=== PATIENT | male | born 1955 | race Caucasian/White ===

== ENCOUNTER → 2022-09-11 | Outpatient (CLI) | payer BC, SELFPAY ==
[2022-09-11 08:42] LABS: Bacteria 0 SEEN /hpf (None Seen); Mucous, Urine 0 SEEN /hpf (<or=2+); Red Blood Cells-Urine 0 SEEN /hpf (0-5); Squamous Epithelial Cells - UA 0 SEEN /hpf (0-5); White Blood Cells 0 SEEN /hpf (0-5)
[2022-09-11 10:08] LABS: Absolute Lymphocyte Count 1.91 X10^3/uL (0.83-4.51); Absolute Neutrophil Count 3.2 X10^3/uL (2.0-7.7); Basophil# 0.03 X10^3/uL; Basophil% 0.5 % (0-1); Eosinophil# 0.18 X10^3/uL; Eosinophils% 3.1 % (0-5); Hematocrit 50.1 % (40-54); Hemoglobin 16.5 g/dL (13.0-16.5); Lymphocyte # 1.91 X10^3/ul (0.83-4.51); Lymphocyte % 33.1 % (19-41); Mean Corp Hgb Conc 32.9 g/dL (32-36); Mean Platelet Vol. 10.5 fl (6.2-12.0); Monocyte# 0.38 X10^3/uL; Monocyte% 6.6 % (0-10); NRBC Flagged by Analyzer 0 % (0-5); Neutrophil # 3.24 X10^3/uL (2.7-7.7); Neutrophil % 56.2 % (47-70); Platelet Count 257 K/mm3 (150-450); RBC Distribution Width CV 11.9 % (11.6-14.6); RBC Distribution Width SD 41.2 fl (35.1-43.9); Red Blood Count 5.33 M/mm3 (4.6-6.2); White Blood Count 5.8 K/mm3 (4.4-11.0)
[2022-09-11 10:10] LABS: Color, Urine Yellow (Yellow); Glucose, Dipstick 1000 mg/dl (Normal); Ketone-Dipstick Negative (Negative); Leukocyte Esterase-Dipstick Negative /ul (Negative); Nitrite-Dipstick Negative (Negative); Occult Blood-Urine Negative /ul (Negative); Protein-Dipstick Negative (Negative); Urine Bilirubin Dipstick Negative (Negative); Urine Clarity Clear (Clear); Urine Urobilinogen Normal (Normal)
[2022-09-11 10:46] LABS: AST(SGOT) 15 U/L (15-37); Alanine Aminotransfer ALT/SGPT 21 U/L (16-61); Albumin, Serum 3.6 g/dL (3.2-5.0); Alkaline Phosphatase 124 U/L (45-117); Anion Gap 6 (5-15); BUN 11 mg/dL (7-18); BUN/Creat Ratio 10.8 RATIO (10-20); Calcium,Total 9.2 mg/dL (8.5-10.1); Chloride 102 mmol/L (98-107); Cholesterol 192 mg/dL (200); Creatinine, Serum 1.02 mg/dL (0.70-1.30); EST Glomerular Filtration Rate 77 mL/min (>60); Est Glom Filt Rate - Afr Amer 93 mL/min (>60); Globulin 3.7 g/dL (2.2-4.2); Glucose 531 mg/dL (74-106); High Density Lipoprotein 41 mg/dL; Magnesium 2.2 mg/dL (1.6-2.6); Potassium 4.4 mmol/L (3.5-5.1); Protein, Total 7.3 g/dL (6.4-8.2); Sodium Level 135 mmol/L (136-145); Thyroid Stim Hormone (TSH) 0.96 uIU/mL (0.358-3.74); Triglycerides 138 mg/dL; Very Low Density Lipoprotein 28 mg/dL (5-40)
[2022-09-11 12:37] LABS: Hemoglobin A1c 11.3 % (3.8-5.6)
== END | disposition home or self-care (01) ==
LOC: MFPLAB 08:39
PROVIDERS: PCP Family Medicine; Referring Provider Family Medicine; Visit Provider Family Medicine
DX: R03.0 Elevated blood-pressure reading, without diagnosis of hypertension (principal); K21.9 Gastro-esophageal reflux disease without esophagitis
CPT/HCPCS: 36415; 80053; 80061; 81001; 83036; 83735; 84443; 85025

== ENCOUNTER → 2022-09-23 | Outpatient (CLI) | payer BC, SELFPAY | END | disposition home or self-care (01) | PROVIDERS: PCP Family Medicine; Referring Provider Family Medicine; Visit Provider Family Medicine | DX: E11.9 Type 2 diabetes mellitus without complications (principal) | CPT/HCPCS: 36415 ==

== ENCOUNTER → 2022-12-16 | Outpatient (CLI) | payer BC, SELFPAY ==
[2022-12-16 09:47] LABS: Absolute Lymphocyte Count 2.09 X10^3/uL (0.83-4.51); Absolute Neutrophil Count 3.5 X10^3/uL (2.0-7.7); Basophil# 0.02 X10^3/uL; Basophil% 0.3 % (0-1); Eosinophil# 0.17 X10^3/uL; Eosinophils% 2.7 % (0-5); Hematocrit 48.2 % (40-54); Hemoglobin 16.2 g/dL (13.0-16.5); Lymphocyte # 2.09 X10^3/ul (0.83-4.51); Lymphocyte % 33.1 % (19-41); Mean Corp Hgb Conc 33.6 g/dL (32-36); Mean Corpuscular Volume 92.3 fL (80-94); Mean Platelet Vol. 9.8 fl (6.2-12.0); Monocyte# 0.55 X10^3/uL; Monocyte% 8.7 % (0-10); NRBC Flagged by Analyzer 0 % (0-5); Neutrophil # 3.46 X10^3/uL (2.7-7.7); Neutrophil % 54.9 % (47-70); Platelet Count 284 K/mm3 (150-450); RBC Distribution Width CV 12.4 % (11.6-14.6); RBC Distribution Width SD 42.3 fl (35.1-43.9); Red Blood Count 5.22 M/mm3 (4.6-6.2); White Blood Count 6.3 K/mm3 (4.4-11.0)
[2022-12-16 10:22] LABS: Microalbumin,Random Urine 18.5 mg/L (NO RANGE EST.); Microalbumin:Creatinine Ratio 10.2 mg/g CRE (<30 mg/g CRE)
[2022-12-16 10:29] LABS: ALB/GLOB Ratio 1.1 RATIO (0.9-2.4); AST(SGOT) 21 U/L (15-37); Alanine Aminotransfer ALT/SGPT 31 U/L (16-61); Albumin, Serum 3.7 g/dL (3.2-5.0); Alkaline Phosphatase 84 U/L (45-117); Anion Gap 7 (5-15); BUN 11 mg/dL (7-18); BUN/Creat Ratio 12.2 RATIO (10-20); Chloride 106 mmol/L (98-107); Cholesterol 104 mg/dL (200); EST Glomerular Filtration Rate 89 mL/min (>60); Est Glom Filt Rate - Afr Amer 107 mL/min (>60); Globulin 3.5 g/dL (2.2-4.2); Glucose 186 mg/dL (74-106); High Density Lipoprotein 47 mg/dL; PSA,Total - Annual Screen 5.48 ng/mL (0.00-4.00); Potassium 3.9 mmol/L (3.5-5.1); Protein, Total 7.2 g/dL (6.4-8.2); Sodium Level 141 mmol/L (136-145); Triglycerides 84 mg/dL; Very Low Density Lipoprotein 17 mg/dL (5-40)
== END | disposition home or self-care (01) ==
LOC: MFPLAB 09:07
PROVIDERS: PCP Family Medicine; Referring Provider Family Medicine; Visit Provider Family Medicine
DX: E11.9 Type 2 diabetes mellitus without complications (principal); Z12.5 Encounter for screening for malignant neoplasm of prostate
CPT/HCPCS: 36415; 80053; 80061; 82043; 82570; 83036; 84153; 85025; G0103

== ENCOUNTER → 2023-03-17 | Outpatient (CLI) | payer BC, SELFPAY ==
[2023-03-17 10:14] LABS: Absolute Lymphocyte Count 1.82 X10^3/uL (0.83-4.51); Absolute Neutrophil Count 3.3 X10^3/uL (2.0-7.7); Basophil# 0.03 X10^3/uL; Basophil% 0.5 % (0-1); Eosinophils% 3.4 % (0-5); Hematocrit 47.6 % (40-54); Lymphocyte # 1.82 X10^3/ul (0.83-4.51); Lymphocyte % 30.6 % (19-41); Mean Corp Hgb Conc 33.6 g/dL (32-36); Mean Corpuscular Hgb 30.9 pg (27.0-32.0); Mean Corpuscular Volume 92.1 fL (80-94); Mean Platelet Vol. 10.2 fl (6.2-12.0); Monocyte# 0.54 X10^3/uL; Monocyte% 9.1 % (0-10); NRBC Flagged by Analyzer 0 % (0-5); Neutrophil # 3.34 X10^3/uL (2.7-7.7); Neutrophil % 56.1 % (47-70); Platelet Count 280 K/mm3 (150-450); RBC Distribution Width CV 12.3 % (11.6-14.6); Red Blood Count 5.17 M/mm3 (4.6-6.2)
[2023-03-17 10:55] LABS: AST(SGOT) 21 U/L (15-37); Alanine Aminotransfer ALT/SGPT 34 U/L (16-61); Albumin, Serum 3.6 g/dL (3.2-5.0); Alkaline Phosphatase 79 U/L (45-117); Anion Gap 7 (5-15); BUN 14 mg/dL (7-18); BUN/Creat Ratio 15.3 RATIO (10-20); Chloride 107 mmol/L (98-107); Cholesterol 89 mg/dL (200); Creatinine, Serum 0.91 mg/dL (0.70-1.30); EST Glomerular Filtration Rate 87 mL/min (>60); Est Glom Filt Rate - Afr Amer 106 mL/min (>60); Globulin 3.7 g/dL (2.2-4.2); Glucose 164 mg/dL (74-106); High Density Lipoprotein 45 mg/dL; Protein, Total 7.3 g/dL (6.4-8.2); Sodium Level 141 mmol/L (136-145); Triglycerides 36 mg/dL; Very Low Density Lipoprotein 7 mg/dL (5-40)
[2023-03-17 11:02] LABS: Microalbumin,Random Urine 23.6 mg/L (NO RANGE EST.); Microalbumin:Creatinine Ratio 10.5 mg/g CRE (<30 mg/g CRE)
[2023-03-17 21:10] LABS: Hemoglobin A1c 6.7 % (3.8-5.6)
== END | disposition home or self-care (01) ==
LOC: MFPLAB 08:34
PROVIDERS: PCP Family Medicine; Visit Provider Family Medicine
DX: E11.9 Type 2 diabetes mellitus without complications (principal)
CPT/HCPCS: 36415; 80053; 80061; 82043; 82570; 83036; 85025

== ENCOUNTER → 2023-04-03 | Outpatient (CLI) | payer BC, SELFPAY ==
[2023-04-03 11:36] LABS: Anion Gap 7 (5-15); BUN 10 mg/dL (7-18); BUN/Creat Ratio 11.5 RATIO (10-20); Calcium,Total 9.5 mg/dL (8.5-10.1); Chloride 107 mmol/L (98-107); Creatinine, Serum 0.87 mg/dL (0.70-1.30); EST Glomerular Filtration Rate 92 mL/min (>60); Est Glom Filt Rate - Afr Amer 111 mL/min (>60); Glucose 116 mg/dL (74-106); Sodium Level 139 mmol/L (136-145)
== END | disposition home or self-care (01) ==
LOC: MFPLAB 09:00
PROVIDERS: PCP Family Medicine; Visit Provider Family Medicine
DX: E11.59 Type 2 diabetes mellitus with other circulatory complications (principal)
CPT/HCPCS: 36415; 80048

== ENCOUNTER → 2023-06-11 | Outpatient (CLI) | payer BC, SELFPAY ==
[2023-06-11 10:44] LABS: Absolute Lymphocyte Count 2.26 X10^3/uL (0.83-4.51); Absolute Neutrophil Count 3.9 X10^3/uL (2.0-7.7); Basophil# 0.02 X10^3/uL; Basophil% 0.3 % (0-1); Eosinophil# 0.14 X10^3/uL; Eosinophils% 2.1 % (0-5); Hematocrit 49.9 % (40-54); Hemoglobin 16.6 g/dL (13.0-16.5); Lymphocyte # 2.26 X10^3/ul (0.83-4.51); Lymphocyte % 33.1 % (19-41); Mean Corp Hgb Conc 33.3 g/dL (32-36); Mean Corpuscular Volume 93.1 fL (80-94); Mean Platelet Vol. 10.3 fl (6.2-12.0); Monocyte# 0.51 X10^3/uL; Monocyte% 7.5 % (0-10); NRBC Flagged by Analyzer 0 % (0-5); Neutrophil # 3.87 X10^3/uL (2.7-7.7); Neutrophil % 56.7 % (47-70); Platelet Count 280 K/mm3 (150-450); RBC Distribution Width CV 12.1 % (11.6-14.6); RBC Distribution Width SD 41.4 fl (35.1-43.9); Red Blood Count 5.36 M/mm3 (4.6-6.2); White Blood Count 6.8 K/mm3 (4.4-11.0)
[2023-06-11 11:07] LABS: Hemoglobin A1c 6.6 % (3.8-5.6)
[2023-06-11 11:16] LABS: ALB/GLOB Ratio 1.1 RATIO (0.9-2.4); AST(SGOT) 14 U/L (15-37); Alanine Aminotransfer ALT/SGPT 31 U/L (16-61); Albumin, Serum 3.8 g/dL (3.2-5.0); Alkaline Phosphatase 82 U/L (45-117); Anion Gap 5 (5-15); BUN 11 mg/dL (7-18); BUN/Creat Ratio 12.4 RATIO (10-20); Calcium,Total 9.5 mg/dL (8.5-10.1); Chloride 107 mmol/L (98-107); Cholesterol 106 mg/dL (200); Creatinine, Serum 0.89 mg/dL (0.70-1.30); EST Glomerular Filtration Rate 90 mL/min (>60); Est Glom Filt Rate - Afr Amer 109 mL/min (>60); Globulin 3.4 g/dL (2.2-4.2); Glucose 136 mg/dL (74-106); High Density Lipoprotein 43 mg/dL; Potassium 3.8 mmol/L (3.5-5.1); Protein, Total 7.2 g/dL (6.4-8.2); Sodium Level 141 mmol/L (136-145); Triglycerides 69 mg/dL; Very Low Density Lipoprotein 14 mg/dL (5-40)
[2023-06-12 12:09] LABS: PSA, Free 1.45 ng/mL; PSA, Free % 29.6 % (.)
== END | disposition home or self-care (01) ==
LOC: MFPLAB 08:12
PROVIDERS: PCP Family Medicine; Visit Provider Family Medicine
DX: E11.69 Type 2 diabetes mellitus with other specified complication (principal); R97.20 Elevated prostate specific antigen [PSA]
CPT/HCPCS: 36415; 80053; 80061; 83036; 84153; 84154; 85025

== ENCOUNTER → 2023-10-27 | Outpatient (CLI) | payer BC, SELFPAY ==
[2023-10-27 10:21] LABS: Absolute Lymphocyte Count 2.24 X10^3/uL (0.83-4.51); Absolute Neutrophil Count 4.1 X10^3/uL (2.0-7.7); Basophil# 0.03 X10^3/uL; Basophil% 0.4 % (0-1); Eosinophil# 0.16 X10^3/uL; Eosinophils% 2.2 % (0-5); Hematocrit 51.8 % (40-54); Hemoglobin 16.7 g/dL (13.0-16.5); Lymphocyte # 2.24 X10^3/ul (0.83-4.51); Lymphocyte % 31.3 % (19-41); Mean Corp Hgb Conc 32.2 g/dL (32-36); Mean Corpuscular Hgb 30.8 pg (27.0-32.0); Mean Corpuscular Volume 95.4 fL (80-94); Mean Platelet Vol. 10.5 fl (6.2-12.0); Monocyte# 0.63 X10^3/uL; Monocyte% 8.8 % (0-10); NRBC Flagged by Analyzer 0 % (0-5); Neutrophil # 4.06 X10^3/uL (2.7-7.7); Neutrophil % 56.7 % (47-70); Platelet Count 261 K/mm3 (150-450); RBC Distribution Width CV 12.5 % (11.6-14.6); RBC Distribution Width SD 43.3 fl (35.1-43.9); Red Blood Count 5.43 M/mm3 (4.6-6.2); White Blood Count 7.2 K/mm3 (4.4-11.0)
[2023-10-27 11:09] LABS: AST(SGOT) 16 U/L (15-37); Alanine Aminotransfer ALT/SGPT 29 U/L (16-61); Albumin, Serum 3.6 g/dL (3.2-5.0); Alkaline Phosphatase 93 U/L (45-117); Anion Gap 4 (5-15); BUN 14 mg/dL (7-18); BUN/Creat Ratio 14.8 RATIO (10-20); Calcium,Total 9.5 mg/dL (8.5-10.1); Chloride 109 mmol/L (98-107); Cholesterol 100 mg/dL (200); Creatinine, Serum 0.94 mg/dL (0.70-1.30); EST Glomerular Filtration Rate 84 mL/min (>60); Est Glom Filt Rate - Afr Amer 101 mL/min (>60); Globulin 3.5 g/dL (2.2-4.2); Glucose 213 mg/dL (74-106); High Density Lipoprotein 41 mg/dL; Potassium 4.1 mmol/L (3.5-5.1); Protein, Total 7.1 g/dL (6.4-8.2); Sodium Level 140 mmol/L (136-145); Triglycerides 72 mg/dL; Very Low Density Lipoprotein 14 mg/dL (5-40)
[2023-10-27 11:56] LABS: Hemoglobin A1c 6.6 % (3.8-5.6)
== END | disposition home or self-care (01) ==
LOC: MFPLAB 08:35
PROVIDERS: PCP Family Medicine; Visit Provider Family Medicine
DX: E11.69 Type 2 diabetes mellitus with other specified complication (principal)
CPT/HCPCS: 36415; 80053; 80061; 83036; 85025

== ENCOUNTER → 2023-11-27 | Outpatient (CLI) | payer BC, SELFPAY ==
--- OUTSIDE RECORDS SUMMARY | 2023-11-27 09:12 | XMS RPT_ITS | CCD ---
Author Name Unknown Address [address] [place] [address] Organization [facility] Care Team Providers Care Alarm Signaler Name Role Phone Unavailable Primary Care Provider Unavailabl e Allergies Allergy Classification Reported Allergen(s) Allergy Type Date of Onset Reaction(s) Facility (4 sources) Penicillins Propensity to adverse reactions [facility] Work Phone: (4 sources) Sulfonamides (Antibiotic) Propensity to adverse reactions [facility] Work Phone: Medications Completed/Discontinued Medications Medication Drug Class(es) Dates Sig (Normalized) Sig (Original) lansoprazole 30 mg delayed release oral capsule (4 sources) Proton Pump Inhibitor Start: 04-08-2010 lansoprazole(PREVA IQRA 30 MG CAP) Indications: Esophageal reflux Take one(1) tablet daily. 30 11 04/08/2010 Active Problems Problem Classification Problem Date Documented Date Episodic/Chronic Esophageal disorders (4 sources) Gastroesophageal reflux disease; Translations: [Gastro-esophageal reflux 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: 10-09-2006 10-09-2006 Chronic Substance-related disorders (4 sources) Tobacco user; Translations: [Nicotine dependence, unspecified, uncomplicated] Onset: 10-09-2006 10-09-2006 Chronic Encounters Encounter Date Encounter Type Care Provider Facility Start: 10-06-2023 ambulatory Laura Castañeda PSS [facility] Procedures Date Procedure Procedure Detail Performing Clinician Start: 03-22-2005 Lipid 1996 panel - S césar or Plasma Laura Castañeda PSS Plan of Treatment Date Care Activity Detail Author Start: 08-01-2024 COLOGUARD (FIT-DNA) COLOGUARD (FIT-D NA) [facility] Start: 08-01-2024 COLORECTAL CANCER SCREENING COLORECTAL CANCER SCREENING [facility] Start: 08-01-2024 Screening for malign ant neoplasm of colon [facility] Start: 06-26-2023 Influenza vaccination [facility] Start: 10-26-2022 ADVANCE DIRECTIVE DISCUSSION ADVANCE DIRECTIVE DISCUSSION [facility] Start: 10-26-2022 DEPRESSION ASSESSMENT DEPRESSION ASS ESSMENT [facility] Start: 2013 RSV Vaccine (1 - 1-d ose 60+ series) RSV Vaccine (1 - 1-dose 60+ series) [facility] Start: 03-22-2010 Lipid panel Lipid Screening [facility] Start: 03-22-2010 LIPID SCREEN LIPID SCREEN [facility] Start: 08-04-2005 DIABETES SCREEN DIABETES SCREEN [facility] Start: 08-04-2005 Diabetes Screening Diabetes Screenin g [facility] Start: 2003 SHINGRIX VACCINE (1 of 2) SHINGRIX V ACCINE (1 of 2) [facility] Start: [address] [facility] Start: [address] COLONOGRAPHY [facility] Start: 1998 FECAL OCCULT BLOOD FECAL OCCULT BLOO D [facility] Start: 1998 Screening for malign ant neoplasm of colon [facility] Start: 1998 SIGMOIDOSCOPY SIGMOIDOSCOPY [facility] Start: 01-20-[address] [facility] Start: 1971 HEPATITIS C SCREENING HEPATITIS C [facility] Start: 1971 Hepatitis C screening Hepatitis C [facility] Start: 1959 Pneumococcal Vaccine : 65+ (1 - PCV) Pneumococcal Vaccine: 65+ (1 - PCV) [facility] Start: 1959 PNEUMOCOCCAL: 65+ (1 - PCV) PNEUMOCOCCAL: 65+ (1 - PCV) [facility] Start: 1953 COVID-19 VACCINE (#1) COVID-19 VACCI NE (#1) [facility] Start: 1953 ABDOMINAL AORTIC ANE URYSM SCREENING ABDOMINAL AORTIC ANEURYSM SCREENING [facility] Start: 1953 Abdominal aortic ane urysm screening Abdominal Aortic Aneurysm Screening [facility] Social History Date Type Detail Facility Start: 04-15-[facility] Work Phone: History of tobacco use Cigarette Smoker [facility] Work Phone: Start: 04-15-2008 End: 10-02-2020 Cigarettes smoked current (pack per day) - Reported 0.5 [facility] Start: 06-10-2022 Alcohol intake Current drinke r of alcohol (finding) [facility] Start: 04-15-2008 Tobacco Comment 5 cgts/day [facility] Start: 04-15-2008 Alcohol Comment rarely [facility] Start: 1955 Sex Assigned At Not on file [facility] Start: 10-02-2020 End: 06-10-[address] [facility] National Score (1-10 0), lower number is lower risk Not on file [facility] Clinical Notes 01-13-2023 to 10-07-2023 Laura Castañeda PSS - 10/06/2023 12:37 PM Laura Dunn PSS - 06/30/2023 10:07 AM Kaylynn Grijalva MA - 05/13/2023 8:37 AM Lida Bowling MA - 03/05/2023 11:28 AM EDT Note Date & Type Note Facility 10-07-2023 Note HNO ID: [id number] Author: Nia Bonilla Service: ? Author Type: ? Type: Progress Notes Filed: 10/07/2023 10:57 AM Note Text: POPULATION HEALTH NAVIGATION OUTREACH Action/FYI Letter received and sent to be mailed Nia Bonilla October 07, 2023 10:55 AM [facility] 10-06-2023 Note HNO ID: [id number] Author: Laura Castañeda PSS Service: ? Author Type: ? Type: Progress Notes Filed: 10/06/2023 1:25 PM Note Text: POPULATION HEALTH NAVIGATION OUTREACH Action/FYI Need to verify PCP or est care Phone number listed is out of service; sending letter. Patient Identified by Name and : NO Outreach Outcome/Action Unable to reach patient: Phone number not valid / voicemail full Letter mailed Did you use a PCP flex slot to schedule this appointment? N/A Reason for Outreach Care Gap or Scheduling/Wellness visits Payer: No coverage found. Care Gap Reviewed:: Annual Wellness visit Flu Vaccine Reminder: Reminder note to check Health Maintenance for items below Health Maintenance items due: Abdominal Aortic Aneurysm Screening Never done Covid-19 Vaccine(1) Never done Pneumococcal Vaccine: 65+(1 - PCV) Never done Hepatitis C Screening Never done DTaP,Tdap,Td Vaccine(1 - Tdap) Never done Shingrix Vaccine(1 of 2) Never done Diabetes Screening due on 08/04/2005 Lipid Screening due on 03/22/2010 RSV Vaccine(1 - 1-dose 60+ series) Never done Advance Directive Discussion Never done Depression Assessment Never done Influenza Vaccine(1) Never done Navigation Signature: Laura Castañeda, NIKKI October 06, 2023 12:37 PM [facility] 10-06-2023 Note Patient Outreach (ROXANNA TNAV) LEEANNE ANTONIO ([id number]) 1955 Date Time Provider Department 10/06/23 LAURA CASTAÑEDA NETNAV During your visit today, we recorded the following information about you: Laura Castañeda, [facility] 10/06/2023 1:25 PM Signed POPULATION HEALTH NAVIGATION OUTREACH Action/FYI Need to verify PCP or est care Phone number listed is out of service; sending letter. Patient Identified by Name and : NO Outreach Outcome/Action Unable to reach patient: Phone number not valid / voicemail full Letter mailed Did you use a PCP flex slot to schedule this appointment? N/A Reason for Outreach Care Gap or Scheduling/Wellness visits Payer: No coverage found. Care Gap Reviewed:: Annual Wellness visit Flu Vaccine Reminder: Reminder note to check Health Maintenance for items below Health Maintenance items due: Abdominal Aortic Aneurysm Screening Never done Covid-19 Vaccine(1) Never done Pneumococcal Vaccine: 65+(1 - PCV) Never done Hepatitis C Screening Never done DTaP,Tdap,Td Vaccine(1 - Tdap) Never done Shingrix Vaccine(1 of 2) Never done Diabetes Screening due on 08/04/2005 Lipid Screening due on 03/22/2010 RSV Vaccine(1 - 1-dose 60+ series) Never done Advance Directive Discussion Never done Depression Assessment Never done Influenza Vaccine(1) Never done Navigation Signature: NIKKI Sanchez October 06, 2023 12:37 PM Nia Bonilla 10/07/2023 10:57 AM Signed POPULATION HEALTH NAVIGATION OUTREACH Action/FYI Letter received and sent to be mailed Nia Bonilla October 07, 2023 10:55 AM Allergies As of Date: 10/06/2023 Noted Allergy Reaction PENICILLINS 09/08/2006 SULFA (SULFONAMIDE ANTIBIOTICS) 09/08/2006 Date Reviewed: 09/22/2015 Reviewed by: Tiana Cabrera Lpn Fully Assessed Reason for Visit: Population Health Navigation Outreach [3910] Cmt: Duncan care gaps Prescriptions as of 10/07/2023 - lansoprazole(PREVACID 30 MG CAP) Take one(1) tablet daily. Problem List As Of Date 10/06/2023 Noted Resolved ESOPHAGEAL REFLUX [K21.9] 10/09/2006 TOBACCO USE DISORDER [F17.200] 10/09/2006 Letter Text Encounter Status:Closed by LAURA CASTAÑEDA on 10/06/23 [facility] 10-06-2023 History of Present illness Narrative POPULATION HEALTH NAVIGATION OUTREACH Action/FYI Need to verify PCP or est care Phone number listed is out of service; sending letter. Patient Identified by Name and : NO Outreach Outcome/Action Unable to reach patient: Phone number not valid / voicemail full Letter mailed Did you use a PCP flex slot to schedule this appointment? N/A Reason for Outreach Care Gap or Scheduling/Wellness visits Payer: No coverage found. Care Gap Reviewed:: Annual Wellness visit Flu Vaccine Reminder: Reminder note to check Health Maintenance for items below Health Maintenance items due: Abdominal Aortic Aneurysm Screening Never done Covid-19 Vaccine(1) Never done Pneumococcal Vaccine: 65+(1 - PCV) Never done Hepatitis C Screening Never done DTaP,Tdap,Td Vaccine(1 - Tdap) Never done Shingrix Vaccine(1 of 2) Never done Diabetes Screening due on 08/04/2005 Lipid Screening due on 03/22/2010 RSV Vaccine(1 - 1-dose 60+ series) Never done Advance Directive Discussion Never done Depression Assessment Never done Influenza Vaccine(1) Never done Navigation Signature: NIKKI Sanchez October 06, 2023 12:37 PM documented in this encounter [facility] 06-30-2023 Note Patient Outreach (ROXANNA TNDESI) PACOLEEANNE ([id number]) 1955 M Date Time Provider Department 06/30/23 LAURA CASTAÑEDA During your visit today, we recorded the following information about you: Laura Castañeda PSS 06/30/2023 1:57 PM Signed POPULATION HEALTH NAVIGATION OUTREACH Action/FYI Need to verify PCP or establish care Phone number listed is no longer in service, no mychart. Sending letter. Patient Identified by Name and : NO Outreach Outcome/Action Unable to reach patient: Phone number not valid / voicemail full Letter mailed Did you use a PCP flex slot to schedule this appointment? N/A Reason for Outreach Care Gap or Scheduling/Wellness visits Payer: No coverage found. Care Gap Reviewed:: Annual Wellness visit Reminder: Reminder note to check Health Maintenance for items below Health Maintenance items due: ABDOMINAL AORTIC ANEURYSM SCREENING Never done COVID-19 VACCINE(1) Never done PNEUMOCOCCAL: 65+(1 - PCV) Never done HEPATITIS C SCREENING Never done DTAP,TDAP,TD(1 - Tdap) Never done SHINGRIX VACCINE(1 of 2) Never done DIABETES SCREEN due on 08/04/2005 LIPID SCREEN due on 03/22/2010 ADVANCE DIRECTIVE DISCUSSION Never done DEPRESSION ASSESSMENT Never done INFLUENZA(1) due on 06/26/2023 Navigation Signature: NIKKI Sanchez June 30, 2023 10:07 AM Allergies As of Date: 06/30/2023 Noted Allergy Reaction PENICILLINS 09/08/2006 SULFA (SULFONAMIDE ANTIBIOTICS) 09/08/2006 Date Reviewed: 09/22/2015 Reviewed by: Rick Mathematics Technician, Tiana E - Fully Assessed Reason for Visit: Population Health Navigation Outreach [3910] Cmt: Jen care gaps Prescriptions as of 06/30/2023 - lansoprazole(PREVACID 30 MG CAP) Take one(1) tablet daily. Problem List As Of Date 06/30/2023 Noted Resolved ESOPHAGEAL REFLUX [K21.9] 10/09/2006 TOBACCO USE DISORDER [F17.200] 10/09/2006 Letter Text Encounter Status:Closed by LAURA CASTAÑEDA on 06/30/23 [facility] 06-30-2023 Note HNO ID: [id number] Author: Laura Castañeda PSS Service: ? Author Type: ? Type: Progress Notes Filed: 06/30/2023 1:57 PM Note Text: POPULATION HEALTH NAVIGATION OUTREACH Action/FYI Need to verify PCP or establish care Phone number listed is no longer in service, no mychart. Sending letter. Patient Identified by Name and : NO Outreach Outcome/Action Unable to reach patient: Phone number not valid / voicemail full Letter mailed Did you use a PCP flex slot to schedule this appointment? N/A Reason for Outreach Care Gap or Scheduling/Wellness visits Payer: No coverage found. Care Gap Reviewed:: Annual Wellness visit Reminder: Reminder note to check Health Maintenance for items below Health Maintenance items due: ABDOMINAL AORTIC ANEURYSM SCREENING Never done COVID-19 VACCINE(1) Never done PNEUMOCOCCAL: 65+(1 - PCV) Never done HEPATITIS C SCREENING Never done DTAP,TDAP,TD(1 - Tdap) Never done SHINGRIX VACCINE(1 of 2) Never done DIABETES SCREEN due on 08/04/2005 LIPID SCREEN due on 03/22/2010 ADVANCE DIRECTIVE DISCUSSION Never done DEPRESSION ASSESSMENT Never done INFLUENZA(1) due on 06/26/2023 Navigation Signature: NIKKI Sanchez June 30, 2023 10:07 AM [facility] 06-30-2023 History of Present illness Narrative POPULATION HEALTH NAVIGATION OUTREACH Action/FYI Need to verify PCP or establish care Phone number listed is no longer in service, no mychart. Sending letter. Patient Identified by Name and : NO Outreach Outcome/Action Unable to reach patient: Phone number not valid / voicemail full Letter mailed Did you use a PCP flex slot to schedule this appointment? N/A Reason for Outreach Care Gap or Scheduling/Wellness visits Payer: No coverage found. Care Gap Reviewed:: Annual Wellness visit Reminder: Reminder note to check Health Maintenance for items below Health Maintenance items due: ABDOMINAL AORTIC ANEURYSM SCREENING Never done COVID-19 VACCINE(1) Never done PNEUMOCOCCAL: 65+(1 - PCV) Never done HEPATITIS C SCREENING Never done DTAP,TDAP,TD(1 - Tdap) Never done SHINGRIX VACCINE(1 of 2) Never done DIABETES SCREEN due on 08/04/2005 LIPID SCREEN due on 03/22/2010 ADVANCE DIRECTIVE DISCUSSION Never done DEPRESSION ASSESSMENT Never done INFLUENZA(1) due on 06/26/2023 Navigation Signature: NIKKI Sanchez June 30, 2023 10:07 AM documented in this encounter [facility] 05-13-2023 Note Patient Outreach (NE TNAV) LEEANNE ANTONIO ([id number]) 1955 M Date Time Provider Department 05/13/23 KAYLYNN OSUNA During your visit today, we recorded the following information about you: Kaylynn Osuna MA 05/13/2023 11:17 AM Signed POPULATION HEALTH NAVIGATION OUTREACH Action/ Patient's phone is disconnected, no mychart, sent letter Patient needs: verify PCP Patient Identified by Name and : NO Outreach Outcome/Action Unable to reach patient: Phone number not valid / voicemail full Letter mailed Did you use a PCP flex slot to schedule this appointment? N/A Reason for Outreach Care Gap or Scheduling/Wellness visits Payer: No coverage found. Care Gap Reviewed:: Annual Wellness visit Reminder: Reminder note to check Health Maintenance for items below Health Maintenance items due: ABDOMINAL AORTIC ANEURYSM SCREENING Never done COVID-19 VACCINE(1) Never done PNEUMOCOCCAL: 65+(1 - PCV) Never done HEPATITIS C SCREENING Never done DTAP,TDAP,TD(1 - Tdap) Never done SHINGRIX VACCINE(1 of 2) Never done DIABETES SCREEN due on 08/04/2005 LIPID SCREEN due on 03/22/2010 ADVANCE DIRECTIVE DISCUSSION Never done DEPRESSION ASSESSMENT Never done Navigation Signature: Kaylynn Osuna Population Health Navigator May 13, 2023 8:37 AM Allergies As of Date: 05/13/2023 Noted Allergy Reaction PENICILLINS 09/08/2006 SULFA (SULFONAMIDE ANTIBIOTICS) 09/08/2006 Date Reviewed: 09/22/2015 Reviewed by: Tiana Cabrera Lpn Fully Assessed Reason for Visit: Population Health Navigation Outreach [3910] Cmt: Duncan Care Gaps Prescriptions as of 05/13/2023 - lansoprazole(PREVACID 30 MG CAP) Take one(1) tablet daily. Problem List As Of Date 05/13/2023 Noted Resolved ESOPHAGEAL REFLUX [K21.9] 10/09/2006 TOBACCO USE DISORDER [F17.200] 10/09/2006 Letter Text Encounter Status:Closed by KAYLYNN OSUNA on 05/13/23 [facility] 05-13-2023 Note HNO ID: [id number] Author: Kaylynn Osuna MA Service: ? Author Type: Aircraft Log Clerk Type: Progress Notes Filed: 05/13/2023 11:17 AM Note Text: POPULATION HEALTH NAVIGATION OUTREACH Action/FYI Patient's phone is disconnected, no mychart, sent letter Patient needs: verify PCP Patient Identified by Name and : NO Outreach Outcome/Action Unable to reach patient: Phone number not valid / voicemail full Letter mailed Did you use a PCP flex slot to schedule this appointment? N/A Reason for Outreach Care Gap or Scheduling/Wellness visits Payer: No coverage found. Care Gap Reviewed:: Annual Wellness visit Reminder: Reminder note to check Health Maintenance for items below Health Maintenance items due: ABDOMINAL AORTIC ANEURYSM SCREENING Never done COVID-19 VACCINE(1) Never done PNEUMOCOCCAL: 65+(1 - PCV) Never done HEPATITIS C SCREENING Never done DTAP,TDAP,TD(1 - Tdap) Never done SHINGRIX VACCINE(1 of 2) Never done DIABETES SCREEN due on 08/04/2005 LIPID SCREEN due on 03/22/2010 ADVANCE DIRECTIVE DISCUSSION Never done DEPRESSION ASSESSMENT Never done Navigation Signature: Kaylynn Osuna Population Health Navigator May 13, 2023 8:37 AM [facility] 05-13-2023 History of Present illness Narrative POPULATION HEALTH NAVIGATION OUTREACH Action/FYI Patient's phone is disconnected, no mychart, sent letter Patient needs: verify PCP Patient Identified by Name and : NO Outreach Outcome/Action Unable to reach patient: Phone number not valid / voicemail full Letter mailed Did you use a PCP flex slot to schedule this appointment? N/A Reason for Outreach Care Gap or Scheduling/Wellness visits Payer: No coverage found. Care Gap Reviewed:: Annual Wellness visit Reminder: Reminder note to check Health Maintenance for items below Health Maintenance items due: ABDOMINAL AORTIC ANEURYSM SCREENING Never done COVID-19 VACCINE(1) Never done PNEUMOCOCCAL: 65+(1 - PCV) Never done HEPATITIS C SCREENING Never done DTAP,TDAP,TD(1 - Tdap) Never done SHINGRIX VACCINE(1 of 2) Never done DIABETES SCREEN due on 08/04/2005 LIPID SCREEN due on 03/22/2010 ADVANCE DIRECTIVE DISCUSSION Never done DEPRESSION ASSESSMENT Never done Navigation Signature: Kaylynn Osuna Population Health Navigator May 13, 2023 8:37 AM documented in this encounter [facility] 03-05-2023 Note Patient Outreach (ROXANNA TNAV) LEEANNE ANTONIO ([id number]) 1955 M Date Time Provider Department 03/05/23 DAVID BOWLING During your visit today, we recorded the following information about you: David Bowling MA 03/05/2023 2:16 PM Signed POPULATION HEALTH NAVIGATION OUTREACH Action/FYI Due for: PCP verify Left VM; no MyChart Patient Identified by Name and : NO Outreach Outcome/Action Unable to reach patient: Left message Did you use a PCP flex slot to schedule this appointment? N/A Reason for Outreach Care Gap or Scheduling/Wellness visits Payer: No coverage found. Care Gap Reviewed:: Annual Wellness visit Reminder: Reminder note to check Health Maintenance for items below Health Maintenance items due: ABDOMINAL AORTIC ANEURYSM SCREENING Never done COVID-19 VACCINE(1) Never done PNEUMOCOCCAL: 65+(1 - PCV) Never done HEPATITIS C SCREENING Never done DTAP,TDAP,TD(1 - Tdap) Never done SHINGRIX VACCINE(1 of 2) Never done DIABETES SCREEN due on 08/04/2005 LIPID SCREEN due on 03/22/2010 ADVANCE DIRECTIVE DISCUSSION Never done DEPRESSION ASSESSMENT Never done Navigation Signature: David Bowling MA March 05, 2023 11:28 AM Allergies As of Date: 03/05/2023 Noted Allergy Reaction PENICILLINS 09/08/2006 SULFA (SULFONAMIDE ANTIBIOTICS) 09/08/2006 Date Reviewed: 09/22/2015 Reviewed by: Tiana Cabrera Lpn - Fully Assessed Reason for Visit: Population Health Navigation Outreach [3910] Cmt: Care Gaps Prescriptions as of 03/05/2023 - lansoprazole(PREVACID 30 MG CAP) Take one(1) tablet daily. Problem List As Of Date 03/05/2023 Noted Resolved ESOPHAGEAL REFLUX [K21.9] 10/09/2006 TOBACCO USE DISORDER [F17.200] 10/09/2006 Encounter Status:Closed by DAVID BOWLING on 03/05/23 [facility] 03-05-2023 Note HNO ID: [id number] Author: David Bowling MA Service: ? Author Type: Aircraft Log Clerk Type: Progress Notes Filed: 03/05/2023 2:16 PM Note Text: POPULATION HEALTH NAVIGATION OUTREACH Action/FYI Due for: PCP verify Left VM; no MyChart Patient Identified by Name and : NO Outreach Outcome/Action Unable to reach patient: Left message Did you use a PCP flex slot to schedule this appointment? N/A Reason for Outreach Care Gap or Scheduling/Wellness visits Payer: No coverage found. Care Gap Reviewed:: Annual Wellness visit Reminder: Reminder note to check Health Maintenance for items below Health Maintenance items due: ABDOMINAL AORTIC ANEURYSM SCREENING Never done COVID-19 VACCINE(1) Never done PNEUMOCOCCAL: 65+(1 - PCV) Never done HEPATITIS C SCREENING Never done DTAP,TDAP,TD(1 - Tdap) Never done SHINGRIX VACCINE(1 of 2) Never done DIABETES SCREEN due on 08/04/2005 LIPID SCREEN due on 03/22/2010 ADVANCE DIRECTIVE DISCUSSION Never done DEPRESSION ASSESSMENT Never done Navigation Signature: David Bowling MA March 05, 2023 11:28 AM [facility] 03-05-2023 History of Present illness Narrative POPULATION HEALTH NAVIGATION OUTREACH Action/FYI Due for: PCP verify Left VM; no MyChart Patient Identified by Name and : NO Outreach Outcome/Action Unable to reach patient: Left message Did you use a PCP flex slot to schedule this appointment? N/A Reason for Outreach Care Gap or Scheduling/Wellness visits Payer: No coverage found. Care Gap Reviewed:: Annual Wellness visit Reminder: Reminder note to check Health Maintenance for items below Health Maintenance items due: ABDOMINAL AORTIC ANEURYSM SCREENING Never done COVID-19 VACCINE(1) Never done PNEUMOCOCCAL: 65+(1 - PCV) Never done HEPATITIS C SCREENING Never done DTAP,TDAP,TD(1 - Tdap) Never done SHINGRIX VACCINE(1 of 2) Never done DIABETES SCREEN due on 08/04/2005 LIPID SCREEN due on 03/22/2010 ADVANCE DIRECTIVE DISCUSSION Never done DEPRESSION ASSESSMENT Never done Navigation Signature: David Bowling MA March 05, 2023 11:28 AM documented in this encounter [facility] 01-13-2023 Note Patient Outreach (NE TNAV) LEEANNE ANTONIO ([id number]) 1955 M Date Time Provider Department 01/13/23 KAYLYNN OSUNA During your visit today, we recorded the following information about you: Kaylynn Osuna MA 01/13/2023 10:31 AM Addendum POPULATION HEALTH NAVIGATION OUTREACH Action/FYI The patient's phone number on file has been disconnected. He does not have mychart. Letter sent. Patient need to confirm a PCP and set up a follow up. Mailed letter 01/12/2023 MM Patient Identified by Name and : NO Outreach Outcome/Action Unable to reach patient: Phone number not valid / voicemail full Letter mailed Did you use a PCP flex slot to schedule this appointment? No Reason for Outreach Care Gap or Scheduling/Wellness visits Payer: No coverage found. Care Gap Reviewed:: Annual Wellness visit Reminder: Reminder note to check Health Maintenance for items below Health Maintenance items due: ABDOMINAL AORTIC ANEURYSM SCREENING Never done COVID-19 VACCINE(1) Never done PNEUMOCOCCAL: 65+(1 - PCV) Never done HEPATITIS C SCREENING Never done DTAP,TDAP,TD(1 - Tdap) Never done SHINGRIX VACCINE(1 of 2) Never done DIABETES SCREEN due on 08/04/2005 LIPID SCREEN due on 03/22/2010 INFLUENZA(1) Never done ADVANCE DIRECTIVE DISCUSSION Never done DEPRESSION ASSESSMENT Never done Navigation Signature: Kaylynn Osuna Population Health Navigator January 13, 2023 9:29 AM Allergies As of Date: 01/13/2023 Noted Allergy Reaction PENICILLINS 09/08/2006 SULFA (SULFONAMIDE ANTIBIOTICS) 09/08/2006 Date Reviewed: 09/22/2015 Reviewed by: Tiana Cabrera Lpn - Fully Assessed Reason for Visit: Population Health Navigation Outreach [3910] Cmt: Duncan Care Gaps Prescriptions as of 01/13/2023 - lansoprazole(PREVACID 30 MG CAP) Take one(1) tablet daily. Problem List As Of Date 01/13/2023 Noted Resolved ESOPHAGEAL REFLUX [K21.9] 10/09/2006 TOBACCO USE DISORDER [F17.200] 10/09/2006 Letter Text Encounter Status:Closed by KAYLYNN OSUNA on 01/13/23 [facility] 01-13-2023 Note HNO ID: [id number] Author: Kaylynn Osuna MA Service: ? Author Type: Aircraft Log Clerk Type: Progress Notes Filed: 01/13/2023 3:26 PM Note Text: POPULATION HEALTH NAVIGATION OUTREACH Action/FYI The patient's phone number on file has been disconnected. He does not have mychart. Letter sent. Patient need to confirm a PCP and set up a follow up. Mailed letter 01/12/2023 MM Patient Identified by Name and : NO Outreach Outcome/Action Unable to reach patient: Phone number not valid / voicemail full Letter mailed Did you use a PCP flex slot to schedule this appointment? No Reason for Outreach Care Gap or Scheduling/Wellness visits Payer: No coverage found. Care Gap Reviewed:: Annual Wellness visit Reminder: Reminder note to check Health Maintenance for items below Health Maintenance items due: ABDOMINAL AORTIC ANEURYSM SCREENING Never done COVID-19 VACCINE(1) Never done PNEUMOCOCCAL: 63+(1 - PCV) Never done HEPATITIS C SCREENING Never done DTAP,TDAP,TD(1 - Tdap) Never done SHINGRIX VACCINE(1 of 2) Never done DIABETES SCREEN due on 08/04/2005 LIPID SCREEN due on 03/22/2010 INFLUENZA(1) Never done ADVANCE DIRECTIVE DISCUSSION Never done DEPRESSION ASSESSMENT Never done Navigation Signature: Kaylynn Osuna Population Health Navigator January 13, 2023 9:29 AM [facility] Summary Purpose Family History No Family History Records Found Advance Directives No Advanced Directives Records Found Additional Source Comments Source Comments (unrecognize d section and content) In the event this informatio n is protected by the Federal Confidentiality of Alcohol and Drug Abuse Patient Records regulations: The Federal rules restrict any use of the information to criminally investigate or prosecute any alcohol or drug abuse patient.[facility] the event this information is protected by the Federal Confidentiality of Alcohol and Drug Abuse Patient Records regulations: The Federal rules restrict any use of the information to criminally investigate or prosecute any alcohol or drug abuse patient.[facility] the event this information is protected by the Federal Confidentiality of Alcohol and Drug Abuse Patient Records regulations: The Federal rules restrict any use of the information to criminally investigate or prosecute any alcohol or drug abuse patient.[facility] the event this information is protected by the Federal Confidentiality of Alcohol and Drug Abuse Patient Records regulations: The Federal rules restrict any use of the information to criminally investigate or prosecute any alcohol or drug abuse patient.[facility] Reason for Visit (unrecogniz ed section and content) Reason Onset Date Comments Population Health Navigation Outreach 05/13/2023 [place] Care Gaps Reason Onset Date Comments Population Health Navigation Outreach 06/30/2023 [place] care gaps Reason Onset Date Comments Population Health Navigation Outreach 10/06/2023 [place] care gaps (unrecognized sect ion and content) No Status Records Found INFORMATION SOURCE (unrecogn ized section and content) FOR RECORDS PERTAINING TO PATIENTS WHO ARE OR HAVE BEEN ENROLLED IN A CHEMICAL DEPENDENCY/SUBSTANCEABUSE PROGRAM, SOME INFORMATION MAY BE OMITTED. This clinical summary was aggregated from multiple sources. Caution should be exercised in using it in the provision of clinical care. This summary normalizes information from multiple sources, and as a consequence, information in this document may materially change the coding, format and clinical context of patient data. In addition, data may be omitted in some cases. CLINICAL DECISIONS SHOULD BE BASED ON THE PRIMARY CLINICAL RECORDS. [facility] provides no warranty or guarantee of the accuracy or completeness of information in this document.
[2023-11-28 08:13] LABS: PSA, Free % 30.8 % (.)
== END | disposition home or self-care (01) ==
LOC: MFPLAB 08:47
PROVIDERS: PCP Family Medicine; Visit Provider Family Medicine
DX: R97.20 Elevated prostate specific antigen [PSA] (principal)
CPT/HCPCS: 36415; 84153; 84154

== ENCOUNTER → 2024-09-20 | Outpatient (CLI) | payer BC, SELFPAY ==
[2024-09-20 09:00] LABS: Bacteria 0 SEEN /hpf (None Seen); Mucous, Urine 0 SEEN /hpf (<or=2+); Red Blood Cells-Urine 0 SEEN /hpf (0-5); Squamous Epithelial Cells - UA 0 SEEN /hpf (0-5)
[2024-09-20 09:50] LABS: Color, Urine Yellow (Yellow); Glucose, Dipstick 1000 mg/dl (Normal); Ketone-Dipstick Negative (Negative); Leukocyte Esterase-Dipstick Negative /ul (Negative); Nitrite-Dipstick Negative (Negative); Occult Blood-Urine 10 /ul (Negative); Protein-Dipstick Negative (Negative); Urine Bilirubin Dipstick Negative (Negative); Urine Clarity Clear (Clear); Urine Urobilinogen Normal (Normal)
[2024-09-20 09:57] LABS: White Blood Cells 0-5 SEEN /hpf (0-5)
[2024-09-20 10:07] LABS: Basophil# 0.02 X10^3/uL; Basophil% 0.4 % (0-1); Eosinophil# 0.11 X10^3/uL; Hematocrit 50.8 % (40-54); Hemoglobin 16.4 g/dL (13.0-16.5); Lymphocyte % 33.3 % (19-41); Mean Corp Hgb Conc 32.3 g/dL (32-36); Mean Corpuscular Hgb 30.6 pg (27.0-32.0); Mean Corpuscular Volume 94.8 fL (80-94); Mean Platelet Vol. 10.4 fl (6.2-12.0); Monocyte# 0.45 X10^3/uL; Monocyte% 8.3 % (0-10); NRBC Flagged by Analyzer 0 % (0-5); Neutrophil % 55.6 % (47-70); Platelet Count 283 K/mm3 (150-450); RBC Distribution Width CV 12.6 % (11.6-14.6); RBC Distribution Width SD 44.3 fl (35.1-43.9); Red Blood Count 5.36 M/mm3 (4.6-6.2); White Blood Count 5.4 K/mm3 (4.4-11.0)
[2024-09-20 10:12] LABS: Microalbumin,Random Urine < 5.0 mg/L (NO RANGE EST.)
[2024-09-20 10:28] LABS: Hemoglobin A1c 6.2 % (3.8-5.6)
[2024-09-20 10:30] LABS: ALB/GLOB Ratio 1.2 RATIO (0.9-2.4); AST(SGOT) 14 U/L (15-37); Alanine Aminotransfer ALT/SGPT 26 U/L (16-61); Albumin, Serum 3.8 g/dL (3.2-5.0); Alkaline Phosphatase 79 U/L (45-117); Anion Gap 4 (5-15); BUN 11 mg/dL (7-18); BUN/Creat Ratio 12.9 RATIO (10-20); Calcium,Total 9.4 mg/dL (8.5-10.1); Chloride 106 mmol/L (98-107); Cholesterol 101 mg/dL (200); Creatinine, Serum 0.86 mg/dL (0.70-1.30); EST Glomerular Filtration Rate 94 mL/min (>60); Est Glom Filt Rate - Afr Amer 113 mL/min (>60); Globulin 3.3 g/dL (2.2-4.2); Glucose 146 mg/dL (74-106); High Density Lipoprotein 48 mg/dL; Potassium 4.4 mmol/L (3.5-5.1); Protein, Total 7.1 g/dL (6.4-8.2); Sodium Level 139 mmol/L (136-145); Triglycerides 74 mg/dL; Very Low Density Lipoprotein 15 mg/dL (5-40)
[2024-09-21 12:09] LABS: PSA, Free 1.65 ng/mL; PSA, Free % 30.6 % (.)
== END | disposition home or self-care (01) ==
LOC: MFPLAB 08:31
PROVIDERS: PCP Family Medicine; Visit Provider Family Medicine
DX: E11.8 Type 2 diabetes mellitus with unspecified complications (principal); R97.20 Elevated prostate specific antigen [PSA]
CPT/HCPCS: 36415; 80053; 80061; 81001; 82043; 82570; 83036; 84153; 84154; 85025

== ENCOUNTER → 2025-01-19 | Outpatient (CLI) | payer BC, SELFPAY ==
[2025-01-19 12:38] LABS: Absolute Lymphocyte Count 1.97 X10^3/uL (0.83-4.51); Absolute Neutrophil Count 3.6 X10^3/uL (2.0-7.7); Basophil# 0.03 X10^3/uL; Basophil% 0.5 % (0-1); Eosinophil# 0.14 X10^3/uL; Eosinophils% 2.2 % (0-5); Hematocrit 49.4 % (40-54); Hemoglobin 16.7 g/dL (13.0-16.5); Lymphocyte # 1.97 X10^3/ul (0.83-4.51); Lymphocyte % 31.4 % (19-41); Mean Corp Hgb Conc 33.8 g/dL (32-36); Mean Corpuscular Hgb 31.4 pg (27.0-32.0); Mean Corpuscular Volume 92.9 fL (80-94); Monocyte# 0.47 X10^3/uL; Monocyte% 7.5 % (0-10); NRBC Flagged by Analyzer 0 % (0-5); Neutrophil # 3.64 X10^3/uL (2.7-7.7); Neutrophil % 58.1 % (47-70); Platelet Count 264 K/mm3 (150-450); RBC Distribution Width CV 13.6 % (11.6-14.6); Red Blood Count 5.32 M/mm3 (4.6-6.2); White Blood Count 6.3 K/mm3 (4.4-11.0)
[2025-01-19 13:37] LABS: Microalbumin,Random Urine < 12.0 mg/L (NO RANGE EST.); Microalbumin:Creatinine Ratio UNABLE TO CALCULATE mg/g CRE
[2025-01-19 19:04] LABS: Hemoglobin A1c 6.2 % (<=5.6)
[2025-01-19 19:17] LABS: Cholesterol 113 mg/dL (<=200); High Density Lipoprotein 49 mg/dL; Low Density Lipoprotein Calc. 53 mg/dL; Triglycerides 52 mg/dL; Very Low Density Lipoprotein 10 mg/dL (5-40); cholesterol:hdl ratio screen 2.29
[2025-01-19 20:59] LABS: ALB/GLOB Ratio 1.7 RATIO (0.9-2.4); AST(SGOT) 16 U/L (<=37); Alanine Aminotransfer ALT/SGPT 14 U/L (<=46); Albumin, Serum 4.4 g/dL (3.4-4.8); Alkaline Phosphatase 76 U/L (40-129); Anion Gap 12 (5-15); BUN 13 mg/dL (4-19); BUN/Creat Ratio 14.5 RATIO (10-20); Calcium,Total 9.9 mg/dL (7.6-11.0); Chloride 105 mmol/L (98-108); Creatinine, Serum 0.88 mg/dL (0.70-1.20); EST Glomerular Filtration Rate 91 (>60); Globulin 2.7 g/dL (2.2-4.2); Glucose 152 mg/dL (70-99); Potassium 4.7 mmol/L (3.3-5.1); Protein, Total 7.1 g/dL (5.9-8.4); Sodium Level 142 mmol/L (133-145); Total Bilirubin 0.92 mg/dL (0.00-1.30)
[2025-01-23 12:08] LABS: PSA, Free 1.57 ng/mL; PSA, Free % 30.9 % (.)
== END | disposition home or self-care (01) ==
LOC: MFPLAB 08:37
PROVIDERS: PCP Family Medicine; Referring Provider Family Medicine; Visit Provider Family Medicine
DX: E11.8 Type 2 diabetes mellitus with unspecified complications (principal); R97.20 Elevated prostate specific antigen [PSA]
CPT/HCPCS: 36415; 80053; 80061; 82043; 82570; 83036; 84153; 84154; 85025

== ENCOUNTER → 2025-05-16 | Outpatient (CLI) | payer BC, SELFPAY ==
[2025-05-16 08:51] LABS: Mucous, Urine 0 SEEN /hpf (<or=2+); Red Blood Cells-Urine 0 SEEN /hpf (0-5); Squamous Epithelial Cells - UA 0 SEEN /hpf (0-5)
[2025-05-16 10:08] LABS: Hematocrit 49.4 % (40-54); Hemoglobin 16.8 g/dL (13.0-16.5); Immature Granulocytes Count 0.020 X10^3/uL (0.0-0.0); Mean Corp Hgb Conc 34.0 g/dL (32-36); Mean Corpuscular Volume 92.5 fL (80-94); Mean Platelet Vol. 9.9 fl (6.2-12.0); NRBC Flagged by Analyzer 0 % (0-5); Platelet Count 271 K/mm3 (150-450); RBC Distribution Width CV 12.5 % (11.6-14.6); RBC Distribution Width SD 42.8 fl (35.1-43.9); Red Blood Count 5.34 M/mm3 (4.6-6.2); White Blood Count 5.6 K/mm3 (4.4-11.0)
[2025-05-16 10:37] LABS: Color, Urine Yellow (Yellow); Glucose, Dipstick 1000 mg/dl (Normal); Ketone-Dipstick Negative (Negative); Leukocyte Esterase-Dipstick Negative /ul (Negative); Nitrite-Dipstick Negative (Negative); Occult Blood-Urine 10 /ul (Negative); Protein-Dipstick 15 mg/dl (Negative); Specific Gravity, Urine 1.010 (1.002-1.030); Urine Bilirubin Dipstick Negative (Negative)
[2025-05-16 10:42] LABS: Creatinine, Urine (random) 64.30 mg/dL (39.00-259.00); Microalbumin,Random Urine < 12.0 mg/L (<20 mg/L)
[2025-05-16 10:49] LABS: AST(SGOT) 16 U/L (<=37); Alanine Aminotransfer ALT/SGPT 16 U/L (<=46); Albumin, Serum 4.2 g/dL (3.4-4.8); Alkaline Phosphatase 87 U/L (40-129); Anion Gap 11 (5-15); BUN 14 mg/dL (4-19); BUN/Creat Ratio 16.4 RATIO (10-20); Calcium,Total 9.6 mg/dL (7.6-11.0); Carbon Dioxide 24.1 mmol/L (21.0-32.0); Chloride 105 mmol/L (98-108); Cholesterol 112 mg/dL (<=200); Globulin 2.8 g/dL (2.2-4.2); Glucose 185 mg/dL (70-99); Low Density Lipoprotein Calc. 54 mg/dL; Potassium 4.1 mmol/L (3.3-5.1); Triglycerides 77 mg/dL; Very Low Density Lipoprotein 15 mg/dL (5-40); cholesterol:hdl ratio screen 2.62
[2025-05-17 14:09] LABS: PSA, Free 1.57 ng/mL; PSA, Free % 26.5 % (.); PSA, Total Ultrasensitive 5.920 ng/mL (0.000-4.000)
== END | disposition home or self-care (01) ==
LOC: MFPLAB 08:47
PROVIDERS: PCP Family Medicine; Referring Provider Family Medicine; Visit Provider Family Medicine
DX: E11.8 Type 2 diabetes mellitus with unspecified complications (principal); R97.20 Elevated prostate specific antigen [PSA]
CPT/HCPCS: 80053; 80061; 81001; 82043; 82570; 83036; 84153; 84154; 85025

== ENCOUNTER → 2025-06-02 | Outpatient (CLI) | payer BC, SELFPAY ==
--- OUTSIDE RECORDS SUMMARY | 2025-06-02 09:29 | XMS RPT_ITS | CCD ---
Author Organization [facility] CliniSyri Care Team Providers Care Transmitter Supervisor Name Role Phone Unavailable Primary Care Provider Unavailrony Funes MD, Dr. Alex Malik Primary Care Provider Shantel SIERRA, Dr. Alex Malik Attending Provider Shantel SIERRA, Dr. Alex Malik Referring Provider Shantel SIERRA, Dr. Alex Malik Primary Care Provider [phone] Shantel SIERRA, Dr. Alex Malik Attending Provider Shantel SIERRA, Dr. Alex Malik Referring Provider Alex Funes Primary Care Unavailable Alex Funes Attending Unavailable Alex Funes Primary Care Unavailable Alex Funes Attending Unavailable Alex Funes Referring Unavailable Alex Funes Attending Unavailable Alex Funes Referring Unavailable Alex Funes Primary Care Unavailable Allergies Allergy Classification Reported Allergen(s) Allergy Type Date of Onset Reaction(s) Facility (4 sources) Penicillins Propensity to adverse reactions 6 [facility] Work Phone: (4 sources) Sulfonamides (Antibiotic) Propensity to adverse reactions 6 [facility] Work Phone: Medications Completed/Discontinued Medications Medication Drug Class(es) Dates Sig (Normalized) Sig (Original) lansoprazole 30 mg delayed release oral capsule (4 sources) Proton Pump Inhibitor Start: 04-08-2010 lansoprazole(PREVA IQRA 30 MG CAP) Indications: Esophageal reflux Take one(1) tablet daily. 30 11 04/08/2010 Active Comment on above: Take one(1) tablet d aily. Problems Problem Classification Problem Date Documented Date Episodic/Chronic Diabetes mellitus with complications (1 source) Type 2 diabetes mellitus with unspecified complications; Translations: [Type 2 diabetes mellitus with unspecified complications] Onset: 05-22-2025 Chronic Esophageal disorders (4 sources) Gastroesophageal reflux disease; Translations: [Gastro-esophageal reflux 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: 10-09-2006 10-09-2006 Chronic Substance-related disorders (4 sources) Tobacco user; Translations: [Nicotine dependence, unspecified, uncomplicated] Onset: 10-09-2006 10-09-2006 Chronic Results Test Name Value Interpretation Reference Range Facility PSA Total+%Freeon 05-17-2025 PSA, FREE 1.57 ng/mL Normal N/A [facility] Comment on above: Order Comment: Order Date: 01/19/25 Order Info: [id number] - MIACRE Order Info: [id number] - MIALB Result Comment: Gloria RINCON methodology. Performed By: #### L 3110.0500, L502.0250, L500.4050, L100.0100, L501.9985, L500.4100 #### [facility] [address] [place], [address] PSA, FREE % 26.5 Normal . [facility] Comment on above: Order Comment: Order Date: 01/19/25 Order Info: [id number] - MIACRE Order Info: [id number] - MIALB Result Comment: The table below lists the probability of prostate cancer for men with non-suspicious ISHAN results and total PSA between 4 and 10 ng/mL, by patient age (Tati et al, ANETA 1998, 279:1542). % Free PSA 50-64 yr 65-75 yr 0.00-10.00% 56% 55% 10.01-15.00% 24% 35% 15.01-20.00% 17% 23% 20.01-25.00% 10% 20% >25.00% 5% 9% Please note: Tati et al did not make specific recommendations regarding the use of percent free PSA for any other population of men. Performed at: [address] [id number] [employer]: Cam Peralta PhD, Phone: [phone] Performed By: #### L 3110.0500, L502.0250, L500.4050, L100.0100, L501.9985, L500.4100 #### [facility] [address] [place], [place], [id number] PSA, TOTAL ULTR 5.920 ng/mL Abnormal 0.000-4.000 [facility] Comment on above: Order Comment: Order Date: 01/19/25 Order Info: [id number] - MIACRE Order Info: [id number] - MIALB Result Comment: Gloria malik ECLIA methodology. According to the [place] [employer], Serum PSA should decrease and remain at undetectable levels after radical prostatectomy. The AUA defines biochemical recurrence as an initial PSA value 0.200 ng/mL or greater followed by a subsequent confirmatory PSA value 0.200 ng/mL or greater. Values obtained with different assay methods or kits cannot be used interchangeably. Results cannot be interpreted as absolute evidence of the presence or absence of malignant disease. Performed By: #### L 3110.0500, L502.0250, L500.4050, L100.0100, L501.9985, L500.4100 #### [facility] [address] [place], [address] Absolute lymphocyte countOrd ered By: Alex Funes on 05-16-2025 Lymphocytes Auto (Unsp spec) [#/Vol] 1.58 10*3/uL 0.83-4.51 [facility] Absolute neutrophil countOrd ered By: Alex Funes on 05-16-2025 Neutrophils (Bld) [#/Vol] 3.4 10*3/uL 2.0-7.7 [facility] Anion gap in Serum or Plasma Ordered By: Alex Funes on 05-16-2025 Anion gap [Moles/Vol] 11 mmol/L 5-15 [facility] Automated lymphocyte count a s percentage of total leukocytesOrdered By: Alex Funes on 05-16-2025 Lymphocytes/100 WBC Auto (Unsp spec) 28.1 % 19-41 [facility] BUN/creatinine ratioOrdered By: Alex Funes on 05-16-2025 Urea nitrogen/Creatinine [Mass ratio] 16.4 mg/mg 10-20 [facility] Basophil percentageOrdered B y: Alex Limariah on 05-16-2025 Basophils/100 WBC (Bld) 0.2 % 0-1 [facility] Bilirubin Test strip Ql (U)O rdered By: Alex Limariah on 05-16-2025 Bilirubin Ql (U) Negative Negative [facility] Bilirubin, totalOrdered By: Alex Shantel on 05-16-2025 Bilirubin [Mass/Vol] 0.95 mg/dL 0.00-1.30 [facility] CBC W/Diff, Automatedon 04-26 Absolute Lymph 1.58 X10 3/uL Normal 0.83-4.51 [facility] Comment on above: Order Comment: Order Date: 01/19/25 Order Info: [id number] - MIACRE Order Info: [id number] - MIALB Performed By: #### L 3110.0500, L502.0250, L500.4050, L100.0100, L501.9985, L500.4100 #### [facility] [address] [place], [place], [id number] Absolute Neut 3.4 X10 3/uL Normal 2.0-7.7 [facility] Comment on above: Order Comment: Order Date: 01/19/25 Order Info: [id number] - MIACRE Order Info: [id number] - MIALB Performed By: #### L 3110.0500, L502.0250, L500.4050, L100.0100, L501.9985, L500.4100 #### [facility] [address] [place], [address] Basophils/100 WBC (Bld) 0.2 % Normal 0-1 [facility] Comment on above: Order Comment: Order Date: 01/19/25 Order Info: [id number] - MIACRE Order Info: [id number] - MIALB Performed By: #### L 3110.0500, L502.0250, L500.4050, L100.0100, L501.9985, L500.4100 #### [facility] [address] [place], [address] Eosinophils/100 WBC (Bld) 2.8 % Normal 0-5 [facility] Comment on above: Order Comment: Order Date: 01/19/25 Order Info: [id number] - MIACRE Order Info: [id number] - MIALB Performed By: #### L 3110.0500, L502.0250, L500.4050, L100.0100, L501.9985, L500.4100 #### [facility] [address] [place], [address] Erythrocyte distribution width (RBC) [Ratio] 12.5 % Normal 11.6-14.6 [facility] Comment on above: Order Comment: Order Date: 01/19/25 Order Info: [id number] - MIACRE Order Info: [id number] - MIALB Performed By: #### L 3110.0500, L502.0250, L500.4050, L100.0100, L501.9985, L500.4100 #### [facility] [address] [place], [address] Hematocrit (Bld) [Volume fraction] 49.4 % Normal 40-54 [facility] Comment on above: Order Comment: Order Date: 01/19/25 Order Info: [id number] - MIACRE Order Info: [id number] - MIALB Performed By: #### L 3110.0500, L502.0250, L500.4050, L100.0100, L501.9985, L500.4100 #### [facility] [address] [place], [address] (202) Hemoglobin (Bld) [Mass/Vol] 16.8 g/dL High 13.0-16.5 [facility] Comment on above: Order Comment: Order Date: 01/19/25 Order Info: [id number] - MIACRE Order Info: [id number] - MIALB Performed By: #### L 3110.0500, L502.0250, L500.4050, L100.0100, L501.9985, L500.4100 #### [facility] [address] [place], [address] IG% 0.400 Normal 0.0-0.9 [facility] Comment on above: Order Comment: Order Date: 01/19/25 Order Info: [id number] - MIACRE Order Info: [id number] - MIALB Result Comment: IG% - Immature Granulocytes (promyelocytes, myelocytes and metamyelocytes) > 1% indicates that a LEFT SHIFT is Present. Performed By: #### L 3110.0500, L502.0250, L500.4050, L100.0100, L501.9985, L500.4100 #### [facility] [address] [place], [address] Lymphocytes/100 WBC (Bld) 28.1 % Normal 19-41 [facility] Comment on above: Order Comment: Order Date: 01/19/25 Order Info: [id number] - MIACRE Order Info: [id number] - MIALB Performed By: #### L 3110.0500, L502.0250, L500.4050, L100.0100, L501.9985, L500.4100 #### [facility] [address] [place], [address] MCH (RBC) [Entitic mass] 31.5 pg Normal 27.0-32.0 [facility] Comment on above: Order Comment: Order Date: 01/19/25 Order Info: [id number] - MIACRE Order Info: [id number] - MIALB Performed By: #### L 3110.0500, L502.0250, L500.4050, L100.0100, L501.9985, L500.4100 #### [facility] [address] [place], [address] MCHC (RBC) [Mass/Vol] 34.0 g/dL Normal 32-36 [facility] Comment on above: Order Comment: Order Date: 01/19/25 Order Info: [id number] - MIACRE Order Info: [id number] - MIALB Performed By: #### L 3110.0500, L502.0250, L500.4050, L100.0100, L501.9985, L500.4100 #### [facility] [address] [place], [address] MCV (RBC) [Entitic vol] 92.5 fL Normal 80-94 [facility] Comment on above: Order Comment: Order Date: 01/19/25 Order Info: [id number] - MIACRE Order Info: [id number] - MIALB Performed By: #### L 3110.0500, L502.0250, L500.4050, L100.0100, L501.9985, L500.4100 #### [facility] [address] [place], [place], [phone] ([address] Monocytes/100 WBC (Bld) 8.9 % Normal 0-10 [facility] Comment on above: Order Comment: Order Date: 01/19/25 Order Info: [id number] - MIACRE Order Info: [id number] - MIALB Performed By: #### L 3110.0500, L502.0250, L500.4050, L100.0100, L501.9985, L500.4100 #### [facility] [address] [place], [address] Neutrophils/100 WBC (Bld) 59.6 % Normal 47-70 [facility] Comment on above: Order Comment: Order Date: 01/19/25 Order Info: [id number] - MIACRE Order Info: [id number] - MIALB Performed By: #### L 3110.0500, L502.0250, L500.4050, L100.0100, L501.9985, L500.4100 #### [facility] [address] [place], [address] Nucleated RBC (Bld) [#/Vol] 0 10*3/uL Normal 0-5 [facility] Comment on above: Order Comment: Order Date: 01/19/25 Order Info: [id number] - MIACRE Order Info: [id number] - MIALB Performed By: #### L 3110.0500, L502.0250, L500.4050, L100.0100, L501.9985, L500.4100 #### [facility] [address] [place], [address] Platelet mean volume (Bld) [Entitic vol] 9.9 fL Normal 6.2-12.0 [facility] Comment on above: Order Comment: Order Date: 01/19/25 Order Info: [id number]- - MIACRE Order Info: [id number] - MIALB Performed By: #### L 3110.0500, L502.0250, L500.4050, L100.0100, L501.9985, L500.4100 #### [facility] [address] [place], [address] Platelets (Bld) [#/Vol] 271 10*3/uL Normal 150-450 [facility] Comment on above: Order Comment: Order Date: 01/19/25 Order Info: [id number] - MIACRE Order Info: [id number] - MIALB Performed By: #### L 3110.0500, L502.0250, L500.4050, L100.0100, L501.9985, L500.4100 #### [facility] [address] [place], [address] RBC (Bld) [#/Vol] 5.34 10*6/uL Normal 4.6-6.2 [facility] Comment on above: Order Comment: Order Date: 01/19/25 Order Info: [id number] - MIACRE Order Info: [id number] - MIALB Performed By: #### L 3110.0500, L502.0250, L500.4050, L100.0100, L501.9985, L500.4100 #### [facility] [address] [place], [place], [phone] RDW SD 42.8 fl Normal 35.1-43.9 [facility] Comment on above: Order Comment: Order Date: 01/19/25 Order Info: [id number] - MIACRE Order Info: [id number] - MIALB Performed By: #### L 3110.0500, L502.0250, L500.4050, L100.0100, L501.9985, L500.4100 #### [facility] [address] [place], [place], [phone] WBC (Bld) [#/Vol] 5.6 10*3/uL Normal 4.4-11.0 [facility] Comment on above: Order Comment: Order Date: 01/19/25 Order Info: [id number] - MIACRE Order Info: [id number] - MIALB Performed By: #### L 3110.0500, L502.0250, L500.4050, L100.0100, L501.9985, L500.4100 #### [facility] [address] [place], [place], [phone] Calculated very low density lipoprotein (VLDL) cholesterol measurementOrdered By: Alex Funes on 05-16-2025 Calculated very low density lipoprotein (VLDL) cholesterol measurement 15 mg/dL 5-40 [facility] Carbon dioxide, total [Moles /volume] in Central venous bloodOrdered By: Alex Funes on 05-16-2025 CO2 [Moles/Vol] 24.1 mmol/L 21.0-32.0 [facility] Chloride assayOrdered By: Kate Funes on 05-16-2025 Chloride [Moles/Vol] 105 mmol/L 98-108 [facility] Comprehensive Metabolic Prof ilon 05-16-2025 Albumin [Mass/Vol] 4.2 g/dL Normal 3.4-4.8 [facility] Comment on above: Order Comment: Order Date: 01/19/25 Order Info: [id number] - MIACRE Order Info: [id number] - MIALB Performed By: #### L 3110.0500, L502.0250, L500.4050, L100.0100, L501.9985, L500.4100 #### [facility] [address] [place], [place], [phone] Albumin/Globulin [Mass ratio] 1.5 {ratio} Normal 0.9-2.4 [facility] Comment on above: Order Comment: Order Date: 01/19/25 Order Info: [id number] - MIACRE Order Info: [id number] - MIALB Performed By: #### L 3110.0500, L502.0250, L500.4050, L100.0100, L501.9985, L500.4100 #### [facility] [address] [place], [place], [phone] ALK PHOS 87 U/L Normal 40-129 [facility] Comment on above: Order Comment: Order Date: 01/19/25 Order Info: [id number] - MIACRE Order Info: [id number] - MIALB Performed By: #### L 3110.0500, L502.0250, L500.4050, L100.0100, L501.9985, L500.4100 #### [facility] [address] [place], [place], [id number] ALT [Catalytic activity/Vol] 16 U/L Normal <=46 [facility] Comment on above: Order Comment: Order Date: 01/19/25 Order Info: [id number] - MIACRE Order Info: [id number] - MIALB Performed By: #### L 3110.0500, L502.0250, L500.4050, L100.0100, L501.9985, L500.4100 #### [facility] [address] [place], [address] AST [Catalytic activity/Vol] 16 U/L Normal <=37 [facility] Comment on above: Order Comment: Order Date: 01/19/25 Order Info: [id number] - MIACRE Order Info: [id number] - MIALB Performed By: #### L 3110.0500, L502.0250, L500.4050, L100.0100, L501.9985, L500.4100 #### [facility] [address] [place], [address] Bilirubin [Mass/Vol] 0.95 mg/dL Normal 0.00-1.30 [facility] Comment on above: Order Comment: Order Date: 01/19/25 Order Info: [id number] - MIACRE Order Info: [id number] - MIALB Performed By: #### L 3110.0500, L502.0250, L500.4050, L100.0100, L501.9985, L500.4100 #### [facility] [address] [place], [address] BUN/CRE 16.4 RATIO Normal 10-20 [facility] Comment on above: Order Comment: Order Date: 01/19/25 Order Info: [id number] - MIACRE Order Info: [id number] - MIALB Performed By: #### L 3110.0500, L502.0250, L500.4050, L100.0100, L501.9985, L500.4100 #### [facility] [address] [place], [address] Calcium [Mass/Vol] 9.6 mg/dL Normal 7.6-11.0 [facility] Comment on above: Order Comment: Order Date: 01/19/25 Order Info: [id number] - MIACRE Order Info: [id number] - MIALB Performed By: #### L 3110.0500, L502.0250, L500.4050, L100.0100, L501.9985, L500.4100 #### [facility] [address] [place], [address] Chloride [Moles/Vol] 105 mmol/L Normal 98-108 [facility] Comment on above: Order Comment: Order Date: 01/19/25 Order Info: [id number] - MIACRE Order Info: [id number] - MIALB Performed By: #### L 3110.0500, L502.0250, L500.4050, L100.0100, L501.9985, L500.4100 #### [facility] [address] [place], [address] CO2 [Moles/Vol] 24.1 mmol/L Normal 21.0-32.0 [facility] Comment on above: Order Comment: Order Date: 01/19/25 Order Info: [id number] - MIACRE Order Info: [id number] - MIALB Performed By: #### L 3110.0500, L502.0250, L500.4050, L100.0100, L501.9985, L500.4100 #### [facility] [address] [place], [address] Creatinine [Mass/Vol] 0.85 mg/dL Normal 0.70-1.20 [facility] Comment on above: Order Comment: Order Date: 01/19/25 Order Info: [id number] - MIACRE Order Info: [id number] - MIALB Performed By: #### L 3110.0500, L502.0250, L500.4050, L100.0100, L501.9985, L500.4100 #### [facility] [address] [place], [address] GAP 11 Normal 5-15 [facility] Comment on above: Order Comment: Order Date: 01/19/25 Order Info: [id number] - MIACRE Order Info: [id number] - MIALB Performed By: #### L 3110.0500, L502.0250, L500.4050, L100.0100, L501.9985, L500.4100 #### [facility] [address] [place], [address] GFR/1.73 sq M.predicted among non-blacks MDRD (S/P/Bld) [Vol rate/Area] 92 mL/min/{1.73_m2} Normal >60 [facility] Comment on above: Order Comment: Order Date: 01/19/25 Order Info: [id number] - MIACRE Order Info: [id number] - MIALB Result Comment: mL/m in/1.73m2 CKD-EPI Creatinine Equation (2020) Performed By: #### L 3110.0500, L502.0250, L500.4050, L100.0100, L501.9985, L500.4100 #### [facility] [address] [place], [address] Globulin (S) [Mass/Vol] 2.8 g/dL Normal 2.2-4.2 [facility] Comment on above: Order Comment: Order Date: 01/19/25 Order Info: [id number] - MIACRE Order Info: [id number] - MIALB Performed By: #### L 3110.0500, L502.0250, L500.4050, L100.0100, L501.9985, L500.4100 #### [facility] [address] [place], [address] Glucose [Mass/Vol] 185 mg/dL High 70-99 [facility] Comment on above: Order Comment: Order Date: 01/19/25 Order Info: [id number] - MIACRE Order Info: [id number] - MIALB Performed By: #### L 3110.0500, L502.0250, L500.4050, L100.0100, L501.9985, L500.4100 #### [facility] [address] [place], [address] Potassium [Moles/Vol] 4.1 mmol/L Normal 3.3-5.1 [facility] Comment on above: Order Comment: Order Date: 01/19/25 Order Info: [id number] - MIACRE Order Info: [id number] - MIALB Performed By: #### L 3110.0500, L502.0250, L500.4050, L100.0100, L501.9985, L500.4100 #### [facility] [address] [place], [address] Sodium [Moles/Vol] 140 mmol/L Normal 133-145 [facility] Comment on above: Order Comment: Order Date: 01/19/25 Order Info: [id number] - MIACRE Order Info: [id number] - MIALB Performed By: #### L 3110.0500, L502.0250, L500.4050, L100.0100, L501.9985, L500.4100 #### [facility] [address] [place], [place], [address] T PROT 7.0 g/dL Normal 5.9-8.4 [facility] Comment on above: Order Comment: Order Date: 01/19/25 Order Info: [id number] - MIACRE Order Info: [id number] - MIALB Performed By: #### L 3110.0500, L502.0250, L500.4050, L100.0100, L501.9985, L500.4100 #### [facility] [address] [place], [address] Urea nitrogen [Mass/Vol] 14 mg/dL Normal 4-19 [facility] Comment on above: Order Comment: Order Date: 01/19/25 Order Info: [id number] - MIACRE Order Info: [id number] - MIALB Performed By: #### L 3110.0500, L502.0250, L500.4050, L100.0100, L501.9985, L500.4100 #### [facility] [address] [place], [place], [id number] Eosinophil percentageOrdered By: Alex Funes on 05-16-2025 Eosinophils/100 WBC (Bld) 2.8 % 0-5 [facility] Erythrocyte distribution wid th ratioOrdered By: Alex Funes on 05-16-2025 Erythrocyte distribution width (RBC) [Ratio] 12.5 % 11.6-14.6 [facility] Erythrocyte distribution wid th standard deviationOrdered By: Alex Funes on 05-16-2025 Erythrocyte distribution width (RBC) [Ratio] 42.8 fl 35.1-43.9 [facility] Glomerular filtration rate ( GFR) estimation/1.73 sq m using serum, plasma, or whole bOrdered By: Alex Funes on 05-16-2025 GFR/1.73 sq M.predicted among non-blacks MDRD (S/P/Bld) [Vol rate/Area] 92 mL/min/{1.73_m2} >60 [facility] Comment on above: mL/min/1.73m2 CKD-EP I Creatinine Equation (2020) Hematocrit Auto (Bld) [Volum e fraction]Ordered By: Alex Funes on 05-16-2025 Hematocrit (Bld) [Volume fraction] 49.4 % 40-54 [facility] Hemoglobin A1con 05-16-2025 HbA1c (Bld) [Mass fraction] 6.5 % High <=5.6 [facility] Comment on above: Order Comment: Order Date: 01/19/25 Order Info: [id number] - MIACRE Order Info: [id number] - MIALB Result Comment: Norm al < 5.7 % Prediabetic 5.7 - 6.4 % Diabetic >or= 6.5 % Please note range changes. Performed By: #### L 3110.0500, L502.0250, L500.4050, L100.0100, L501.9985, L500.4100 #### [facility] [address] [place], [address] Hemoglobin A1c percentageOrd ered By: Alex Funes on 05-16-2025 HbA1c (Bld) [Mass fraction] 6.5 % High <5.7 [facility] Comment on above: Normal < 5.7 % Predi abetic 5.7 - 6.4 % Diabetic >or= 6.5 % Please note range changes. Hemoglobin measurementOrdere d By: Alex Funes on 05-16-2025 Hemoglobin (Bld) [Mass/Vol] 16.8 g/dL High 13.0-16.5 [facility] Immature granulocytes/100 WB C Auto (Bld)Ordered By: Alex Funes on 05-16-2025 Immature granulocytes/100 WBC (Bld) 0.400 % 0.0-0.9 [facility] Comment on above: IG% - Immature Granu locytes (promyelocytes, myelocytes and metamyelocytes) > 1% indicates that a LEFT SHIFT is Present. Ketones Test strip Ql (U)Ord ered By: Alex Funes on 05-16-2025 Ketones Ql (U) Negative Negative [facility] LDL calc ser/plasOrdered By: Alex Funes on 05-16-2025 Cholesterol in LDL [Mass/Vol] 54 mg/dL [facility] Comment on above: Isyhacaony=307-272 m g/dL & Higher Stxw=901 mg/dL or greater Laboratory - Chemistry and C hemistry - challengeOrdered By: Alex Funes on 05-16-2025 AST [Catalytic activity/Vol] 16 U/L <38 [facility] Lipid Profileon 05-16-2025 CHOL:HDL 2.62 Normal [facility] Comment on above: Order Comment: Order Date: 01/19/25 Order Info: 0779-1 - MIACRE Order Info: [id number] - MIALB Performed By: #### L 3110.0500, L502.0250, L500.4050, L100.0100, L501.9985, L500.4100 #### [facility] [address] [place], [address] Cholesterol [Mass/Vol] 112 mg/dL Normal <=200 [facility] Comment on above: Order Comment: Order Date: 01/19/25 Order Info: [id number] - MIACRE Order Info: [id number] - MIALB Result Comment: Chol esterol level, Desirable <200 mg/dL Borderline high cholesterol 200-239 mg/dL High cholesterol >=240 mg/dL Recommendations of the NCEP Adult Treatment Panel for the following risk-cutoff thresholds for the [place] population. Performed By: #### L 3110.0500, L502.0250, L500.4050, L100.0100, L501.9985, L500.4100 #### [facility] [address] [place], [address] Cholesterol in HDL [Mass/Vol] 43 mg/dL Normal [facility] Comment on above: Order Comment: Order Date: 01/19/25 Order Info: [id number] - MIACRE Order Info: [id number] - MIALB Result Comment: Griselda onal Cholesterol Education Program (NCEP) guidelines: <40 mg/dL: Low HDL-cholesterol (major risk factor for CHD) >= 60 mg/dL: High HDL-cholesterol (negative risk factor for CHD) HDL-cholesterol is affected by a number of factors, e.g. smoking, exercise, hormones, sex and age. Performed By: #### L 3110.0500, L502.0250, L500.4050, L100.0100, L501.9985, L500.4100 #### [facility] [address] [place], [address] Cholesterol in LDL [Mass/Vol] 54 mg/dL Normal [facility] Comment on above: Order Comment: Order Date: 01/19/25 Order Info: [id number] - MIACRE Order Info: [id number] - MIALB Result Comment: Bord bagmgc=500-846 mg/dL Higher Btpe=445 mg/dL or greater Performed By: #### L 3110.0500, L502.0250, L500.4050, L100.0100, L501.9985, L500.4100 #### [facility] [address] [place], [address] Cholesterol in VLDL [Mass/Vol] 15 mg/dL Normal 5-40 [facility] Comment on above: Order Comment: Order Date: 01/19/25 Order Info: [id number] - MIACRE Order Info: [id number] - MIALB Performed By: #### L 3110.0500, L502.0250, L500.4050, L100.0100, L501.9985, L500.4100 #### [facility] [address] [place], [place], [address] Triglyceride [Mass/Vol] 77 mg/dL Normal [facility] Comment on above: Order Comment: Order Date: 01/19/25 Order Info: [id number] - MIACRE Order Info: [id number] - MIALB Result Comment: The drugs N-Acetylcysteine and Metamizole may falsely depress this assay. Normal range: <150 mg/dL Borderline High: 150-199 mg/dL High: 200-499 mg/dL Very High: >500 mg/dL Performed By: #### L 3110.0500, L502.0250, L500.4050, L100.0100, L501.9985, L500.4100 #### [facility] [address] [place], [address] MCV (mean corpuscular volume ) determinationOrdered By: Alex Funes on 05-16-2025 MCV (RBC) [Entitic vol] 92.5 fL 80-94 [facility] Mean corpuscular hemoglobin (MCH) determinationOrdered By: Alex Funes on 05-16-2025 MCH (RBC) [Entitic mass] 31.5 pg 27.0-32.0 [facility] Mean corpuscular hemoglobin concentration (MCHC) determinationOrdered By: Alex Funes on 05-16-2025 MCHC (RBC) [Mass/Vol] 34.0 g/dL 32-36 [facility] Mean platelet volume determi nationOrdered By: Alex Funes on 05-16-2025 Platelet mean volume (Bld) [Entitic vol] 9.9 fL 6.2-12.0 [facility] Microalb:Creat Ratio,Random URon 05-16-2025 Creatinine [Mass/Vol] 64.30 mg/dL Normal 39.00-259.00 [facility] Comment on above: Order Comment: Order Date: 01/19/25 Order Info: [id number] - MIACRE Order Info: [id number] - MIALB Performed By: #### L 3110.0500, L502.0250, L500.4050, L100.0100, L501.9985, L500.4100 #### [facility] [address] [place], [place], [address] MALB:CREAT UNABLE TO CALCULATE Normal <30 mg/g CRE [facility] Comment on above: Order Comment: Order Date: 01/19/25 Order Info: [id number] - MIACRE Order Info: [id number] - MIALB Performed By: #### L 3110.0500, L502.0250, L500.4050, L100.0100, L501.9985, L500.4100 #### [facility] [address] [place], [place], [id number] MICROALBUMIN,UR < 12.0 Normal <20 mg/L [facility] Comment on above: Order Comment: Order Date: 01/19/25 Order Info: [id number] - MIACRE Order Info: [id number] - MIALB Performed By: #### L 3110.0500, L502.0250, L500.4050, L100.0100, L501.9985, L500.4100 #### [facility] [address] [place], [place], [id number] Microalbumin/creat ratio urO rdered By: Alex Funes on 05-16-2025 Urine microalbumin/creatinine ratio measurement UNABLE TO CALCULATE mg/g CRE <30 [facility] Microscopic analysis of urin e for red blood cells (RBC)Ordered By: Alex Funes on 05-16-2025 Microscopic analysis of urine for red blood cells (RBC) 0 SEEN /hpf 0-5 [facility] Monocyte percentageOrdered B y: Alex Funes on 05-16-2025 Monocytes/100 WBC (Bld) 8.9 % 0-10 [facility] Mucus LM Ql (Urine sed)Order ed By: Alex Funes on 05-16-2025 Mucus Ql (Urine sed) 0 SEEN /hpf [facility] Neutrophil percentageOrdered By: Alex Funes on 05-16-2025 Neutrophils/100 WBC (Bld) 59.6 % 47-70 [facility] Nitrite Test strip Ql (U)Ord ered By: Alex Funes on 05-16-2025 Nitrite Ql (U) Negative Negative [facility] Nucleated red blood cell per centageOrdered By: Alex Funes on 05-16-2025 Nucleated RBC/100 WBC (Bld) [Ratio] 0 % 0-5 [facility] Platelet countOrdered By: Kate Funes on 05-16-2025 Platelets (Bld) [#/Vol] 271 10*3/uL 150-450 [facility] Potassium measurement (mass/ volume)Ordered By: Alex Funes on 05-16-2025 Potassium (Unsp spec) [Mass/Vol] 4.1 mmol/L 3.3-5.1 [facility] Protein Test strip Ql (U)Ord ered By: Alex Funes on 05-16-2025 Protein Ql (U) 15 mg/dl High Negative [facility] RBC Auto (Bld) [#/Vol]Ordere d By: Alex Funes on 05-16-2025 RBC (Bld) [#/Vol] 5.34 10*6/uL 4.6-6.2 [facility] Random urine creatinine vickey urement (mass/volume)Ordered By: Alex Funes on 05-16-2025 Creatinine Unsp time (U) [Mass/Vol] 64.30 mg/dL 39.00-259.00 [facility] Screening total cholesterol/ high density lipoprotein (HDL) cholesterol ratioOrdered By: Alex Funes on 05-16-2025 Cholesterol.total/Terri sterol in HDL [Mass ratio] 2.62 {ratio} [facility] Serum creatinine measurement (mass/volume)Ordered By: Alex Funes on 05-16-2025 Creatinine [Mass/Vol] 0.85 mg/dL 0.70-1.20 [facility] Serum globulin measurementOr dered By: Alex Funes on 05-16-2025 Globulin (S) [Mass/Vol] 2.8 g/dL 2.2-4.2 [facility] Serum glucose measurement (m ass/volume)Ordered By: Alex Funes on 05-16-2025 Glucose [Mass/Vol] 185 mg/dL High 70-99 [facility] Serum or plasma alanine blair otransferase (ALT) measurementOrdered By: Alex Funes on 05-16-2025 ALT [Catalytic activity/Vol] 16 U/L <47 [facility] Serum or plasma albumin vickey urement (mass/volume)Ordered By: Alex Funes on 05-16-2025 Albumin [Mass/Vol] 4.2 g/dL 3.4-4.8 [facility] Serum or plasma albumin/glob ulin mass ratioOrdered By: Alex Funes on 05-16-2025 Albumin/Globulin [Mass ratio] 1.5 {ratio} 0.9-2.4 [facility] Serum or plasma alkaline robina sphatase measurementOrdered By: Alex Funes on 05-16-2025 ALP [Catalytic activity/Vol] 87 U/L 40-129 [facility] Serum or plasma calcium vickey urement (mass/volume)Ordered By: Alex Funes on 05-16-2025 Calcium [Mass/Vol] 9.6 mg/dL 7.6-11.0 [facility] Serum or plasma cholesterol in HDL measurement (mass/volume)Ordered By: Alex Funes on 05-16-2025 Cholesterol in HDL [Mass/Vol] 43 mg/dL >40 [facility] Comment on above: National Cholesterol Education Program (NCEP) guidelines:<40 mg/dL: Low HDL-cholesterol (major risk factor for CHD)>= 60 mg/dL: High HDL-cholesterol (negative risk factor for CHD)HDL-cholesterol is affected by a number of factors, e.g. smoking, exercise, hormones, sex and age. Serum or plasma cholesterol measurement (mass/volume)Ordered By: Alex Funes on 05-16-2025 Cholesterol [Mass/Vol] 112 mg/dL <201 [facility] Comment on above: Cholesterol level, D esirable <200 mg/dLBorderline high cholesterol 200-239 mg/dLHigh cholesterol >=240 mg/dLRecommendations of the NCEP Adult Treatment Panel for the following risk-cutoff thresholds for the [place] population. Serum or plasma free prostat e specific antigen (PSA)/total PSA mass ratioOrdered By: Alex Funes on 05-16-2025 Free PSA/Total PSA [Mass fraction] 26.5 % . [facility] Comment on above: The table below list s the probability of prostate cancer formen with non-suspicious ISHAN results and total PSA between4 and 10 ng/mL, by patient age (Tati et al, ANETA 1998,279:1542). % Free PSA 50-64 yr 65-75 yr 0.00-10.00% 56% 55% 10.01-15.00% 24% 35% 15.01-20.00% 17% 23% 20.01-25.00% 10% 20% >25.00% 5% 9%Please note: Tati et al did not make specific recommendations regarding the use of percent free PSA for any other population of men.Performed at: [facility] [id number] Director: Cam Peralta PhD, Phone: [phone] Serum or plasma urea nitroge n measurement (mass/volume)Ordered By: lAex Funes on 05-16-2025 Urea nitrogen [Mass/Vol] 14 mg/dL 4-19 [facility] Sodium levelOrdered By: Alex Funes on 05-16-2025 Sodium [Moles/Vol] 140 mmol/L 133-145 [facility] Squamous epithelial cells de tection in urine sediment by light microscopyOrdered By: Alex Funes on 05-16-2025 Epithelial cells.squamous LM Ql (Urine sed) 0 SEEN /hpf 0-5 [facility] Total proteinOrdered By: Joshua Funes on 05-16-2025 Protein [Mass/Vol] 7.0 g/dL 5.9-8.4 [facility] Triglycerides measurementOrd ered By: Alex Funes on 05-16-2025 Triglyceride [Mass/Vol] 77 mg/dL <199 [facility] Comment on above: The drugs N-Acetylcy steine and Metamizole may falsely depress this assay. Normal range: <150 mg/dLBorderline High: 150-199 mg/dLHigh: 200-499 mg/dLVery High: >500 mg/dL Urinalysis, Completeon 05-16 BACTERIA 0 SEEN Normal None Seen [facility] Comment on above: Order Comment: Order Date: 01/19/25 Order Info: [id number] - MIACRE Order Info: [id number] - MIALB Performed By: #### L 3110.0500, L502.0250, L500.4050, L100.0100, L501.9985, L500.4100 #### [facility] [address] [place], [address] EPI,SQUAMOUS 0 SEEN Normal 0-5 [facility] Comment on above: Order Comment: Order Date: 01/19/25 Order Info: [id number]- - MIACRE Order Info: [id number] - MIALB Performed By: #### L 3110.0500, L502.0250, L500.4050, L100.0100, L501.9985, L500.4100 #### [facility] [address] [place], [place], [id number] Mucus Ql (Urine sed) 0 SEEN Normal [facility] Comment on above: Order Comment: Order Date: 01/19/25 Order Info: [id number] - MIACRE Order Info: [id number] - MIALB Performed By: #### L 3110.0500, L502.0250, L500.4050, L100.0100, L501.9985, L500.4100 #### [facility] [address] [place], [address] RBC 0 SEEN Normal 0-5 [facility] Comment on above: Order Comment: Order Date: 01/19/25 Order Info: [id number] - MIACRE Order Info: [id number] - MIALB Performed By: #### L 3110.0500, L502.0250, L500.4050, L100.0100, L501.9985, L500.4100 #### [facility] [address] [place], [address] WBC 0 SEEN Normal 0-5 [facility] Comment on above: Order Comment: Order Date: 01/19/25 Order Info: [id number] - MIACRE Order Info: [id number] - MIALB Performed By: #### L 3110.0500, L502.0250, L500.4050, L100.0100, L501.9985, L500.4100 #### [facility] [address] [place], [address] Urine albumin measurement wi detection limit of 20 mg/L or less (mass/volume)Ordered By: Alex Funes on 05-16-2025 Albumin DL <= 20 mg/L (U) [Mass/Vol] < 12.0 mg/L <20 mg/L [facility] Urine clarityOrdered By: Joshua Funes on 05-16-2025 Clarity (U) Clear Clear [facility] Urine color determinationOrd ered By: Alex Funes on 05-16-2025 Color (U) Yellow Yellow [facility] Urine glucose detectionOrder ed By: Alex Funes on 05-16-2025 Glucose Ql (U) 1000 mg/dl High Normal [facility] Urine leukocyte esterase det ection by dipstickOrdered By: Alex Funes on 05-16-2025 Leukocyte esterase Test strip Ql (U) Negative Negative [facility] Urine pHOrdered By: Alex agustin on 05-16-2025 pH (U) 6.0 [pH] 5.0 - 8.0 [facility] Urine sediment bacteria coun t by microscopy (number/high power field)Ordered By: Alex Funes on 05-16-2025 Bacteria LM.HPF (Urine sed) [#/Area] 0 /[HPF] None Seen [facility] Urine specific gravity measu rementOrdered By: Alex Funes on 05-16-2025 Specific gravity (U) [Rel density] 1.010 1.002-1.030 [facility] Urine urobilinogen measureme ntOrdered By: Alex Funes on 05-16-2025 Urobilinogen Ql (U) Normal mg/dl Normal [facility] White blood cell (WBC) count Ordered By: Alex Funes on 05-16-2025 WBC (Bld) [#/Vol] 5.6 10*3/uL 4.4-11.0 [facility] White blood cell countOrdere d By: Alex Funes on 05-16-2025 White blood cell count 0 SEEN /hpf 0-5 [facility] PSA Total+%Freeon 01-23-2025 PSA, FREE 1.57 ng/mL Normal N/A [facility] Comment on above: Order Comment: Order Date: 01/19/25 Order Info: [id number] - PSAT%F Result Comment: Gloria RINCON methodology. Performed By: #### L 3110.0500, L502.0250, L500.4050, L100.0100, L501.9985, L500.4100 #### [facility] [address] [place], [place], [address] PSA, FREE % 30.9 Normal . [facility] Comment on above: Order Comment: Order Date: 01/19/25 Order Info: [id number] - PSAT%F Result Comment: The table below lists the probability of prostate cancer for men with non-suspicious ISHAN results and total PSA between 4 and 10 ng/mL, by patient age (Tati et al, ANETA 1998, 279:1542). % Free PSA 50-64 yr 65-75 yr 0.00-10.00% 56% 55% 10.01-15.00% 24% 35% 15.01-20.00% 17% 23% 20.01-25.00% 10% 20% >25.00% 5% 9% Please note: Tati et al did not make specific recommendations regarding the use of percent free PSA for any other population of men. Performed at: [facility] [address], [place] [id number] [employer]: Cam Peralta PhD, Phone: [phone] Performed By: #### L 3110.0500, L502.0250, L500.4050, L100.0100, L501.9985, L500.4100 #### [facility] [address] [place], [place], [id number] PSA, TOTAL ULTR 5.080 ng/mL Abnormal 0.000-4.000 [facility] Comment on above: Order Comment: Order Date: 01/19/25 Order Info: [id number] - PSAT%F Result Comment: Gloria malik ECLIA methodology. According to the [place] [employer], Serum PSA should decrease and remain at undetectable levels after radical prostatectomy. The AUA defines biochemical recurrence as an initial PSA value 0.200 ng/mL or greater followed by a subsequent confirmatory PSA value 0.200 ng/mL or greater. Values obtained with different assay methods or kits cannot be used interchangeably. Results cannot be interpreted as absolute evidence of the presence or absence of malignant disease. Performed By: #### L 3110.0500, L502.0250, L500.4050, L100.0100, L501.9985, L500.4100 #### [facility] [address] [place], [address] Absolute neutrophil countOrd ered By: lAex Funes on 2025 Neutrophils (Bld) [#/Vol] 3.6 10*3/uL 2.0-7.7 [facility] Albumin DL <= 20 mg/L (U) [M ass/Vol]Ordered By: Alex Funes on 2025 Urine Random Microalbumin < 12.0 mg/L NO RANGE EST. [facility] Anion gap in Serum or Plasma Ordered By: Alex Funes on 2025 Anion gap [Moles/Vol] 12 mmol/L 5-15 [facility] BUN/creatinine ratioOrdered By: Alex Funes on 2025 Urea nitrogen/Creatinine [Mass ratio] 14.5 mg/mg 10-20 [facility] Basophil percentageOrdered B y: Alex Funes on 2025 Basophils/100 WBC (Bld) 0.5 % 0-1 [facility] Bilirubin, totalOrdered By: Alex Funes on 2025 Bilirubin [Mass/Vol] 0.92 mg/dL 0.00-1.30 [facility] CBC W/Diff, Automatedon 12-25 Absolute Lymph 1.97 X10 3/uL Normal 0.83-4.51 [facility] Comment on above: Order Comment: Order Date: 01/19/25 Order Info: [id number]- - CBCD Performed By: #### L 3110.0500, L502.0250, L500.4050, L100.0100, L501.9985, L500.4100 #### [facility] [address] [place], [address] Absolute Neut 3.6 X10 3/uL Normal 2.0-7.7 [facility] Comment on above: Order Comment: Order Date: 01/19/25 Order Info: [id number] - CBCD Performed By: #### L 3110.0500, L502.0250, L500.4050, L100.0100, L501.9985, L500.4100 #### [facility] [address] [place], [address] Basophils/100 WBC (Bld) 0.5 % Normal 0-1 [facility] Comment on above: Order Comment: Order Date: 01/19/25 Order Info: [id number]- - CBCD Performed By: #### L 3110.0500, L502.0250, L500.4050, L100.0100, L501.9985, L500.4100 #### [facility] [address] [place], [address] Eosinophils/100 WBC (Bld) 2.2 % Normal 0-5 [facility] Comment on above: Order Comment: Order Date: 01/19/25 Order Info: [id number]- - CBCD Performed By: #### L 3110.0500, L502.0250, L500.4050, L100.0100, L501.9985, L500.4100 #### [facility] [address] [place], [place], [id number] Erythrocyte distribution width (RBC) [Ratio] 13.6 % Normal 11.6-14.6 [facility] Comment on above: Order Comment: Order Date: 01/19/25 Order Info: [id number] - CBCD Performed By: #### L 3110.0500, L502.0250, L500.4050, L100.0100, L501.9985, L500.4100 #### [facility] [address] [place], [place], [id number] Hematocrit (Bld) [Volume fraction] 49.4 % Normal 40-54 [facility] Comment on above: Order Comment: Order Date: 01/19/25 Order Info: [id number] - CBCD Performed By: #### L 3110.0500, L502.0250, L500.4050, L100.0100, L501.9985, L500.4100 #### [facility] [address] [place], [place], [id number] Hemoglobin (Bld) [Mass/Vol] 16.7 g/dL High 13.0-16.5 [facility] Comment on above: Order Comment: Order Date: 01/19/25 Order Info: [id number] - CBCD Performed By: #### L 3110.0500, L502.0250, L500.4050, L100.0100, L501.9985, L500.4100 #### [facility] [address] [place] [place], [address] IG% 0.300 Normal 0.0-0.9 [facility] Comment on above: Order Comment: Order Date: 01/19/25 Order Info: [id number] - CBCD Result Comment: IG% - Immature Granulocytes (promyelocytes, myelocytes and metamyelocytes) > 1% indicates that a LEFT SHIFT is Present. Performed By: #### L 3110.0500, L502.0250, L500.4050, L100.0100, L501.9985, L500.4100 #### [facility] [address] [place], [address] Lymphocytes/100 WBC (Bld) 31.4 % Normal 19-41 [facility] Comment on above: Order Comment: Order Date: 01/19/25 Order Info: 018- - CBCD Performed By: #### L 3110.0500, L502.0250, L500.4050, L100.0100, L501.9985, L500.4100 #### [facility] [address] [place], [address] MCH (RBC) [Entitic mass] 31.4 pg Normal 27.0-32.0 [facility] Comment on above: Order Comment: Order Date: 01/19/25 Order Info: [id number] - CBCD Performed By: #### L 3110.0500, L502.0250, L500.4050, L100.0100, L501.9985, L500.4100 #### [facility] [address] [place], [address] MCHC (RBC) [Mass/Vol] 33.8 g/dL Normal 32-36 [facility] Comment on above: Order Comment: Order Date: 01/19/25 Order Info: [id number]- - CBCD Performed By: #### L 3110.0500, L502.0250, L500.4050, L100.0100, L501.9985, L500.4100 #### [facility] [address] [place], [address] MCV (RBC) [Entitic vol] 92.9 fL Normal 80-94 [facility] Comment on above: Order Comment: Order Date: 01/19/25 Order Info: [id number]- - CBCD Performed By: #### L 3110.0500, L502.0250, L500.4050, L100.0100, L501.9985, L500.4100 #### [facility] [address] [place], [address] Monocytes/100 WBC (Bld) 7.5 % Normal 0-10 [facility] Comment on above: Order Comment: Order Date: 01/19/25 Order Info: [id number] - CBCD Performed By: #### L 3110.0500, L502.0250, L500.4050, L100.0100, L501.9985, L500.4100 #### [facility] [address] [place], [address] Neutrophils/100 WBC (Bld) 58.1 % Normal 47-70 [facility] Comment on above: Order Comment: Order Date: 01/19/25 Order Info: [id number] - CBCD Performed By: #### L 3110.0500, L502.0250, L500.4050, L100.0100, L501.9985, L500.4100 #### [facility] [address] [place], [address] Nucleated RBC (Bld) [#/Vol] 0 10*3/uL Normal 0-5 [facility] Comment on above: Order Comment: Order Date: 01/19/25 Order Info: [id number] - CBCD Performed By: #### L 3110.0500, L502.0250, L500.4050, L100.0100, L501.9985, L500.4100 #### [facility] [address] [place], [address] Platelet mean volume (Bld) [Entitic vol] 10.0 fL Normal 6.2-12.0 [facility] Comment on above: Order Comment: Order Date: 01/19/25 Order Info: [id number] - CBCD Performed By: #### L 3110.0500, L502.0250, L500.4050, L100.0100, L501.9985, L500.4100 #### [facility] [address] [place], [address] Platelets (Bld) [#/Vol] 264 10*3/uL Normal 150-450 [facility] Comment on above: Order Comment: Order Date: 01/19/25 Order Info: [id number] - CBCD Performed By: #### L 3110.0500, L502.0250, L500.4050, L100.0100, L501.9985, L500.4100 #### [facility] [address] [place], [address] RBC (Bld) [#/Vol] 5.32 10*6/uL Normal 4.6-6.2 [facility] Comment on above: Order Comment: Order Date: 01/19/25 Order Info: [id number] - CBCD Performed By: #### L 3110.0500, L502.0250, L500.4050, L100.0100, L501.9985, L500.4100 #### [facility] [address] [place], [address] RDW SD 46.0 fl High 35.1-43.9 [facility] Comment on above: Order Comment: Order Date: 01/19/25 Order Info: [id number] - CBCD Performed By: #### L 3110.0500, L502.0250, L500.4050, L100.0100, L501.9985, L500.4100 #### [facility] [address] [place], [address] WBC (Bld) [#/Vol] 6.3 10*3/uL Normal 4.4-11.0 [facility] Comment on above: Order Comment: Order Date: 01/19/25 Order Info: [id number] - CBCD Performed By: #### L 3110.0500, L502.0250, L500.4050, L100.0100, L501.9985, L500.4100 #### [facility] [address] [place], [place], [id number] Calculated very low density lipoprotein (VLDL) cholesterol measurementOrdered By: Alex Funes on 2025 VLDL Cholesterol 10 mg/dL 5-40 [facility] Carbon dioxide, total [Moles /volume] in Central venous bloodOrdered By: Alex Funes on 2025 CO2 [Moles/Vol] 25.0 mmol/L 21.0-32.0 [facility] Chloride assayOrdered By: Kate Funes on 2025 Chloride [Moles/Vol] 105 mmol/L 98-108 [facility] Comprehensive Metabolic Prof ilon 2025 Albumin [Mass/Vol] 4.4 g/dL Normal 3.4-4.8 [facility] Comment on above: Order Comment: Order Date: 01/19/25 Order Info: [id number] - CMP Order Info: [id number] - LIPID Performed By: #### L 3110.0500, L502.0250, L500.4050, L100.0100, L501.9985, L500.4100 #### [facility] [address] [place], [address] Albumin/Globulin [Mass ratio] 1.7 {ratio} Normal 0.9-2.4 [facility] Comment on above: Order Comment: Order Date: 01/19/25 Order Info: [id number] - CMP Order Info: [id number] - LIPID Performed By: #### L 3110.0500, L502.0250, L500.4050, L100.0100, L501.9985, L500.4100 #### [facility] [address] [place], [address] ALK PHOS 76 U/L Normal 40-129 [facility] Comment on above: Order Comment: Order Date: 01/19/25 Order Info: [id number] - CMP Order Info: [id number] - LIPID Performed By: #### L 3110.0500, L502.0250, L500.4050, L100.0100, L501.9985, L500.4100 #### [facility] [address] [place], [address] ALT [Catalytic activity/Vol] 14 U/L Normal <=46 [facility] Comment on above: Order Comment: Order Date: 01/19/25 Order Info: [id number] - CMP Order Info: [id number] - LIPID Performed By: #### L 3110.0500, L502.0250, L500.4050, L100.0100, L501.9985, L500.4100 #### [facility] [address] [place], [place], [id number] AST [Catalytic activity/Vol] 16 U/L Normal <=37 [facility] Comment on above: Order Comment: Order Date: 01/19/25 Order Info: [id number] - CMP Order Info: [id number] - LIPID Performed By: #### L 3110.0500, L502.0250, L500.4050, L100.0100, L501.9985, L500.4100 #### [facility] [address] [place], [place], [id number] Bilirubin [Mass/Vol] 0.92 mg/dL Normal 0.00-1.30 [facility] Comment on above: Order Comment: Order Date: 01/19/25 Order Info: [id number] - CMP Order Info: [id number] - LIPID Performed By: #### L 3110.0500, L502.0250, L500.4050, L100.0100, L501.9985, L500.4100 #### [facility] [address] [place], [place], [id number] BUN/CRE 14.5 RATIO Normal 10-20 [facility] Comment on above: Order Comment: Order Date: 01/19/25 Order Info: [id number] - CMP Order Info: [id number] - LIPID Performed By: #### L 3110.0500, L502.0250, L500.4050, L100.0100, L501.9985, L500.4100 #### [facility] [address] [place], [address] Calcium [Mass/Vol] 9.9 mg/dL Normal 7.6-11.0 [facility] Comment on above: Order Comment: Order Date: 01/19/25 Order Info: [id number] - CMP Order Info: [id number] - LIPID Performed By: #### L 3110.0500, L502.0250, L500.4050, L100.0100, L501.9985, L500.4100 #### [facility] [address] [place], [address] Chloride [Moles/Vol] 105 mmol/L Normal 98-108 [facility] Comment on above: Order Comment: Order Date: 01/19/25 Order Info: [id number] - CMP Order Info: [id number] - LIPID Performed By: #### L 3110.0500, L502.0250, L500.4050, L100.0100, L501.9985, L500.4100 #### [facility] [address] [place], [address] CO2 [Moles/Vol] 25.0 mmol/L Normal 21.0-32.0 [facility] Comment on above: Order Comment: Order Date: 01/19/25 Order Info: [id number] - CMP Order Info: [id number] - LIPID Performed By: #### L 3110.0500, L502.0250, L500.4050, L100.0100, L501.9985, L500.4100 #### [facility] [address] [place], [address] Creatinine [Mass/Vol] 0.88 mg/dL Normal 0.70-1.20 [facility] Comment on above: Order Comment: Order Date: 01/19/25 Order Info: [id number] - CMP Order Info: [id number] - LIPID Performed By: #### L 3110.0500, L502.0250, L500.4050, L100.0100, L501.9985, L500.4100 #### [facility] [address] [place], [address] GAP 12 Normal 5-15 [facility] Comment on above: Order Comment: Order Date: 01/19/25 Order Info: [id number] - CMP Order Info: [id number] - LIPID Performed By: #### L 3110.0500, L502.0250, L500.4050, L100.0100, L501.9985, L500.4100 #### [facility] [address] [place], [address] GFR/1.73 sq M.predicted among non-blacks MDRD (S/P/Bld) [Vol rate/Area] 91 mL/min/{1.73_m2} Normal >60 [facility] Comment on above: Order Comment: Order Date: 01/19/25 Order Info: [id number] - CMP Order Info: [id number] - LIPID Result Comment: mL/m in/1.73m2 CKD-EPI Creatinine Equation (2020) Performed By: #### L 3110.0500, L502.0250, L500.4050, L100.0100, L501.9985, L500.4100 #### [facility] [address] [place], [address] Globulin (S) [Mass/Vol] 2.7 g/dL Normal 2.2-4.2 [facility] Comment on above: Order Comment: Order Date: 01/19/25 Order Info: [id number] - CMP Order Info: [id number] - LIPID Performed By: #### L 3110.0500, L502.0250, L500.4050, L100.0100, L501.9985, L500.4100 #### [facility] [address] [place], [address] Glucose [Mass/Vol] 152 mg/dL High 70-99 [facility] Comment on above: Order Comment: Order Date: 01/19/25 Order Info: [id number] - CMP Order Info: [id number] - LIPID Performed By: #### L 3110.0500, L502.0250, L500.4050, L100.0100, L501.9985, L500.4100 #### [facility] [address] [place], [address] Potassium [Moles/Vol] 4.7 mmol/L Normal 3.3-5.1 [facility] Comment on above: Order Comment: Order Date: 01/19/25 Order Info: [id number] - CMP Order Info: [id number] - LIPID Performed By: #### L 3110.0500, L502.0250, L500.4050, L100.0100, L501.9985, L500.4100 #### [facility] [address] [place], [address] Sodium [Moles/Vol] 142 mmol/L Normal 133-145 [facility] Comment on above: Order Comment: Order Date: 01/19/25 Order Info: [id number] - CMP Order Info: [id number] - LIPID Performed By: #### L 3110.0500, L502.0250, L500.4050, L100.0100, L501.9985, L500.4100 #### [facility] [address] [place], [address] T PROT 7.1 g/dL Normal 5.9-8.4 [facility] Comment on above: Order Comment: Order Date: 01/19/25 Order Info: [id number] - CMP Order Info: [id number] - LIPID Performed By: #### L 3110.0500, L502.0250, L500.4050, L100.0100, L501.9985, L500.4100 #### [facility] [address] [place], [address] Urea nitrogen [Mass/Vol] 13 mg/dL Normal 4-19 [facility] Comment on above: Order Comment: Order Date: 01/19/25 Order Info: [id number] - CMP Order Info: [id number] - LIPID Performed By: #### L 3110.0500, L502.0250, L500.4050, L100.0100, L501.9985, L500.4100 #### [facility] [address] [place], [address] Creatinine Unsp time (U) [Ma ss/Vol]Ordered By: [facility] Creatinine (U) [Mass/Vol] 76.70 mg/dL 39.00-259.00 [facility] Eosinophil percentageOrdered By: [facility] Eosinophils/100 WBC (Bld) 2.2 % 0-5 [facility] Erythrocyte distribution wid th (RBC) [Ratio]Ordered By: [facility] Erythrocyte distribution width (RBC) [Entitic vol] 46.0 fL High 35.1-43.9 [facility] Erythrocyte distribution wid th ratioOrdered By: [facility] Erythrocyte distribution width (RBC) [Ratio] 13.6 % 11.6-14.6 [facility] Free PSA/Total PSA [Mass fra ction]Ordered By: Alex Funes on 2025 % Free Prostate Specific Ag Calc 30.9 % . [facility] Comment on above: The table below list s the probability of prostate cancer formen with non-suspicious ISHAN results and total PSA between4 and 10 ng/mL, by patient age (Tati et al, ANETA 1998,279:1542). % Free PSA 50-64 yr 65-75 yr 0.00-10.00% 56% 55% 10.01-15.00% 24% 35% 15.01-20.00% 17% 23% 20.01-25.00% 10% 20% >25.00% 5% 9%Please note: Tati et al did not make specific recommendations regarding the use of percent free PSA for any other population of men.Performed at: - [facility] [id number] [place], [place] [id number] Director: Cam Peralta PhD, Phone: [phone] Free prostate specific antig en (PSA) measurementOrdered By: Alex Funes on 2025 Free Prostate Specific Antigen 1.57 ng/mL N/A [facility] Comment on above: Mee ECLIA methodol ogy. GFR/1.73 sq M.predicted jazmine g non-blacks MDRD (S/P/Bld) [Vol rate/Area]Ordered By: Alex Funes on 2025 Estimated GFR (MDRD) Non-Af Amer 91 >60 [facility] Comment on above: mL/min/1.73m2 CKD-EP I Creatinine Equation (2020) Hematocrit Auto (Bld) [Volum e fraction]Ordered By: Alex Funes on 2025 Hematocrit (Bld) [Volume fraction] 49.4 % 40-54 [facility] Hemoglobin A1con 2025 HbA1c (Bld) [Mass fraction] 6.2 % Normal <=5.6 [facility] Comment on above: Order Comment: Order Date: 01/19/25 Order Info: [id number] - A1C Performed By: #### L 3110.0500, L502.0250, L500.4050, L100.0100, L501.9985, L500.4100 #### [facility] [address] [place] [address]. [place], [address] Hemoglobin A1c percentageOrd ered By: Alex Funes on 2025 HbA1c (Bld) [Mass fraction] 6.2 % >5.7 [facility] Hemoglobin measurementOrdere d By: Alex Funes on 2025 Hemoglobin (Bld) [Mass/Vol] 16.7 g/dL High 13.0-16.5 [facility] Immature granulocytes/100 WB C Auto (Bld)Ordered By: Alex Funes on 2025 Immature granulocytes/100 WBC (Bld) 0.300 % 0.0-0.9 [facility] Comment on above: IG% - Immature Granu locytes (promyelocytes, myelocytes and metamyelocytes) > 1% indicates that a LEFT SHIFT is Present. LDL calc ser/plasOrdered By: Alex Funes on 2025 LDL Cholesterol, Calculated 53 mg/dL [facility] Comment on above: Oliowkzmkm=601-486 m g/dL & Higher Oxdf=768 mg/dL or greater Laboratory - Chemistry and C hemistry - challengeOrdered By: Alex Funes on 2025 AST [Catalytic activity/Vol] 16 U/L <38 [facility] Lipid Profileon 2025 CHOL:HDL 2.29 Normal [facility] Comment on above: Order Comment: Order Date: 01/19/25 Order Info: [id number] - CMP Order Info: [id number] - LIPID Performed By: #### L 3110.0500, L502.0250, L500.4050, L100.0100, L501.9985, L500.4100 #### [facility] [address] [place], [address] Cholesterol [Mass/Vol] 113 mg/dL Normal <=200 [facility] Comment on above: Order Comment: Order Date: 01/19/25 Order Info: [id number] - CMP Order Info: [id number] - LIPID Result Comment: Chol esterol level, Desirable <200 mg/dL Borderline high cholesterol 200-239 mg/dL High cholesterol >=240 mg/dL Recommendations of the NCEP Adult Treatment Panel for the following risk-cutoff thresholds for the [place] population. Performed By: #### L 3110.0500, L502.0250, L500.4050, L100.0100, L501.9985, L500.4100 #### [facility] [address] [place], [address] Cholesterol in HDL [Mass/Vol] 49 mg/dL Normal [facility] Comment on above: Order Comment: Order Date: 01/19/25 Order Info: [id number] - CMP Order Info: [id number] - LIPID Result Comment: Griselda onal Cholesterol Education Program (NCEP) guidelines: <40 mg/dL: Low HDL-cholesterol (major risk factor for CHD) >= 60 mg/dL: High HDL-cholesterol (negative risk factor for CHD) HDL-cholesterol is affected by a number of factors, e.g. smoking, exercise, hormones, sex and age. Performed By: #### L 3110.0500, L502.0250, L500.4050, L100.0100, L501.9985, L500.4100 #### [facility] [address] [place], [address] Cholesterol in LDL [Mass/Vol] 53 mg/dL Normal [facility] Comment on above: Order Comment: Order Date: 01/19/25 Order Info: [id number] - CMP Order Info: [id number] - LIPID Result Comment: Bord ewpcpb=612-767 mg/dL Higher Ptqx=211 mg/dL or greater Performed By: #### L 3110.0500, L502.0250, L500.4050, L100.0100, L501.9985, L500.4100 #### [facility] [address] [place], [address] Cholesterol in VLDL [Mass/Vol] 10 mg/dL Normal 5-40 [facility] Comment on above: Order Comment: Order Date: 01/19/25 Order Info: [id number] - CMP Order Info: [id number] - LIPID Performed By: #### L 3110.0500, L502.0250, L500.4050, L100.0100, L501.9985, L500.4100 #### [facility] [address] [place], [address] Triglyceride [Mass/Vol] 52 mg/dL Normal [facility] Comment on above: Order Comment: Order Date: 01/19/25 Order Info: [id number] - CMP Order Info: [id number] - LIPID Result Comment: The drugs N-Acetylcysteine and Metamizole may falsely depress this assay. Normal range: <150 mg/dL Borderline High: 150-199 mg/dL High: 200-499 mg/dL Very High: >500 mg/dL Performed By: #### L 3110.0500, L502.0250, L500.4050, L100.0100, L501.9985, L500.4100 #### [facility] [address] [place], [address] Lymphocytes Auto (Unsp spec) [#/Vol]Ordered By: Alex Funes on 2025 Lymphocytes (Bld) [#/Vol] 1.97 10*3/uL 0.83-4.51 [facility] Lymphocytes/100 WBC Auto (Un sp spec)Ordered By: Alex Funes on 2025 Lymphocytes/100 WBC (Bld) 31.4 % 19-41 [facility] MCV (mean corpuscular volume ) determinationOrdered By: Alex Funes on 2025 MCV (RBC) [Entitic vol] 92.9 fL 80-94 [facility] Mean corpuscular hemoglobin (MCH) determinationOrdered By: Alex Funes on 2025 MCH (RBC) [Entitic mass] 31.4 pg 27.0-32.0 [facility] Mean corpuscular hemoglobin concentration (MCHC) determinationOrdered By: Alex Funes on 2025 MCHC (RBC) [Mass/Vol] 33.8 g/dL 32-36 [facility] Mean platelet volume determi nationOrdered By: Alex Funes on 2025 Platelet mean volume (Bld) [Entitic vol] 10.0 fL 6.2-12.0 [facility] Microalb:Creat Ratio,Random URon 2025 Creatinine [Mass/Vol] 76.70 mg/dL Normal 39.00-259.00 [facility] Comment on above: Order Comment: Order Date: 01/19/25 Order Info: [id number] - MIACRE Order Info: [id number] - MIALB Performed By: #### L 3110.0500, L502.0250, L500.4050, L100.0100, L501.9985, L500.4100 #### [facility] [address] [place], [address] MALB:CREAT UNABLE TO CALCULATE Normal [facility] Comment on above: Order Comment: Order Date: 01/19/25 Order Info: [id number] - MIACRE Order Info: [id number] - MIALB Performed By: #### L 3110.0500, L502.0250, L500.4050, L100.0100, L501.9985, L500.4100 #### [facility] [address] [place], [address] MICROALBUMIN,UR < 12.0 Normal NO RANGE EST. [facility] Comment on above: Order Comment: Order Date: 01/19/25 Order Info: [id number] - MIACRE Order Info: [id number] - MIALB Performed By: #### L 3110.0500, L502.0250, L500.4050, L100.0100, L501.9985, L500.4100 #### [facility] [address] [place], [place], [id number] Microalbumin/creat ratio urO rdered By: Alex Funes on 2025 Urine Microalbumin/Creatinine Ratio UNABLE TO CALCULATE mg/g CRE [facility] Monocyte percentageOrdered B y: Alex Funes on 2025 Monocytes/100 WBC (Bld) 7.5 % 0-10 [facility] Neutrophil percentageOrdered By: Alex Funes on 2025 Neutrophils/100 WBC (Bld) 58.1 % 47-70 [facility] Nucleated red blood cell per centageOrdered By: Alex Funes on 2025 Nucleated RBC/100 WBC (Bld) [Ratio] 0 % 0-5 [facility] PSA, totalOrdered By: Alex garza on 2025 Prostate Specific Ag, Ultra-Sensitv 5.080 ng/mL High 0.000-4.000 [facility] Comment on above: Mee ECLIA methodol ogy.According to the [place] [employer], Serum PSAshould decrease and remain at undetectable levels afterradical prostatectomy. The AUA defines biochemicalrecurrence as an initial PSA value 0.200 ng/mL or greaterfollowed by a subsequent confirmatory PSA value 0.200 ng/mLor greater. Values obtained with different assay methods orkits cannot be used interchangeably. Results cannot beinterpreted as absolute evidence of the presence or absenceof malignant disease. Platelet countOrdered By: Kate Funes on 2025 Platelets (Bld) [#/Vol] 264 10*3/uL 150-450 [facility] Potassium (Unsp spec) [Mass/ Vol]Ordered By: Alex Funes on 2025 Potassium [Moles/Vol] 4.7 mmol/L 3.3-5.1 [facility] RBC Auto (Bld) [#/Vol]Ordere d By: Alex Funes on 2025 RBC (Bld) [#/Vol] 5.32 10*6/uL 4.6-6.2 [facility] Screening total cholesterol/ high density lipoprotein (HDL) cholesterol ratioOrdered By: Alex Funes on 2025 Cholesterol.total/Terri sterol in HDL [Mass ratio] 2.29 {ratio} [facility] Serum creatinine measurement (mass/volume)Ordered By: Alex Funes on 2025 Creatinine [Mass/Vol] 0.88 mg/dL 0.70-1.20 [facility] Serum globulin measurementOr dered By: Alex Funes on 2025 Globulin (S) [Mass/Vol] 2.7 g/dL 2.2-4.2 [facility] Serum glucose measurement (m ass/volume)Ordered By: Alex Funes on 2025 Glucose [Mass/Vol] 152 mg/dL High 70-99 [facility] Serum or plasma alanine blair otransferase (ALT) measurementOrdered By: Alex Funes on 2025 ALT [Catalytic activity/Vol] 14 U/L <47 [facility] Serum or plasma albumin vickey urement (mass/volume)Ordered By: Alex Funes on 2025 Albumin [Mass/Vol] 4.4 g/dL 3.4-4.8 [facility] Serum or plasma albumin/glob ulin mass ratioOrdered By: Alex Funes on 2025 Albumin/Globulin [Mass ratio] 1.7 {ratio} 0.9-2.4 [facility] Serum or plasma alkaline robina sphatase measurementOrdered By: Alex Funes on 2025 ALP [Catalytic activity/Vol] 76 U/L 40-129 [facility] Serum or plasma calcium vickey urement (mass/volume)Ordered By: Alex Funes on 2025 Calcium [Mass/Vol] 9.9 mg/dL 7.6-11.0 [facility] Serum or plasma cholesterol in HDL measurement (mass/volume)Ordered By: Alex Funes on 2025 Cholesterol in HDL [Mass/Vol] 49 mg/dL >40 [facility] Comment on above: National Cholesterol Education Program (NCEP) guidelines:<40 mg/dL: Low HDL-cholesterol (major risk factor for CHD)>= 60 mg/dL: High HDL-cholesterol (negative risk factor for CHD)HDL-cholesterol is affected by a number of factors, e.g. smoking, exercise, hormones, sex and age. Serum or plasma cholesterol measurement (mass/volume)Ordered By: Alex Funes on 2025 Cholesterol [Mass/Vol] 113 mg/dL <201 [facility] Comment on above: Cholesterol level, D esirable <200 mg/dLBorderline high cholesterol 200-239 mg/dLHigh cholesterol >=240 mg/dLRecommendations of the NCEP Adult Treatment Panel for the following risk-cutoff thresholds for the [place] population. Serum or plasma urea nitroge n measurement (mass/volume)Ordered By: Alex Funes on 2025 Urea nitrogen [Mass/Vol] 13 mg/dL 4-19 [facility] Sodium levelOrdered By: Alex Funes on 2025 Sodium [Moles/Vol] 142 mmol/L 133-145 [facility] Total proteinOrdered By: Joshua Funes on 2025 Protein [Mass/Vol] 7.1 g/dL 5.9-8.4 [facility] Triglycerides measurementOrd ered By: Alex Funes on 2025 Triglyceride [Mass/Vol] 52 mg/dL <199 [facility] Comment on above: The drugs N-Acetylcy steine and Metamizole may falsely depress this assay. Normal range: <150 mg/dLBorderline High: 150-199 mg/dLHigh: 200-499 mg/dLVery High: >500 mg/dL White blood cell (WBC) count Ordered By: Alex Funes on 2025 WBC (Bld) [#/Vol] 6.3 10*3/uL 4.4-11.0 [facility] PSA Total+%Freeon 09-21-2024 PSA, FREE 1.65 ng/mL Normal N/A [facility] Comment on above: Order Comment: Order Date: 01/19/25 Order Info: [id number] - MIACRE Order Info: [id number] - MIALB Result Comment: Gloria RINCON methodology. Performed By: #### L 3110.0500, L502.0250, L500.4050, L100.0100, L501.9985, L500.4100 #### [facility] [address] [place], [place], [id number] PSA, FREE % 30.6 Normal . [facility] Comment on above: Order Comment: Order Date: 01/19/25 Order Info: [id number] - MIACRE Order Info: [id number] - MIALB Result Comment: The table below lists the probability of prostate cancer for men with non-suspicious ISHAN results and total PSA between 4 and 10 ng/mL, by patient age (Tati et al, ANETA 1998, 279:1542). % Free PSA 50-64 yr 65-75 yr 0.00-10.00% 56% 55% 10.01-15.00% 24% 35% 15.01-20.00% 17% 23% 20.01-25.00% 10% 20% >25.00% 5% 9% Please note: Tati et al did not make specific recommendations regarding the use of percent free PSA for any other population of men. Performed at: [address] [id number] [employer]: Cam Peralta PhD, Phone: [phone] Performed By: #### L 3110.0500, L502.0250, L500.4050, L100.0100, L501.9985, L500.4100 #### [facility] [address] [place], [place], [phone] ([phone]) PSA, TOTAL ULTR 5.390 ng/mL Abnormal 0.000-4.000 [facility] Comment on above: Order Comment: Order Date: 01/19/25 Order Info: [id number] - MIACRE Order Info: [id number] - MIALB Result Comment: Gloria RINCON methodology. According to the [place] [employer], Serum PSA should decrease and remain at undetectable levels after radical prostatectomy. The AUA defines biochemical recurrence as an initial PSA value 0.200 ng/mL or greater followed by a subsequent confirmatory PSA value 0.200 ng/mL or greater. Values obtained with different assay methods or kits cannot be used interchangeably. Results cannot be interpreted as absolute evidence of the presence or absence of malignant disease. Performed By: #### L 3110.0500, L502.0250, L500.4050, L100.0100, L501.9985, L500.4100 #### [facility] [address] [place], [place], [phone] ([phone]) CBC W/Diff, Automatedon 08-27 Absolute Lymph 1.80 X10 3/uL Normal 0.83-4.51 [facility] Comment on above: Order Comment: Order Date: 03/18/24 Order Info: [id number] - CBCD Performed By: #### L 500.4050, L100.0100, L501.9985, L502.0250, L3110.0500, L500.4100 #### [facility] [address] [place], [place], [phone] (360) Absolute Neut 3.0 X10 3/uL Normal 2.0-7.7 [facility] Comment on above: Order Comment: Order Date: 03/18/24 Order Info: [id number] - CBCD Performed By: #### L 500.4050, L100.0100, L501.9985, L502.0250, L3110.0500, L500.4100 #### [facility] [address] [place], [address] Basophils/100 WBC (Bld) 0.4 % Normal 0-1 [facility] Comment on above: Order Comment: Order Date: 03/18/24 Order Info: [id number] - CBCD Performed By: #### L 500.4050, L100.0100, L501.9985, L502.0250, L3110.0500, L500.4100 #### [facility] [address] [place], [address] Eosinophils/100 WBC (Bld) 2.0 % Normal 0-5 [facility] Comment on above: Order Comment: Order Date: 03/18/24 Order Info: [id number] - CBCD Performed By: #### L 500.4050, L100.0100, L501.9985, L502.0250, L3110.0500, L500.4100 #### [facility] [address] [place], [address] Erythrocyte distribution width (RBC) [Ratio] 12.6 % Normal 11.6-14.6 [facility] Comment on above: Order Comment: Order Date: 03/18/24 Order Info: [id number] - CBCD Performed By: #### L 500.4050, L100.0100, L501.9985, L502.0250, L3110.0500, L500.4100 #### [facility] [address] [place], [address] Hematocrit (Bld) [Volume fraction] 50.8 % Normal 40-54 [facility] Comment on above: Order Comment: Order Date: 03/18/24 Order Info: [id number] - CBCD Performed By: #### L 500.4050, L100.0100, L501.9985, L502.0250, L3110.0500, L500.4100 #### [facility] [address] [place], [address] Hemoglobin (Bld) [Mass/Vol] 16.4 g/dL Normal 13.0-16.5 [facility] [facility] Comment on above: Order Comment: Order Date: 03/18/24 Order Info: 0184-1 - CBCD Performed By: #### L 500.4050, L100.0100, L501.9985, L502.0250, L3110.0500, L500.4100 #### [facility] [address] [place], [address] IG% 0.400 Normal 0.0-0.9 [facility] Comment on above: Order Comment: Order Date: 03/18/24 Order Info: [id number]- - CBCD Result Comment: IG% - Immature Granulocytes (promyelocytes, myelocytes and metamyelocytes) > 1% indicates that a LEFT SHIFT is Present. Performed By: #### L 500.4050, L100.0100, L501.9985, L502.0250, L3110.0500, L500.4100 #### [facility] [address] [place], [address] Lymphocytes/100 WBC (Bld) 33.3 % Normal 19-41 [facility] Comment on above: Order Comment: Order Date: 03/18/24 Order Info: [id number] - CBCD Performed By: #### L 500.4050, L100.0100, L501.9985, L502.0250, L3110.0500, L500.4100 #### [facility] [address] [place], [address] MCH (RBC) [Entitic mass] 30.6 pg Normal 27.0-32.0 [facility] Comment on above: Order Comment: Order Date: 03/18/24 Order Info: [id number] - CBCD Performed By: #### L 500.4050, L100.0100, L501.9985, L502.0250, L3110.0500, L500.4100 #### [facility] [address] [place], [address] MCHC (RBC) [Mass/Vol] 32.3 g/dL Normal 32-36 [facility] Comment on above: Order Comment: Order Date: 03/18/24 Order Info: 0184-1 - CBCD Performed By: #### L 500.4050, L100.0100, L501.9985, L502.0250, L3110.0500, L500.4100 #### [facility] [address] [place], [address] MCV (RBC) [Entitic vol] 94.8 fL High 80-94 [facility] Comment on above: Order Comment: Order Date: 03/18/24 Order Info: [id number] - CBCD Performed By: #### L 500.4050, L100.0100, L501.9985, L502.0250, L3110.0500, L500.4100 #### [facility] [address] [place], [address] Monocytes/100 WBC (Bld) 8.3 % Normal 0-10 [facility] Comment on above: Order Comment: Order Date: 03/18/24 Order Info: 0184-1 - CBCD Performed By: #### L 500.4050, L100.0100, L501.9985, L502.0250, L3110.0500, L500.4100 #### [facility] [address] [place], [address] Neutrophils/100 WBC (Bld) 55.6 % Normal 47-70 [facility] Comment on above: Order Comment: Order Date: 03/18/24 Order Info: [id number] - CBCD Performed By: #### L 500.4050, L100.0100, L501.9985, L502.0250, L3110.0500, L500.4100 #### [facility] [address] [place], [address] Nucleated RBC (Bld) [#/Vol] 0 10*3/uL Normal 0-5 [facility] Comment on above: Order Comment: Order Date: 03/18/24 Order Info: 0184-1 - CBCD Performed By: #### L 500.4050, L100.0100, L501.9985, L502.0250, L3110.0500, L500.4100 #### [facility] [address] [place], [address] Platelet mean volume (Bld) [Entitic vol] 10.4 fL Normal 6.2-12.0 [facility] Comment on above: Order Comment: Order Date: 03/18/24 Order Info: [id number]- - CBCD Performed By: #### L 500.4050, L100.0100, L501.9985, L502.0250, L3110.0500, L500.4100 #### [facility] [address] [place], [address] Platelets (Bld) [#/Vol] 283 10*3/uL Normal 150-450 [facility] Comment on above: Order Comment: Order Date: 03/18/24 Order Info: [id number] - CBCD Performed By: #### L 500.4050, L100.0100, L501.9985, L502.0250, L3110.0500, L500.4100 #### [facility] [address] [place], [address] RBC (Bld) [#/Vol] 5.36 10*6/uL Normal 4.6-6.2 [facility] Comment on above: Order Comment: Order Date: 03/18/24 Order Info: [id number] - CBCD Performed By: #### L 500.4050, L100.0100, L501.9985, L502.0250, L3110.0500, L500.4100 #### [facility] [address] [place], [address] RDW SD 44.3 fl High 35.1-43.9 [facility] Comment on above: Order Comment: Order Date: 03/18/24 Order Info: [id number] - CBCD Performed By: #### L 500.4050, L100.0100, L501.9985, L502.0250, L3110.0500, L500.4100 #### [facility] [address] [place], [address] WBC (Bld) [#/Vol] 5.4 10*3/uL Normal 4.4-11.0 [facility] Comment on above: Order Comment: Order Date: 03/18/24 Order Info: [id number] - CBCD Performed By: #### L 500.4050, L100.0100, L501.9985, L502.0250, L3110.0500, L500.4100 #### [facility] [address] [place], [address] Comprehensive Metabolic Prof [facility] 09-20-2024 Albumin [Mass/Vol] 3.8 g/dL Normal 3.2-5.0 [facility] Comment on above: Order Comment: Order Date: 01/19/25 Order Info: 0779-1 - MIACRE Order Info: [id number] - MIALB Performed By: #### L 3110.0500, L502.0250, L500.4050, L100.0100, L501.9985, L500.4100 #### [facility] [address] [place], [address] Albumin/Globulin [Mass ratio] 1.2 {ratio} Normal 0.9-2.4 [facility] Comment on above: Order Comment: Order Date: 01/19/25 Order Info: 0779-1 - MIACRE Order Info: [id number] - MIALB Performed By: #### L 3110.0500, L502.0250, L500.4050, L100.0100, L501.9985, L500.4100 #### [facility] [address] [place], [address] ALK P 79 U/L Normal 45-117 [facility] Comment on above: Order Comment: Order Date: 01/19/25 Order Info: [id number] - MIACRE Order Info: [id number] - MIALB Performed By: #### L 3110.0500, L502.0250, L500.4050, L100.0100, L501.9985, L500.4100 #### [facility] [address] [place], [address] ALT [Catalytic activity/Vol] 26 U/L Normal 16-61 [facility] Comment on above: Order Comment: Order Date: 01/19/25 Order Info: 0779-1 - MIACRE Order Info: [id number] - MIALB Performed By: #### L 3110.0500, L502.0250, L500.4050, L100.0100, L501.9985, L500.4100 #### [facility] [address] [place], [address] AST [Catalytic activity/Vol] 14 U/L Low 15-37 [facility] Comment on above: Order Comment: Order Date: 01/19/25 Order Info: [id number] - MIACRE Order Info: [id number] - MIALB Performed By: #### L 3110.0500, L502.0250, L500.4050, L100.0100, L501.9985, L500.4100 #### [facility] [address] [place], [address] Bilirubin [Mass/Vol] 1.00 mg/dL Normal 0.20-1.00 [facility] Comment on above: Order Comment: Order Date: 01/19/25 Order Info: [id number] - MIACRE Order Info: [id number] - MIALB Result Comment: For patients on eltrombopag therapy, use of Dimension Alexander TBIL is not recommended. Performed By: #### L 3110.0500, L502.0250, L500.4050, L100.0100, L501.9985, L500.4100 #### [facility] [address] [place], [address] BUN/CRE 12.9 RATIO Normal 10-20 [facility] Comment on above: Order Comment: Order Date: 01/19/25 Order Info: [id number] - MIACRE Order Info: [id number] - MIALB Performed By: #### L 3110.0500, L502.0250, L500.4050, L100.0100, L501.9985, L500.4100 #### [facility] [address] [place], [place], [id number] CA,Total 9.4 mg/dL Normal 8.5-10.1 [facility] Comment on above: Order Comment: Order Date: 01/19/25 Order Info: [id number] - MIACRE Order Info: [id number] - MIALB Performed By: #### L 3110.0500, L502.0250, L500.4050, L100.0100, L501.9985, L500.4100 #### [facility] [address] [place], [place], [phone] Chloride [Moles/Vol] 106 mmol/L Normal 98-107 [facility] Comment on above: Order Comment: Order Date: 01/19/25 Order Info: 0779-1 - MIACRE Order Info: [id number] - MIALB Performed By: #### L 3110.0500, L502.0250, L500.4050, L100.0100, L501.9985, L500.4100 #### [facility] [address] [place], [address] CO2 [Moles/Vol] 29.0 mmol/L Normal 21.0-32.0 [facility] Comment on above: Order Comment: Order Date: 01/19/25 Order Info: [id number] - MIACRE Order Info: [id number] - MIALB Performed By: #### L 3110.0500, L502.0250, L500.4050, L100.0100, L501.9985, L500.4100 #### [facility] [address] [place], [place], [id number] Creatinine [Mass/Vol] 0.86 mg/dL Normal 0.70-1.30 [facility] Comment on above: Order Comment: Order Date: 01/19/25 Order Info: [id number]- - MIACRE Order Info: [id number] - MIALB Result Comment: The validity of the calculated GFR GFRAA in patients over 70 years has not been determined. Clinical correlation is essential. Performed By: #### L 3110.0500, L502.0250, L500.4050, L100.0100, L501.9985, L500.4100 #### [facility] [address] [place], [place], [id number] EST GFR - AA 113 mL/min Normal >60 [facility] Comment on above: Order Comment: Order Date: 01/19/25 Order Info: 0779-1 - MIACRE Order Info: [id number] - MIALB Result Comment: Afri can [place] GFR Calc Performed By: #### L 3110.0500, L502.0250, L500.4050, L100.0100, L501.9985, L500.4100 #### [facility] [address] [place], [place], [id number] GAP 4 Low 5-15 [facility] Comment on above: Order Comment: Order Date: 01/19/25 Order Info: [id number] - MIACRE Order Info: [id number] - MIALB Performed By: #### L 3110.0500, L502.0250, L500.4050, L100.0100, L501.9985, L500.4100 #### [facility] [address] [place], [address] GFR/1.73 sq M.predicted among non-blacks MDRD (S/P/Bld) [Vol rate/Area] 94 mL/min/{1.73_m2} Normal >60 [facility] Comment on above: Order Comment: Order Date: 01/19/25 Order Info: [id number] - MIACRE Order Info: [id number] - MIALB Result Comment: Non- GFR Calc Performed By: #### L 3110.0500, L502.0250, L500.4050, L100.0100, L501.9985, L500.4100 #### [facility] [address] [place], [place], [phone] Globulin (S) [Mass/Vol] 3.3 g/dL Normal 2.2-4.2 [facility] Comment on above: Order Comment: Order Date: 01/19/25 Order Info: [id number] - MIACRE Order Info: [id number] - MIALB Performed By: #### L 3110.0500, L502.0250, L500.4050, L100.0100, L501.9985, L500.4100 #### [facility] [address] [place], [address] Glucose [Mass/Vol] 146 mg/dL High 74-106 [facility] Comment on above: Order Comment: Order Date: 01/19/25 Order Info: [id number] - MIACRE Order Info: [id number] - MIALB Result Comment: Fast ing Glucose result greater than or equal to 126 mg/dL suggests DIABETES MELLITUS per A.D.A. criteria. Performed By: #### L 3110.0500, L502.0250, L500.4050, L100.0100, L501.9985, L500.4100 #### [facility] [address] [place], [address] Potassium [Moles/Vol] 4.4 mmol/L Normal 3.5-5.1 [facility] Comment on above: Order Comment: Order Date: 01/19/25 Order Info: [id number] - MIACRE Order Info: [id number] - MIALB Performed By: #### L 3110.0500, L502.0250, L500.4050, L100.0100, L501.9985, L500.4100 #### [facility] [address] [place], [address] Sodium [Moles/Vol] 139 mmol/L Normal 136-145 [facility] Comment on above: Order Comment: Order Date: 01/19/25 Order Info: [id number] - MIACRE Order Info: [id number] - MIALB Performed By: #### L 3110.0500, L502.0250, L500.4050, L100.0100, L501.9985, L500.4100 #### [facility] [address] [place], [address] T PROT 7.1 g/dL Normal 6.4-8.2 [facility] Comment on above: Order Comment: Order Date: 01/19/25 Order Info: [id number] - MIACRE Order Info: [id number] - MIALB Performed By: #### L 3110.0500, L502.0250, L500.4050, L100.0100, L501.9985, L500.4100 #### [facility] [address] [place], [address] Urea nitrogen [Mass/Vol] 11 mg/dL Normal 7-18 [facility] Comment on above: Order Comment: Order Date: 01/19/25 Order Info: [id number] - MIACRE Order Info: [id number] - MIALB Performed By: #### L 3110.0500, L502.0250, L500.4050, L100.0100, L501.9985, L500.4100 #### [facility] [address] [place], [place], [id number] Hemoglobin A1con 09-20-2024 HbA1c (Bld) [Mass fraction] 6.2 % High 3.8-5.6 [facility] Comment on above: Order Comment: Order Date: 03/18/24 Order Info: [id number] - A1C Result Comment: Norm al < 5.7 % Prediabetic 5.7 - 6.4 % Diabetic >or= 6.5 % Please note range changes. Performed By: #### L 500.4050, L100.0100, L501.9985, L502.0250, L3110.0500, L500.4100 #### [facility] [address] [place], [place], [phone] Lipid Profileon 09-20-2024 Cholesterol [Mass/Vol] 101 mg/dL Normal 200 [facility] Comment on above: Order Comment: Order Date: 01/19/25 Order Info: 0779-1 - MIACRE Order Info: [id number] - MIALB Result Comment: <200 mg/dL Desirable 200-240 mg/dL Borderline >240 mg/dL High Risk Performed By: #### L 3110.0500, L502.0250, L500.4050, L100.0100, L501.9985, L500.4100 #### [facility] [address] [place], [place], [phone] Cholesterol in HDL [Mass/Vol] 48 mg/dL Normal [facility] Comment on above: Order Comment: Order Date: 01/19/25 Order Info: [id number] - MIACRE Order Info: [id number] - MIALB Result Comment: The drugs N-Acetylcysteine and Metamizole may falsely depress this assay. Reference Range HDL <40 mg/dL Low HDL Cholesterol HDL >or= 60 mg/dL High HDL Cholesterol Performed By: #### L 3110.0500, L502.0250, L500.4050, L100.0100, L501.9985, L500.4100 #### [facility] [address] [place], [address] Cholesterol in LDL [Mass/Vol] 38 mg/dL Normal 0-130 [facility] Comment on above: Order Comment: Order Date: 01/19/25 Order Info: [id number] - MIACRE Order Info: [id number] - MIALB Performed By: #### L 3110.0500, L502.0250, L500.4050, L100.0100, L501.9985, L500.4100 #### [facility] [address] [place], [address] Cholesterol in VLDL [Mass/Vol] 15 mg/dL Normal 5-40 [facility] Comment on above: Order Comment: Order Date: 01/19/25 Order Info: [id number] - MIACRE Order Info: [id number] - MIALB Performed By: #### L 3110.0500, L502.0250, L500.4050, L100.0100, L501.9985, L500.4100 #### [facility] [address] [place], [address] Triglyceride [Mass/Vol] 74 mg/dL Normal [facility] Comment on above: Order Comment: Order Date: 01/19/25 Order Info: [id number] - MIACRE Order Info: [id number] - MIALB Result Comment: The drugs N-Acetylcysteine and Metamizole may falsely depress this assay. Serum Triglycerides Reference Interval Normal <150 mg/dL Borderline high 150 - 199 mg/dL High 200 - 499 mg/dL Very High > or = 500 mg/dL Performed By: #### L 3110.0500, L502.0250, L500.4050, L100.0100, L501.9985, L500.4100 #### [facility] [address] [place], [address] Microalb:Creat Ratio,Random URon 09-20-2024 Creatinine [Mass/Vol] 72.00 mg/dL Normal NO RAN GE EST. [facility] Comment on above: Order Comment: Order Date: 03/18/24 Order Info: [id number] - MIACRE Performed By: #### L 500.4050, L100.0100, L501.9985, L502.0250, L3110.0500, L500.4100 #### [facility] [address] [place], [address] MALB:CRE TNP Normal <30 mg/g CRE [facility] Comment on above: Order Comment: Order Date: 03/18/24 Order Info: [id number] - MIACRE Performed By: #### L 500.4050, L100.0100, L501.9985, L502.0250, L3110.0500, L500.4100 #### [facility] [address] [place], [address] MICROALBUMIN,UR < 5.0 Normal NO RANGE EST. [facility] Comment on above: Order Comment: Order Date: 03/18/24 Order Info: [id number] - MIACRE Performed By: #### L 500.4050, L100.0100, L501.9985, L502.0250, L3110.0500, L500.4100 #### [facility] [address] [place], [address] Urinalysis, Completeon 09-20 WBC 0-5 SEEN Normal 0-5 [facility] Comment on above: Order Comment: CLEAN CATCH Performed By: #### L 400.0001 #### [facility] [address] [place], [address] BACTERIA 0 SEEN Normal None Seen [facility] Comment on above: Order Comment: CLEAN CATCH Performed By: #### L 400.0001 #### [facility] [address] [place], [address] EPI,SQUAMOUS 0 SEEN Normal 0-5 [facility] Comment on above: Order Comment: CLEAN CATCH Performed By: #### L 400.0001 #### [facility] [address] [place], [place], [id number] Mucus Ql (Urine sed) 0 SEEN Normal [facility] Comment on above: Order Comment: CLEAN CATCH Performed By: #### L 400.0001 #### [facility] [address] [place], [place], [id number] RBC 0 SEEN Normal 0-5 [facility] Comment on above: Order Comment: CLEAN CATCH Performed By: #### L 400.0001 #### [facility] [address] [place], [place], [id number] Absolute lymphocyte countOrd ered By: Alex Funes on 10-27-2023 Lymphocytes Auto (Unsp spec) [#/Vol] 2.24 10*3/uL 0.83-4.51 [facility] Basophil percentageOrdered B y: Alex Funes on 10-27-2023 Basophils/100 WBC (Bld) 0.4 % 0-1 [facility] Bilirubin [Mass/Vol] 0.80 mg/dL 0.20-1.00 [facility] Comment on above: For patients on eltr ombopag therapy, use of Dimension Alexander TBIL is not recommended. Chloride [Moles/Vol] 109 mmol/L 98-107 [facility] Cholesterol [Mass/Vol] 100 mg/dL <200 [facility] Comment on above: <200 mg/dL Desirable 200-240 mg/dL Borderline >240 mg/dL High Risk Eosinophils/100 WBC (Bld) 2.2 % 0-5 [facility] Glucose [Mass/Vol] 213 mg/dL 74-106 [facility] Comment on above: Glucose result great er than or equal to 200 mg/dLsuggests DIABETES MELLITUS per A.D.A. criteria. Neutrophils (Bld) [#/Vol] 4.1 10*3/uL 2.0-7.7 [facility] Neutrophils/100 WBC (Bld) 56.7 % 47-70 [facility] Potassium [Moles/Vol] 4.1 mmol/L 3.5-5.1 [facility] Comment on above: Slight Hemolysis, Re sult may be falsely increased. Protein [Mass/Vol] 7.1 g/dL 6.4-8.2 [facility] Sodium [Moles/Vol] 140 mmol/L 136-145 [facility] Triglyceride [Mass/Vol] 72 mg/dL <199 [facility] Comment on above: The drugs N-Acetylcy steine and Metamizole may falsely depress this assay.Serum Triglycerides Reference Interval Normal <150 mg/dL Borderline high 150 - 199 mg/dL High 200 - 499 mg/dL Very High > or = 500 mg/dL WBC (Bld) [#/Vol] 7.2 10*3/uL 4.4-11.0 [facility] Blood erythrocytes count (nu mber/volume)Ordered By: Alex Funes on 10-27-2023 RBC (Bld) [#/Vol] 5.43 10*6/uL 4.6-6.2 [facility] Blood hemoglobin measurement (mass/volume)Ordered By: Alex Funes on 10-27-2023 Hemoglobin (Bld) [Mass/Vol] 16.7 g/dL 13.0-16.5 [facility] Blood lymphocytes/100 leukoc ytesOrdered By: Alex Funes on 10-27-2023 Lymphocytes/100 WBC (Bld) 31.3 % 19-41 [facility] Blood monocytes/100 leukocyt esOrdered By: Alex Funes on 10-27-2023 Monocytes/100 WBC (Bld) 8.8 % 0-10 [facility] Blood platelet mean volumeOr dered By: Alex Funes on 10-27-2023 Platelet mean volume (Bld) [Entitic vol] 10.5 fL 6.2-12.0 [facility] Determination of erythrocyte mean corpuscular volume (MCV)Ordered By: Alex Funes on 10-27-2023 MCV (RBC) [Entitic vol] 95.4 fL 80-94 [facility] Hematocrit Auto (Bld) [Volum e fraction]Ordered By: Alex Funes on 10-27-2023 Hematocrit (Bld) [Volume fraction] 51.8 % 40-54 [facility] - Chemistry and C hemistry - challengeOrdered By: Alex Funes on 10-27-2023 ALP [Catalytic activity/Vol] 93 U/L 45-117 [facility] ALT [Catalytic activity/Vol] 29 U/L 16-61 [facility] CO2 [Moles/Vol] 27.0 mmol/L 21.0-32.0 [facility] Globulin (S) [Mass/Vol] 3.5 g/dL 2.2-4.2 [facility] Urea nitrogen/Creatinine [Mass ratio] 14.8 mg/mg 10-20 [facility] - Hematology and Cell countsOrdered By: Alex Funes on 10-27-2023 Erythrocyte distribution width (RBC) [Entitic vol] 43.3 fL 35.1-43.9 [facility] Erythrocyte distribution width (RBC) [Ratio] 12.5 % 11.6-14.6 [facility] Immature granulocytes/100 WBC (Bld) 0.600 % 0.0-0.9 [facility] Comment on above: IG% - Immature Granu locytes (promyelocytes, myelocytes and metamyelocytes) > 1% indicates that a LEFT SHIFT is Present. MCH (RBC) [Entitic mass] 30.8 pg 27.0-32.0 [facility] Nucleated RBC/100 WBC (Bld) [Ratio] 0 % 0-5 [facility] MCHC Auto (RBC) [Mass/Vol]Or dered By: Alex Funes on 10-27-2023 MCHC (RBC) [Mass/Vol] 32.2 g/dL 32-36 [facility] No Panel InformationOrdered By: Alex Funes on 10-27-2023 Estimated GFR (MDRD) Amer 101 mL/min >60 [facility] Comment on above: GFR Calc Estimated GFR (MDRD) Non-Af Amer 84 mL/min >60 [facility] Comment on above: Non- GFR Calc Platelets bldOrdered By: Joshua Funes on 10-27-2023 Platelets (Bld) [#/Vol] 261 10*3/uL 150-450 [facility] Serum or plasma albumin vickey urement (mass/volume)Ordered By: Alex Funes on 10-27-2023 Albumin [Mass/Vol] 3.6 g/dL 3.2-5.0 [facility] Serum or plasma albumin/glob ulin mass ratioOrdered By: Alex Funes on 10-27-2023 Albumin/Globulin [Mass ratio] 1.0 {ratio} 0.9-2.4 [facility] Serum or plasma calcium vickey urement (mass/volume)Ordered By: Alex Funes on 10-27-2023 Calcium [Mass/Vol] 9.5 mg/dL 8.5-10.1 [facility] Serum or plasma cholesterol in HDL measurement (mass/volume)Ordered By: Alex Funes on 10-27-2023 Cholesterol in HDL [Mass/Vol] 41 mg/dL >40 [facility] Comment on above: The drugs N-Acetylcy steine and Metamizole may falsely depress this assay. Reference Range HDL <40 mg/dL Low HDL Cholesterol HDL >or= 60 mg/dL High HDL Cholesterol Serum or plasma cholesterol in VLDL measurement (mass/volume)Ordered By: Alex Funes on 10-27-2023 Cholesterol in VLDL [Mass/Vol] 14 mg/dL 5-40 [facility] Serum or plasma creatinine m easurement (mass/volume)Ordered By: Alex Funes on 10-27-2023 Creatinine [Mass/Vol] 0.94 mg/dL 0.70-1.30 [facility] Comment on above: The validity of the calculated GFR & GFRAA in patients over 70 years has not been determined. Clinical correlation is essential. Serum or plasma low density lipoprotein (LDL) cholesterol measurement (mass/volume)Ordered By: Alex Funes on 10-27-2023 Cholesterol in LDL [Mass/Vol] 45 mg/dL 0-130 [facility] Serum or plasma urea nitroge n measurement (mass/volume)Ordered By: Alex Funes on 10-27-2023 Urea nitrogen [Mass/Vol] 14 mg/dL 7-18 [facility] Thin prep Papanicolaou smear with manual screeningOrdered By: Alex Funes on 10-27-2023 Thin prep Papanicolaou smear with manual screening 16 U/L 15-37 [facility] Comment on above: Slight Hemolysis, Re sult may be falsely increased. Thin prep Papanicolaou smear with manual screening 4 5-15 [facility] Whole blood hemoglobin A1c/t otal hemoglobin ratio (mass fraction)Ordered By: Alex Funes on 10-27-2023 HbA1c (Bld) [Mass fraction] 6.6 % 3.8-5.6 [facility] Comment on above: Normal < 5.7 % Predi abetic 5.7 - 6.4 % Diabetic >or= 6.5 % Please note range changes. Absolute lymphocyte countOrd ered By: Alex Funes on 06-11-2023 Lymphocytes Auto (Unsp spec) [#/Vol] 2.26 10*3/uL 0.83-4.51 [facility] Basophil percentageOrdered B y: Alex Funes on 06-11-2023 Basophils/100 WBC (Bld) 0.3 % 0-1 [facility] Bilirubin [Mass/Vol] 0.90 mg/dL 0.20-1.00 [facility] Comment on above: For patients on eltr ombopag therapy, use of Dimension Alexander TBIL is not recommended. Chloride [Moles/Vol] 107 mmol/L 98-107 [facility] Cholesterol [Mass/Vol] 106 mg/dL <200 [facility] Comment on above: <200 mg/dL Desirable 200-240 mg/dL Borderline >240 mg/dL High Risk Eosinophils/100 WBC (Bld) 2.1 % 0-5 [facility] Glucose [Mass/Vol] 136 mg/dL 74-106 [facility] Comment on above: Fasting Glucose resu lt greater than or equal to 126 mg/dL suggests DIABETES MELLITUS per A.D.A. criteria. Neutrophils (Bld) [#/Vol] 3.9 10*3/uL 2.0-7.7 [facility] Neutrophils/100 WBC (Bld) 56.7 % 47-70 [facility] Potassium [Moles/Vol] 3.8 mmol/L 3.5-5.1 [facility] Protein [Mass/Vol] 7.2 g/dL 6.4-8.2 [facility] Sodium [Moles/Vol] 141 mmol/L 136-145 [facility] Triglyceride [Mass/Vol] 69 mg/dL <199 [facility] Comment on above: The drugs N-Acetylcy steine and Metamizole may falsely depress this assay.Serum Triglycerides Reference Interval Normal <150 mg/dL Borderline high 150 - 199 mg/dL High 200 - 499 mg/dL Very High > or = 500 mg/dL WBC (Bld) [#/Vol] 6.8 10*3/uL 4.4-11.0 [facility] Blood erythrocytes count (nu mber/volume)Ordered By: Alex Funes on 06-11-2023 RBC (Bld) [#/Vol] 5.36 10*6/uL 4.6-6.2 [facility] Blood hemoglobin measurement (mass/volume)Ordered By: Alex Funes on 06-11-2023 Hemoglobin (Bld) [Mass/Vol] 16.6 g/dL 13.0-16.5 [facility] Blood lymphocytes/100 leukoc ytesOrdered By: Alex Funes on 06-11-2023 Lymphocytes/100 WBC (Bld) 33.1 % 19-41 [facility] Blood monocytes/100 leukocyt esOrdered By: Alex Funes on 06-11-2023 Monocytes/100 WBC (Bld) 7.5 % 0-10 [facility] Blood platelet mean volumeOr dered By: Alex Funes on 06-11-2023 Platelet mean volume (Bld) [Entitic vol] 10.3 fL 6.2-12.0 [facility] Determination of erythrocyte mean corpuscular volume (MCV)Ordered By: Alex Funes on 06-11-2023 MCV (RBC) [Entitic vol] 93.1 fL 80-94 [facility] Hematocrit Auto (Bld) [Volum e fraction]Ordered By: Alex Funes on 06-11-2023 Hematocrit (Bld) [Volume fraction] 49.9 % 40-54 [facility] Laboratory - Chemistry and C hemistry - challengeOrdered By: Alex Funes on 06-11-2023 ALP [Catalytic activity/Vol] 82 U/L 45-117 [facility] ALT [Catalytic activity/Vol] 31 U/L 16-61 [facility] CO2 [Moles/Vol] 29.0 mmol/L 21.0-32.0 [facility] Globulin (S) [Mass/Vol] 3.4 g/dL 2.2-4.2 [facility] Urea nitrogen/Creatinine [Mass ratio] 12.4 mg/mg 10-20 [facility] Laboratory - Hematology and Cell countsOrdered By: Alex Funes on 06-11-2023 Erythrocyte distribution width (RBC) [Entitic vol] 41.4 fL 35.1-43.9 [facility] Erythrocyte distribution width (RBC) [Ratio] 12.1 % 11.6-14.6 [facility] Immature granulocytes/100 WBC (Bld) 0.300 % 0.0-0.9 [facility] Comment on above: IG% - Immature Granu locytes (promyelocytes, myelocytes and metamyelocytes) > 1% indicates that a LEFT SHIFT is Present. MCH (RBC) [Entitic mass] 31.0 pg 27.0-32.0 [facility] Nucleated RBC/100 WBC (Bld) [Ratio] 0 % 0-5 [facility] MCHC Auto (RBC) [Mass/Vol]Or dered By: Alex Funes on 06-11-2023 MCHC (RBC) [Mass/Vol] 33.3 g/dL 32-36 [facility] No Panel InformationOrdered By: Alex Funes on 06-11-2023 Estimated GFR (MDRD) Amer 109 mL/min >60 [facility] Comment on above: GFR Calc Estimated GFR (MDRD) Non-Af Amer 90 mL/min >60 [facility] Comment on above: Non- GFR Calc Percent Free Prostate Specific Ag 1.45 ng/mL N/A [facility] Comment on above: Mee ECLIA methodol ogy. Prostate Specific Ag, Ultra-Sensitv 4.900 ng/mL 0.000-4.000 [facility] Comment on above: Mee ECLIA methodol ogy.According to the [place] [employer], Serum PSAshould decrease and remain at undetectable levels afterradical prostatectomy. The AUA defines biochemicalrecurrence as an initial PSA value 0.200 ng/mL or greaterfollowed by a subsequent confirmatory PSA value 0.200 ng/mLor greater. Values obtained with different assay methods orkits cannot be used interchangeably. Results cannot beinterpreted as absolute evidence of the presence or absenceof malignant disease. Platelets bldOrdered By: Joshua Funes on 06-11-2023 Platelets (Bld) [#/Vol] 280 10*3/uL 150-450 [facility] Serum or plasma albumin vickey urement (mass/volume)Ordered By: Alex Funes on 06-11-2023 Albumin [Mass/Vol] 3.8 g/dL 3.2-5.0 [facility] Serum or plasma albumin/glob ulin mass ratioOrdered By: Alex Funes on 06-11-2023 Albumin/Globulin [Mass ratio] 1.1 {ratio} 0.9-2.4 [facility] Serum or plasma calcium vickey urement (mass/volume)Ordered By: Alex Funes on 06-11-2023 Calcium [Mass/Vol] 9.5 mg/dL 8.5-10.1 [facility] Serum or plasma cholesterol in HDL measurement (mass/volume)Ordered By: Alex Funes on 06-11-2023 Cholesterol in HDL [Mass/Vol] 43 mg/dL >40 [facility] Comment on above: The drugs N-Acetylcy steine and Metamizole may falsely depress this assay. Reference Range HDL <40 mg/dL Low HDL Cholesterol HDL >or= 60 mg/dL High HDL Cholesterol Serum or plasma cholesterol in VLDL measurement (mass/volume)Ordered By: Alex Funes on 06-11-2023 Cholesterol in VLDL [Mass/Vol] 14 mg/dL 5-40 [facility] Serum or plasma creatinine m easurement (mass/volume)Ordered By: Alex Funes on 06-11-2023 Creatinine [Mass/Vol] 0.89 mg/dL 0.70-1.30 [facility] Comment on above: The validity of the calculated GFR & GFRAA in patients over 70 years has not been determined. Clinical correlation is essential. Serum or plasma free prostat e specific antigen/total prostate specific antigen ratioOrdered By: Alex Funes on 06-11-2023 Free PSA/Total PSA [Mass fraction] 29.6 % . [facility] Comment on above: The table below list s the probability of prostate cancer formen with non-suspicious ISHAN results and total PSA between4 and 10 ng/mL, by patient age (Tati et al, ANETA 1998,279:[id number]). % Free PSA 50-64 yr 65-75 yr 0.00-10.00% 56% 55% 10.01-15.00% 24% 35% 15.01-20.00% 17% 23% 20.01-25.00% 10% 20% >25.00% 5% 9%Please note: Tati et al did not make specific recommendations regarding the use of percent free PSA for any other population of men.Performed at: [facility] [id number] Director: Cma Peralta PhD, Phone: [phone] Serum or plasma low density lipoprotein (LDL) cholesterol measurement (mass/volume)Ordered By: Alex Funes on 06-11-2023 Cholesterol in LDL [Mass/Vol] 49 mg/dL 0-130 [facility] Serum or plasma urea nitroge n measurement (mass/volume)Ordered By: Alex Funes on 06-11-2023 Urea nitrogen [Mass/Vol] 11 mg/dL 7-18 [facility] Thin prep Papanicolaou smear with manual screeningOrdered By: Alex Funes on 06-11-2023 Thin prep Papanicolaou smear with manual screening 14 U/L 15-37 [facility] Thin prep Papanicolaou smear with manual screening 5 5-15 [facility] Whole blood hemoglobin A1c/t otal hemoglobin ratio (mass fraction)Ordered By: Alex Funes on 06-11-2023 HbA1c (Bld) [Mass fraction] 6.6 % 3.8-5.6 [facility] Comment on above: Normal < 5.7 % Predi abetic 5.7 - 6.4 % Diabetic >or= 6.5 % Please note range changes. Basophil percentageOrdered B y: Dr. Funes on 04-03-2023 Chloride [Moles/Vol] 107 mmol/L 98-107 [facility] Glucose [Mass/Vol] 116 mg/dL 74-106 [facility] Comment on above: Fasting Glucose resu lt from 100 to 125 mg/dL suggests IMPAIRED HOMEOSTASIS per A.D.A. criteria. Potassium [Moles/Vol] 4.0 mmol/L 3.5-5.1 [facility] Sodium [Moles/Vol] 139 mmol/L 136-145 [facility] Laboratory - Chemistry and C hemistry - challengeOrdered By: Dr. Funes on 04-03-2023 CO2 [Moles/Vol] 25.0 mmol/L 21.0-32.0 [facility] Urea nitrogen/Creatinine [Mass ratio] 11.5 mg/mg 10-20 [facility] No Panel InformationOrdered By: Dr. Funes on 04-03-2023 Estimated GFR (MDRD) Amer 111 mL/min >60 [facility] Comment on above: GFR Calc Estimated GFR (MDRD) Non-Af Amer 92 mL/min >60 [facility] Comment on above: Non- GFR Calc Serum or plasma calcium vickey urement (mass/volume)Ordered By: Dr. Funes on 04-03-2023 Calcium [Mass/Vol] 9.5 mg/dL 8.5-10.1 [facility] Serum or plasma creatinine m easurement (mass/volume)Ordered By: Dr. Funes on 04-03-2023 Creatinine [Mass/Vol] 0.87 mg/dL 0.70-1.30 [facility] Comment on above: The validity of the calculated GFR & GFRAA in patients over 70 years has not been determined. Clinical correlation is essential. Serum or plasma urea nitroge n measurement (mass/volume)Ordered By: Dr. Funes on 04-03-2023 Urea nitrogen [Mass/Vol] 10 mg/dL 7-18 [facility] Thin prep Papanicolaou smear with manual screeningOrdered By: Dr. Funes on 04-03-2023 Thin prep Papanicolaou smear with manual screening 7 5-15 [facility] Absolute lymphocyte countOrd ered By: Dr. Funes on 03-17-2023 Lymphocytes Auto (Unsp spec) [#/Vol] 1.82 10*3/uL 0.83-4.51 [facility] Basophil percentageOrdered B y: Dr. Funes on 03-17-2023 Basophils/100 WBC (Bld) 0.5 % 0-1 [facility] Bilirubin [Mass/Vol] 1.40 mg/dL 0.20-1.00 [facility] Comment on above: For patients on eltr ombopag therapy, use of Dimension Alexander TBIL is not recommended. Chloride [Moles/Vol] 107 mmol/L 98-107 [facility] Cholesterol [Mass/Vol] 89 mg/dL <200 [facility] Comment on above: <200 mg/dL Desirable 200-240 mg/dL Borderline >240 mg/dL High Risk Eosinophils/100 WBC (Bld) 3.4 % 0-5 [facility] Glucose [Mass/Vol] 164 mg/dL 74-106 [facility] Comment on above: Fasting Glucose resu lt greater than or equal to 126 mg/dL suggests DIABETES MELLITUS per A.D.A. criteria. Neutrophils (Bld) [#/Vol] 3.3 10*3/uL 2.0-7.7 [facility] Neutrophils/100 WBC (Bld) 56.1 % 47-70 [facility] Potassium [Moles/Vol] 4.0 mmol/L 3.5-5.1 [facility] Protein [Mass/Vol] 7.3 g/dL 6.4-8.2 [facility] Sodium [Moles/Vol] 141 mmol/L 136-145 [facility] Triglyceride [Mass/Vol] 36 mg/dL <199 [facility] Comment on above: The drugs N-Acetylcy steine and Metamizole may falsely depress this assay.Serum Triglycerides Reference Interval Normal <150 mg/dL Borderline high 150 - 199 mg/dL High 200 - 499 mg/dL Very High > or = 500 mg/dL WBC (Bld) [#/Vol] 6.0 10*3/uL 4.4-11.0 [facility] Blood erythrocytes count (nu mber/volume)Ordered By: Dr. Funes on 03-17-2023 RBC (Bld) [#/Vol] 5.17 10*6/uL 4.6-6.2 [facility] Blood hemoglobin measurement (mass/volume)Ordered By: Dr. Funes on 03-17-2023 Hemoglobin (Bld) [Mass/Vol] 16.0 g/dL 13.0-16.5 [facility] Blood lymphocytes/100 leukoc ytesOrdered By: Dr. Funes on 03-17-2023 Lymphocytes/100 WBC (Bld) 30.6 % 19-41 [facility] Blood monocytes/100 leukocyt esOrdered By: Dr. Funes on 03-17-2023 Monocytes/100 WBC (Bld) 9.1 % 0-10 [facility] Blood platelet mean volumeOr dered By: Dr. Funes on 03-17-2023 Platelet mean volume (Bld) [Entitic vol] 10.2 fL 6.2-12.0 [facility] Determination of erythrocyte mean corpuscular volume (MCV)Ordered By: Dr. Funes on 03-17-2023 MCV (RBC) [Entitic vol] 92.1 fL 80-94 [facility] Hematocrit Auto (Bld) [Volum e fraction]Ordered By: Dr. Funes on 03-17-2023 Hematocrit (Bld) [Volume fraction] 47.6 % 40-54 [facility] Laboratory - Chemistry and C hemistry - challengeOrdered By: Dr. Funes on 03-17-2023 ALP [Catalytic activity/Vol] 79 U/L 45-117 [facility] ALT [Catalytic activity/Vol] 34 U/L 16-61 [facility] CO2 [Moles/Vol] 27.0 mmol/L 21.0-32.0 [facility] Globulin (S) [Mass/Vol] 3.7 g/dL 2.2-4.2 [facility] Urea nitrogen/Creatinine [Mass ratio] 15.3 mg/mg 10-20 [facility] Laboratory - Hematology and Cell countsOrdered By: Dr. Funes on 03-17-2023 Erythrocyte distribution width (RBC) [Entitic vol] 42.0 fL 35.1-43.9 [facility] Erythrocyte distribution width (RBC) [Ratio] 12.3 % 11.6-14.6 [facility] Immature granulocytes/100 WBC (Bld) 0.300 % 0.0-0.9 [facility] Comment on above: IG% - Immature Granu locytes (promyelocytes, myelocytes and metamyelocytes) > 1% indicates that a LEFT SHIFT is Present. MCH (RBC) [Entitic mass] 30.9 pg 27.0-32.0 [facility] Nucleated RBC/100 WBC (Bld) [Ratio] 0 % 0-5 [facility] MCHC Auto (RBC) [Mass/Vol]Or dered By: Dr. Funes on 03-17-2023 MCHC (RBC) [Mass/Vol] 33.6 g/dL 32-36 [facility] No Panel InformationOrdered By: Dr. Funes on 03-17-2023 Estimated GFR (MDRD) Amer 106 mL/min >60 [facility] Comment on above: GFR Calc Estimated GFR (MDRD) Non-Af Amer 87 mL/min >60 [facility] Comment on above: Non- GFR Calc Urine Microalbumin/Creatinine Ratio 10.5 mg/g CRE <30 [facility] Platelets bldOrdered By: Dr. Funes on 03-17-2023 Platelets (Bld) [#/Vol] 280 10*3/uL 150-450 [facility] Serum or plasma albumin vickey urement (mass/volume)Ordered By: Dr. Funes on 03-17-2023 Albumin [Mass/Vol] 3.6 g/dL 3.2-5.0 [facility] Serum or plasma albumin/glob ulin mass ratioOrdered By: Dr. Funes on 03-17-2023 Albumin/Globulin [Mass ratio] 1.0 {ratio} 0.9-2.4 [facility] Serum or plasma calcium vickey urement (mass/volume)Ordered By: Dr. Funes on 03-17-2023 Calcium [Mass/Vol] 9.0 mg/dL 8.5-10.1 [facility] Serum or plasma cholesterol in HDL measurement (mass/volume)Ordered By: Dr. Funes on 03-17-2023 Cholesterol in HDL [Mass/Vol] 45 mg/dL >40 [facility] Comment on above: The drugs N-Acetylcy steine and Metamizole may falsely depress this assay. Reference Range HDL <40 mg/dL Low HDL Cholesterol HDL >or= 60 mg/dL High HDL Cholesterol Serum or plasma cholesterol in VLDL measurement (mass/volume)Ordered By: Dr. Funes on 03-17-2023 Cholesterol in VLDL [Mass/Vol] 7 mg/dL 5-40 [facility] Serum or plasma creatinine m easurement (mass/volume)Ordered By: Dr. Funes on 03-17-2023 Creatinine [Mass/Vol] 0.91 mg/dL 0.70-1.30 [facility] Comment on above: The validity of the calculated GFR & GFRAA in patients over 70 years has not been determined. Clinical correlation is essential. Serum or plasma low density lipoprotein (LDL) cholesterol measurement (mass/volume)Ordered By: Dr. Funes on 03-17-2023 Cholesterol in LDL [Mass/Vol] 37 mg/dL 0-130 [facility] Serum or plasma urea nitroge n measurement (mass/volume)Ordered By: Dr. Funes on 03-17-2023 Urea nitrogen [Mass/Vol] 14 mg/dL 7-18 [facility] Thin prep Papanicolaou smear with manual screeningOrdered By: Dr. Funes on 03-17-2023 Thin prep Papanicolaou smear with manual screening 21 U/L 15-37 [facility] Thin prep Papanicolaou smear with manual screening 7 5-15 [facility] Thin prep Papanicolaou smear with manual screening 23.6 mg/L NO RANGE EST. [facility] Urine creatinine measurement (mass/volume)Ordered By: Dr. Funes on 03-17-2023 Creatinine (U) [Mass/Vol] 225.00 mg/dL NO RANGE EST. [facility] Whole blood hemoglobin A1c/t otal hemoglobin ratio (mass fraction)Ordered By: Dr. Funes on 03-17-2023 HbA1c (Bld) [Mass fraction] 6.7 % 3.8-5.6 [facility] Comment on above: Normal < 5.7 % Predi abetic 5.7 - 6.4 % Diabetic >or= 6.5 % Please note range changes. Absolute lymphocyte countOrd ered By: Dr. Funes on 12-16-2022 Lymphocytes Auto (Unsp spec) [#/Vol] 2.09 10*3/uL 0.83-4.51 [facility] Basophil percentageOrdered B y: Dr. Funes on 12-16-2022 Basophils/100 WBC (Bld) 0.3 % 0-1 [facility] Bilirubin [Mass/Vol] 0.70 mg/dL 0.20-1.00 [facility] Comment on above: For patients on eltr ombopag therapy, use of Dimension Alexander TBIL is not recommended. Chloride [Moles/Vol] 106 mmol/L 98-107 [facility] Cholesterol [Mass/Vol] 104 mg/dL <200 [facility] Comment on above: <200 mg/dL Desirable 200-240 mg/dL Borderline >240 mg/dL High Risk Eosinophils/100 WBC (Bld) 2.7 % 0-5 [facility] Glucose [Mass/Vol] 186 mg/dL 74-106 [facility] Comment on above: Fasting Glucose resu lt greater than or equal to 126 mg/dL suggests DIABETES MELLITUS per A.D.A. criteria. Neutrophils (Bld) [#/Vol] 3.5 10*3/uL 2.0-7.7 [facility] Neutrophils/100 WBC (Bld) 54.9 % 47-70 [facility] Potassium [Moles/Vol] 3.9 mmol/L 3.5-5.1 [facility] Protein [Mass/Vol] 7.2 g/dL 6.4-8.2 [facility] Sodium [Moles/Vol] 141 mmol/L 136-145 [facility] Triglyceride [Mass/Vol] 84 mg/dL <199 [facility] Comment on above: The drugs N-Acetylcy steine and Metamizole may falsely depress this assay.Serum Triglycerides Reference Interval Normal <150 mg/dL Borderline high 150 - 199 mg/dL High 200 - 499 mg/dL Very High > or = 500 mg/dL WBC (Bld) [#/Vol] 6.3 10*3/uL 4.4-11.0 [facility] Blood erythrocytes count (nu mber/volume)Ordered By: Dr. Funes on 12-16-2022 RBC (Bld) [#/Vol] 5.22 10*6/uL 4.6-6.2 [facility] Blood hemoglobin measurement (mass/volume)Ordered By: Dr. Funes on 12-16-2022 Hemoglobin (Bld) [Mass/Vol] 16.2 g/dL 13.0-16.5 [facility] Blood lymphocytes/100 leukoc ytesOrdered By: Dr. Funes on 12-16-2022 Lymphocytes/100 WBC (Bld) 33.1 % 19-41 [facility] Blood monocytes/100 leukocyt esOrdered By: Dr. Funes on 12-16-2022 Monocytes/100 WBC (Bld) 8.7 % 0-10 [facility] Blood platelet mean volumeOr dered By: Dr. Funes on 12-16-2022 Platelet mean volume (Bld) [Entitic vol] 9.8 fL 6.2-12.0 [facility] Determination of erythrocyte mean corpuscular volume (MCV)Ordered By: Dr. Funes on 12-16-2022 MCV (RBC) [Entitic vol] 92.3 fL 80-94 [facility] Hematocrit Auto (Bld) [Volum e fraction]Ordered By: Dr. Funes on 12-16-2022 Hematocrit (Bld) [Volume fraction] 48.2 % 40-54 [facility] Laboratory - Chemistry and C hemistry - challengeOrdered By: Dr. Funes on 12-16-2022 ALP [Catalytic activity/Vol] 84 U/L 45-117 [facility] ALT [Catalytic activity/Vol] 31 U/L 16-61 [facility] CO2 [Moles/Vol] 28.0 mmol/L 21.0-32.0 [facility] Globulin (S) [Mass/Vol] 3.5 g/dL 2.2-4.2 [facility] Urea nitrogen/Creatinine [Mass ratio] 12.2 mg/mg 10-20 [facility] Laboratory - Hematology and Cell countsOrdered By: Dr. Funes on 12-16-2022 Erythrocyte distribution width (RBC) [Entitic vol] 42.3 fL 35.1-43.9 [facility] Erythrocyte distribution width (RBC) [Ratio] 12.4 % 11.6-14.6 [facility] Immature granulocytes/100 WBC (Bld) 0.300 % 0.0-0.9 [facility] Comment on above: IG% - Immature Granu locytes (promyelocytes, myelocytes and metamyelocytes) > 1% indicates that a LEFT SHIFT is Present. MCH (RBC) [Entitic mass] 31.0 pg 27.0-32.0 [facility] Nucleated RBC/100 WBC (Bld) [Ratio] 0 % 0-5 [facility] ([facility]BC) [Mass/Vol]Or dered By: Dr. Funes on 12-16-2022 MCHC (RBC) [Mass/Vol] 33.6 g/dL 32-36 [facility] No Panel InformationOrdered By: Dr. Funes on 12-16-2022 Estimated GFR (MDRD) Amer 107 mL/min >60 [facility] Comment on above: GFR Calc Estimated GFR (MDRD) Non-Af Amer 89 mL/min >60 [facility] Comment on above: Non- GFR Calc Prostate Specific Antigen Screen 5.48 ng/mL 0.00-4.00 [facility] Comment on above: This test was perfor med using the TPSA assay method for [employer] chemistry system. Values obtained with differentassay methods cannot be used interchangably.When changing PSA assays in the course of monitoring apatient, additional sequential testing should be carriedout to confirm baseline values. Urine Microalbumin/Creatinine Ratio 10.2 mg/g CRE <30 [facility] Platelets bldOrdered By: Dr. Funes on 12-16-2022 Platelets (Bld) [#/Vol] 284 10*3/uL 150-450 [facility] Serum or plasma albumin vickey urement (mass/volume)Ordered By: Dr. Funes on 12-16-2022 Albumin [Mass/Vol] 3.7 g/dL 3.2-5.0 [facility] Serum or plasma albumin/glob ulin mass ratioOrdered By: Dr. Funes on 12-16-2022 Albumin/Globulin [Mass ratio] 1.1 {ratio} 0.9-2.4 [facility] Serum or plasma calcium vickey urement (mass/volume)Ordered By: Dr. Funes on 12-16-2022 Calcium [Mass/Vol] 9.0 mg/dL 8.5-10.1 [facility] Serum or plasma cholesterol in HDL measurement (mass/volume)Ordered By: Dr. Funes on 12-16-2022 Cholesterol in HDL [Mass/Vol] 47 mg/dL >40 [facility] Comment on above: The drugs N-Acetylcy steine and Metamizole may falsely depress this assay. Reference Range HDL <40 mg/dL Low HDL Cholesterol HDL >or= 60 mg/dL High HDL Cholesterol Serum or plasma cholesterol in VLDL measurement (mass/volume)Ordered By: Dr. Funes on 12-16-2022 Cholesterol in VLDL [Mass/Vol] 17 mg/dL 5-40 [facility] Serum or plasma creatinine m easurement (mass/volume)Ordered By: Dr. Funes on 12-16-2022 Creatinine [Mass/Vol] 0.90 mg/dL 0.70-1.30 [facility] Comment on above: The validity of the calculated GFR & GFRAA in patients over 70 years has not been determined. Clinical correlation is essential. Serum or plasma low density lipoprotein (LDL) cholesterol measurement (mass/volume)Ordered By: Dr. Funes on 12-16-2022 Cholesterol in LDL [Mass/Vol] 40 mg/dL 0-130 [facility] Serum or plasma urea nitroge n measurement (mass/volume)Ordered By: Dr. Funes on 12-16-2022 Urea nitrogen [Mass/Vol] 11 mg/dL 7-18 [facility] Thin prep Papanicolaou smear with manual screeningOrdered By: Dr. Funes on 12-16-2022 Thin prep Papanicolaou smear with manual screening 21 U/L 15-37 [facility] Thin prep Papanicolaou smear with manual screening 7 5-15 [facility] Thin prep Papanicolaou smear with manual screening 18.5 mg/L NO RANGE EST. [facility] [facility] Urine creatinine measurement (mass/volume)Ordered By: Dr. Funes on 12-16-2022 Creatinine (U) [Mass/Vol] 181.00 mg/dL NO RANGE EST. [facility] Whole blood hemoglobin A1c/t otal hemoglobin ratio (mass fraction)Ordered By: Dr. Funes on 12-16-2022 HbA1c (Bld) [Mass fraction] 7.0 % 3.8-5.6 [facility] Comment on above: Normal < 5.7 % Predi abetic 5.7 - 6.4 % Diabetic >or= 6.5 % Please note range changes. No Panel InformationOrdered By: Dr. Funes on 09-23-2022 Miscellaneous Test See comment [facility] Comment on above: TEST RESULT LIMITSAn tipancreatic Islet Cells Negative Neg:<1:1 ___ TESTING PERFORMED AT [facility]. ORIGINAL REPORT ON FILE IN LAB CONTAINS ADDITIONAL TEST SITE INFORMATION. Absolute lymphocyte countOrd ered By: Dr. Funes on 09-11-2022 Lymphocytes Auto (Unsp spec) [#/Vol] 1.91 10*3/uL 0.83-4.51 [facility] Basophil percentageOrdered B y: Dr. Funes on 09-11-2022 Basophil percentage 0 SEEN /hpf 0-5 [facility] Basophils/100 WBC (Bld) 0.5 % 0-1 [facility] Bilirubin [Mass/Vol] 1.10 mg/dL 0.20-1.00 [facility] Comment on above: For patients on eltr ombopag therapy, use of Dimension Alexander TBIL is not recommended. Chloride [Moles/Vol] 102 mmol/L 98-107 [facility] Cholesterol [Mass/Vol] 192 mg/dL <200 [facility] Comment on above: <200 mg/dL Desirable 200-240 mg/dL Borderline >240 mg/dL High Risk Eosinophils/100 WBC (Bld) 3.1 % 0-5 [facility] Glucose [Mass/Vol] 531 mg/dL 74-106 [facility] Comment on above: Critical Result(s) C alled at: 10:44:36 09/11/2022 by: JANET Forbes. Results read back by same.Glucose result greater than or equal to 200 mg/dLsuggests DIABETES MELLITUS per A.D.A. criteria. Neutrophils (Bld) [#/Vol] 3.2 10*3/uL 2.0-7.7 [facility] Neutrophils/100 WBC (Bld) 56.2 % 47-70 [facility] Potassium [Moles/Vol] 4.4 mmol/L 3.5-5.1 [facility] Protein [Mass/Vol] 7.3 g/dL 6.4-8.2 [facility] Sodium [Moles/Vol] 135 mmol/L 136-145 [facility] Triglyceride [Mass/Vol] 138 mg/dL <199 [facility] Comment on above: The drugs N-Acetylcy steine and Metamizole may falsely depress this assay.Serum Triglycerides Reference Interval Normal <150 mg/dL Borderline high 150 - 199 mg/dL High 200 - 499 mg/dL Very High > or = 500 mg/dL WBC (Bld) [#/Vol] 5.8 10*3/uL 4.4-11.0 [facility] Bilirubin Test strip Ql (U)O rdered By: Dr. Funes on 09-11-2022 Bilirubin Ql (U) Negative Negative [facility] Blood erythrocytes count (nu mber/volume)Ordered By: Dr. Funes on 09-11-2022 RBC (Bld) [#/Vol] 5.33 10*6/uL 4.6-6.2 [facility] Blood hemoglobin measurement (mass/volume)Ordered By: Dr. Funes on 09-11-2022 Hemoglobin (Bld) [Mass/Vol] 16.5 g/dL 13.0-16.5 [facility] Blood lymphocytes/100 leukoc ytesOrdered By: Dr. Funes on 09-11-2022 Lymphocytes/100 WBC (Bld) 33.1 % 19-41 [facility] Blood monocytes/100 leukocyt esOrdered By: Dr. Funes on 09-11-2022 Monocytes/100 WBC (Bld) 6.6 % 0-10 [facility] Blood platelet mean volumeOr dered By: Dr. Funes on 09-11-2022 Platelet mean volume (Bld) [Entitic vol] 10.5 fL 6.2-12.0 [facility] Determination of erythrocyte mean corpuscular volume (MCV)Ordered By: Dr. Funes on 09-11-2022 MCV (RBC) [Entitic vol] 94.0 fL 80-94 [facility] Hematocrit Auto (Bld) [Volum e fraction]Ordered By: Dr. Funes on 09-11-2022 Hematocrit (Bld) [Volume fraction] 50.1 % 40-54 [facility] Ketones Test strip Ql (U)Ord ered By: Dr. Funes on 09-11-2022 Ketones Ql (U) Negative Negative [facility] Laboratory - Chemistry and C hemistry - challengeOrdered By: Dr. Funes on 09-11-2022 ALP [Catalytic activity/Vol] 124 U/L 45-117 [facility] ALT [Catalytic activity/Vol] 21 U/L 16-61 [facility] CO2 [Moles/Vol] 27.0 mmol/L 21.0-32.0 [facility] Globulin (S) [Mass/Vol] 3.7 g/dL 2.2-4.2 [facility] Magnesium [Mass/Vol] 2.2 mg/dL 1.6-2.6 [facility] Urea nitrogen/Creatinine [Mass ratio] 10.8 mg/mg 10-20 [facility] Laboratory - Hematology and Cell countsOrdered By: Dr. Funes on 09-11-2022 Erythrocyte distribution width (RBC) [Entitic vol] 41.2 fL 35.1-43.9 [facility] Erythrocyte distribution width (RBC) [Ratio] 11.9 % 11.6-14.6 [facility] Immature granulocytes/100 WBC (Bld) 0.500 % 0.0-0.9 [facility] Comment on above: IG% - Immature Granu locytes (promyelocytes, myelocytes and metamyelocytes) > 1% indicates that a LEFT SHIFT is Present. MCH (RBC) [Entitic mass] 31.0 pg 27.0-32.0 [facility] Nucleated RBC/100 WBC (Bld) [Ratio] 0 % 0-5 [facility] MCHC Auto (RBC) [Mass/Vol]Or dered By: Dr. Funes on 09-11-2022 MCHC (RBC) [Mass/Vol] 32.9 g/dL 32-36 [facility] Mucus LM Ql (Urine sed)Order ed By: Dr. Funes on 09-11-2022 Mucus Ql (Urine sed) 0 SEEN /hpf [facility] Nitrite Test strip Ql (U)Ord ered By: Dr. Funes on 09-11-2022 Nitrite Ql (U) Negative Negative [facility] No Panel InformationOrdered By: Dr. Funes on 09-11-2022 Estimated GFR (MDRD) Amer 93 mL/min >60 [facility] Comment on above: GFR Calc Estimated GFR (MDRD) Non-Af Amer 77 mL/min >60 [facility] Comment on above: Non- GFR Calc Thyroid Stimulating Hormone (TSH) 0.96 uIU/mL 0.358-3.74 [facility] Platelets bldOrdered By: Dr. Funes on 09-11-2022 Platelets (Bld) [#/Vol] 257 10*3/uL 150-450 [facility] Protein Test strip Ql (U)Ord ered By: Dr. Funes on 09-11-2022 Protein Ql (U) Negative Negative [facility] Serum or plasma albumin vickey urement (mass/volume)Ordered By: Dr. Funes on 09-11-2022 Albumin [Mass/Vol] 3.6 g/dL 3.2-5.0 [facility] Serum or plasma albumin/glob ulin mass ratioOrdered By: Dr. Funes on 09-11-2022 Albumin/Globulin [Mass ratio] 1.0 {ratio} 0.9-2.4 [facility] Serum or plasma calcium vickey urement (mass/volume)Ordered By: Dr. Funes on 09-11-2022 Calcium [Mass/Vol] 9.2 mg/dL 8.5-10.1 [facility] Serum or plasma cholesterol in HDL measurement (mass/volume)Ordered By: Dr. Funes on 09-11-2022 Cholesterol in HDL [Mass/Vol] 41 mg/dL >40 [facility] Comment on above: The drugs N-Acetylcy steine and Metamizole may falsely depress this assay. Reference Range HDL <40 mg/dL Low HDL Cholesterol HDL >or= 60 mg/dL High HDL Cholesterol Serum or plasma cholesterol in VLDL measurement (mass/volume)Ordered By: Dr. Funes on 09-11-2022 Cholesterol in VLDL [Mass/Vol] 28 mg/dL 5-40 [facility] Serum or plasma creatinine m easurement (mass/volume)Ordered By: Dr. Funes on 09-11-2022 Creatinine [Mass/Vol] 1.02 mg/dL 0.70-1.30 [facility] Comment on above: The validity of the calculated GFR & GFRAA in patients over 70 years has not been determined. Clinical correlation is essential. Serum or plasma low density lipoprotein (LDL) cholesterol measurement (mass/volume)Ordered By: Dr. Funes on 09-11-2022 Cholesterol in LDL [Mass/Vol] 123 mg/dL 0-130 [facility] Serum or plasma urea nitroge n measurement (mass/volume)Ordered By: Dr. Funes on 09-11-2022 Urea nitrogen [Mass/Vol] 11 mg/dL 7-18 [facility] Squamous epithelial cells de tection in urine sediment by light microscopyOrdered By: Dr. Funes on 09-11-2022 Epithelial cells.squamous LM Ql (Urine sed) 0 SEEN /hpf 0-5 [facility] Thin prep Papanicolaou smear with manual screeningOrdered By: Dr. Funes on 09-11-2022 Thin prep Papanicolaou smear with manual screening 15 U/L 15-37 [facility] Thin prep Papanicolaou smear with manual screening 6 5-15 [facility] Urine blood detectionOrdered By: Dr. Funes on 09-11-2022 RBC Ql (U) Negative Negative [facility] RBC Ql (U) 0 SEEN /hpf 0-5 [facility] Urine clarityOrdered By: Dr. Funes on 09-11-2022 Clarity (U) Clear Clear [facility] Urine color determinationOrd ered By: Dr. Funes on 09-11-2022 Color (U) Yellow Yellow [facility] Urine glucose detectionOrder ed By: Dr. Funes on 09-11-2022 Glucose Ql (U) 1000 mg/dl Normal [facility] Urine leukocyte esterase det ection by dipstickOrdered By: Dr. Funes on 09-11-2022 Leukocyte esterase Test strip Ql (U) Negative Negative [facility] Urine pHOrdered By: Dr. Abraham ash on 09-11-2022 pH (U) 6.0 [pH] 5.0 - 8.0 [facility] Urine sediment bacteria coun t by microscopy (number/high power field)Ordered By: Dr. Funes on 09-11-2022 Bacteria LM.HPF (Urine sed) [#/Area] 0 /[HPF] None Seen [facility] Urine specific gravity measu rementOrdered By: Dr. Funes on 09-11-2022 Specific gravity (U) [Rel density] 1.010 1.002-1.030 [facility] Urobilinogen Auto test strip Ql (U)Ordered By: Dr. Funes on 09-11-2022 Urobilinogen Ql (U) Normal mg/dl Normal [facility] Whole blood hemoglobin A1c/t otal hemoglobin ratio (mass fraction)Ordered By: Dr. Funes on 09-11-2022 HbA1c (Bld) [Mass fraction] 11.3 % 3.8-5.6 [facility] Comment on above: Normal < 5.7 % Predi abetic 5.7 - 6.4 % Diabetic >or= 6.5 % Please note range changes. Encounters Encounter Date Encounter Type Care Provider Facility Start: 05-16-2025 End: 05-16-[address] Alex Funes MD Work Phone: -[facility] Start: 05-16-2025 End: 05-16-[address] Alex Funes MD -[facility] Start: 05-16-2025 End: 05-16-2025 ambulatory Alex Funes Facility:[facility] Start: 2025 End: [address] Alex Funes MD Work Phone: [facility] Work Phone: Start: 2025 End: [address] Alex Funes MD -Laboratory, [facility] Start: 2025 End: 2025 ambulatory Alex Funes Facility:[facility] Start: 09-20-2024 End: 09-20-2024 ambulatory Alex Funes Facility:[facility] Start: 10-27-2023 End: 10-27-2023 ambulatory [facility] Work Phone: Start: 10-27-2023 End: 10-27-2023 Patient encounter procedure [facility] Start: 10-06-2023 ambulatory [facility] Comment on above: Population Health Na vigation Outreach ([place] care gaps ) Start: 06-30-2023 ambulatory Tito [facility] Comment on above: Population Health Na vigation Outreach ([place] care gaps ) Start: 06-11-2023 End: 06-11-2023 ambulatory [facility] Work Phone: Start: 06-11-2023 End: 06-11-2023 Patient encounter procedure [facility] Start: 05-13-2023 ambulatory Charu Osuna [facility] Comment on above: Population Health Na vigation Outreach ([place] Care Gaps ) Start: 04-03-2023 End: 04-03-2023 ambulatory [facility] Work Phone: Start: 04-03-2023 End: 04-03-2023 Patient encounter procedure [facility] Start: 03-17-2023 End: 03-17-2023 ambulatory [facility] Work Phone: Start: 03-17-2023 End: 03-17-2023 Patient encounter procedure [facility] Start: 03-05-2023 [facility]ulatory [facility] Comment on above: Population Health Na vigation Outreach (Care Gaps) Start: 12-16-2022 End: 12-16-2022 ambulatory [facility] Work Phone: Start: 12-16-2022 End: 12-16-2022 Patient encounter procedure [facility] Start: 09-23-2022 End: 09-23-2022 ambulatory [facility] Work Phone: Start: 09-23-2022 End: 09-23-2022 Patient encounter procedure [facility] Start: 09-11-2022 End: 09-11-2022 ambulatory [facility] Work Phone: Start: 09-11-2022 End: 09-11-2022 Patient encounter procedure [facility] Procedures Date Procedure Procedure Detail Performing Clinician Start: 05-16-2025 Urnls dip stick/tabl et reagent auto microscopy Dr. Alex Funes MD Work Phone: Start: 05-16-2025 Free prostate specif ic antigen level Dr. Alex Funes MD Work Phone: Comment on above: [employer] method[employer]. Start: 05-16-2025 Prostate specific an tigen measurement Dr. Alex Funes MD Work Phone: Comment on above: [employer] method[employer].According to the [place] [employer], Serum PSAshould decrease and remain at undetectable levels afterradical prostatectomy. The AUA defines biochemicalrecurrence as an initial PSA value 0.200 ng/mL or greaterfollowed by a subsequent confirmatory PSA value 0.200 ng/mLor greater. Values obtained with different assay methods orkits cannot be used interchangeably. Results cannot beinterpreted as absolute evidence of the presence or absenceof malignant disease. Start: 03-22-2005 Lipid 1996 panel - S césar or Plasma Tito Laura PSS Plan of Treatment Date Care Activity Detail Author Start: 08-01-2024 COLOGUARD (FIT-DNA) COLOGUARD (FIT-D NA) [facility] Start: 08-01-2024 COLORECTAL CANCER SCREENING COLORECTAL CANCER SCREENING [facility] Start: 08-01-2024 Screening for malign ant neoplasm of colon [facility] Start: 06-26-2023 Influenza vaccination C [facility] Start: 10-26-2022 ADVANCE DIRECTIVE DISCUSSION ADVANCE DIRECTIVE DISCUSSION [facility] Start: 10-26-2022 DEPRESSION ASSESSMENT DEPRESSION ASS ESSMENT [facility] Start: 2013 RSV Vaccine (1 - 1-d ose 60+ series) RSV Vaccine (1 - 1-dose 60+ series) [facility] Start: 03-22-2010 Lipid panel Lipid Screening [facility] Start: 03-22-2010 LIPID SCREEN LIPID SCREEN [facility] Start: 08-04-2005 DIABETES SCREEN DIABETES SCREEN [facility] Start: 08-04-2005 Diabetes Screening Diabetes Screenin g [facility] Start: 2003 SHINGRIX VACCINE (1 of 2) SHINGRIX V ACCINE (1 of 2) [facility] Start: [address] [facility] Start: [address] COLONOGRAPHY [facility] Start: 1998 FECAL OCCULT BLOOD FECAL OCCULT BLOO D [facility] Start: 1998 Screening for malign ant neoplasm of colon [facility] Start: 1998 SIGMOIDOSCOPY SIGMOIDOSCOPY [facility] Start: 01-20-[address] [facility] Start: 1971 HEPATITIS C SCREENING HEPATITIS C [facility] Start: 1971 Hepatitis C screening Hepatitis C [facility] Start: 1959 Pneumococcal Vaccine : 65+ (1 - PCV) Pneumococcal Vaccine: 65+ (1 - PCV) [facility] Start: 1959 PNEUMOCOCCAL: 65+ (1 - PCV) PNEUMOCOCCAL: 65+ (1 - PCV) [facility] Start: 1953 COVID-19 VACCINE (#1) COVID-19 VACCI NE (#1) [facility] Start: 1953 ABDOMINAL AORTIC ANE URYSM SCREENING ABDOMINAL AORTIC ANEURYSM SCREENING [facility] Start: 1953 Abdominal aortic ane urysm screening Abdominal Aortic Aneurysm Screening [facility] Payers Date Payer Category Payer Self-pay 2024 Unknown [id number] Private Health Insurance [id number] Unknown [id number] Unknown [id number] Unknown [id number] Social History Date Type Detail [facility] Work Phone: Start: 1955 Sex Assigned At Male [facility] Start: 04-15-2008 [facility] Work Phone: History of tobacco use Cigarette Smoker C [facility] Work Phone: Start: 04-15-2008 End: 10-02-2020 Cigarettes smoked current (pack per day) - Reported 0.5 [facility] Start: 06-10-2022 Alcohol intake Current drinke r of alcohol (finding) [facility] Start: 04-15-2008 Tobacco Comment 5 cgts/day [facility] Start: 04-15-2008 Alcohol Comment rarely [facility] Start: 1955 Sex Assigned At Not on file [facility] Start: 10-02-2020 End: 06-10-[address] [facility] National Score (1-10 0), lower number is lower risk Not on file [facility] Tobacco smoking stat [facility] Unknown if ever smoked [facility] Work Phone: Start: 01-26-2025 Sex Male (finding) [facility] Clinical Notes 01-13-2023 to 10-07-2023 Tito Laura [facility] - 10/06/2023 12:37 PM Tito Dunn PSS - 06/30/2023 10:07 AM Charu Grijalva MA - 05/13/2023 8:37 AM Lida Bowling MA - 03/05/2023 11:28 AM EDT Note Date & Type Note Facility 10-07-2023 Note HNO ID: [id number] Author: Nia Bonilla Service: ? Author Type: ? Type: Progress Notes Filed: 10/07/2023 10:57 AM Note Text: POPULATION HEALTH NAVIGATION OUTREACH Action/FYI Letter received and sent to be mailed Nia Bonilla October 07, 2023 10:55 AM [facility] 10-06-2023 Note HNO ID: [id number] Author: Tito Laura PSS Service: ? Author Type: ? Type: [...] NIKKI Sanchez October 06, 2023 12:37 PM [facility] 10-06-2023 Note Patient Outreach (NE TNAV) LEEANNE ANTONIO ([id number]) 1955 M Date Time Provider Department 10/06/23 TITO LAURA During your visit today, we recorded the following information about you: Tito Laura PSS 10/06/2023 1:25 PM Signed POPULATION HEALTH NAVIGATION [...] Cmt: Jen care gaps Prescriptions as of 10/07/2023 - lansoprazole(PREVACID 30 MG CAP) Take one(1) tablet daily. Problem List As Of Date 10/06/2023 Noted Resolved ESOPHAGEAL REFLUX [K21.9] 10/09/2006 TOBACCO USE DISORDER [F17.200] 10/09/2006 Letter Text Encounter Status:Closed by TITO LAURA on 10/06/23 [facility] 10-06-2023 History of Presen t illness Narrative POPULATION HEALTH NAVIGATION OUTREACH Action/FYI [...] 12:37 PM documented in this encounter [facility] 06-30-2023 Note Patient Outreach (NE TNAV) LEEANNE ANTONIO ([id number]) 1955 M Date Time Provider Department 06/30/23 TITO LAURA NETIMMANUELV During your visit today, we recorded the following information about you: Tito Laura PSS 06/30/2023 1:57 PM Signed POPULATION HEALTH [...] Visit: Population Health Navigation Outreach [3910] Cmt: [place] care gaps Prescriptions as of 06/30/2023 - lansoprazole(PREVACID 30 MG CAP) Take one(1) tablet daily. Problem List As Of Date 06/30/2023 Noted Resolved ESOPHAGEAL REFLUX [K21.9] 10/09/2006 TOBACCO USE DISORDER [F17.200] 10/09/2006 Letter Text Encounter Status:Closed by TITO LAURA on 06/30/23 [facility] 06-30-2023 Note HNO ID: [id number] Author: Tito Laura PSS Service: ? Author Type: ? Type: [...] NIKKI Sanchez June 30, 2023 10:07 AM [facility] 06-30-2023 History of Presen t illness Narrative POPULATION HEALTH NAVIGATION OUTREACH Action/FYI [...] 10:07 AM documented in this encounter [facility] 05-13-2023 Note Patient Outreach (ROXANNA TNAV) LEEANNE ANTONIO ([id number]) 1955 M Date Time Provider Department 05/13/23 CHARU OSUNA NETNAV During your visit today, we recorded the following information about you: Charu Osuna MA 05/13/2023 11:17 AM Signed POPULATION HEALTH NAVIGATION OUTREACH Action/FYI Patient's phone [...] done DEPRESSION ASSESSMENT Never done Navigation Signature: Charu Osuna Population Health Navigator May 13, 2023 8:37 AM Allergies As of Date: 05/13/2023 Noted Allergy Reaction PENICILLINS 09/08/2006 SULFA (SULFONAMIDE ANTIBIOTICS) 09/08/2006 Date Reviewed: 09/22/2015 Reviewed by: Tiana Cabrera Lpn Fully Assessed Reason for Visit: Population Health Navigation Outreach [3910] Cmt: Jen Care Gaps Prescriptions as of 05/13/2023 - lansoprazole(PREVACID 30 MG CAP) Take one(1) tablet daily. Problem List As Of Date 05/13/2023 Noted Resolved ESOPHAGEAL REFLUX [K21.9] 10/09/2006 TOBACCO USE DISORDER [F17.200] 10/09/2006 Letter Text Encounter Status:Closed by CHARU OSUNA on 05/13/23 [facility] 05-13-2023 Note HNO ID: [id number] Author: Charu Osuna MA Service: ? Author Type: Cleaning Machine Operator Type: Progress Notes Filed: 05/13/2023 11:17 AM [...] done DEPRESSION ASSESSMENT Never done Navigation Signature: Charu Osuna Population Health Navigator May 13, 2023 8:37 AM [facility] 05-13-2023 History of Presen t illness Narrative POPULATION HEALTH NAVIGATION OUTREACH Action/FYI [...] done DEPRESSION ASSESSMENT Never done Navigation Signature: Charu Osuna Population Health Navigator May 13, 2023 8:37 AM documented in this encounter [facility] 03-05-2023 Note Patient Outreach (NE TNAV) LEEANNE ANTONIO ([id number]) 1955 M Date Time Provider Department 03/05/23 MALIHA BOWLING During your visit today, we recorded the following information about you: Maliha Bowling MA 03/05/2023 2:16 PM Signed POPULATION [...] done DEPRESSION ASSESSMENT Never done Navigation Signature: Maliha Bowling MA March 05, 2023 11:28 AM Allergies As of Date: 03/05/2023 Noted Allergy Reaction PENICILLINS 09/08/2006 SULFA (SULFONAMIDE ANTIBIOTICS) 09/08/2006 Date Reviewed: 09/22/2015 Reviewed by: Tiana Cabrera Lpn - Fully Assessed Reason for Visit: Population Health Navigation Outreach [1320] Cmt: Care Gaps Prescriptions as of 03/05/2023 - lansoprazole(PREVACID 30 MG CAP) Take one(1) tablet daily. Problem List As Of Date 03/05/2023 Noted Resolved ESOPHAGEAL REFLUX [K21.9] 10/09/2006 TOBACCO USE DISORDER [F17.200] 10/09/2006 Encounter Status:Closed by MALIHA BOWLING on 03/05/23 [facility] 03-05-2023 Note HNO ID: [id number] Author: Maliha Bowling MA Service: ? Author Type: Cleaning Machine Operator Type: Progress Notes Filed: 03/05/2023 2:16 PM [...] done DEPRESSION ASSESSMENT Never done Navigation Signature: Maliha Bowling MA March 05, 2023 11:28 AM [facility] 03-05-2023 History of Presen t illness Narrative POPULATION HEALTH NAVIGATION OUTREACH Action/FYI [...] done DEPRESSION ASSESSMENT Never done Navigation Signature: Maliha Bowling MA March 05, 2023 11:28 AM documented in this encounter [facility] 01-13-2023 Note Patient Outreach (ROXANNA TNAV) PACOLEEANNE ([id number]) 1955 M Date Time Provider Department 01/13/23 CHARU OSUNA During your visit today, we recorded the following information about you: Charu Osuna MA 01/13/2023 10:31 AM Addendum POPULATION HEALTH NAVIGATION OUTREACH Action/FYI The patient's phone number on file has been disconnected. He does not have WhatsAppt. Letter sent. Patient need to confirm a [...] done DEPRESSION ASSESSMENT Never done Navigation Signature: Charu Osuna Population Health Navigator January 13, 2023 9:29 AM Allergies As of Date: 01/13/2023 Noted Allergy Reaction PENICILLINS 09/08/2006 SULFA (SULFONAMIDE ANTIBIOTICS) 09/08/2006 Date Reviewed: 09/22/2015 Reviewed by: Tiana E Rick Building Custodian - Fully Assessed Reason for Visit: Population Health Navigation Outreach [3910] Cmt: [place] Care Gaps Prescriptions as of 01/13/2023 - lansoprazole(PREVACID 30 MG CAP) Take one(1) tablet daily. Problem List As Of Date 01/13/2023 Noted Resolved ESOPHAGEAL REFLUX [K21.9] 10/09/2006 TOBACCO USE DISORDER [F17.200] 10/09/2006 Letter Text Encounter Status:Closed by CHARU OSUNA on 01/13/23 [facility] 01-13-2023 Note HNO ID: [id number] Author: Charu Osuna MA Service: ? Author Type: Cleaning Machine Operator Type: Progress Notes Filed: 01/13/2023 3:26 PM [...] done DEPRESSION ASSESSMENT Never done Navigation Signature: Charu Osuna Population Health Navigator January 13, 2023 9:29 AM [facility] Evaluation note No assessment inform ation available [facility] Work Phone: Reason for referral (narrative) No reason for referral information available [facility] Work Phone: Summary Purpose Family History No Family History Records FoundNo Family History Records Found Advance Directives No Advanced Directives Records FoundNo Advanced Directives Records Found Additional Source Comments Goals (unrecognized section and content) Goals may be documented in a n alternate sectionGoals may be documented in an alternate sectionGoals may be documented in an alternate sectionGoals may be documented in an alternate sectionGoals may be documented in an alternate sectionGoals may be documented in an alternate sectionGoals may be documented in an alternate sectionGoals may be documented in an alternate section Care Teams (unrecognized sec tion and content) Team Status: Active Member Role Status Dates Dr. Alex Funes MD Primary Care Provider Active Team Status: Inactive Member Role Status Dates Dr. Alex Funes MD Primary Care Pr ovider, Attending Provider, Referring Provider Active Team Status: Active Member Role Status Dates Dr. Alex Funes MD Primary Care Provider, Attend ing Provider Active Team Status: Inactive Member Role Status Dates Dr. Alex Funes MD Primary Care Provider, Attend ing Provider Active Team Status: Inactive Member Role Status Dates Dr. Alex Funes MD Primary Care Provider Active Start: 2025 End: 2025 Dr. Alex Funes MD Attending Provider Active Start: 2025 End: 2025 Dr. Alex Funes MD Referring Provider Active Start: 2025 End: 2025 Team Status: Active Member Role/Relationship Status Dates Dr. Alex Funes MD Primary Care Provider Active Team Status: Inactive Member Role/Relationship Status Dates Dr. Alex Funes MD Primary Care Provider Active Start: May 16, 2025 End: May 16, 2025 Dr. Alex Funes MD Attending Provider Active Start: May 16, 2025 End: May 16, 2025 Dr. Alex Funes MD Referring Provider Active Start: May 16, 2025 End: May 16, 2025 Source Comments (unrecognize d section and content) In the event this informatio n is protected by the Federal Confidentiality of Alcohol and Drug Abuse Patient Records regulations: The Federal rules restrict any use of the information to criminally investigate or prosecute any alcohol or drug abuse patient.[facility] the event this information is protected by the Federal Confidentiality of Alcohol and Drug Abuse Patient Records regulations: The Federal rules restrict any use of the information to criminally investigate or prosecute any alcohol or drug abuse patient.[facility] the event this information is protected by the Federal Confidentiality of Alcohol and Drug Abuse Patient Records regulations: The Federal rules restrict any use of the information to criminally investigate or prosecute any alcohol or drug abuse patient.[facility] the event this information is protected by the Federal Confidentiality of Alcohol and Drug Abuse Patient Records regulations: The Federal rules restrict any use of the information to criminally investigate or prosecute any alcohol or drug abuse patient.[facility] Reason for Visit (unrecogniz ed section and content) Reason Onset Date Comments Population Health Navigation Outreach 03/05/2023 Care Gaps Reason Onset Date Comments Population Health Navigation Outreach 05/13/2023 [place] Care Gaps Reason Onset Date Comments Population Health Navigation Outreach 06/30/2023 [place] care gaps Reason Onset Date Comments Population Health Navigation Outreach 10/06/2023 [place] care gaps (unrecognized sect ion and content) No Status Records FoundNo Status Records Found INFORMATION SOURCE (unrecogn ized section and content) DATE CREATED AUTHOR 10/08/2023 [facility] DATE CREATED AUTHOR AUTHOR'S CHHAYA VALLEJO 05/23/2025 [facility] FOR RECORDS PERTAINING TO PATIENTS WHO ARE [...] BE BASED ON THE PRIMARY CLINICAL RECORDS. [employer] [facility]. provides no warranty or guarantee of the accuracy or completeness of information in this document.
--- OUTSIDE RECORDS SUMMARY | 2025-06-02 09:29 | XMS RPT_ITS | CCD ---
Author Organization [facility] CliniSynh Care Team Providers Care Intelligence Operations Specialist Name Role Phone Unavailable Primary Care Provider Unavailrony Funes MD, Dr. Alex Malik Primary Care Provider Shantel SIERRA, Dr. Alex Malik Attending Provider [phone] Shantel SIERRA, Dr. Alex Malik Referring Provider [phone] Shantel SIERRA, Dr. Alex Malik Primary Care Provider [phone] Shantel SIERRA, Dr. Alex Malik Attending Provider Shantel SIERRA, Dr. Alex Malik Referring Provider [phone] Alex Funes Primary Care Unavailable Alex Funes Attending Unavailable Alex Funes Primary Care Unavailable Alex Funes Attending Unavailable Alex Funes Referring Unavailable Alex Funes Attending Unavailable Alex Funes Referring Unavailable Alex Funes Primary Care Unavailable Allergies Allergy Classification Reported Allergen(s) Allergy Type Date of Onset Reaction(s) Facility (4 sources) Penicillins Propensity to adverse reactions 6 [facility] Work Phone: (4 sources) Sulfonamides (Antibiotic) Propensity to adverse reactions 6 [facility] Work Phone: Medications Completed/Discontinued Medications [...] 05-17-2025 PSA, FREE 1.57 ng/mL Normal N/A [facility] Comment on above: Order Comment: Order Date: 01/19/25 Order Info: [id number] - MIACRE Order Info: [id number] - MIALB Result Comment: Gloria RINCON methodology. Performed By: #### L 3110.0500, L502.0250, L500.4050, L100.0100, L501.9985, L500.4100 #### [facility] [address] [place], [address] PSA, FREE % 26.5 Normal . [facility] Comment on above: Order Comment: Order Date: 01/19/25 Order Info: [id number] - MIACRE Order Info: [id number] - MIALB Result Comment: The table below [...] any other population of men. Performed at: [address] [id number] Title Inspector: Cam Peralta PhD, Phone: [phone] Performed By: #### L 3110.0500, L502.0250, L500.4050, L100.0100, L501.9985, L500.4100 #### [facility] [address] [place], [place], [id number] PSA, TOTAL ULTR 5.920 ng/mL Abnormal 0.000-4.000 [facility] Comment on above: Order Comment: Order Date: 01/19/25 Order Info: [id number] - MIACRE Order Info: [id number] - MIALB Result Comment: Gloria malik ECLIA methodology. According to the [place] [employer], Serum PSA should decrease and [...] 3110.0500, L502.0250, L500.4050, L100.0100, L501.9985, L500.4100 #### [facility] [address] [place], [address] Absolute lymphocyte countOrd ered By: Alex Funes on 05-16-2025 Lymphocytes Auto (Unsp spec) [#/Vol] 1.58 10*3/uL 0.83-4.51 [facility] Absolute neutrophil countOrd ered By: Alex Funes on 05-16-2025 Neutrophils (Bld) [#/Vol] 3.4 10*3/uL 2.0-7.7 [facility] Anion gap in Serum or Plasma Ordered By: Alex Funes on 05-16-2025 Anion gap [Moles/Vol] 11 mmol/L 5-15 [facility] Automated lymphocyte count a s percentage of total leukocytesOrdered By: Alex Funes on 05-16-2025 Lymphocytes/100 WBC Auto (Unsp spec) 28.1 % 19-41 [facility] BUN/creatinine ratioOrdered By: Alex Funes on 05-16-2025 Urea nitrogen/Creatinine [Mass ratio] 16.4 mg/mg 10-20 [facility] Basophil percentageOrdered B y: lAex Limariah on 05-16-2025 Basophils/100 WBC (Bld) 0.2 % 0-1 [facility] Bilirubin Test strip Ql (U)O rdered By: Alex Limariah on 05-16-2025 Bilirubin Ql (U) Negative Negative [facility] Bilirubin, totalOrdered By: Alex Shantel on 05-16-2025 Bilirubin [Mass/Vol] 0.95 mg/dL 0.00-1.30 [facility] CBC W/Diff, Automatedon 04-26 Absolute Lymph 1.58 X10 3/uL Normal 0.83-4.51 [facility] Comment on above: Order Comment: Order Date: 01/19/25 Order Info: [id number] - MIACRE Order Info: [id number] - MIALB Performed By: #### L 3110.0500, L502.0250, L500.4050, L100.0100, L501.9985, L500.4100 #### [facility] [address] [place], [place], [id number] Absolute Neut 3.4 X10 3/uL Normal 2.0-7.7 [facility] Comment on above: Order Comment: Order Date: 01/19/25 Order Info: [id number] - MIACRE Order Info: [id number] - MIALB Performed By: #### L 3110.0500, L502.0250, L500.4050, L100.0100, L501.9985, L500.4100 #### [facility] [address] [place], [address] Basophils/100 WBC (Bld) 0.2 % Normal 0-1 [facility] Comment on above: Order Comment: Order Date: 01/19/25 Order Info: [id number] - MIACRE Order Info: [id number] - MIALB Performed By: #### L 3110.0500, L502.0250, L500.4050, L100.0100, L501.9985, L500.4100 #### [facility] [address] [place], [address] Eosinophils/100 WBC (Bld) 2.8 % Normal 0-5 [facility] Comment on above: Order Comment: Order Date: 01/19/25 Order Info: [id number] - MIACRE Order Info: [id number] - MIALB Performed By: #### L 3110.0500, L502.0250, L500.4050, L100.0100, L501.9985, L500.4100 #### [facility] [address] [place], [address] Erythrocyte distribution width (RBC) [Ratio] 12.5 % Normal 11.6-14.6 [facility] Comment on above: Order Comment: Order Date: 01/19/25 Order Info: [id number] - MIACRE Order Info: [id number] - MIALB Performed By: #### L 3110.0500, L502.0250, L500.4050, L100.0100, L501.9985, L500.4100 #### [facility] [address] [place], [address] Hematocrit (Bld) [Volume fraction] 49.4 % Normal 40-54 [facility] Comment on above: Order Comment: Order Date: 01/19/25 Order Info: [id number] - MIACRE Order Info: [id number] - MIALB Performed By: #### L 3110.0500, L502.0250, L500.4050, L100.0100, L501.9985, L500.4100 #### [facility] [address] [place], [address] ([phone] Hemoglobin (Bld) [Mass/Vol] 16.8 g/dL High 13.0-16.5 [facility] Comment on above: Order Comment: Order Date: 01/19/25 Order Info: [id number] - MIACRE Order Info: [id number] - MIALB Performed By: #### L 3110.0500, L502.0250, L500.4050, L100.0100, L501.9985, L500.4100 #### [facility] [address] [place], [address] IG% 0.400 Normal 0.0-0.9 [facility] Comment on above: Order Comment: Order Date: 01/19/25 Order Info: [id number] - MIACRE Order Info: [id number] - MIALB Result Comment: IG% - Immature Granulocytes (promyelocytes, myelocytes and metamyelocytes) > 1% indicates that a LEFT SHIFT is Present. Performed By: #### L 3110.0500, L502.0250, L500.4050, L100.0100, L501.9985, L500.4100 #### [facility] [address] [place], [address] Lymphocytes/100 WBC (Bld) 28.1 % Normal 19-41 [facility] Comment on above: Order Comment: Order Date: 01/19/25 Order Info: [id number] - MIACRE Order Info: [id number] - MIALB Performed By: #### L 3110.0500, L502.0250, L500.4050, L100.0100, L501.9985, L500.4100 #### [facility] [address] [place], [address] MCH (RBC) [Entitic mass] 31.5 pg Normal 27.0-32.0 [facility] Comment on above: Order Comment: Order Date: 01/19/25 Order Info: [id number] - MIACRE Order Info: [id number] - MIALB Performed By: #### L 3110.0500, L502.0250, L500.4050, L100.0100, L501.9985, L500.4100 #### [facility] [address] [place], [address] MCHC (RBC) [Mass/Vol] 34.0 g/dL Normal 32-36 [facility] Comment on above: Order Comment: Order Date: 01/19/25 Order Info: [id number] - MIACRE Order Info: [id number] - MIALB Performed By: #### L 3110.0500, L502.0250, L500.4050, L100.0100, L501.9985, L500.4100 #### [facility] [address] [place], [address] MCV (RBC) [Entitic vol] 92.5 fL Normal 80-94 [facility] Comment on above: Order Comment: Order Date: 01/19/25 Order Info: [id number] - MIACRE Order Info: [id number] - MIALB Performed By: #### L 3110.0500, L502.0250, L500.4050, L100.0100, L501.9985, L500.4100 #### [facility] [address] [place], [place], [phone] ([address] Monocytes/100 WBC (Bld) 8.9 % Normal 0-10 [facility] Comment on above: Order Comment: Order Date: 01/19/25 Order Info: [id number] - MIACRE Order Info: [id number] - MIALB Performed By: #### L 3110.0500, L502.0250, L500.4050, L100.0100, L501.9985, L500.4100 #### [facility] [address] [place], [address] Neutrophils/100 WBC (Bld) 59.6 % Normal 47-70 [facility] Comment on above: Order Comment: Order Date: 01/19/25 Order Info: [id number] - MIACRE Order Info: [id number] - MIALB Performed By: #### L 3110.0500, L502.0250, L500.4050, L100.0100, L501.9985, L500.4100 #### [facility] [address] [place], [address] Nucleated RBC (Bld) [#/Vol] 0 10*3/uL Normal 0-5 [facility] Comment on above: Order Comment: Order Date: 01/19/25 Order Info: [id number] - MIACRE Order Info: [id number] - MIALB Performed By: #### L 3110.0500, L502.0250, L500.4050, L100.0100, L501.9985, L500.4100 #### [facility] [address] [place], [address] Platelet mean volume (Bld) [Entitic vol] 9.9 fL Normal 6.2-12.0 [facility] Comment on above: Order Comment: Order Date: 01/19/25 Order Info: [id number]- - MIACRE Order Info: [id number] - MIALB Performed By: #### L 3110.0500, L502.0250, L500.4050, L100.0100, L501.9985, L500.4100 #### [facility] [address] [place], [address] Platelets (Bld) [#/Vol] 271 10*3/uL Normal 150-450 [facility] Comment on above: Order Comment: Order Date: 01/19/25 Order Info: [id number] - MIACRE Order Info: [id number] - MIALB Performed By: #### L 3110.0500, L502.0250, L500.4050, L100.0100, L501.9985, L500.4100 #### [facility] [address] [place], [address] RBC (Bld) [#/Vol] 5.34 10*6/uL Normal 4.6-6.2 [facility] Comment on above: Order Comment: Order Date: 01/19/25 Order Info: [id number] - MIACRE Order Info: [id number] - MIALB Performed By: #### L 3110.0500, L502.0250, L500.4050, L100.0100, L501.9985, L500.4100 #### [facility] [address] [place], [place], [id number] RDW SD 42.8 fl Normal 35.1-43.9 [facility] Comment on above: Order Comment: Order Date: 01/19/25 Order Info: [id number] - MIACRE Order Info: [id number] - MIALB Performed By: #### L 3110.0500, L502.0250, L500.4050, L100.0100, L501.9985, L500.4100 #### [facility] [address] [place], [place], [address] WBC (Bld) [#/Vol] 5.6 10*3/uL Normal 4.4-11.0 [facility] Comment on above: Order Comment: Order Date: 01/19/25 Order Info: [id number] - MIACRE Order Info: [id number] - MIALB Performed By: #### L 3110.0500, L502.0250, L500.4050, L100.0100, L501.9985, L500.4100 #### [facility] [address] [place], [place], [id number] Calculated very low density lipoprotein (VLDL) cholesterol measurementOrdered By: Alex Funes on 05-16-2025 Calculated very low density lipoprotein (VLDL) cholesterol measurement 15 mg/dL 5-40 [facility] Carbon dioxide, total [Moles /volume] in Central venous bloodOrdered By: Alex Funes on 05-16-2025 CO2 [Moles/Vol] 24.1 mmol/L 21.0-32.0 [facility] Chloride assayOrdered By: Kate Funes on 05-16-2025 Chloride [Moles/Vol] 105 mmol/L 98-108 [facility] Comprehensive Metabolic Prof ilon 05-16-2025 Albumin [Mass/Vol] 4.2 g/dL Normal 3.4-4.8 [facility] Comment on above: Order Comment: Order Date: 01/19/25 Order Info: [id number] - MIACRE Order Info: [id number] - MIALB Performed By: #### L 3110.0500, L502.0250, L500.4050, L100.0100, L501.9985, L500.4100 #### [facility] [address] [place], [place], [phone] Albumin/Globulin [Mass ratio] 1.5 {ratio} Normal 0.9-2.4 [facility] Comment on above: Order Comment: Order Date: 01/19/25 Order Info: [id number] - MIACRE Order Info: [id number] - MIALB Performed By: #### L 3110.0500, L502.0250, L500.4050, L100.0100, L501.9985, L500.4100 #### [facility] [address] [place], [place], [id number] ALK PHOS 87 U/L Normal 40-129 [facility] Comment on above: Order Comment: Order Date: 01/19/25 Order Info: [id number] - MIACRE Order Info: [id number] - MIALB Performed By: #### L 3110.0500, L502.0250, L500.4050, L100.0100, L501.9985, L500.4100 #### [facility] [address] [place], [place], [id number] ALT [Catalytic activity/Vol] 16 U/L Normal <=46 [facility] Comment on above: Order Comment: Order Date: 01/19/25 Order Info: [id number] - MIACRE Order Info: [id number] - MIALB Performed By: #### L 3110.0500, L502.0250, L500.4050, L100.0100, L501.9985, L500.4100 #### [facility] [address] [place], [address] AST [Catalytic activity/Vol] 16 U/L Normal <=37 [facility] Comment on above: Order Comment: Order Date: 01/19/25 Order Info: [id number] - MIACRE Order Info: [id number] - MIALB Performed By: #### L 3110.0500, L502.0250, L500.4050, L100.0100, L501.9985, L500.4100 #### [facility] [address] [place], [address] Bilirubin [Mass/Vol] 0.95 mg/dL Normal 0.00-1.30 [facility] Comment on above: Order Comment: Order Date: 01/19/25 Order Info: [id number] - MIACRE Order Info: [id number] - MIALB Performed By: #### L 3110.0500, L502.0250, L500.4050, L100.0100, L501.9985, L500.4100 #### [facility] [address] [place], [address] BUN/CRE 16.4 RATIO Normal 10-20 [facility] Comment on above: Order Comment: Order Date: 01/19/25 Order Info: [id number] - MIACRE Order Info: [id number] - MIALB Performed By: #### L 3110.0500, L502.0250, L500.4050, L100.0100, L501.9985, L500.4100 #### [facility] [address] [place], [address] Calcium [Mass/Vol] 9.6 mg/dL Normal 7.6-11.0 [facility] Comment on above: Order Comment: Order Date: 01/19/25 Order Info: [id number] - MIACRE Order Info: [id number] - MIALB Performed By: #### L 3110.0500, L502.0250, L500.4050, L100.0100, L501.9985, L500.4100 #### [facility] [address] [place], [address] Chloride [Moles/Vol] 105 mmol/L Normal 98-108 [facility] Comment on above: Order Comment: Order Date: 01/19/25 Order Info: [id number] - MIACRE Order Info: [id number] - MIALB Performed By: #### L 3110.0500, L502.0250, L500.4050, L100.0100, L501.9985, L500.4100 #### [facility] [address] [place], [address] CO2 [Moles/Vol] 24.1 mmol/L Normal 21.0-32.0 [facility] Comment on above: Order Comment: Order Date: 01/19/25 Order Info: [id number] - MIACRE Order Info: [id number] - MIALB Performed By: #### L 3110.0500, L502.0250, L500.4050, L100.0100, L501.9985, L500.4100 #### [facility] [address] [place], [address] Creatinine [Mass/Vol] 0.85 mg/dL Normal 0.70-1.20 [facility] Comment on above: Order Comment: Order Date: 01/19/25 Order Info: [id number] - MIACRE Order Info: [id number] - MIALB Performed By: #### L 3110.0500, L502.0250, L500.4050, L100.0100, L501.9985, L500.4100 #### [facility] [address] [place], [address] GAP 11 Normal 5-15 [facility] Comment on above: Order Comment: Order Date: 01/19/25 Order Info: [id number] - MIACRE Order Info: [id number] - MIALB Performed By: #### L 3110.0500, L502.0250, L500.4050, L100.0100, L501.9985, L500.4100 #### [facility] [address] [place], [address] GFR/1.73 sq M.predicted among non-blacks MDRD (S/P/Bld) [Vol rate/Area] 92 mL/min/{1.73_m2} Normal >60 [facility] Comment on above: Order Comment: Order Date: 01/19/25 Order Info: [id number] - MIACRE Order Info: [id number] - MIALB Result Comment: mL/m in/1.73m2 CKD-EPI Creatinine Equation (2020) Performed By: #### L 3110.0500, L502.0250, L500.4050, L100.0100, L501.9985, L500.4100 #### [facility] [address] [place], [address] Globulin (S) [Mass/Vol] 2.8 g/dL Normal 2.2-4.2 [facility] Comment on above: Order Comment: Order Date: 01/19/25 Order Info: [id number] - MIACRE Order Info: [id number] - MIALB Performed By: #### L 3110.0500, L502.0250, L500.4050, L100.0100, L501.9985, L500.4100 #### [facility] [address] [place], [address] Glucose [Mass/Vol] 185 mg/dL High 70-99 [facility] Comment on above: Order Comment: Order Date: 01/19/25 Order Info: [id number] - MIACRE Order Info: [id number] - MIALB Performed By: #### L 3110.0500, L502.0250, L500.4050, L100.0100, L501.9985, L500.4100 #### [facility] [address] [place], [address] Potassium [Moles/Vol] 4.1 mmol/L Normal 3.3-5.1 [facility] Comment on above: Order Comment: Order Date: 01/19/25 Order Info: [id number] - MIACRE Order Info: [id number] - MIALB Performed By: #### L 3110.0500, L502.0250, L500.4050, L100.0100, L501.9985, L500.4100 #### [facility] [address] [place], [address] Sodium [Moles/Vol] 140 mmol/L Normal 133-145 [facility] Comment on above: Order Comment: Order Date: 01/19/25 Order Info: [id number] - MIACRE Order Info: [id number] - MIALB Performed By: #### L 3110.0500, L502.0250, L500.4050, L100.0100, L501.9985, L500.4100 #### [facility] [address] [place], [place], [address] T PROT 7.0 g/dL Normal 5.9-8.4 [facility] Comment on above: Order Comment: Order Date: 01/19/25 Order Info: [id number] - MIACRE Order Info: [id number] - MIALB Performed By: #### L 3110.0500, L502.0250, L500.4050, L100.0100, L501.9985, L500.4100 #### [facility] [address] [place], [address] Urea nitrogen [Mass/Vol] 14 mg/dL Normal 4-19 [facility] Comment on above: Order Comment: Order Date: 01/19/25 Order Info: [id number] - MIACRE Order Info: [id number] - MIALB Performed By: #### L 3110.0500, L502.0250, L500.4050, L100.0100, L501.9985, L500.4100 #### [facility] [address] [place], [place], [id number] Eosinophil percentageOrdered By: Alex Funes on 05-16-2025 Eosinophils/100 WBC (Bld) 2.8 % 0-5 [facility] Erythrocyte distribution wid th ratioOrdered By: Alex Funes on 05-16-2025 Erythrocyte distribution width (RBC) [Ratio] 12.5 % 11.6-14.6 [facility] Erythrocyte distribution wid th standard deviationOrdered By: Alex Funes on 05-16-2025 Erythrocyte distribution width (RBC) [Ratio] 42.8 fl 35.1-43.9 [facility] Glomerular filtration rate ( GFR) estimation/1.73 sq m using serum, plasma, or whole bOrdered By: Alex Funes on 05-16-2025 GFR/1.73 sq M.predicted among non-blacks MDRD (S/P/Bld) [Vol rate/Area] 92 mL/min/{1.73_m2} >60 [facility] Comment on above: mL/min/1.73m2 CKD-EP I Creatinine Equation (2020) Hematocrit Auto (Bld) [Volum e fraction]Ordered By: Alex Funes on 05-16-2025 Hematocrit (Bld) [Volume fraction] 49.4 % 40-54 [facility] Hemoglobin A1con 05-16-2025 HbA1c (Bld) [Mass fraction] 6.5 % High <=5.6 [facility] Comment on above: Order Comment: Order Date: 01/19/25 Order Info: 0779-1 - MIACRE Order Info: [id number] - MIALB Result Comment: Norm al < 5.7 % Prediabetic 5.7 - 6.4 % Diabetic >or= 6.5 % Please note range changes. Performed By: #### L 3110.0500, L502.0250, L500.4050, L100.0100, L501.9985, L500.4100 #### [facility] [address] [place], [address] Hemoglobin A1c percentageOrd ered By: Alex Funes on 05-16-2025 HbA1c (Bld) [Mass fraction] 6.5 % High <5.7 [facility] Comment on above: Normal < 5.7 % Predi abetic 5.7 - 6.4 % Diabetic >or= 6.5 % Please note range changes. Hemoglobin measurementOrdere d By: Alex Funes on 05-16-2025 Hemoglobin (Bld) [Mass/Vol] 16.8 g/dL High 13.0-16.5 [facility] Immature granulocytes/100 WB C Auto (Bld)Ordered By: Alex Funes on 05-16-2025 Immature granulocytes/100 WBC (Bld) 0.400 % 0.0-0.9 [facility] Comment on above: IG% - Immature Granu locytes (promyelocytes, myelocytes and metamyelocytes) > 1% indicates that a LEFT SHIFT is Present. Ketones Test strip Ql (U)Ord ered By: Alex Funes on 05-16-2025 Ketones Ql (U) Negative Negative [facility] LDL calc ser/plasOrdered By: Alex Funes on 05-16-2025 Cholesterol in LDL [Mass/Vol] 54 mg/dL [facility] Comment on above: Ejtrnkruxx=346-756 m g/dL & Higher Hmoa=732 mg/dL or greater Laboratory - Chemistry and C hemistry - challengeOrdered By: Alex Funes on 05-16-2025 AST [Catalytic activity/Vol] 16 U/L <38 [facility] Lipid Profileon 05-16-2025 CHOL:HDL 2.62 Normal [facility] Comment on above: Order Comment: Order Date: 01/19/25 Order Info: 0779-1 - MIACRE Order Info: [id number] - MIALB Performed By: #### L 3110.0500, L502.0250, L500.4050, L100.0100, L501.9985, L500.4100 #### [facility] [address] [place], [address] Cholesterol [Mass/Vol] 112 mg/dL Normal <=[address] [facility] Comment on above: Order Comment: Order Date: 01/19/25 Order Info: [id number] - MIACRE Order Info: [id number] - MIALB Result Comment: Chol esterol level, Desirable <200 mg/dL Borderline high cholesterol 200-239 mg/dL High cholesterol >=240 mg/dL Recommendations of the NCEP Adult Treatment Panel for the following risk-cutoff thresholds for the [place] population. Performed By: #### L 3110.0500, L502.0250, L500.4050, L100.0100, L501.9985, L500.4100 #### [facility] [address] [place], [address] Cholesterol in HDL [Mass/Vol] 43 mg/dL Normal [facility] Comment on above: Order Comment: Order Date: 01/19/25 Order Info: 0779-1 - MIACRE Order Info: [id number] - MIALB Result Comment: Griselda onal Cholesterol Education Program (NCEP) guidelines: <40 mg/dL: Low HDL-cholesterol (major risk factor for CHD) >= 60 mg/dL: High HDL-cholesterol (negative risk factor for CHD) HDL-cholesterol is affected by a number of factors, e.g. smoking, exercise, hormones, sex and age. Performed By: #### L 3110.0500, L502.0250, L500.4050, L100.0100, L501.9985, L500.4100 #### [facility] [address] [place], [address] Cholesterol in LDL [Mass/Vol] 54 mg/dL Normal [facility] Comment on above: Order Comment: Order Date: 01/19/25 Order Info: 0779-1 - MIACRE Order Info: [id number] - MIALB Result Comment: Bord apehey=799-544 mg/dL Higher Ugib=747 mg/dL or greater Performed By: #### L 3110.0500, L502.0250, L500.4050, L100.0100, L501.9985, L500.4100 #### [facility] [address] [place], [address] Cholesterol in VLDL [Mass/Vol] 15 mg/dL Normal 5-40 [facility] Comment on above: Order Comment: Order Date: 01/19/25 Order Info: 0779-1 - MIACRE Order Info: [id number] - MIALB Performed By: #### L 3110.0500, L502.0250, L500.4050, L100.0100, L501.9985, L500.4100 #### [facility] [address] [place], [place], [address] Triglyceride [Mass/Vol] 77 mg/dL Normal [facility] Comment on above: Order Comment: Order Date: 01/19/25 Order Info: 0779-1 - MIACRE Order Info: [id number] - MIALB Result Comment: The drugs N-Acetylcysteine and Metamizole may falsely depress this assay. Normal range: <150 mg/dL Borderline High: 150-199 mg/dL High: 200-499 mg/dL Very High: >500 mg/dL Performed By: #### L 3110.0500, L502.0250, L500.4050, L100.0100, L501.9985, L500.4100 #### [facility] [address] [place], [address] MCV (mean corpuscular volume ) determinationOrdered By: Alex Funes on 05-16-2025 MCV (RBC) [Entitic vol] 92.5 fL 80-94 [facility] Mean corpuscular hemoglobin (MCH) determinationOrdered By: Alex Funes on 05-16-2025 MCH (RBC) [Entitic mass] 31.5 pg 27.0-32.0 [facility] Mean corpuscular hemoglobin concentration (MCHC) determinationOrdered By: Alex Funes on 05-16-2025 MCHC (RBC) [Mass/Vol] 34.0 g/dL 32-36 [facility] Mean platelet volume determi nationOrdered By: Alex Funes on 05-16-2025 Platelet mean volume (Bld) [Entitic vol] 9.9 fL 6.2-12.0 [facility] Microalb:Creat Ratio,Random URon 05-16-2025 Creatinine [Mass/Vol] 64.30 mg/dL Normal 39.00-259.00 [facility] Comment on above: Order Comment: Order Date: 01/19/25 Order Info: [id number] - MIACRE Order Info: [id number] - MIALB Performed By: #### L 3110.0500, L502.0250, L500.4050, L100.0100, L501.9985, L500.4100 #### [facility] [address] [place], [place], [address] MALB:CREAT UNABLE TO CALCULATE Normal <30 mg/g CRE [facility] Comment on above: Order Comment: Order Date: 01/19/25 Order Info: [id number] - MIACRE Order Info: [id number] - MIALB Performed By: #### L 3110.0500, L502.0250, L500.4050, L100.0100, L501.9985, L500.4100 #### [facility] [address] [place], [place], [id number] MICROALBUMIN,UR < 12.0 Normal <20 mg/L [facility] Comment on above: Order Comment: Order Date: 01/19/25 Order Info: [id number] - MIACRE Order Info: [id number] - MIALB Performed By: #### L 3110.0500, L502.0250, L500.4050, L100.0100, L501.9985, L500.4100 #### [facility] [address] [place], [place], [id number] Microalbumin/creat ratio urO rdered By: Alex Funes on 05-16-2025 Urine microalbumin/creatinine ratio measurement UNABLE TO CALCULATE mg/g CRE <30 [facility] Microscopic analysis of urin e for red blood cells (RBC)Ordered By: Alex Funes on 05-16-2025 Microscopic analysis of urine for red blood cells (RBC) 0 SEEN /hpf 0-5 [facility] Monocyte percentageOrdered B y: Alex Funes on 05-16-2025 Monocytes/100 WBC (Bld) 8.9 % 0-10 [facility] Mucus LM Ql (Urine sed)Order ed By: Alex Funes on 05-16-2025 Mucus Ql (Urine sed) 0 SEEN /hpf [facility] Neutrophil percentageOrdered By: Alex Funes on 05-16-2025 Neutrophils/100 WBC (Bld) 59.6 % 47-70 [facility] Nitrite Test strip Ql (U)Ord ered By: Alex Funes on 05-16-2025 Nitrite Ql (U) Negative Negative [facility] Nucleated red blood cell per centageOrdered By: Alex Funes on 05-16-2025 Nucleated RBC/100 WBC (Bld) [Ratio] 0 % 0-5 [facility] Platelet countOrdered By: Kate Funes on 05-16-2025 Platelets (Bld) [#/Vol] 271 10*3/uL 150-450 [facility] Potassium measurement (mass/ volume)Ordered By: Alex Funes on 05-16-2025 Potassium (Unsp spec) [Mass/Vol] 4.1 mmol/L 3.3-5.1 [facility] Protein Test strip Ql (U)Ord ered By: Alex Funes on 05-16-2025 Protein Ql (U) 15 mg/dl High Negative [facility] RBC Auto (Bld) [#/Vol]Ordere d By: Alex Funes on 05-16-2025 RBC (Bld) [#/Vol] 5.34 10*6/uL 4.6-6.2 [facility] Random urine creatinine vickey urement (mass/volume)Ordered By: Alex Funes on 05-16-2025 Creatinine Unsp time (U) [Mass/Vol] 64.30 mg/dL 39.00-259.00 [facility] Screening total cholesterol/ high density lipoprotein (HDL) cholesterol ratioOrdered By: Alex Funes on 05-16-2025 Cholesterol.total/Terri sterol in HDL [Mass ratio] 2.62 {ratio} [facility] Serum creatinine measurement (mass/volume)Ordered By: Alex Funes on 05-16-2025 Creatinine [Mass/Vol] 0.85 mg/dL 0.70-1.20 [facility] Serum globulin measurementOr dered By: Alex Funes on 05-16-2025 Globulin (S) [Mass/Vol] 2.8 g/dL 2.2-4.2 [facility] Serum glucose measurement (m ass/volume)Ordered By: Alex Funes on 05-16-2025 Glucose [Mass/Vol] 185 mg/dL High 70-99 [facility] Serum or plasma alanine blair otransferase (ALT) measurementOrdered By: Alex Funes on 05-16-2025 ALT [Catalytic activity/Vol] 16 U/L <47 [facility] Serum or plasma albumin vickey urement (mass/volume)Ordered By: Alex Funes on 05-16-2025 Albumin [Mass/Vol] 4.2 g/dL 3.4-4.8 [facility] Serum or plasma albumin/glob ulin mass ratioOrdered By: Alex Funes on 05-16-2025 Albumin/Globulin [Mass ratio] 1.5 {ratio} 0.9-2.4 [facility] Serum or plasma alkaline robina sphatase measurementOrdered By: Alex Funes on 05-16-2025 ALP [Catalytic activity/Vol] 87 U/L 40-129 [facility] Serum or plasma calcium vickey urement (mass/volume)Ordered By: Alex Funes on 05-16-2025 Calcium [Mass/Vol] 9.6 mg/dL 7.6-11.0 [facility] Serum or plasma cholesterol in HDL measurement (mass/volume)Ordered By: Alex Funes on 05-16-2025 Cholesterol in HDL [Mass/Vol] 43 mg/dL >40 [facility] Comment on above: National Cholesterol Education Program (NCEP) guidelines:<40 mg/dL: Low HDL-cholesterol (major risk factor for CHD)>= 60 mg/dL: High HDL-cholesterol (negative risk factor for CHD)HDL-cholesterol is affected by a number of factors, e.g. smoking, exercise, hormones, sex and age. Serum or plasma cholesterol measurement (mass/volume)Ordered By: Alex Funes on 05-16-2025 Cholesterol [Mass/Vol] 112 mg/dL <[address] [facility] Comment on above: Cholesterol level, D esirable <200 mg/dLBorderline high cholesterol 200-239 mg/dLHigh cholesterol >=240 mg/dLRecommendations of the NCEP Adult Treatment Panel for the following risk-cutoff thresholds for the [place] population. Serum or plasma free prostat e specific antigen (PSA)/total PSA mass ratioOrdered By: Alex Funes on 05-16-2025 Free PSA/Total PSA [Mass fraction] 26.5 % . [facility] Comment on above: The table below [...] for any other population of men.Performed at: [employer] [id number] Director: Cam Peralta PhD, Phone: [phone] Serum or plasma urea nitroge n measurement (mass/volume)Ordered By: Alex Funes on 05-16-2025 Urea nitrogen [Mass/Vol] 14 mg/dL 4-19 [facility] Sodium levelOrdered By: Alex Funes on 05-16-2025 Sodium [Moles/Vol] 140 mmol/L 133-145 [facility] Squamous epithelial cells de tection in urine sediment by light microscopyOrdered By: Alex Funes on 05-16-2025 Epithelial cells.squamous LM Ql (Urine sed) 0 SEEN /hpf 0-5 [facility] Total proteinOrdered By: Joshua Funes on 05-16-2025 Protein [Mass/Vol] 7.0 g/dL 5.9-8.4 [facility] Triglycerides measurementOrd ered By: Alex Funes on 05-16-2025 Triglyceride [Mass/Vol] 77 mg/dL <199 [facility] Comment on above: The drugs N-Acetylcy steine and Metamizole may falsely depress this assay. Normal range: <150 mg/dLBorderline High: 150-199 mg/dLHigh: 200-499 mg/dLVery High: >500 mg/dL Urinalysis, Completeon 05-16 BACTERIA 0 SEEN Normal None Seen [facility] Comment on above: Order Comment: Order Date: 01/19/25 Order Info: [id number] - MIACRE Order Info: [id number] - MIALB Performed By: #### L 3110.0500, L502.0250, L500.4050, L100.0100, L501.9985, L500.4100 #### [facility] [address] [place], [address] EPI,SQUAMOUS 0 SEEN Normal 0-5 [facility] Comment on above: Order Comment: Order Date: 01/19/25 Order Info: [id number]- - MIACRE Order Info: [id number] - MIALB Performed By: #### L 3110.0500, L502.0250, L500.4050, L100.0100, L501.9985, L500.4100 #### [facility] [address] [place], [place], [id number] Mucus Ql (Urine sed) 0 SEEN Normal [facility] Comment on above: Order Comment: Order Date: 01/19/25 Order Info: [id number] - MIACRE Order Info: [id number] - MIALB Performed By: #### L 3110.0500, L502.0250, L500.4050, L100.0100, L501.9985, L500.4100 #### [facility] [address] [place], [address] RBC 0 SEEN Normal 0-5 [facility] Comment on above: Order Comment: Order Date: 01/19/25 Order Info: [id number] - MIACRE Order Info: [id number] - MIALB Performed By: #### L 3110.0500, L502.0250, L500.4050, L100.0100, L501.9985, L500.4100 #### [facility] [address] [place], [address] WBC 0 SEEN Normal 0-5 [facility] Comment on above: Order Comment: Order Date: 01/19/25 Order Info: [id number] - MIACRE Order Info: [id number] - MIALB Performed By: #### L 3110.0500, L502.0250, L500.4050, L100.0100, L501.9985, L500.4100 #### [facility] [address] [place], [address] Urine albumin measurement wi detection limit of 20 mg/L or less (mass/volume)Ordered By: Alex Funes on 05-16-2025 Albumin DL <= 20 mg/L (U) [Mass/Vol] < 12.0 mg/L <20 mg/L [facility] Urine clarityOrdered By: Joshua Funes on 05-16-2025 Clarity (U) Clear Clear [facility] Urine color determinationOrd ered By: Alex Funes on 05-16-2025 Color (U) Yellow Yellow [facility] Urine glucose detectionOrder ed By: Alex Funes on 05-16-2025 Glucose Ql (U) 1000 mg/dl High Normal [facility] Urine leukocyte esterase det ection by dipstickOrdered By: Alex Funes on 05-16-2025 Leukocyte esterase Test strip Ql (U) Negative Negative [facility] Urine pHOrdered By: Alex agustin on 05-16-2025 pH (U) 6.0 [pH] 5.0 - 8.0 [facility] Urine sediment bacteria coun t by microscopy (number/high power field)Ordered By: Alex Funes on 05-16-2025 Bacteria LM.HPF (Urine sed) [#/Area] 0 /[HPF] None Seen [facility] Urine specific gravity measu rementOrdered By: Alex Funes on 05-16-2025 Specific gravity (U) [Rel density] 1.010 1.002-1.030 [facility] Urine urobilinogen measureme ntOrdered By: Alex Funes on 05-16-2025 Urobilinogen Ql (U) Normal mg/dl Normal [facility] White blood cell (WBC) count Ordered By: Alex Funes on 05-16-2025 WBC (Bld) [#/Vol] 5.6 10*3/uL 4.4-11.0 [facility] White blood cell countOrdere d By: Alex Funes on 05-16-2025 White blood cell count 0 SEEN /hpf 0-5 [facility] PSA Total+%Freeon 01-23-2025 PSA, FREE 1.57 ng/mL Normal N/A [facility] Comment on above: Order Comment: Order Date: 01/19/25 Order Info: [id number] - PSAT%F Result Comment: Gloria RINCON methodology. Performed By: #### L 3110.0500, L502.0250, L500.4050, L100.0100, L501.9985, L500.4100 #### [facility] [address] [place], [place], [address] PSA, FREE % 30.9 Normal . [facility] Comment on above: Order Comment: Order [...] any other population of men. Performed at: [facility] [address] [place], [place] [id number] Title Inspector: Cam Peralta PhD, Phone: [phone] Performed By: #### L 3110.0500, L502.0250, L500.4050, L100.0100, L501.9985, L500.4100 #### [facility] [address] [place], [place], [id number] PSA, TOTAL ULTR 5.080 ng/mL Abnormal 0.000-4.000 [facility] Comment on above: Order Comment: Order Date: 01/19/25 Order Info: 0756-1 - PSAT%F Result Comment: Gloria malik ECLIA methodology. According to the [place] [employer], Serum PSA should decrease and [...] 3110.0500, L502.0250, L500.4050, L100.0100, L501.9985, L500.4100 #### [facility] [address] [place], [address] Absolute neutrophil countOrd ered By: Alex Funes on 2025 Neutrophils (Bld) [#/Vol] 3.6 10*3/uL 2.0-7.7 [facility] Albumin DL <= 20 mg/L (U) [M ass/Vol]Ordered By: Alex Funes on 2025 Urine Random Microalbumin < 12.0 mg/L NO RANGE EST. [facility] Anion gap in Serum or Plasma Ordered By: Alex Funes on 2025 Anion gap [Moles/Vol] 12 mmol/L 5-15 [facility] BUN/creatinine ratioOrdered By: Alex Funes on 2025 Urea nitrogen/Creatinine [Mass ratio] 14.5 mg/mg 10-20 [facility] Basophil percentageOrdered B y: Alex Funes on 2025 Basophils/100 WBC (Bld) 0.5 % 0-1 [facility] Bilirubin, totalOrdered By: Alex Funes on 2025 Bilirubin [Mass/Vol] 0.92 mg/dL 0.00-1.30 [facility] CBC W/Diff, Automatedon 12-25 Absolute Lymph 1.97 X10 3/uL Normal 0.83-4.51 [facility] Comment on above: Order Comment: Order Date: 01/19/25 Order Info: [id number]- - CBCD Performed By: #### L 3110.0500, L502.0250, L500.4050, L100.0100, L501.9985, L500.4100 #### [facility] [address] [place], [address] Absolute Neut 3.6 X10 3/uL Normal 2.0-7.7 [facility] Comment on above: Order Comment: Order Date: 01/19/25 Order Info: [id number] - CBCD Performed By: #### L 3110.0500, L502.0250, L500.4050, L100.0100, L501.9985, L500.4100 #### [facility] [address] [place], [address] Basophils/100 WBC (Bld) 0.5 % Normal 0-1 [facility] Comment on above: Order Comment: Order Date: 01/19/25 Order Info: [id number]- - CBCD Performed By: #### L 3110.0500, L502.0250, L500.4050, L100.0100, L501.9985, L500.4100 #### [facility] [address] [place], [address] Eosinophils/100 WBC (Bld) 2.2 % Normal 0-5 [facility] Comment on above: Order Comment: Order Date: 01/19/25 Order Info: [id number]- - CBCD Performed By: #### L 3110.0500, L502.0250, L500.4050, L100.0100, L501.9985, L500.4100 #### [facility] [address] [place], [place], [id number] Erythrocyte distribution width (RBC) [Ratio] 13.6 % Normal 11.6-14.6 [facility] Comment on above: Order Comment: Order Date: 01/19/25 Order Info: [id number] - CBCD Performed By: #### L 3110.0500, L502.0250, L500.4050, L100.0100, L501.9985, L500.4100 #### [facility] [address] [place], [place], [id number] Hematocrit (Bld) [Volume fraction] 49.4 % Normal 40-54 [facility] Comment on above: Order Comment: Order Date: 01/19/25 Order Info: [id number] - CBCD Performed By: #### L 3110.0500, L502.0250, L500.4050, L100.0100, L501.9985, L500.4100 #### [facility] [address] [place], [place], [phone] Hemoglobin (Bld) [Mass/Vol] 16.7 g/dL High 13.0-16.5 [facility] Comment on above: Order Comment: Order Date: 01/19/25 Order Info: [id number] - CBCD Performed By: #### L 3110.0500, L502.0250, L500.4050, L100.0100, L501.9985, L500.4100 #### [facility] [address] [place], [address] IG% 0.300 Normal 0.0-0.9 [facility] Comment on above: Order Comment: Order Date: 01/19/25 Order Info: [id number] - CBCD Result Comment: IG% - Immature Granulocytes (promyelocytes, myelocytes and metamyelocytes) > 1% indicates that a LEFT SHIFT is Present. Performed By: #### L 3110.0500, L502.0250, L500.4050, L100.0100, L501.9985, L500.4100 #### [facility] [address] [place], [address] Lymphocytes/100 WBC (Bld) 31.4 % Normal 19-41 [facility] Comment on above: Order Comment: Order Date: 01/19/25 Order Info: 018- - CBCD Performed By: #### L 3110.0500, L502.0250, L500.4050, L100.0100, L501.9985, L500.4100 #### [facility] [address] [place], [address] MCH (RBC) [Entitic mass] 31.4 pg Normal 27.0-32.0 [facility] Comment on above: Order Comment: Order Date: 01/19/25 Order Info: [id number] - CBCD Performed By: #### L 3110.0500, L502.0250, L500.4050, L100.0100, L501.9985, L500.4100 #### [facility] [address] [place], [address] MCHC (RBC) [Mass/Vol] 33.8 g/dL Normal 32-36 [facility] Comment on above: Order Comment: Order Date: 01/19/25 Order Info: [id number]- - CBCD Performed By: #### L 3110.0500, L502.0250, L500.4050, L100.0100, L501.9985, L500.4100 #### [facility] [address] [place], [address] MCV (RBC) [Entitic vol] 92.9 fL Normal 80-94 [facility] Comment on above: Order Comment: Order Date: 01/19/25 Order Info: [id number]- - CBCD Performed By: #### L 3110.0500, L502.0250, L500.4050, L100.0100, L501.9985, L500.4100 #### [facility] [address] [place], [address] Monocytes/100 WBC (Bld) 7.5 % Normal 0-10 [facility] Comment on above: Order Comment: Order Date: 01/19/25 Order Info: [id number] - CBCD Performed By: #### L 3110.0500, L502.0250, L500.4050, L100.0100, L501.9985, L500.4100 #### [facility] [address] [place], [address] Neutrophils/100 WBC (Bld) 58.1 % Normal 47-70 [facility] Comment on above: Order Comment: Order Date: 01/19/25 Order Info: [id number] - CBCD Performed By: #### L 3110.0500, L502.0250, L500.4050, L100.0100, L501.9985, L500.4100 #### [facility] [address] [place], [address] Nucleated RBC (Bld) [#/Vol] 0 10*3/uL Normal 0-5 [facility] Comment on above: Order Comment: Order Date: 01/19/25 Order Info: [id number] - CBCD Performed By: #### L 3110.0500, L502.0250, L500.4050, L100.0100, L501.9985, L500.4100 #### [facility] [address] [place], [address] Platelet mean volume (Bld) [Entitic vol] 10.0 fL Normal 6.2-12.0 [facility] Comment on above: Order Comment: Order Date: 01/19/25 Order Info: [id number] - CBCD Performed By: #### L 3110.0500, L502.0250, L500.4050, L100.0100, L501.9985, L500.4100 #### [facility] [address] [place], [address] Platelets (Bld) [#/Vol] 264 10*3/uL Normal 150-450 [facility] Comment on above: Order Comment: Order Date: 01/19/25 Order Info: [id number] - CBCD Performed By: #### L 3110.0500, L502.0250, L500.4050, L100.0100, L501.9985, L500.4100 #### [facility] [address] [place], [address] RBC (Bld) [#/Vol] 5.32 10*6/uL Normal 4.6-6.2 [facility] Comment on above: Order Comment: Order Date: 01/19/25 Order Info: [id number] - CBCD Performed By: #### L 3110.0500, L502.0250, L500.4050, L100.0100, L501.9985, L500.4100 #### [facility] [address] [place], [address] RDW SD 46.0 fl High 35.1-43.9 [facility] Comment on above: Order Comment: Order Date: 01/19/25 Order Info: [id number] - CBCD Performed By: #### L 3110.0500, L502.0250, L500.4050, L100.0100, L501.9985, L500.4100 #### [facility] [address] [place], [address] WBC (Bld) [#/Vol] 6.3 10*3/uL Normal 4.4-11.0 [facility] Comment on above: Order Comment: Order Date: 01/19/25 Order Info: [id number] - CBCD Performed By: #### L 3110.0500, L502.0250, L500.4050, L100.0100, L501.9985, L500.4100 #### [facility] [address] [place], [place], [phone] Calculated very low density lipoprotein (VLDL) cholesterol measurementOrdered By: Alex Funes on 2025 VLDL Cholesterol 10 mg/dL 5-40 [facility] Carbon dioxide, total [Moles /volume] in Central venous bloodOrdered By: Alex Funes on 2025 CO2 [Moles/Vol] 25.0 mmol/L 21.0-32.0 [facility] Chloride assayOrdered By: Kate Funes on 2025 Chloride [Moles/Vol] 105 mmol/L 98-108 [facility] Comprehensive Metabolic Prof ilon 2025 Albumin [Mass/Vol] 4.4 g/dL Normal 3.4-4.8 [facility] Comment on above: Order Comment: Order Date: 01/19/25 Order Info: [id number] - CMP Order Info: [id number] - LIPID Performed By: #### L 3110.0500, L502.0250, L500.4050, L100.0100, L501.9985, L500.4100 #### [facility] [address] [place], [address] Albumin/Globulin [Mass ratio] 1.7 {ratio} Normal 0.9-2.4 [facility] Comment on above: Order Comment: Order Date: 01/19/25 Order Info: [id number] - CMP Order Info: [id number] - LIPID Performed By: #### L 3110.0500, L502.0250, L500.4050, L100.0100, L501.9985, L500.4100 #### [facility] [address] [place], [address] ALK PHOS 76 U/L Normal 40-129 [facility] Comment on above: Order Comment: Order Date: 01/19/25 Order Info: [id number] - CMP Order Info: [id number] - LIPID Performed By: #### L 3110.0500, L502.0250, L500.4050, L100.0100, L501.9985, L500.4100 #### [facility] [address] [place], [address] ALT [Catalytic activity/Vol] 14 U/L Normal <=46 [facility] Comment on above: Order Comment: Order Date: 01/19/25 Order Info: [id number] - CMP Order Info: [id number] - LIPID Performed By: #### L 3110.0500, L502.0250, L500.4050, L100.0100, L501.9985, L500.4100 #### [facility] [address] [place], [place], [id number] AST [Catalytic activity/Vol] 16 U/L Normal <=37 [facility] Comment on above: Order Comment: Order Date: 01/19/25 Order Info: [id number] - CMP Order Info: [id number] - LIPID Performed By: #### L 3110.0500, L502.0250, L500.4050, L100.0100, L501.9985, L500.4100 #### [facility] [address] [place], [place], [id number] Bilirubin [Mass/Vol] 0.92 mg/dL Normal 0.00-1.30 [facility] Comment on above: Order Comment: Order Date: 01/19/25 Order Info: [id number] - CMP Order Info: [id number] - LIPID Performed By: #### L 3110.0500, L502.0250, L500.4050, L100.0100, L501.9985, L500.4100 #### [facility] [address] [place], [place], [address] BUN/CRE 14.5 RATIO Normal 10-20 [facility] Comment on above: Order Comment: Order Date: 01/19/25 Order Info: [id number] - CMP Order Info: [id number] - LIPID Performed By: #### L 3110.0500, L502.0250, L500.4050, L100.0100, L501.9985, L500.4100 #### [facility] [address] [place], [address] Calcium [Mass/Vol] 9.9 mg/dL Normal 7.6-11.0 [facility] Comment on above: Order Comment: Order Date: 01/19/25 Order Info: [id number] - CMP Order Info: [id number] - LIPID Performed By: #### L 3110.0500, L502.0250, L500.4050, L100.0100, L501.9985, L500.4100 #### [facility] [address] [place], [address] Chloride [Moles/Vol] 105 mmol/L Normal 98-108 [facility] Comment on above: Order Comment: Order Date: 01/19/25 Order Info: [id number] - CMP Order Info: [id number] - LIPID Performed By: #### L 3110.0500, L502.0250, L500.4050, L100.0100, L501.9985, L500.4100 #### [facility] [address] [place], [address] CO2 [Moles/Vol] 25.0 mmol/L Normal 21.0-32.0 [facility] Comment on above: Order Comment: Order Date: 01/19/25 Order Info: [id number] - CMP Order Info: [id number] - LIPID Performed By: #### L 3110.0500, L502.0250, L500.4050, L100.0100, L501.9985, L500.4100 #### [facility] [address] [place], [address] Creatinine [Mass/Vol] 0.88 mg/dL Normal 0.70-1.20 [facility] Comment on above: Order Comment: Order Date: 01/19/25 Order Info: [id number] - CMP Order Info: [id number] - LIPID Performed By: #### L 3110.0500, L502.0250, L500.4050, L100.0100, L501.9985, L500.4100 #### [facility] [address] [place], [address] GAP 12 Normal 5-15 [facility] Comment on above: Order Comment: Order Date: 01/19/25 Order Info: [id number] - CMP Order Info: [id number] - LIPID Performed By: #### L 3110.0500, L502.0250, L500.4050, L100.0100, L501.9985, L500.4100 #### [facility] [address] [place], [address] GFR/1.73 sq M.predicted among non-blacks MDRD (S/P/Bld) [Vol rate/Area] 91 mL/min/{1.73_m2} Normal >60 [facility] Comment on above: Order Comment: Order Date: 01/19/25 Order Info: [id number] - CMP Order Info: [id number] - LIPID Result Comment: mL/m in/1.73m2 CKD-EPI Creatinine Equation (2020) Performed By: #### L 3110.0500, L502.0250, L500.4050, L100.0100, L501.9985, L500.4100 #### [facility] [address] [place], [address] Globulin (S) [Mass/Vol] 2.7 g/dL Normal 2.2-4.2 [facility] Comment on above: Order Comment: Order Date: 01/19/25 Order Info: [id number] - CMP Order Info: [id number] - LIPID Performed By: #### L 3110.0500, L502.0250, L500.4050, L100.0100, L501.9985, L500.4100 #### [facility] [address] [place], [address] Glucose [Mass/Vol] 152 mg/dL High 70-99 [facility] Comment on above: Order Comment: Order Date: 01/19/25 Order Info: [id number] - CMP Order Info: [id number] - LIPID Performed By: #### L 3110.0500, L502.0250, L500.4050, L100.0100, L501.9985, L500.4100 #### [facility] [address] [place], [address] Potassium [Moles/Vol] 4.7 mmol/L Normal 3.3-5.1 [facility] Comment on above: Order Comment: Order Date: 01/19/25 Order Info: [id number] - CMP Order Info: [id number] - LIPID Performed By: #### L 3110.0500, L502.0250, L500.4050, L100.0100, L501.9985, L500.4100 #### [facility] [address] [place], [address] Sodium [Moles/Vol] 142 mmol/L Normal 133-145 [facility] Comment on above: Order Comment: Order Date: 01/19/25 Order Info: [id number] - CMP Order Info: [id number] - LIPID Performed By: #### L 3110.0500, L502.0250, L500.4050, L100.0100, L501.9985, L500.4100 #### [facility] [address] [place], [address] T PROT 7.1 g/dL Normal 5.9-8.4 [facility] Comment on above: Order Comment: Order Date: 01/19/25 Order Info: [id number] - CMP Order Info: [id number] - LIPID Performed By: #### L 3110.0500, L502.0250, L500.4050, L100.0100, L501.9985, L500.4100 #### [facility] [address] [place], [address] Urea nitrogen [Mass/Vol] 13 mg/dL Normal 4-19 [facility] Comment on above: Order Comment: Order Date: 01/19/25 Order Info: [id number] - CMP Order Info: [id number] - LIPID Performed By: #### L 3110.0500, L502.0250, L500.4050, L100.0100, L501.9985, L500.4100 #### [facility] [address] [place], [address] Creatinine Unsp time (U) [Ma ss/Vol]Or[facility]: [facility] Creatinine (U) [Mass/Vol] 76.70 mg/dL 39.00-259.00 [facility] Eosinophil percentageOrdered By: [facility] Eosinophils/100 WBC (Bld) 2.2 % 0-5 [facility] Erythrocyte distribution wid th (RBC) [Ratio]Or[facility] By: [facility] Erythrocyte distribution width (RBC) [Entitic vol] 46.0 fL High 35.1-43.9 [facility] Erythrocyte distribution wid th ratioOrdered By: [facility]25 Erythrocyte distribution width (RBC) [Ratio] 13.6 % 11.6-14.6 [facility] Free PSA/Total PSA [Mass fra ction]Ordered By: Alex Funes on 2025 % Free Prostate Specific Ag Calc 30.9 % . [facility] Comment on above: The table below [...] any other population of men.Performed at: - [facility] [id number] [place], [place] [id number] Director: Cam Peralta PhD, Phone: [phone] Free prostate specific antig en (PSA) measurementOrdered By: Alex Funes on 2025 Free Prostate Specific Antigen 1.57 ng/mL N/A [facility] Comment on above: Mee ECLIA methodol ogy. GFR/1.73 sq M.predicted jazmine g non-blacks MDRD (S/P/Bld) [Vol rate/Area]Ordered By: Alex Funes on 2025 Estimated GFR (MDRD) Non-Af Amer 91 >60 [facility] Comment on above: mL/min/1.73m2 CKD-EP I Creatinine Equation (2020) Hematocrit Auto (Bld) [Volum e fraction]Ordered By: Alex Funes on 2025 Hematocrit (Bld) [Volume fraction] 49.4 % 40-54 [facility] Hemoglobin A1con 2025 HbA1c (Bld) [Mass fraction] 6.2 % Normal <=5.6 [facility] Comment on above: Order Comment: Order Date: 01/19/25 Order Info: [id number] - A1C Performed By: #### L 3110.0500, L502.0250, L500.4050, L100.0100, L501.9985, L500.4100 #### [facility] [address] [place] [address]. [place], [address] Hemoglobin A1c percentageOrd ered By: Alex Funes on 2025 HbA1c (Bld) [Mass fraction] 6.2 % >5.7 [facility] Hemoglobin measurementOrdere d By: Alex Funes on 2025 Hemoglobin (Bld) [Mass/Vol] 16.7 g/dL High 13.0-16.5 [facility] Immature granulocytes/100 WB C Auto (Bld)Ordered By: Alex Funes on 2025 Immature granulocytes/100 WBC (Bld) 0.300 % 0.0-0.9 [facility] Comment on above: IG% - Immature Granu locytes (promyelocytes, myelocytes and metamyelocytes) > 1% indicates that a LEFT SHIFT is Present. LDL calc ser/plasOrdered By: Alex Funes on 2025 LDL Cholesterol, Calculated 53 mg/dL [facility] Comment on above: Rwbrjmamkb=444-730 m g/dL & Higher Cbjc=259 mg/dL or greater Laboratory - Chemistry and C hemistry - challengeOrdered By: Alex Funes on 2025 AST [Catalytic activity/Vol] 16 U/L <38 [facility] Lipid Profileon 2025 CHOL:HDL 2.29 Normal [facility] Comment on above: Order Comment: Order Date: 01/19/25 Order Info: [id number] - CMP Order Info: [id number] - LIPID Performed By: #### L 3110.0500, L502.0250, L500.4050, L100.0100, L501.9985, L500.4100 #### [facility] [address] [place], [address] Cholesterol [Mass/Vol] 113 mg/dL Normal <=[address] [facility] Comment on above: Order Comment: Order Date: 01/19/25 Order Info: [id number] - CMP Order Info: [id number] - LIPID Result Comment: Chol esterol level, Desirable <200 mg/dL Borderline high cholesterol 200-239 mg/dL High cholesterol >=240 mg/dL Recommendations of the NCEP Adult Treatment Panel for the following risk-cutoff thresholds for the [place] population. Performed By: #### L 3110.0500, L502.0250, L500.4050, L100.0100, L501.9985, L500.4100 #### [facility] [address] [place], [address] Cholesterol in HDL [Mass/Vol] 49 mg/dL Normal [facility] Comment on above: Order Comment: Order Date: 01/19/25 Order Info: [id number] - CMP Order Info: [id number] - LIPID Result Comment: Griselda onal Cholesterol Education Program (NCEP) guidelines: <40 mg/dL: Low HDL-cholesterol (major risk factor for CHD) >= 60 mg/dL: High HDL-cholesterol (negative risk factor for CHD) HDL-cholesterol is affected by a number of factors, e.g. smoking, exercise, hormones, sex and age. Performed By: #### L 3110.0500, L502.0250, L500.4050, L100.0100, L501.9985, L500.4100 #### [facility] [address] [place], [address] Cholesterol in LDL [Mass/Vol] 53 mg/dL Normal [facility] Comment on above: Order Comment: Order Date: 01/19/25 Order Info: [id number] - CMP Order Info: [id number] - LIPID Result Comment: Bord pbrobd=264-372 mg/dL Higher Apxe=478 mg/dL or greater Performed By: #### L 3110.0500, L502.0250, L500.4050, L100.0100, L501.9985, L500.4100 #### [facility] [address] [place], [address] Cholesterol in VLDL [Mass/Vol] 10 mg/dL Normal 5-40 [facility] Comment on above: Order Comment: Order Date: 01/19/25 Order Info: [id number] - CMP Order Info: [id number] - LIPID Performed By: #### L 3110.0500, L502.0250, L500.4050, L100.0100, L501.9985, L500.4100 #### [facility] [address] [place], [address] Triglyceride [Mass/Vol] 52 mg/dL Normal [facility] Comment on above: Order Comment: Order Date: 01/19/25 Order Info: [id number] - CMP Order Info: [id number] - LIPID Result Comment: The drugs N-Acetylcysteine and Metamizole may falsely depress this assay. Normal range: <150 mg/dL Borderline High: 150-199 mg/dL High: 200-499 mg/dL Very High: >500 mg/dL Performed By: #### L 3110.0500, L502.0250, L500.4050, L100.0100, L501.9985, L500.4100 #### [facility] [address] [place], [address] Lymphocytes Auto (Unsp spec) [#/Vol]Ordered By: Alex Funes on 2025 Lymphocytes (Bld) [#/Vol] 1.97 10*3/uL 0.83-4.51 [facility] Lymphocytes/100 WBC Auto (Un sp spec)Ordered By: Alex Funes on 2025 Lymphocytes/100 WBC (Bld) 31.4 % 19-41 [facility] MCV (mean corpuscular volume ) determinationOrdered By: Alex Funes on 2025 MCV (RBC) [Entitic vol] 92.9 fL 80-94 [facility] Mean corpuscular hemoglobin (MCH) determinationOrdered By: Alex Funes on 2025 MCH (RBC) [Entitic mass] 31.4 pg 27.0-32.0 [facility] Mean corpuscular hemoglobin concentration (MCHC) determinationOrdered By: Alex Funes on 2025 MCHC (RBC) [Mass/Vol] 33.8 g/dL 32-36 [facility] Mean platelet volume determi nationOrdered By: Alex Funes on 2025 Platelet mean volume (Bld) [Entitic vol] 10.0 fL 6.2-12.0 [facility] Microalb:Creat Ratio,Random URon 2025 Creatinine [Mass/Vol] 76.70 mg/dL Normal 39.00-259.00 [facility] Comment on above: Order Comment: Order Date: 01/19/25 Order Info: [id number] - MIACRE Order Info: [id number] - MIALB Performed By: #### L 3110.0500, L502.0250, L500.4050, L100.0100, L501.9985, L500.4100 #### [facility] [address] [place], [address] MALB:CREAT UNABLE TO CALCULATE Normal [facility] Comment on above: Order Comment: Order Date: 01/19/25 Order Info: [id number] - MIACRE Order Info: [id number] - MIALB Performed By: #### L 3110.0500, L502.0250, L500.4050, L100.0100, L501.9985, L500.4100 #### [facility] [address] [place], [address] MICROALBUMIN,UR < 12.0 Normal NO RANGE EST. [facility] Comment on above: Order Comment: Order Date: 01/19/25 Order Info: [id number] - MIACRE Order Info: [id number] - MIALB Performed By: #### L 3110.0500, L502.0250, L500.4050, L100.0100, L501.9985, L500.4100 #### [facility] [address] [place], [place], [id number] Microalbumin/creat ratio urO rdered By: Alex Funes on 2025 Urine Microalbumin/Creatinine Ratio UNABLE TO CALCULATE mg/g CRE [facility] Monocyte percentageOrdered B y: Alex Funes on 2025 Monocytes/100 WBC (Bld) 7.5 % 0-10 [facility] Neutrophil percentageOrdered By: Alex Funes on 2025 Neutrophils/100 WBC (Bld) 58.1 % 47-70 [facility] Nucleated red blood cell per centageOrdered By: Alex Funes on 2025 Nucleated RBC/100 WBC (Bld) [Ratio] 0 % 0-5 [facility] PSA, totalOrdered By: Alex garza on 2025 Prostate Specific Ag, Ultra-Sensitv 5.080 ng/mL High 0.000-4.000 [facility] Comment on above: Mee ECLIA methodol ogy.According to the [place] [employer], Serum PSAshould decrease and remain [...] 2025 Platelets (Bld) [#/Vol] 264 10*3/uL 150-450 [facility] Potassium (Unsp spec) [Mass/ Vol]Ordered By: Alex Funes on 2025 Potassium [Moles/Vol] 4.7 mmol/L 3.3-5.1 [facility] RBC Auto (Bld) [#/Vol]Ordere d By: Alex Funes on 2025 RBC (Bld) [#/Vol] 5.32 10*6/uL 4.6-6.2 [facility] Screening total cholesterol/ high density lipoprotein (HDL) cholesterol ratioOrdered By: Alex Funes on 2025 Cholesterol.total/Terri sterol in HDL [Mass ratio] 2.29 {ratio} [facility] Serum creatinine measurement (mass/volume)Ordered By: Alex Funes on 2025 Creatinine [Mass/Vol] 0.88 mg/dL 0.70-1.20 [facility] Serum globulin measurementOr dered By: Alex Funes on 2025 Globulin (S) [Mass/Vol] 2.7 g/dL 2.2-4.2 [facility] Serum glucose measurement (m ass/volume)Ordered By: Alex Funes on 2025 Glucose [Mass/Vol] 152 mg/dL High 70-99 [facility] Serum or plasma alanine blair otransferase (ALT) measurementOrdered By: Alex Funes on 2025 ALT [Catalytic activity/Vol] 14 U/L <47 [facility] Serum or plasma albumin vickey urement (mass/volume)Ordered By: Alex Funes on 2025 Albumin [Mass/Vol] 4.4 g/dL 3.4-4.8 [facility] Serum or plasma albumin/glob ulin mass ratioOrdered By: Alex Funes on 2025 Albumin/Globulin [Mass ratio] 1.7 {ratio} 0.9-2.4 [facility] Serum or plasma alkaline robina sphatase measurementOrdered By: Alex Funes on 2025 ALP [Catalytic activity/Vol] 76 U/L 40-129 [facility] Serum or plasma calcium vickey urement (mass/volume)Ordered By: Alex Funes on 2025 Calcium [Mass/Vol] 9.9 mg/dL 7.6-11.0 [facility] Serum or plasma cholesterol in HDL measurement (mass/volume)Ordered By: Alex Funes on 2025 Cholesterol in HDL [Mass/Vol] 49 mg/dL >40 [facility] Comment on above: National Cholesterol Education Program (NCEP) guidelines:<40 mg/dL: Low HDL-cholesterol (major risk factor for CHD)>= 60 mg/dL: High HDL-cholesterol (negative risk factor for CHD)HDL-cholesterol is affected by a number of factors, e.g. smoking, exercise, hormones, sex and age. Serum or plasma cholesterol measurement (mass/volume)Ordered By: Alex Funes on 2025 Cholesterol [Mass/Vol] 113 mg/dL <[address] [facility] Comment on above: Cholesterol level, D esirable <200 mg/dLBorderline high cholesterol 200-239 mg/dLHigh cholesterol >=240 mg/dLRecommendations of the NCEP Adult Treatment Panel for the following risk-cutoff thresholds for the [place] population. Serum or plasma urea nitroge n measurement (mass/volume)Ordered By: Alex Fuens on 2025 Urea nitrogen [Mass/Vol] 13 mg/dL 4-19 [facility] Sodium levelOrdered By: Alex Funes on 2025 Sodium [Moles/Vol] 142 mmol/L 133-145 [facility] Total proteinOrdered By: Joshua Funes on 2025 Protein [Mass/Vol] 7.1 g/dL 5.9-8.4 [facility] Triglycerides measurementOrd ered By: Alex Funes on 2025 Triglyceride [Mass/Vol] 52 mg/dL <199 [facility] Comment on above: The drugs N-Acetylcy steine and Metamizole may falsely depress this assay. Normal range: <150 mg/dLBorderline High: 150-199 mg/dLHigh: 200-499 mg/dLVery High: >500 mg/dL White blood cell (WBC) count Ordered By: Alex Funes on 2025 WBC (Bld) [#/Vol] 6.3 10*3/uL 4.4-11.0 [facility] PSA Total+%Freeon 09-21-2024 PSA, FREE 1.65 ng/mL Normal N/A [facility] Comment on above: Order Comment: Order Date: 01/19/25 Order Info: [id number] - MIACRE Order Info: [id number] - MIALB Result Comment: Gloria RINCON methodology. Performed By: #### L 3110.0500, L502.0250, L500.4050, L100.0100, L501.9985, L500.4100 #### [facility] [address] [place], [place], [id number] PSA, FREE % 30.6 Normal . [facility] Comment on above: Order Comment: Order Date: 01/19/25 Order Info: [id number] - MIACRE Order Info: [id number] - MIALB Result Comment: The table below [...] any other population of men. Performed at: [address] [id number] Title Inspector: Cam Peralta PhD, Phone: [phone] Performed By: #### L 3110.0500, L502.0250, L500.4050, L100.0100, L501.9985, L500.4100 #### [facility] [address] [place], [place], [phone] PSA, TOTAL ULTR 5.390 ng/mL Abnormal 0.000-4.000 [facility] Comment on above: Order Comment: Order Date: 01/19/25 Order Info: [id number] - MIACRE Order Info: [id number] - MIALB Result Comment: Gloria RINCON methodology. According to the [place] [employer], Serum PSA should decrease and [...] 3110.0500, L502.0250, L500.4050, L100.0100, L501.9985, L500.4100 #### [facility] [address] [place], [place], [phone] CBC W/Diff, Automatedon 08-27 Absolute Lymph 1.80 X10 3/uL Normal 0.83-4.51 [facility] Comment on above: Order Comment: Order Date: 03/18/24 Order Info: [id number] - CBCD Performed By: #### L 500.4050, L100.0100, L501.9985, L502.0250, L3110.0500, L500.4100 #### [facility] [address] [place], [place], [phone] ([phone] Absolute Neut 3.0 X10 3/uL Normal 2.0-7.7 [facility] Comment on above: Order Comment: Order Date: 03/18/24 Order Info: [id number] - CBCD Performed By: #### L 500.4050, L100.0100, L501.9985, L502.0250, L3110.0500, L500.4100 #### [facility] [address] [place], [address] Basophils/100 WBC (Bld) 0.4 % Normal 0-1 [facility] Comment on above: Order Comment: Order Date: 03/18/24 Order Info: [id number] - CBCD Performed By: #### L 500.4050, L100.0100, L501.9985, L502.0250, L3110.0500, L500.4100 #### [facility] [address] [place], [address] Eosinophils/100 WBC (Bld) 2.0 % Normal 0-5 [facility] Comment on above: Order Comment: Order Date: 03/18/24 Order Info: [id number] - CBCD Performed By: #### L 500.4050, L100.0100, L501.9985, L502.0250, L3110.0500, L500.4100 #### [facility] [address] [place], [address] Erythrocyte distribution width (RBC) [Ratio] 12.6 % Normal 11.6-14.6 [facility] Comment on above: Order Comment: Order Date: 03/18/24 Order Info: [id number] - CBCD Performed By: #### L 500.4050, L100.0100, L501.9985, L502.0250, L3110.0500, L500.4100 #### [facility] [address] [facility] [place], [address] Hematocrit (Bld) [Volume fraction] 50.8 % Normal 40-54 [facility] Comment on above: Order Comment: Order Date: 03/18/24 Order Info: [id number] - CBCD Performed By: #### L 500.4050, L100.0100, L501.9985, L502.0250, L3110.0500, L500.4100 #### [facility] [address] [place], [address] Hemoglobin (Bld) [Mass/Vol] 16.4 g/dL Normal 13.0-16.5 [facility] Comment on above: Order Comment: Order Date: 03/18/24 Order Info: [id number] - CBCD Performed By: #### L 500.4050, L100.0100, L501.9985, L502.0250, L3110.0500, L500.4100 #### [facility] [address] [place], [address] IG% 0.400 Normal 0.0-0.9 [facility] Comment on above: Order Comment: Order Date: 03/18/24 Order Info: [id number]- - CBCD Result Comment: IG% - Immature Granulocytes (promyelocytes, myelocytes and metamyelocytes) > 1% indicates that a LEFT SHIFT is Present. Performed By: #### L 500.4050, L100.0100, L501.9985, L502.0250, L3110.0500, L500.4100 #### [facility] [address] [place], [address] Lymphocytes/100 WBC (Bld) 33.3 % Normal 19-41 [facility] Comment on above: Order Comment: Order Date: 03/18/24 Order Info: [id number] - CBCD Performed By: #### L 500.4050, L100.0100, L501.9985, L502.0250, L3110.0500, L500.4100 #### [facility] [address] [place], [address] MCH (RBC) [Entitic mass] 30.6 pg Normal 27.0-32.0 [facility] Comment on above: Order Comment: Order Date: 03/18/24 Order Info: [id number] - CBCD Performed By: #### L 500.4050, L100.0100, L501.9985, L502.0250, L3110.0500, L500.4100 #### [facility] [address] [place], [address] MCHC (RBC) [Mass/Vol] 32.3 g/dL Normal 32-36 [facility] Comment on above: Order Comment: Order Date: 03/18/24 Order Info: [id number] - CBCD Performed By: #### L 500.4050, L100.0100, L501.9985, L502.0250, L3110.0500, L500.4100 #### [facility] [address] [place], [address] MCV (RBC) [Entitic vol] 94.8 fL High 80-94 [facility] Comment on above: Order Comment: Order Date: 03/18/24 Order Info: [id number] - CBCD Performed By: #### L 500.4050, L100.0100, L501.9985, L502.0250, L3110.0500, L500.4100 #### [facility] [address] [place], [address] Monocytes/100 WBC (Bld) 8.3 % Normal 0-10 [facility] Comment on above: Order Comment: Order Date: 03/18/24 Order Info: [id number] - CBCD Performed By: #### L 500.4050, L100.0100, L501.9985, L502.0250, L3110.0500, L500.4100 #### [facility] [address] [place], [address] Neutrophils/100 WBC (Bld) 55.6 % Normal 47-70 [facility] Comment on above: Order Comment: Order Date: 03/18/24 Order Info: [id number] - CBCD Performed By: #### L 500.4050, L100.0100, L501.9985, L502.0250, L3110.0500, L500.4100 #### [facility] [address] [place], [address] Nucleated RBC (Bld) [#/Vol] 0 10*3/uL Normal 0-5 [facility] Comment on above: Order Comment: Order Date: 03/18/24 Order Info: [id number] - CBCD Performed By: #### L 500.4050, L100.0100, L501.9985, L502.0250, L3110.0500, L500.4100 #### [facility] [address] [place], [address] Platelet mean volume (Bld) [Entitic vol] 10.4 fL Normal 6.2-12.0 [facility] Comment on above: Order Comment: Order Date: 03/18/24 Order Info: [id number]- - CBCD Performed By: #### L 500.4050, L100.0100, L501.9985, L502.0250, L3110.0500, L500.4100 #### [facility] [address] [place], [address] Platelets (Bld) [#/Vol] 283 10*3/uL Normal 150-450 [facility] Comment on above: Order Comment: Order Date: 03/18/24 Order Info: [id number] - CBCD Performed By: #### L 500.4050, L100.0100, L501.9985, L502.0250, L3110.0500, L500.4100 #### [facility] [address] [place], [address] RBC (Bld) [#/Vol] 5.36 10*6/uL Normal 4.6-6.2 [facility] Comment on above: Order Comment: Order Date: 03/18/24 Order Info: [id number] - CBCD Performed By: #### L 500.4050, L100.0100, L501.9985, L502.0250, L3110.0500, L500.4100 #### [facility] [address] [place], [address] RDW SD 44.3 fl High 35.1-43.9 [facility] Comment on above: Order Comment: Order Date: 03/18/24 Order Info: [id number] - CBCD Performed By: #### L 500.4050, L100.0100, L501.9985, L502.0250, L3110.0500, L500.4100 #### [facility] [address] [place], [address] WBC (Bld) [#/Vol] 5.4 10*3/uL Normal 4.4-11.0 [facility] Comment on above: Order Comment: Order Date: 03/18/24 Order Info: [id number] - CBCD Performed By: #### L 500.4050, L100.0100, L501.9985, L502.0250, L3110.0500, L500.4100 #### [facility] [address] [place], [address] Comprehensive Metabolic Prof [facility] 09-20-2024 Albumin [Mass/Vol] 3.8 g/dL Normal 3.2-5.0 [facility] Comment on above: Order Comment: Order Date: 01/19/25 Order Info: [id number] - MIACRE Order Info: [id number] - MIALB Performed By: #### L 3110.0500, L502.0250, L500.4050, L100.0100, L501.9985, L500.4100 #### [facility] [address] [place], [address] Albumin/Globulin [Mass ratio] 1.2 {ratio} Normal 0.9-2.4 [facility] Comment on above: Order Comment: Order Date: 01/19/25 Order Info: [id number] - MIACRE Order Info: [id number] - MIALB Performed By: #### L 3110.0500, L502.0250, L500.4050, L100.0100, L501.9985, L500.4100 #### [facility] [address] [place], [address] ALK P 79 U/L Normal 45-117 [facility] Comment on above: Order Comment: Order Date: 01/19/25 Order Info: [id number] - MIACRE Order Info: [id number] - MIALB Performed By: #### L 3110.0500, L502.0250, L500.4050, L100.0100, L501.9985, L500.4100 #### [facility] [address] [facility] [place], [address] ALT [Catalytic activity/Vol] 26 U/L Normal 16-61 [facility] Comment on above: Order Comment: Order Date: 01/19/25 Order Info: [id number] - MIACRE Order Info: [id number] - MIALB Performed By: #### L 3110.0500, L502.0250, L500.4050, L100.0100, L501.9985, L500.4100 #### [facility] [address] [place], [address] AST [Catalytic activity/Vol] 14 U/L Low 15-37 [facility] Comment on above: Order Comment: Order Date: 01/19/25 Order Info: [id number] - MIACRE Order Info: [id number] - MIALB Performed By: #### L 3110.0500, L502.0250, L500.4050, L100.0100, L501.9985, L500.4100 #### [facility] [address] [place], [address] Bilirubin [Mass/Vol] 1.00 mg/dL Normal 0.20-1.00 [facility] Comment on above: Order Comment: Order Date: 01/19/25 Order Info: [id number] - MIACRE Order Info: [id number] - MIALB Result Comment: For patients on eltrombopag therapy, use of Dimension [place] TBIL is not recommended. Performed By: #### L 3110.0500, L502.0250, L500.4050, L100.0100, L501.9985, L500.4100 #### [facility] [address] [place], [address] BUN/CRE 12.9 RATIO Normal 10-20 [facility] Comment on above: Order Comment: Order Date: 01/19/25 Order Info: [id number] - MIACRE Order Info: [id number] - MIALB Performed By: #### L 3110.0500, L502.0250, L500.4050, L100.0100, L501.9985, L500.4100 #### [facility] [address] [place], [place], [id number] CA,Total 9.4 mg/dL Normal 8.5-10.1 [facility] Comment on above: Order Comment: Order Date: 01/19/25 Order Info: [id number] - MIACRE Order Info: [id number] - MIALB Performed By: #### L 3110.0500, L502.0250, L500.4050, L100.0100, L501.9985, L500.4100 #### [facility] [address] [place], [place], [phone] Chloride [Moles/Vol] 106 mmol/L Normal 98-107 [facility] Comment on above: Order Comment: Order Date: 01/19/25 Order Info: [id number] - MIACRE Order Info: [id number] - MIALB Performed By: #### L 3110.0500, L502.0250, L500.4050, L100.0100, L501.9985, L500.4100 #### [facility] [address] [place], [address] CO2 [Moles/Vol] 29.0 mmol/L Normal 21.0-32.0 [facility] Comment on above: Order Comment: Order Date: 01/19/25 Order Info: [id number] - MIACRE Order Info: [id number] - MIALB Performed By: #### L 3110.0500, L502.0250, L500.4050, L100.0100, L501.9985, L500.4100 #### [facility] [address] [place], [place], [phone] Creatinine [Mass/Vol] 0.86 mg/dL Normal 0.70-1.30 [facility] Comment on above: Order Comment: Order Date: 01/19/25 Order Info: [id number]- - MIACRE Order Info: [id number] - MIALB Result Comment: The validity of the calculated GFR GFRAA in patients over 70 years has not been determined. Clinical correlation is essential. Performed By: #### L 3110.0500, L502.0250, L500.4050, L100.0100, L501.9985, L500.4100 #### [facility] [address] [place], [place], [id number] EST GFR - AA 113 mL/min Normal >60 [facility] Comment on above: Order Comment: Order Date: 01/19/25 Order Info: [id number] - MIACRE Order Info: [id number] - MIALB Result Comment: Afri can [place] GFR Calc Performed By: #### L 3110.0500, L502.0250, L500.4050, L100.0100, L501.9985, L500.4100 #### [facility] [address] [place], [place], [phone] GAP 4 Low 5-15 [facility] Comment on above: Order Comment: Order Date: 01/19/25 Order Info: [id number] - MIACRE Order Info: [id number] - MIALB Performed By: #### L 3110.0500, L502.0250, L500.4050, L100.0100, L501.9985, L500.4100 #### [facility] [address] [place], [address] GFR/1.73 sq M.predicted among non-blacks MDRD (S/P/Bld) [Vol rate/Area] 94 mL/min/{1.73_m2} Normal >60 [facility] Comment on above: Order Comment: Order Date: 01/19/25 Order Info: [id number] - MIACRE Order Info: [id number] - MIALB Result Comment: Non- GFR Calc Performed By: #### L 3110.0500, L502.0250, L500.4050, L100.0100, L501.9985, L500.4100 #### [facility] [address] [place], [place], [phone] Globulin (S) [Mass/Vol] 3.3 g/dL Normal 2.2-4.2 [facility] Comment on above: Order Comment: Order Date: 01/19/25 Order Info: [id number] - MIACRE Order Info: [id number] - MIALB Performed By: #### L 3110.0500, L502.0250, L500.4050, L100.0100, L501.9985, L500.4100 #### [facility] [address] [place], [address] Glucose [Mass/Vol] 146 mg/dL High 74-106 [facility] Comment on above: Order Comment: Order Date: 01/19/25 Order Info: 0779-1 - MIACRE Order Info: [id number] - MIALB Result Comment: Fast ing Glucose result greater than or equal to 126 mg/dL suggests DIABETES MELLITUS per A.D.A. criteria. Performed By: #### L 3110.0500, L502.0250, L500.4050, L100.0100, L501.9985, L500.4100 #### [facility] [address] [place], [address] Potassium [Moles/Vol] 4.4 mmol/L Normal 3.5-5.1 [facility] Comment on above: Order Comment: Order Date: 01/19/25 Order Info: [id number] - MIACRE Order Info: [id number] - MIALB Performed By: #### L 3110.0500, L502.0250, L500.4050, L100.0100, L501.9985, L500.4100 #### [facility] [address] [place], [address] Sodium [Moles/Vol] 139 mmol/L Normal 136-145 [facility] Comment on above: Order Comment: Order Date: 01/19/25 Order Info: [id number] - MIACRE Order Info: [id number] - MIALB Performed By: #### L 3110.0500, L502.0250, L500.4050, L100.0100, L501.9985, L500.4100 #### [facility] [address] [place], [address] T PROT 7.1 g/dL Normal 6.4-8.2 [facility] Comment on above: Order Comment: Order Date: 01/19/25 Order Info: [id number] - MIACRE Order Info: [id number] - MIALB Performed By: #### L 3110.0500, L502.0250, L500.4050, L100.0100, L501.9985, L500.4100 #### [facility] [address] [place], [address] Urea nitrogen [Mass/Vol] 11 mg/dL Normal 7-18 [facility] Comment on above: Order Comment: Order Date: 01/19/25 Order Info: [id number] - MIACRE Order Info: [id number] - MIALB Performed By: #### L 3110.0500, L502.0250, L500.4050, L100.0100, L501.9985, L500.4100 #### [facility] [address] [place], [place], [id number] Hemoglobin A1con 09-20-2024 HbA1c (Bld) [Mass fraction] 6.2 % High 3.8-5.6 [facility] Comment on above: Order Comment: Order Date: 03/18/24 Order Info: [id number] - A1C Result Comment: Norm al < 5.7 % Prediabetic 5.7 - 6.4 % Diabetic >or= 6.5 % Please note range changes. Performed By: #### L 500.4050, L100.0100, L501.9985, L502.0250, L3110.0500, L500.4100 #### [facility] [address] [place], [place], [id number] Lipid Profileon 09-20-2024 Cholesterol [Mass/Vol] 101 mg/dL Normal [address] [facility] Comment on above: Order Comment: Order Date: 01/19/25 Order Info: [id number] - MIACRE Order Info: [id number] - MIALB Result Comment: <200 mg/dL Desirable 200-240 mg/dL Borderline >240 mg/dL High Risk Performed By: #### L 3110.0500, L502.0250, L500.4050, L100.0100, L501.9985, L500.4100 #### [facility] [address] [place], [place], [id number] Cholesterol in HDL [Mass/Vol] 48 mg/dL Normal [facility] Comment on above: Order Comment: Order Date: 01/19/25 Order Info: [id number] - MIACRE Order Info: [id number] - MIALB Result Comment: The drugs N-Acetylcysteine and Metamizole may falsely depress this assay. Reference Range HDL <40 mg/dL Low HDL Cholesterol HDL >or= 60 mg/dL High HDL Cholesterol Performed By: #### L 3110.0500, L502.0250, L500.4050, L100.0100, L501.9985, L500.4100 #### [facility] [address] [place], [address] Cholesterol in LDL [Mass/Vol] 38 mg/dL Normal 0-130 [facility] Comment on above: Order Comment: Order Date: 01/19/25 Order Info: [id number] - MIACRE Order Info: [id number] - MIALB Performed By: #### L 3110.0500, L502.0250, L500.4050, L100.0100, L501.9985, L500.4100 #### [facility] [address] [place], [address] Cholesterol in VLDL [Mass/Vol] 15 mg/dL Normal 5-40 [facility] Comment on above: Order Comment: Order Date: 01/19/25 Order Info: [id number] - MIACRE Order Info: [id number] - MIALB Performed By: #### L 3110.0500, L502.0250, L500.4050, L100.0100, L501.9985, L500.4100 #### [facility] [address] [place], [address] Triglyceride [Mass/Vol] 74 mg/dL Normal [facility] Comment on above: Order Comment: Order Date: 01/19/25 Order Info: [id number] - MIACRE Order Info: [id number] - MIALB Result Comment: The drugs N-Acetylcysteine and Metamizole may falsely depress this assay. Serum Triglycerides Reference Interval Normal <150 mg/dL Borderline high 150 - 199 mg/dL High 200 - 499 mg/dL Very High > or = 500 mg/dL Performed By: #### L 3110.0500, L502.0250, L500.4050, L100.0100, L501.9985, L500.4100 #### [facility] [address] [place], [address] Microalb:Creat Ratio,Random URon 09-20-2024 Creatinine [Mass/Vol] 72.00 mg/dL Normal NO RAN GE EST. [facility] Comment on above: Order Comment: Order Date: 03/18/24 Order Info: [id number] - MIACRE Performed By: #### L 500.4050, L100.0100, L501.9985, L502.0250, L3110.0500, L500.4100 #### [facility] [address] [place], [address] MALB:CRE TNP Normal <30 mg/g CRE [facility] Comment on above: Order Comment: Order Date: 03/18/24 Order Info: [id number] - MIACRE Performed By: #### L 500.4050, L100.0100, L501.9985, L502.0250, L3110.0500, L500.4100 #### [facility] [address] [place], [address] MICROALBUMIN,UR < 5.0 Normal NO RANGE EST. [facility] Comment on above: Order Comment: Order Date: 03/18/24 Order Info: [id number] - MIACRE Performed By: #### L 500.4050, L100.0100, L501.9985, L502.0250, L3110.0500, L500.4100 #### [facility] [address] [place], [address] Urinalysis, Completeon 09-20 WBC 0-5 SEEN Normal 0-5 [facility] Comment on above: Order Comment: CLEAN CATCH Performed By: #### L 400.0001 #### [facility] [address] [place], [address] BACTERIA 0 SEEN Normal None Seen [facility] Comment on above: Order Comment: CLEAN CATCH Performed By: #### L 400.0001 #### [facility] [address] [place], [address] EPI,SQUAMOUS 0 SEEN Normal 0-5 [facility] Comment on above: Order Comment: CLEAN CATCH Performed By: #### L 400.0001 #### [facility] [address] [place], [place], [id number] Mucus Ql (Urine sed) 0 SEEN Normal [facility] Comment on above: Order Comment: CLEAN CATCH Performed By: #### L 400.0001 #### [facility] [address] [place], [place], [id number] RBC 0 SEEN Normal 0-5 [facility] Comment on above: Order Comment: CLEAN CATCH Performed By: #### L 400.0001 #### [facility] [address] [place], [place], [id number] Absolute lymphocyte countOrd ered By: Alex Funes on 10-27-2023 Lymphocytes Auto (Unsp spec) [#/Vol] 2.24 10*3/uL 0.83-4.51 [facility] Basophil percentageOrdered B y: Alex Funes on 10-27-2023 Basophils/100 WBC (Bld) 0.4 % 0-1 [facility] Bilirubin [Mass/Vol] 0.80 mg/dL 0.20-1.00 [facility] Comment on above: For patients on eltr ombopag therapy, use of Dimension [place] TBIL is not recommended. Chloride [Moles/Vol] 109 mmol/L 98-107 [facility] Cholesterol [Mass/Vol] 100 mg/dL <[address] [facility] Comment on above: <200 mg/dL Desirable 200-240 mg/dL Borderline >240 mg/dL High Risk Eosinophils/100 WBC (Bld) 2.2 % 0-5 [facility] Glucose [Mass/Vol] 213 mg/dL 74-106 [facility] Comment on above: Glucose result great er than or equal to 200 mg/dLsuggests DIABETES MELLITUS per A.D.A. criteria. Neutrophils (Bld) [#/Vol] 4.1 10*3/uL 2.0-7.7 [facility] Neutrophils/100 WBC (Bld) 56.7 % 47-70 [facility] Potassium [Moles/Vol] 4.1 mmol/L 3.5-5.1 [facility] Comment on above: Slight Hemolysis, Re sult may be falsely increased. Protein [Mass/Vol] 7.1 g/dL 6.4-8.2 [facility] Sodium [Moles/Vol] 140 mmol/L 136-145 [facility] Triglyceride [Mass/Vol] 72 mg/dL <199 [facility] Comment on above: The drugs N-Acetylcy steine and Metamizole may falsely depress this assay.Serum Triglycerides Reference Interval Normal <150 mg/dL Borderline high 150 - 199 mg/dL High 200 - 499 mg/dL Very High > or = 500 mg/dL WBC (Bld) [#/Vol] 7.2 10*3/uL 4.4-11.0 [facility] Blood erythrocytes count (nu mber/volume)Ordered By: Alex Funes on 10-27-2023 RBC (Bld) [#/Vol] 5.43 10*6/uL 4.6-6.2 [facility] Blood hemoglobin measurement (mass/volume)Ordered By: Alex Funes on 10-27-2023 Hemoglobin (Bld) [Mass/Vol] 16.7 g/dL 13.0-16.5 [facility] Blood lymphocytes/100 leukoc ytesOrdered By: Alex Funes on 10-27-2023 Lymphocytes/100 WBC (Bld) 31.3 % 19-41 [facility] Blood monocytes/100 leukocyt esOrdered By: Alex Funes on 10-27-2023 Monocytes/100 WBC (Bld) 8.8 % 0-10 [facility] Blood platelet mean volumeOr dered By: Alex Funes on 10-27-2023 Platelet mean volume (Bld) [Entitic vol] 10.5 fL 6.2-12.0 [facility] Determination of erythrocyte mean corpuscular volume (MCV)Ordered By: Alex Funes on 10-27-2023 MCV (RBC) [Entitic vol] 95.4 fL 80-94 [facility] Hematocrit Auto (Bld) [Volum e fraction]Ordered By: Alex Funes on 10-27-2023 Hematocrit (Bld) [Volume fraction] 51.8 % 40-54 [facility] - Chemistry and C hemistry - challengeOrdered By: Alex Funes on 10-27-2023 ALP [Catalytic activity/Vol] 93 U/L 45-117 [facility] ALT [Catalytic activity/Vol] 29 U/L 16-61 [facility] CO2 [Moles/Vol] 27.0 mmol/L 21.0-32.0 [facility] Globulin (S) [Mass/Vol] 3.5 g/dL 2.2-4.2 [facility] Urea nitrogen/Creatinine [Mass ratio] 14.8 mg/mg 10-20 [facility] - Hematology and Cell countsOrdered By: Alex Funes on 10-27-2023 Erythrocyte distribution width (RBC) [Entitic vol] 43.3 fL 35.1-43.9 [facility] Erythrocyte distribution width (RBC) [Ratio] 12.5 % 11.6-14.6 [facility] Immature granulocytes/100 WBC (Bld) 0.600 % 0.0-0.9 [facility] Comment on above: IG% - Immature Granu locytes (promyelocytes, myelocytes and metamyelocytes) > 1% indicates that a LEFT SHIFT is Present. MCH (RBC) [Entitic mass] 30.8 pg 27.0-32.0 [facility] Nucleated RBC/100 WBC (Bld) [Ratio] 0 % 0-5 [facility] MCHC Auto (RBC) [Mass/Vol]Or dered By: Alex Funes on 10-27-2023 MCHC (RBC) [Mass/Vol] 32.2 g/dL 32-36 [facility] No Panel InformationOrdered By: Alex Funes on 10-27-2023 Estimated GFR (MDRD) Amer 101 mL/min >60 [facility] Comment on above: GFR Calc Estimated GFR (MDRD) Non-Af Amer 84 mL/min >60 [facility] Comment on above: Non- GFR Calc Platelets bldOrdered By: Joshua Funes on 10-27-2023 Platelets (Bld) [#/Vol] 261 10*3/uL 150-450 [facility] Serum or plasma albumin vickey urement (mass/volume)Ordered By: Alex Funes on 10-27-2023 Albumin [Mass/Vol] 3.6 g/dL 3.2-5.0 [facility] Serum or plasma albumin/glob ulin mass ratioOrdered By: Alex Funes on 10-27-2023 Albumin/Globulin [Mass ratio] 1.0 {ratio} 0.9-2.4 [facility] Serum or plasma calcium vickey urement (mass/volume)Ordered By: Alex Funes on 10-27-2023 Calcium [Mass/Vol] 9.5 mg/dL 8.5-10.1 [facility] Serum or plasma cholesterol in HDL measurement (mass/volume)Ordered By: Alex Funes on 10-27-2023 Cholesterol in HDL [Mass/Vol] 41 mg/dL >40 [facility] Comment on above: The drugs N-Acetylcy steine and Metamizole may falsely depress this assay. Reference Range HDL <40 mg/dL Low HDL Cholesterol HDL >or= 60 mg/dL High HDL Cholesterol Serum or plasma cholesterol in VLDL measurement (mass/volume)Ordered By: Alex Funes on 10-27-2023 Cholesterol in VLDL [Mass/Vol] 14 mg/dL 5-40 [facility] Serum or plasma creatinine m easurement (mass/volume)Ordered By: Alex Funes on 10-27-2023 Creatinine [Mass/Vol] 0.94 mg/dL 0.70-1.30 [facility] Comment on above: The validity of the calculated GFR & GFRAA in patients over 70 years has not been determined. Clinical correlation is essential. Serum or plasma low density lipoprotein (LDL) cholesterol measurement (mass/volume)Ordered By: Alex Funes on 10-27-2023 Cholesterol in LDL [Mass/Vol] 45 mg/dL 0-130 [facility] Serum or plasma urea nitroge n measurement (mass/volume)Ordered By: Alex Funes on 10-27-2023 Urea nitrogen [Mass/Vol] 14 mg/dL 7-18 [facility] Thin prep Papanicolaou smear with manual screeningOrdered By: Alex Funes on 10-27-2023 Thin prep Papanicolaou smear with manual screening 16 U/L 15-37 [facility] Comment on above: Slight Hemolysis, Re sult may be falsely increased. Thin prep Papanicolaou smear with manual screening 4 5-15 [facility] Whole blood hemoglobin A1c/t otal hemoglobin ratio (mass fraction)Ordered By: Alex Funes on 10-27-2023 HbA1c (Bld) [Mass fraction] 6.6 % 3.8-5.6 [facility] Comment on above: Normal < 5.7 % Predi abetic 5.7 - 6.4 % Diabetic >or= 6.5 % Please note range changes. Absolute lymphocyte countOrd ered By: Alex Funes on 06-11-2023 Lymphocytes Auto (Unsp spec) [#/Vol] 2.26 10*3/uL 0.83-4.51 [facility] Basophil percentageOrdered B y: Alex Funes on 06-11-2023 Basophils/100 WBC (Bld) 0.3 % 0-1 [facility] Bilirubin [Mass/Vol] 0.90 mg/dL 0.20-1.00 [facility] Comment on above: For patients on eltr ombopag therapy, use of Dimension [place] TBIL is not recommended. Chloride [Moles/Vol] 107 mmol/L 98-107 [facility] Cholesterol [Mass/Vol] 106 mg/dL <[address] [facility] Comment on above: <200 mg/dL Desirable 200-240 mg/dL Borderline >240 mg/dL High Risk Eosinophils/100 WBC (Bld) 2.1 % 0-5 [facility] Glucose [Mass/Vol] 136 mg/dL 74-106 [facility] Comment on above: Fasting Glucose resu lt greater than or equal to 126 mg/dL suggests DIABETES MELLITUS per A.D.A. criteria. Neutrophils (Bld) [#/Vol] 3.9 10*3/uL 2.0-7.7 [facility] Neutrophils/100 WBC (Bld) 56.7 % 47-70 [facility] Potassium [Moles/Vol] 3.8 mmol/L 3.5-5.1 [facility] Protein [Mass/Vol] 7.2 g/dL 6.4-8.2 [facility] Sodium [Moles/Vol] 141 mmol/L 136-145 [facility] Triglyceride [Mass/Vol] 69 mg/dL <199 [facility] Comment on above: The drugs N-Acetylcy steine and Metamizole may falsely depress this assay.Serum Triglycerides Reference Interval Normal <150 mg/dL Borderline high 150 - 199 mg/dL High 200 - 499 mg/dL Very High > or = 500 mg/dL WBC (Bld) [#/Vol] 6.8 10*3/uL 4.4-11.0 [facility] Blood erythrocytes count (nu mber/volume)Ordered By: Alex Funes on 06-11-2023 RBC (Bld) [#/Vol] 5.36 10*6/uL 4.6-6.2 [facility] Blood hemoglobin measurement (mass/volume)Ordered By: Alex Funes on 06-11-2023 Hemoglobin (Bld) [Mass/Vol] 16.6 g/dL 13.0-16.5 [facility] Blood lymphocytes/100 leukoc ytesOrdered By: Alex Funes on 06-11-2023 Lymphocytes/100 WBC (Bld) 33.1 % 19-41 [facility] Blood monocytes/100 leukocyt esOrdered By: Alex Funes on 06-11-2023 Monocytes/100 WBC (Bld) 7.5 % 0-10 [facility] Blood platelet mean volumeOr dered By: Alex Funes on 06-11-2023 Platelet mean volume (Bld) [Entitic vol] 10.3 fL 6.2-12.0 [facility] Determination of erythrocyte mean corpuscular volume (MCV)Ordered By: Alex Funes on 06-11-2023 MCV (RBC) [Entitic vol] 93.1 fL 80-94 [facility] Hematocrit Auto (Bld) [Volum e fraction]Ordered By: Alex Funes on 06-11-2023 Hematocrit (Bld) [Volume fraction] 49.9 % 40-54 [facility] - Chemistry and C hemistry - challengeOrdered By: Alex Funes on 06-11-2023 ALP [Catalytic activity/Vol] 82 U/L 45-117 [facility] ALT [Catalytic activity/Vol] 31 U/L 16-61 [facility] CO2 [Moles/Vol] 29.0 mmol/L 21.0-32.0 [facility] Globulin (S) [Mass/Vol] 3.4 g/dL 2.2-4.2 [facility] Urea nitrogen/Creatinine [Mass ratio] 12.4 mg/mg 10-20 [facility] - Hematology and Cell countsOrdered By: Alex Funes on 06-11-2023 Erythrocyte distribution width (RBC) [Entitic vol] 41.4 fL 35.1-43.9 [facility] Erythrocyte distribution width (RBC) [Ratio] 12.1 % 11.6-14.6 [facility] Immature granulocytes/100 WBC (Bld) 0.300 % 0.0-0.9 [facility] Comment on above: IG% - Immature Granu locytes (promyelocytes, myelocytes and metamyelocytes) > 1% indicates that a LEFT SHIFT is Present. MCH (RBC) [Entitic mass] 31.0 pg 27.0-32.0 [facility] Nucleated RBC/100 WBC (Bld) [Ratio] 0 % 0-5 [facility] MCHC Auto (RBC) [Mass/Vol]Or dered By: Alex Funes on 06-11-2023 MCHC (RBC) [Mass/Vol] 33.3 g/dL 32-36 [facility] No Panel InformationOrdered By: Alex Funes on 06-11-2023 Estimated GFR (MDRD) Amer 109 mL/min >60 [facility] Comment on above: GFR Calc Estimated GFR (MDRD) Non-Af Amer 90 mL/min >60 [facility] Comment on above: Non- GFR Calc Percent Free Prostate Specific Ag 1.45 ng/mL N/A [facility] Comment on above: Mee ECLIA methodol ogy. Prostate Specific Ag, Ultra-Sensitv 4.900 ng/mL 0.000-4.000 [facility] Comment on above: Mee ECLIA methodol ogy.According to the [place] [employer], Serum PSAshould decrease and remain [...] 06-11-2023 Platelets (Bld) [#/Vol] 280 10*3/uL 150-450 [facility] Serum or plasma albumin vickey urement (mass/volume)Ordered By: Alex Funes on 06-11-2023 Albumin [Mass/Vol] 3.8 g/dL 3.2-5.0 [facility] Serum or plasma albumin/glob ulin mass ratioOrdered By: Alex Funes on 06-11-2023 Albumin/Globulin [Mass ratio] 1.1 {ratio} 0.9-2.4 [facility] Serum or plasma calcium vickey urement (mass/volume)Ordered By: Alex Funes on 06-11-2023 Calcium [Mass/Vol] 9.5 mg/dL 8.5-10.1 [facility] Serum or plasma cholesterol in HDL measurement (mass/volume)Ordered By: Alex Funes on 06-11-2023 Cholesterol in HDL [Mass/Vol] 43 mg/dL >40 [facility] Comment on above: The drugs N-Acetylcy steine and Metamizole may falsely depress this assay. Reference Range HDL <40 mg/dL Low HDL Cholesterol HDL >or= 60 mg/dL High HDL Cholesterol Serum or plasma cholesterol in VLDL measurement (mass/volume)Ordered By: Alex Funes on 06-11-2023 Cholesterol in VLDL [Mass/Vol] 14 mg/dL 5-40 [facility] Serum or plasma creatinine m easurement (mass/volume)Ordered By: Alex Funes on 06-11-2023 Creatinine [Mass/Vol] 0.89 mg/dL 0.70-1.30 [facility] Comment on above: The validity of the calculated GFR & GFRAA in patients over 70 years has not been determined. Clinical correlation is essential. Serum or plasma free prostat e specific antigen/total prostate specific antigen ratioOrdered By: Alex Funes on 06-11-2023 Free PSA/Total PSA [Mass fraction] 29.6 % . [facility] Comment on above: The table below [...] for any other population of men.Performed at: [facility] [id number] Director: Cam Peralta PhD, Phone: [phone] Serum or plasma low density lipoprotein (LDL) cholesterol measurement (mass/volume)Ordered By: Alex Funes on 06-11-2023 Cholesterol in LDL [Mass/Vol] 49 mg/dL 0-130 [facility] Serum or plasma urea nitroge n measurement (mass/volume)Ordered By: Alex Funes on 06-11-2023 Urea nitrogen [Mass/Vol] 11 mg/dL 7-18 [facility] Thin prep Papanicolaou smear with manual screeningOrdered By: Alex Funes on 06-11-2023 Thin prep Papanicolaou smear with manual screening 14 U/L 15-37 [facility] Thin prep Papanicolaou smear with manual screening 5 5-15 [facility] Whole blood hemoglobin A1c/t otal hemoglobin ratio (mass fraction)Ordered By: Alex Funes on 06-11-2023 HbA1c (Bld) [Mass fraction] 6.6 % 3.8-5.6 [facility] Comment on above: Normal < 5.7 % Predi abetic 5.7 - 6.4 % Diabetic >or= 6.5 % Please note range changes. Basophil percentageOrdered B y: Dr. Funes on 04-03-2023 Chloride [Moles/Vol] 107 mmol/L 98-107 [facility] Glucose [Mass/Vol] 116 mg/dL 74-106 [facility] Comment on above: Fasting Glucose resu lt from 100 to 125 mg/dL suggests IMPAIRED HOMEOSTASIS per A.D.A. criteria. Potassium [Moles/Vol] 4.0 mmol/L 3.5-5.1 [facility] Sodium [Moles/Vol] 139 mmol/L 136-145 [facility] - Chemistry and C hemistry - challengeOrdered By: Dr. Funes on 04-03-2023 CO2 [Moles/Vol] 25.0 mmol/L 21.0-32.0 [facility] Urea nitrogen/Creatinine [Mass ratio] 11.5 mg/mg 10-20 [facility] No Panel InformationOrdered By: Dr. Funes on 04-03-2023 Estimated GFR (MDRD) Amer 111 mL/min >60 [facility] Comment on above: GFR Calc Estimated GFR (MDRD) Non-Af Amer 92 mL/min >60 [facility] Comment on above: Non- GFR Calc Serum or plasma calcium vickey urement (mass/volume)Ordered By: Dr. Funes on 04-03-2023 Calcium [Mass/Vol] 9.5 mg/dL 8.5-10.1 [facility] Serum or plasma creatinine m easurement (mass/volume)Ordered By: Dr. Funes on 04-03-2023 Creatinine [Mass/Vol] 0.87 mg/dL 0.70-1.30 [facility] Comment on above: The validity of the calculated GFR & GFRAA in patients over 70 years has not been determined. Clinical correlation is essential. Serum or plasma urea nitroge n measurement (mass/volume)Ordered By: Dr. Funes on 04-03-2023 Urea nitrogen [Mass/Vol] 10 mg/dL 7-18 [facility] Thin prep Papanicolaou smear with manual screeningOrdered By: Dr. Funes on 04-03-2023 Thin prep Papanicolaou smear with manual screening 7 5-15 [facility] Absolute lymphocyte countOrd ered By: Dr. Funes on 03-17-2023 Lymphocytes Auto (Unsp spec) [#/Vol] 1.82 10*3/uL 0.83-4.51 [facility] Basophil percentageOrdered B y: Dr. Funes on 03-17-2023 Basophils/100 WBC (Bld) 0.5 % 0-1 [facility] Bilirubin [Mass/Vol] 1.40 mg/dL 0.20-1.00 [facility] Comment on above: For patients on eltr ombopag therapy, use of Dimension [place] TBIL is not recommended. Chloride [Moles/Vol] 107 mmol/L 98-107 [facility] Cholesterol [Mass/Vol] 89 mg/dL <[address] [facility] Comment on above: <200 mg/dL Desirable 200-240 mg/dL Borderline >240 mg/dL High Risk Eosinophils/100 WBC (Bld) 3.4 % 0-5 [facility] Glucose [Mass/Vol] 164 mg/dL 74-106 [facility] Comment on above: Fasting Glucose resu lt greater than or equal to 126 mg/dL suggests DIABETES MELLITUS per A.D.A. criteria. Neutrophils (Bld) [#/Vol] 3.3 10*3/uL 2.0-7.7 [facility] Neutrophils/100 WBC (Bld) 56.1 % 47-70 [facility] Potassium [Moles/Vol] 4.0 mmol/L 3.5-5.1 [facility] Protein [Mass/Vol] 7.3 g/dL 6.4-8.2 [facility] Sodium [Moles/Vol] 141 mmol/L 136-145 [facility] Triglyceride [Mass/Vol] 36 mg/dL <199 [facility] Comment on above: The drugs N-Acetylcy steine and Metamizole may falsely depress this assay.Serum Triglycerides Reference Interval Normal <150 mg/dL Borderline high 150 - 199 mg/dL High 200 - 499 mg/dL Very High > or = 500 mg/dL WBC (Bld) [#/Vol] 6.0 10*3/uL 4.4-11.0 [facility] Blood erythrocytes count (nu mber/volume)Ordered By: Dr. Funes on 03-17-2023 RBC (Bld) [#/Vol] 5.17 10*6/uL 4.6-6.2 [facility] Blood hemoglobin measurement (mass/volume)Ordered By: Dr. Funes on 03-17-2023 Hemoglobin (Bld) [Mass/Vol] 16.0 g/dL 13.0-16.5 [facility] Blood lymphocytes/100 leukoc ytesOrdered By: Dr. Funes on 03-17-2023 Lymphocytes/100 WBC (Bld) 30.6 % 19-41 [facility] Blood monocytes/100 leukocyt esOrdered By: Dr. Funes on 03-17-2023 Monocytes/100 WBC (Bld) 9.1 % 0-10 [facility] Blood platelet mean volumeOr dered By: Dr. Funes on 03-17-2023 Platelet mean volume (Bld) [Entitic vol] 10.2 fL 6.2-12.0 [facility] Determination of erythrocyte mean corpuscular volume (MCV)Ordered By: Dr. Funes on 03-17-2023 MCV (RBC) [Entitic vol] 92.1 fL 80-94 [facility] Hematocrit Auto (Bld) [Volum e fraction]Ordered By: Dr. Funes on 03-17-2023 Hematocrit (Bld) [Volume fraction] 47.6 % 40-54 [facility] - Chemistry and C hemistry - challengeOrdered By: Dr. Funes on 03-17-2023 ALP [Catalytic activity/Vol] 79 U/L 45-117 [facility] ALT [Catalytic activity/Vol] 34 U/L 16-61 [facility] CO2 [Moles/Vol] 27.0 mmol/L 21.0-32.0 [facility] Globulin (S) [Mass/Vol] 3.7 g/dL 2.2-4.2 [facility] Urea nitrogen/Creatinine [Mass ratio] 15.3 mg/mg 10-20 [facility] Laboratory - Hematology and Cell countsOrdered By: Dr. Funes on 03-17-2023 Erythrocyte distribution width (RBC) [Entitic vol] 42.0 fL 35.1-43.9 [facility] Erythrocyte distribution width (RBC) [Ratio] 12.3 % 11.6-14.6 [facility] Immature granulocytes/100 WBC (Bld) 0.300 % 0.0-0.9 [facility] Comment on above: IG% - Immature Granu locytes (promyelocytes, myelocytes and metamyelocytes) > 1% indicates that a LEFT SHIFT is Present. MCH (RBC) [Entitic mass] 30.9 pg 27.0-32.0 [facility] Nucleated RBC/100 WBC (Bld) [Ratio] 0 % 0-5 [facility] MCHC Auto (RBC) [Mass/Vol]Or dered By: Dr. Funes on 03-17-2023 MCHC (RBC) [Mass/Vol] 33.6 g/dL 32-36 [facility] No Panel InformationOrdered By: Dr. Fuens on 03-17-2023 Estimated GFR (MDRD) Amer 106 mL/min >60 [facility] Comment on above: GFR Calc Estimated GFR (MDRD) Non-Af Amer 87 mL/min >60 [facility] Comment on above: Non- GFR Calc Urine Microalbumin/Creatinine Ratio 10.5 mg/g CRE <30 [facility] Platelets bldOrdered By: Dr. Funes on 03-17-2023 Platelets (Bld) [#/Vol] 280 10*3/uL 150-450 [facility] Serum or plasma albumin vickey urement (mass/volume)Ordered By: Dr. Funes on 03-17-2023 Albumin [Mass/Vol] 3.6 g/dL 3.2-5.0 [facility] Serum or plasma albumin/glob ulin mass ratioOrdered By: Dr. Funes on 03-17-2023 Albumin/Globulin [Mass ratio] 1.0 {ratio} 0.9-2.4 [facility] Serum or plasma calcium vickey urement (mass/volume)Ordered By: Dr. Funes on 03-17-2023 Calcium [Mass/Vol] 9.0 mg/dL 8.5-10.1 [facility] Serum or plasma cholesterol in HDL measurement (mass/volume)Ordered By: Dr. Funes on 03-17-2023 Cholesterol in HDL [Mass/Vol] 45 mg/dL >40 [facility] Comment on above: The drugs N-Acetylcy steine and Metamizole may falsely depress this assay. Reference Range HDL <40 mg/dL Low HDL Cholesterol HDL >or= 60 mg/dL High HDL Cholesterol Serum or plasma cholesterol in VLDL measurement (mass/volume)Ordered By: Dr. Funes on 03-17-2023 Cholesterol in VLDL [Mass/Vol] 7 mg/dL 5-40 [facility] Serum or plasma creatinine m easurement (mass/volume)Ordered By: Dr. Funes on 03-17-2023 Creatinine [Mass/Vol] 0.91 mg/dL 0.70-1.30 [facility] Comment on above: The validity of the calculated GFR & GFRAA in patients over 70 years has not been determined. Clinical correlation is essential. Serum or plasma low density lipoprotein (LDL) cholesterol measurement (mass/volume)Ordered By: Dr. Funes on 03-17-2023 Cholesterol in LDL [Mass/Vol] 37 mg/dL 0-130 [facility] Serum or plasma urea nitroge n measurement (mass/volume)Ordered By: Dr. Funes on 03-17-2023 Urea nitrogen [Mass/Vol] 14 mg/dL 7-18 [facility] Thin prep Papanicolaou smear with manual screeningOrdered By: Dr. Funes on 03-17-2023 Thin prep Papanicolaou smear with manual screening 21 U/L 15-37 [facility] Thin prep Papanicolaou smear with manual screening 7 5-15 [facility] Thin prep Papanicolaou smear with manual screening 23.6 mg/L NO RANGE EST. [facility] Urine creatinine measurement (mass/volume)Ordered By: Dr. Funes on 03-17-2023 Creatinine (U) [Mass/Vol] 225.00 mg/dL NO RANGE EST. [facility] Whole blood hemoglobin A1c/t otal hemoglobin ratio (mass fraction)Ordered By: Dr. Funes on 03-17-2023 HbA1c (Bld) [Mass fraction] 6.7 % 3.8-5.6 [facility] Comment on above: Normal < 5.7 % Predi abetic 5.7 - 6.4 % Diabetic >or= 6.5 % Please note range changes. Absolute lymphocyte countOrd ered By: Dr. Funes on 12-16-2022 Lymphocytes Auto (Unsp spec) [#/Vol] 2.09 10*3/uL 0.83-4.51 [facility] Basophil percentageOrdered B y: Dr. Funes on 12-16-2022 Basophils/100 WBC (Bld) 0.3 % 0-1 [facility] Bilirubin [Mass/Vol] 0.70 mg/dL 0.20-1.00 [facility] Comment on above: For patients on eltr ombopag therapy, use of Dimension [place] TBIL is not recommended. Chloride [Moles/Vol] 106 mmol/L 98-107 [facility] Cholesterol [Mass/Vol] 104 mg/dL <[address] [facility] Comment on above: <200 mg/dL Desirable 200-240 mg/dL Borderline >240 mg/dL High Risk Eosinophils/100 WBC (Bld) 2.7 % 0-5 [facility] Glucose [Mass/Vol] 186 mg/dL 74-106 [facility] Comment on above: Fasting Glucose resu lt greater than or equal to 126 mg/dL suggests DIABETES MELLITUS per A.D.A. criteria. Neutrophils (Bld) [#/Vol] 3.5 10*3/uL 2.0-7.7 [facility] Neutrophils/100 WBC (Bld) 54.9 % 47-70 [facility] Potassium [Moles/Vol] 3.9 mmol/L 3.5-5.1 [facility] Protein [Mass/Vol] 7.2 g/dL 6.4-8.2 [facility] Sodium [Moles/Vol] 141 mmol/L 136-145 [facility] Triglyceride [Mass/Vol] 84 mg/dL <199 [facility] Comment on above: The drugs N-Acetylcy steine and Metamizole may falsely depress this assay.Serum Triglycerides Reference Interval Normal <150 mg/dL Borderline high 150 - 199 mg/dL High 200 - 499 mg/dL Very High > or = 500 mg/dL WBC (Bld) [#/Vol] 6.3 10*3/uL 4.4-11.0 [facility] Blood erythrocytes count (nu mber/volume)Ordered By: Dr. Funes on 12-16-2022 RBC (Bld) [#/Vol] 5.22 10*6/uL 4.6-6.2 [facility] Blood hemoglobin measurement (mass/volume)Ordered By: Dr. Funes on 12-16-2022 Hemoglobin (Bld) [Mass/Vol] 16.2 g/dL 13.0-16.5 [facility] Blood lymphocytes/100 leukoc ytesOrdered By: Dr. Funes on 12-16-2022 Lymphocytes/100 WBC (Bld) 33.1 % 19-41 [facility] Blood monocytes/100 leukocyt esOrdered By: Dr. Funes on 12-16-2022 Monocytes/100 WBC (Bld) 8.7 % 0-10 [facility] Blood platelet mean volumeOr dered By: Dr. Funes on 12-16-2022 Platelet mean volume (Bld) [Entitic vol] 9.8 fL 6.2-12.0 [facility] Determination of erythrocyte mean corpuscular volume (MCV)Ordered By: Dr. Funes on 12-16-2022 MCV (RBC) [Entitic vol] 92.3 fL 80-94 [facility] Hematocrit Auto (Bld) [Volum e fraction]Ordered By: Dr. Funes on 12-16-2022 Hematocrit (Bld) [Volume fraction] 48.2 % 40-54 [facility] Laboratory - Chemistry and C hemistry - challengeOrdered By: Dr. Funes on 12-16-2022 ALP [Catalytic activity/Vol] 84 U/L 45-117 [facility] ALT [Catalytic activity/Vol] 31 U/L 16-61 [facility] CO2 [Moles/Vol] 28.0 mmol/L 21.0-32.0 [facility] Globulin (S) [Mass/Vol] 3.5 g/dL 2.2-4.2 [facility] Urea nitrogen/Creatinine [Mass ratio] 12.2 mg/mg 10-20 [facility] Laboratory - Hematology and Cell countsOrdered By: Dr. Funes on 12-16-2022 Erythrocyte distribution width (RBC) [Entitic vol] 42.3 fL 35.1-43.9 [facility] Erythrocyte distribution width (RBC) [Ratio] 12.4 % 11.6-14.6 [facility] Immature granulocytes/100 WBC (Bld) 0.300 % 0.0-0.9 [facility] Comment on above: IG% - Immature Granu locytes (promyelocytes, myelocytes and metamyelocytes) > 1% indicates that a LEFT SHIFT is Present. MCH (RBC) [Entitic mass] 31.0 pg 27.0-32.0 [facility] Nucleated RBC/100 WBC (Bld) [Ratio] 0 % 0-5 [facility] ([facility]BC) [Mass/Vol]Or dered By: Dr. Funes on 12-16-2022 MCHC (RBC) [Mass/Vol] 33.6 g/dL 32-36 [facility] No Panel InformationOrdered By: Dr. Funes on 12-16-2022 Estimated GFR (MDRD) Amer 107 mL/min >60 [facility] Comment on above: GFR Calc Estimated GFR (MDRD) Non-Af Amer 89 mL/min >60 [facility] Comment on above: Non- GFR Calc Prostate Specific Antigen Screen 5.48 ng/mL 0.00-4.00 [facility] Comment on above: This test was perfor med using the TPSA assay method for [employer] chemistry system. Values obtained with differentassay methods cannot be used interchangably.When changing PSA assays in the course of monitoring apatient, additional sequential testing should be carriedout to confirm baseline values. Urine Microalbumin/Creatinine Ratio 10.2 mg/g CRE <30 [facility] Platelets bldOrdered By: Dr. Funes on 12-16-2022 Platelets (Bld) [#/Vol] 284 10*3/uL 150-450 [facility] Serum or plasma albumin vickey urement (mass/volume)Ordered By: Dr. Funes on 12-16-2022 Albumin [Mass/Vol] 3.7 g/dL 3.2-5.0 [facility] Serum or plasma albumin/glob ulin mass ratioOrdered By: Dr. Funes on 12-16-2022 Albumin/Globulin [Mass ratio] 1.1 {ratio} 0.9-2.4 [facility] Serum or plasma calcium vickey urement (mass/volume)Ordered By: Dr. Funes on 12-16-2022 Calcium [Mass/Vol] 9.0 mg/dL 8.5-10.1 [facility] Serum or plasma cholesterol in HDL measurement (mass/volume)Ordered By: Dr. Funes on 12-16-2022 Cholesterol in HDL [Mass/Vol] 47 mg/dL >40 [facility] Comment on above: The drugs N-Acetylcy steine and Metamizole may falsely depress this assay. Reference Range HDL <40 mg/dL Low HDL Cholesterol HDL >or= 60 mg/dL High HDL Cholesterol Serum or plasma cholesterol in VLDL measurement (mass/volume)Ordered By: Dr. Funes on 12-16-2022 Cholesterol in VLDL [Mass/Vol] 17 mg/dL 5-40 [facility] Serum or plasma creatinine m easurement (mass/volume)Ordered By: Dr. Funes on 12-16-2022 Creatinine [Mass/Vol] 0.90 mg/dL 0.70-1.30 [facility] Comment on above: The validity of the calculated GFR & GFRAA in patients over 70 years has not been determined. Clinical correlation is essential. Serum or plasma low density lipoprotein (LDL) cholesterol measurement (mass/volume)Ordered By: Dr. Funes on 12-16-2022 Cholesterol in LDL [Mass/Vol] 40 mg/dL 0-130 [facility] Serum or plasma urea nitroge n measurement (mass/volume)Ordered By: Dr. Funes on 12-16-2022 Urea nitrogen [Mass/Vol] 11 mg/dL 7-18 [facility] Thin prep Papanicolaou smear with manual screeningOrdered By: Dr. Funes on 12-16-2022 Thin prep Papanicolaou smear with manual screening 21 U/L 15-37 [facility] Thin prep Papanicolaou smear with manual screening 7 5-15 [facility] Thin prep Papanicolaou smear with manual screening 18.5 mg/L NO RANGE EST. [facility] Urine creatinine measurement (mass/volume)Ordered By: Dr. Funes on 12-16-2022 Creatinine (U) [Mass/Vol] 181.00 mg/dL NO RANGE EST. [facility] Whole blood hemoglobin A1c/t otal hemoglobin ratio (mass fraction)Ordered By: Dr. Funes on 12-16-2022 HbA1c (Bld) [Mass fraction] 7.0 % 3.8-5.6 [facility] Comment on above: Normal < 5.7 % Predi abetic 5.7 - 6.4 % Diabetic >or= 6.5 % Please note range changes. No Panel InformationOrdered By: Dr. Funes on 09-23-2022 Miscellaneous Test See comment [facility] Comment on above: TEST RESULT LIMITSAn tipancreatic Islet Cells Negative Neg:<1:1 ___ TESTING PERFORMED AT [facility]. ORIGINAL REPORT ON FILE IN LAB CONTAINS ADDITIONAL TEST SITE INFORMATION. Absolute lymphocyte countOrd ered By: Dr. Funes on 09-11-2022 Lymphocytes Auto (Unsp spec) [#/Vol] 1.91 10*3/uL 0.83-4.51 [facility] Basophil percentageOrdered B y: Dr. Funes on 09-11-2022 Basophil percentage 0 SEEN /hpf 0-5 [facility] Basophils/100 WBC (Bld) 0.5 % 0-1 [facility] Bilirubin [Mass/Vol] 1.10 mg/dL 0.20-1.00 [facility] Comment on above: For patients on eltr ombopag therapy, use of Dimension [place] TBIL is not recommended. Chloride [Moles/Vol] 102 mmol/L 98-107 [facility] Cholesterol [Mass/Vol] 192 mg/dL <[address] [facility] Comment on above: <200 mg/dL Desirable 200-240 mg/dL Borderline >240 mg/dL High Risk Eosinophils/100 WBC (Bld) 3.1 % 0-5 [facility] Glucose [Mass/Vol] 531 mg/dL 74-106 [facility] Comment on above: Critical Result(s) C alled at: 10:44:36 09/11/2022 by: JANET Forbes. Results read back by same.Glucose result greater than or equal to 200 mg/dLsuggests DIABETES MELLITUS per A.D.A. criteria. Neutrophils (Bld) [#/Vol] 3.2 10*3/uL 2.0-7.7 [facility] Neutrophils/100 WBC (Bld) 56.2 % 47-70 [facility] Potassium [Moles/Vol] 4.4 mmol/L 3.5-5.1 [facility] Protein [Mass/Vol] 7.3 g/dL 6.4-8.2 [facility] Sodium [Moles/Vol] 135 mmol/L 136-145 [facility] Triglyceride [Mass/Vol] 138 mg/dL <199 [facility] Comment on above: The drugs N-Acetylcy steine and Metamizole may falsely depress this assay.Serum Triglycerides Reference Interval Normal <150 mg/dL Borderline high 150 - 199 mg/dL High 200 - 499 mg/dL Very High > or = 500 mg/dL WBC (Bld) [#/Vol] 5.8 10*3/uL 4.4-11.0 [facility] Bilirubin Test strip Ql (U)O rdered By: Dr. Funes on 09-11-2022 Bilirubin Ql (U) Negative Negative [facility] Blood erythrocytes count (nu mber/volume)Ordered By: Dr. Funes on 09-11-2022 RBC (Bld) [#/Vol] 5.33 10*6/uL 4.6-6.2 [facility] Blood hemoglobin measurement (mass/volume)Ordered By: Dr. Funes on 09-11-2022 Hemoglobin (Bld) [Mass/Vol] 16.5 g/dL 13.0-16.5 [facility] Blood lymphocytes/100 leukoc ytesOrdered By: Dr. Funes on 09-11-2022 Lymphocytes/100 WBC (Bld) 33.1 % 19-41 [facility] Blood monocytes/100 leukocyt esOrdered By: Dr. Funes on 09-11-2022 Monocytes/100 WBC (Bld) 6.6 % 0-10 [facility] Blood platelet mean volumeOr dered By: Dr. Funes on 09-11-2022 Platelet mean volume (Bld) [Entitic vol] 10.5 fL 6.2-12.0 [facility] Determination of erythrocyte mean corpuscular volume (MCV)Ordered By: Dr. Funes on 09-11-2022 MCV (RBC) [Entitic vol] 94.0 fL 80-94 [facility] Hematocrit Auto (Bld) [Volum e fraction]Ordered By: Dr. Funes on 09-11-2022 Hematocrit (Bld) [Volume fraction] 50.1 % 40-54 [facility] Ketones Test strip Ql (U)Ord ered By: Dr. Funes on 09-11-2022 Ketones Ql (U) Negative Negative [facility] Laboratory - Chemistry and C hemistry - challengeOrdered By: Dr. Funes on 09-11-2022 ALP [Catalytic activity/Vol] 124 U/L 45-117 [facility] ALT [Catalytic activity/Vol] 21 U/L 16-61 [facility] CO2 [Moles/Vol] 27.0 mmol/L 21.0-32.0 [facility] Globulin (S) [Mass/Vol] 3.7 g/dL 2.2-4.2 [facility] Magnesium [Mass/Vol] 2.2 mg/dL 1.6-2.6 [facility] Urea nitrogen/Creatinine [Mass ratio] 10.8 mg/mg 10-20 [facility] Laboratory - Hematology and Cell countsOrdered By: Dr. Funes on 09-11-2022 Erythrocyte distribution width (RBC) [Entitic vol] 41.2 fL 35.1-43.9 [facility] Erythrocyte distribution width (RBC) [Ratio] 11.9 % 11.6-14.6 [facility] Immature granulocytes/100 WBC (Bld) 0.500 % 0.0-0.9 [facility] Comment on above: IG% - Immature Granu locytes (promyelocytes, myelocytes and metamyelocytes) > 1% indicates that a LEFT SHIFT is Present. MCH (RBC) [Entitic mass] 31.0 pg 27.0-32.0 [facility] Nucleated RBC/100 WBC (Bld) [Ratio] 0 % 0-5 [facility] MCHC Auto (RBC) [Mass/Vol]Or dered By: Dr. Funes on 09-11-2022 MCHC (RBC) [Mass/Vol] 32.9 g/dL 32-36 [facility] Mucus LM Ql (Urine sed)Order ed By: Dr. Funes on 09-11-2022 Mucus Ql (Urine sed) 0 SEEN /hpf [facility] Nitrite Test strip Ql (U)Ord ered By: Dr. Funes on 09-11-2022 Nitrite Ql (U) Negative Negative [facility] No Panel InformationOrdered By: Dr. Funes on 09-11-2022 Estimated GFR (MDRD) Amer 93 mL/min >60 [facility] Comment on above: GFR Calc Estimated GFR (MDRD) Non-Af Amer 77 mL/min >60 [facility] Comment on above: Non- GFR Calc Thyroid Stimulating Hormone (TSH) 0.96 uIU/mL 0.358-3.74 [facility] Platelets bldOrdered By: Dr. Funes on 09-11-2022 Platelets (Bld) [#/Vol] 257 10*3/uL 150-450 [facility] Protein Test strip Ql (U)Ord ered By: Dr. Funes on 09-11-2022 Protein Ql (U) Negative Negative [facility] Serum or plasma albumin vickey urement (mass/volume)Ordered By: Dr. Funes on 09-11-2022 Albumin [Mass/Vol] 3.6 g/dL 3.2-5.0 [facility] Serum or plasma albumin/glob ulin mass ratioOrdered By: Dr. Funes on 09-11-2022 Albumin/Globulin [Mass ratio] 1.0 {ratio} 0.9-2.4 [facility] Serum or plasma calcium vickey urement (mass/volume)Ordered By: Dr. Funes on 09-11-2022 Calcium [Mass/Vol] 9.2 mg/dL 8.5-10.1 [facility] Serum or plasma cholesterol in HDL measurement (mass/volume)Ordered By: Dr. Funes on 09-11-2022 Cholesterol in HDL [Mass/Vol] 41 mg/dL >40 [facility] Comment on above: The drugs N-Acetylcy steine and Metamizole may falsely depress this assay. Reference Range HDL <40 mg/dL Low HDL Cholesterol HDL >or= 60 mg/dL High HDL Cholesterol Serum or plasma cholesterol in VLDL measurement (mass/volume)Ordered By: Dr. Funes on 09-11-2022 Cholesterol in VLDL [Mass/Vol] 28 mg/dL 5-40 [facility] Serum or plasma creatinine m easurement (mass/volume)Ordered By: Dr. Funes on 09-11-2022 Creatinine [Mass/Vol] 1.02 mg/dL 0.70-1.30 [facility] Comment on above: The validity of the calculated GFR & GFRAA in patients over 70 years has not been determined. Clinical correlation is essential. Serum or plasma low density lipoprotein (LDL) cholesterol measurement (mass/volume)Ordered By: Dr. Funes on 09-11-2022 Cholesterol in LDL [Mass/Vol] 123 mg/dL 0-130 [facility] Serum or plasma urea nitroge n measurement (mass/volume)Ordered By: Dr. Funes on 09-11-2022 Urea nitrogen [Mass/Vol] 11 mg/dL 7-18 [facility] Squamous epithelial cells de tection in urine sediment by light microscopyOrdered By: Dr. Funes on 09-11-2022 Epithelial cells.squamous LM Ql (Urine sed) 0 SEEN /hpf 0-5 [facility] Thin prep Papanicolaou smear with manual screeningOrdered By: Dr. Funes on 09-11-2022 Thin prep Papanicolaou smear with manual screening 15 U/L 15-37 [facility] Thin prep Papanicolaou smear with manual screening 6 5-15 [facility] Urine blood detectionOrdered By: Dr. Funes on 09-11-2022 RBC Ql (U) Negative Negative [facility] RBC Ql (U) 0 SEEN /hpf 0-5 [facility] Urine clarityOrdered By: Dr. Funes on 09-11-2022 Clarity (U) Clear Clear [facility] Urine color determinationOrd ered By: Dr. Funes on 09-11-2022 Color (U) Yellow Yellow [facility] Urine glucose detectionOrder ed By: Dr. Funes on 09-11-2022 Glucose Ql (U) 1000 mg/dl Normal [facility] Urine leukocyte esterase det ection by dipstickOrdered By: Dr. Funes on 09-11-2022 Leukocyte esterase Test strip Ql (U) Negative Negative [facility] Urine pHOrdered By: Dr. Abraham ash on 09-11-2022 pH (U) 6.0 [pH] 5.0 - 8.0 [facility] Urine sediment bacteria coun t by microscopy (number/high power field)Ordered By: Dr. Funes on 09-11-2022 Bacteria LM.HPF (Urine sed) [#/Area] 0 /[HPF] None Seen [facility] Urine specific gravity measu rementOrdered By: Dr. Funes on 09-11-2022 Specific gravity (U) [Rel density] 1.010 1.002-1.030 [facility] Urobilinogen Auto test strip Ql (U)Ordered By: Dr. Funes on 09-11-2022 Urobilinogen Ql (U) Normal mg/dl Normal [facility] Whole blood hemoglobin A1c/t otal hemoglobin ratio (mass fraction)Ordered By: Dr. Funes on 09-11-2022 HbA1c (Bld) [Mass fraction] 11.3 % 3.8-5.6 [facility] Comment on above: Normal < 5.7 % Predi abetic 5.7 - 6.4 % Diabetic >or= 6.5 % Please note range changes. Encounters Encounter Date Encounter Type Care Provider Facility Start: 05-16-2025 End: 05-16-[address] Alex Funes MD Work Phone: -Laboratory [facility] Start: 05-16-2025 End: 05-16-[address] Alex Funes MD -Laboratory [facility] Start: 05-16-2025 End: 05-16-2025 ambulatory Alex Funes Facility:[facility] Start: 2025 End: [address] Aelx Funes MD Work Phone: [facility] Work Phone: Start: 2025 End: [address] Alex Funes MD -Laboratory, [facility] Start: 2025 End: 2025 ambulatory Alex Funes Facility:[facility] Start: 09-20-2024 End: 09-20-2024 ambulatory Alex Funes Facility:[facility] Start: 10-27-2023 End: 10-27-2023 ambulatory [facility] Work Phone: Start: 10-27-2023 End: 10-27-2023 Patient encounter procedure [facility] Start: 10-06-2023 ambulatory [facility] [place] Comment on above: Population Health [facility] Out[facility] ([place] care gaps ) Start: 06-30-2023 ambulatory Tito [facility] [place] Comment on above: Population Health Na vigation Outreach ([place] care gaps ) Start: 06-11-2023 End: 06-11-2023 ambulatory [facility] Work Phone: Start: 06-11-2023 End: 06-11-2023 Patient encounter procedure [facility] Start: 05-13-2023 ambulatory Charu Osuna [facility] [place] Comment on above: Population Health Na vigation Outreach ([place] Care Gaps ) Start: 04-03-2023 End: 04-03-2023 ambulatory [facility] Work Phone: Start: 04-03-2023 End: 04-03-2023 Patient encounter procedure [facility] Start: 03-17-2023 End: 03-17-2023 ambulatory [facility] Work Phone: Start: 03-17-2023 End: 03-17-2023 Patient encounter procedure [facility] Start: 03-05-2023 ambulatory [facility] [place] Comment on above: Population Health Na vigation Outreach (Care Gaps) Start: 12-16-2022 End: 12-16-2022 ambulatory [facility] Work Phone: Start: 12-16-2022 End: 12-16-2022 Patient encounter procedure [facility] Start: 09-23-2022 End: 09-23-2022 ambulatory [facility] Work Phone: Start: 09-23-2022 End: 09-23-2022 Patient encounter procedure [facility] Start: 09-11-2022 End: 09-11-2022 ambulatory [facility] Work Phone: Start: 09-11-2022 End: 09-11-2022 Patient encounter procedure [facility] Procedures Date Procedure Procedure Detail Performing [...] above: Mee ECLIA methodol ogy.According to the [place] [employer], Serum PSAshould decrease and remain [...] Start: 08-01-2024 COLOGUARD (FIT-DNA) COLOGUARD (FIT-D NA) [facility] Start: 08-01-2024 COLORECTAL CANCER SCREENING COLORECTAL CANCER SCREENING [facility] Start: 08-01-2024 Screening for malign ant neoplasm of colon [facility] Start: 06-26-[address] [facility] Start: 10-26-2022 ADVANCE DIRECTIVE DISCUSSION ADVANCE DIRECTIVE DISCUSSION [facility] Start: 10-26-2022 DEPRESSION ASSESSMENT DEPRESSION ASS ESSMENT [facility] Start: 2013 RSV Vaccine (1 - 1-d ose 60+ series) RSV Vaccine (1 - 1-dose 60+ series) [facility] Start: 03-22-2010 Lipid panel Lipid Screening [facility] Start: 03-22-2010 LIPID SCREEN LIPID SCREEN [facility] Start: 08-04-2005 DIABETES SCREEN DIABETES SCREEN [facility] Start: 08-04-2005 Diabetes Screening Diabetes Screenin g [facility] Start: 2003 SHINGRIX VACCINE (1 of 2) SHINGRIX V ACCINE (1 of 2) [facility] Start: 1998 Colonoscopy COLONOSCOPY [facility] Start: [address] [facility] Start: 1998 FECAL OCCULT BLOOD FECAL OCCULT BLOO D [facility] Start: 1998 Screening for malign ant neoplasm of colon [facility] Start: 1998 SIGMOIDOSCOPY SIGMOIDOSCOPY [facility] Start: 01-20-1972 Urine microalbumin profile [facility] Start: 1971 HEPATITIS C SCREENING HEPATITIS C [facility] Start: 1971 Hepatitis C screening Hepatitis C [facility] Start: 1959 Pneumococcal Vaccine : 65+ (1 - PCV) Pneumococcal Vaccine: 65+ (1 - PCV) [facility] Start: 1959 PNEUMOCOCCAL: 65+ (1 - PCV) PNEUMOCOCCAL: 65+ (1 - PCV) [facility] Start: 1953 COVID-19 VACCINE (#1) COVID-19 VACCI NE (#1) [facility] Start: 1953 ABDOMINAL AORTIC ANE URYSM SCREENING ABDOMINAL AORTIC ANEURYSM SCREENING [facility] Start: 1955 Abdominal aortic ane urysm screening Abdominal Aortic Aneurysm Screening [facility] Payers Date Payer Category Payer Self-pay 2024 Unknown [id number] Private Health Insurance [id number] Unknown [id number] Unknown [id number] Social History Date Type Detail Facility [facility] Work Phone: Start: 1955 Sex Assigned At Male [facility] Start: 04-15-2008 [facility] Work Phone: History of tobacco use Cigarette Smoker [facility] Work Phone: Start: 04-15-2008 End: 10-02-2020 Cigarettes smoked current (pack per day) - Reported 0.5 [facility] Start: 06-10-2022 Alcohol intake Current drinke r of alcohol (finding) [facility] Start: 04-15-2008 Tobacco Comment 5 cgts/day [facility] Start: 04-15-2008 Alcohol Comment rarely [facility] Start: 1955 Sex Assigned At Not on file [facility] Start: 10-02-2020 End: 06-10-2022 Tobacco use panel [facility] National Score (1-10 0), lower number is lower risk Not on file [facility] Tobacco smoking stat [facility] Unknown if ever smoked [facility] Work Phone: Start: 01-26-2025 Sex Male (finding) [facility] Clinical Notes 01-13-2023 to 10-07-2023 Tito Laura [facility] - 10/06/2023 12:37 PM Tito Dunn P[facility] - 06/30/2023 10:07 AM Charu Grijalva MA - 05/13/2023 8:37 AM Lida Bowling MA - 03/05/2023 11:28 AM EDT Note Date & Type Note Facility 10-07-2023 Note HNO ID: [id number] Author: Nia Bonilla Service: ? Author Type: ? Type: Progress Notes Filed: 10/07/2023 10:57 AM Note Text: POPULATION HEALTH NAVIGATION OUTREACH Action/FYI Letter received and sent to be mailed Nai Bonilla October 07, 2023 10:55 AM [facility] 10-06-2023 Note HNO ID: [id number] Author: Tito Laura PSS Service: ? Author [...] NIKKI Sanchez October 06, 2023 12:37 PM [facility] 10-06-2023 Note Patient Outreach (NE TNAV) LEEANNE ANTONIO ([id number]) 1955 M Date Time Provider Department 10/06/23 [...] Encounter Status:Closed by TITO LAURA on 10/06/23 [facility] 10-06-2023 History of Presen t illness [...] 2023 12:37 PM documented in this encounter [facility] 06-30-2023 Note Patient Outreach (NE TNAV) LEEANNE ANTONIO ([id number]) 1955 M Date Time Provider Department 06/30/23 [...] Visit: Population Health Navigation Outreach [3910] Cmt: [place] care gaps Prescriptions as of 06/30/2023 - lansoprazole(PREVACID 30 MG CAP) Take one(1) tablet daily. Problem List As Of Date 06/30/2023 Noted Resolved ESOPHAGEAL REFLUX [K21.9] 10/09/2006 TOBACCO USE DISORDER [F17.200] 10/09/2006 Letter Text Encounter Status:Closed by TITO LAURA on 06/30/23 [facility] 06-30-2023 Note HNO ID: [id number] Author: Tito Laura PSS Service: ? Author [...] NIKKI Sanchez June 30, 2023 10:07 AM [facility] 06-30-2023 History of Presen t illness [...] 2023 10:07 AM documented in this encounter [facility] 05-13-2023 Note Patient Outreach (ROXANNA TNAV) LEEANNE ANTONIO ([id number]) 1955 M Date Time Provider Department 05/13/23 [...] Encounter Status:Closed by CHARU OSUNA on 05/13/23 [facility] 05-13-2023 Note HNO ID: [id number] Author: Charu Osuna MA Service: ? Author Type: Photograph Inspector Type: Progress Notes Filed: 05/13/2023 11:17 AM [...] Health Navigator May 13, 2023 8:37 AM [facility] 05-13-2023 History of Presen t illness [...] 2023 8:37 AM documented in this encounter [facility] 03-05-2023 Note Patient Outreach (NE TNAV) LEEANNE ANTONIO ([id number]) 1955 M Date Time Provider Department 03/05/23 [...] Reason for Visit: Population Health Navigation Outreach [8510] Cmt: Care Gaps Prescriptions as of 03/05/2023 - lansoprazole(PREVACID 30 MG CAP) Take one(1) tablet daily. Problem List As Of Date 03/05/2023 Noted Resolved ESOPHAGEAL REFLUX [K21.9] 10/09/2006 TOBACCO USE DISORDER [F17.200] 10/09/2006 Encounter Status:Closed by MALIHA BOWLING on 03/05/23 [facility] 03-05-2023 Note HNO ID: [id number] Author: Maliha Bowling MA Service: ? Author Type: Photograph Inspector Type: Progress Notes Filed: 03/05/2023 2:16 PM [...] Bowling MA March 05, 2023 11:28 AM [facility] 03-05-2023 History of Presen t illness [...] 2023 11:28 AM documented in this encounter [facility] 01-13-2023 Note Patient Outreach (ROXANNA TNAV) PACOLEEANNE ([id number]) 1955 M Date Time Provider Department 01/13/23 CHARU OSUNA During your visit today, we recorded the following information about you: Charu Osuna MA 01/13/2023 10:31 AM Addendum POPULATION HEALTH NAVIGATION OUTREACH Action/FYI The patient's phone number on file has been disconnected. He does not have Consultedt. Letter sent. Patient need to confirm a [...] Reviewed: 09/22/2015 Reviewed by: Tiana E Rick Commercial Finance Analyst - Fully Assessed Reason for Visit: Population Health Navigation Outreach [3910] Cmt: [place] Care Gaps Prescriptions as of 01/13/2023 - lansoprazole(PREVACID 30 MG CAP) Take one(1) tablet daily. Problem List As Of Date 01/13/2023 Noted Resolved ESOPHAGEAL REFLUX [K21.9] 10/09/2006 TOBACCO USE DISORDER [F17.200] 10/09/2006 Letter Text Encounter Status:Closed by CHARU OSUNA on 01/13/23 [facility] 01-13-2023 Note HNO ID: [id number] Author: Charu Osuna MA Service: ? Author Type: Photograph Inspector Type: Progress Notes Filed: 01/13/2023 3:26 PM [...] Health Navigator January 13, 2023 9:29 AM [facility] Evaluation note No assessment inform ation available [facility] Work Phone: Reason for referral (narrative) No reason for referral information available [facility] Work Phone: Summary Purpose Family History [...] or prosecute any alcohol or drug abuse patient.[facility] the event this information is protected by the Federal Confidentiality of Alcohol and Drug Abuse Patient Records regulations: The Federal rules restrict any use of the information to criminally investigate or prosecute any alcohol or drug abuse patient.[facility] the event this information is protected by the Federal Confidentiality of Alcohol and Drug Abuse Patient Records regulations: The Federal rules restrict any use of the information to criminally investigate or prosecute any alcohol or drug abuse patient.[facility] the event this information is protected by the Federal Confidentiality of Alcohol and Drug Abuse Patient Records regulations: The Federal rules restrict any use of the information to criminally investigate or prosecute any alcohol or drug abuse patient.[facility] Reason for Visit (unrecogniz ed section and content) Reason Onset Date Comments Population Health Navigation Outreach 03/05/2023 Care Gaps Reason Onset Date Comments Population Health Navigation Outreach 05/13/2023 [place] Care Gaps Reason Onset Date Comments Population Health Navigation Outreach 06/30/2023 [place] care gaps Reason Onset Date Comments Population Health Navigation Outreach 10/06/2023 [place] care gaps (unrecognized sect ion and content) No Status Records FoundNo Status Records Found INFORMATION SOURCE (unrecogn ized section and content) DATE CREATED AUTHOR 10/08/2023 [facility] DATE CREATED AUTHOR AUTHOR'S CHHAYA VALLEJO 05/23/2025 [facility] FOR RECORDS PERTAINING TO PATIENTS WHO ARE [...] BE BASED ON THE PRIMARY CLINICAL RECORDS. [employer] [facility]. provides no warranty or guarantee of the accuracy or completeness of information in this document.
[2025-06-02 11:45] LABS: Ferritin 520 ng/mL (37-417); Iron 165 ug/dL (65-175); Iron Binding Capacity,Total 266 ug/dL (250-450); Iron Binding Capacity,Unsat 101 ug/dL (228-428)
[2025-06-03 05:07] LABS: Transferrin 222 mg/dL (177-329)
== END | disposition home or self-care (01) ==
LOC: MFPLAB 08:46
PROVIDERS: PCP Family Medicine; Referring Provider Family Medicine; Visit Provider Family Medicine
DX: R71.8 Other abnormality of red blood cells (principal)
CPT/HCPCS: 36415; 82728; 83540; 83550; 84466

== ENCOUNTER → 2025-08-15 | Outpatient (CLI) | payer BC, SELFPAY ==
--- OUTSIDE RECORDS SUMMARY | 2025-08-15 10:50 | XMS RPT_ITS | CCD ---
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 Alex Malik Primary Care Provider [phone] Shantel SIERRA, Dr. Alex Malik Attending Provider Shantel SIERRA, Dr. Alex Malik Referring Provider Shantel SIERRA, Dr. Alex Malik Primary Care Provider Shantel SIERRA, Dr. Alex Malik Attending Provider Shantel SIERRA, Dr. Alex Malik Referring Provider [phone] Alex Funes Primary Care Unavailable Alex Funes Attending Unavailable Alex Funes Referring Unavailable Alex Funes Primary Care Unavailable Alex Funes Attending Unavailable Alex Fnues Primary Care Unavailable Alex Funes Attending Unavailable Alex Funes Referring Unavailable Alex Funes Referring Unavailable Alex Funes Primary Care Unavailable Alex Funes Attending Unavailable Alex Funes Primary Care Unavailable Alex Funes Attending Unavailable Alex Funes Referring Unavailable Allergies Allergy Classification Reported Allergen(s) Allergy Type Date of Onset Reaction(s) Facility (4 sources) Penicillins Propensity to adverse reactions 6 [facility] Work Phone: (4 sources) Sulfonamides (Antibiotic) Propensity to adverse reactions 6 [facility] Work Phone: Medications Completed/Discontinued Medications Medication Drug [...] 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: 10-09-2006 10-09-2006 Chronic Other hematologic conditions (1 source) Other abnormality of red blood cells; Translations: [Other abnormality of red blood cells] Onset: 06-09-2025 Episodic Substance-related disorders (4 sources) Tobacco user; Translations: [Nicotine dependence, unspecified, uncomplicated] Onset: 10-09-2006 10-09-2006 Chronic Results Test Name Value Interpretation Reference Range Facility Transferrinon 06-03-2025 Transferrin [Mass/Vol] 222 mg/dL Normal 177-329 [facility] Comment on above: Order Comment: Order Date: 01/19/25 Order Info: [id number] - A1C Result Comment: Perf ormed at: CB - [facility] [address] [id number] Inspector Precision: Cam Peralta PhD, Phone: [phone] Performed By: #### L 3110.0500, L502.0250, L500.4050, L100.0100, L501.9985, L500.4100 #### [facility] [address] [facility] [facility] [place], [address] Ferritinon 06-02-2025 Ferritin [Mass/Vol] 520 ng/mL High 37-417 [facility] Comment on above: Order Comment: Order Date: 01/19/25 Order Info: [id number] - A1C Performed By: #### L 3110.0500, L502.0250, L500.4050, L100.0100, L501.9985, L500.4100 #### [facility] [address] [place], [address] Iron measurement (mass/mass) Ordered By: Alex Funes on 08-08-2025 Iron (Unsp spec) [Mass/Mass] 165 ug/dL 65-175 [facility] Iron+Iron Binding Capacityon 06-02-2025 Iron [Mass/Vol] 165 ug/dL Normal 65-175 [facility] Comment on above: Order Comment: Order Date: 01/19/25 Order Info: [id number] - A1C Performed By: #### L 3110.0500, L502.0250, L500.4050, L100.0100, L501.9985, L500.4100 #### [facility] [address] [place], [address] IRON SATURATION 62.0 High 9-55 [facility] Comment on above: Order Comment: Order Date: 01/19/25 Order Info: [id number] - A1C Performed By: #### L 3110.0500, L502.0250, L500.4050, L100.0100, L501.9985, L500.4100 #### [facility] [address] [place], [place], [id number] TIBC 266 ug/dL Normal 250-450 [facility] Comment on above: Order Comment: Order Date: 01/19/25 Order Info: [id number] - A1C Performed By: #### L 3110.0500, L502.0250, L500.4050, L100.0100, L501.9985, L500.4100 #### [facility] [address] [place], [place], [id number] UIBC 101 ug/dL Low 228-428 [facility] Comment on above: Order Comment: Order Date: 01/19/25 Order Info: [id number] - A1C Performed By: #### L 3110.0500, L502.0250, L500.4050, L100.0100, L501.9985, L500.4100 #### [facility] [address] [place], [place], [id number] No Panel InformationOrdered By: Alex Funes on 06-02-2025 Unsaturated Iron Binding Capacity 101 ug/dL Low 228-428 [facility] Serum or plasma ferritin alon surement (mass/volume)Ordered By: Alex Funes on 06-02-2025 Ferritin [Mass/Vol] 520 ng/mL High 37-417 [facility] Serum or plasma iron saturat ion measurement (mass fraction)Ordered By: Alex Funes on 06-02-2025 Iron saturation [Mass fraction] 62.0 % High 9-55 [facility] TransferrinOrdered By: Alex Funes on 06-02-2025 Transferrin [Mass/Vol] 222 mg/dL 177-329 [facility] Comment on above: Performed at: [address] [id number] Director: Cam Peralta PhD, Phone: [phone] PSA Total+%Freeon 05-17-2025 PSA, FREE 1.57 ng/mL Normal N/A [facility] Comment on above: Order Comment: Order Date: 01/19/25 Order Info: [id number] - MIACRE Order Info: [id number] - MIALB Result Comment: Gloria RINCON methodology. Performed By: #### L 3110.0500, L502.0250, L500.4050, L100.0100, L501.9985, L500.4100 #### [facility] [address] [place], [address] PSA, FREE % 26.5 Normal . [facility] Comment on above: Order Comment: Order Date: 01/19/25 Order Info: [id number] - MIACRE Order Info: [id number] - MIALB Result Comment: The table below lists the probability of prostate cancer for men with non-suspicious ISHAN results and total PSA between 4 and 10 ng/mL, by patient age (Tati et al, ANETA 1998, 279:1542). % Free PSA 50-64 yr 65-75 yr 0.00-10.00% 56% 55% 10.01-15.00% 24% 35% 15.01-20.00% 17% 23% 20.01-25.00% 10% 20% >25.00% 5% 9% Please note: Catalona et al did not make specific recommendations regarding the use of percent free PSA for any other population of men. Performed at: [facility] [id number] Inspector Precision: Cam Peralta PhD, Phone: [phone] Performed By: #### L 3110.0500, L502.0250, L500.4050, L100.0100, L501.9985, L500.4100 #### [facility] [address] [place], [address] PSA, TOTAL ULTR 5.920 ng/mL Abnormal 0.000-4.000 [facility] Comment on above: Order Comment: Order Date: 01/19/25 Order Info: [id number] - MIACRE Order Info: [id number] - MIALB Result Comment: Gloria malik ECLIA methodology. According to the [place] [employer], Serum PSA should decrease and [...] 3110.0500, L502.0250, L500.4050, L100.0100, L501.9985, L500.4100 #### [facility] [address] [place], [address] Absolute lymphocyte countOrd ered By: Alex Funes on 05-16-2025 Lymphocytes Auto (Unsp spec) [#/Vol] 1.58 10*3/uL 0.83-4.51 [facility] Absolute neutrophil countOrd ered By: Alex Funes on 05-16-2025 Neutrophils (Bld) [#/Vol] 3.4 10*3/uL 2.0-7.7 [facility] Anion gap in Serum or Plasma Ordered By: Alex Funes on 05-16-2025 Anion gap [Moles/Vol] 11 mmol/L 5-15 [facility] Automated lymphocyte count a s percentage of total leukocytesOrdered By: Alex Funes on 05-16-2025 Lymphocytes/100 WBC Auto (Unsp spec) 28.1 % 19- [facility] BUN/creatinine ratioOrdered By: Alex Funes on 05-16-2025 Urea nitrogen/Creatinine [Mass ratio] 16.4 mg/mg 10-20 [facility] Basophil percentageOrdered B y: Alex Funes on 05-16-2025 Basophils/100 WBC (Bld) 0.2 % 0-1 [facility] Bilirubin Test strip Ql (U)O rdered By: Alex Funes on 05-16-2025 Bilirubin Ql (U) Negative Negative [facility] Bilirubin, totalOrdered By: Alex Funes on 05-16-2025 Bilirubin [Mass/Vol] 0.95 mg/dL 0.00-1.30 [facility] CBC W/Diff, Automatedon 04-26 Absolute Lymph 1.58 X10 3/uL Normal 0.83-4.51 [facility] Comment on above: Order Comment: Order Date: 01/19/25 Order Info: [id number] - MIACRE Order Info: [id number] - MIALB Performed By: #### L 3110.0500, L502.0250, L500.4050, L100.0100, L501.9985, L500.4100 #### [facility] [address] [place], [place], [phone] Absolute Neut 3.4 X10 3/uL Normal 2.0-7.7 [facility] Comment on above: Order Comment: Order Date: 01/19/25 Order Info: [id number] - MIACRE Order Info: [id number] - MIALB Performed By: #### L 3110.0500, L502.0250, L500.4050, L100.0100, L501.9985, L500.4100 #### [facility] [address] [place], [address] Basophils/100 WBC (Bld) 0.2 % Normal 0-1 [facility] Comment on above: Order Comment: Order Date: 01/19/25 Order Info: [id number] - MIACRE Order Info: [id number] - MIALB Performed By: #### L 3110.0500, L502.0250, L500.4050, L100.0100, L501.9985, L500.4100 #### [facility] [address] [place], [place], [phone] Eosinophils/100 WBC (Bld) 2.8 % Normal 0-5 [facility] Comment on above: Order Comment: Order Date: 01/19/25 Order Info: [id number] - MIACRE Order Info: [id number] - MIALB Performed By: #### L 3110.0500, L502.0250, L500.4050, L100.0100, L501.9985, L500.4100 #### [facility] [address] [place], [place], [phone] Erythrocyte distribution width (RBC) [Ratio] 12.5 % Normal 11.6-14.6 [facility] Comment on above: Order Comment: Order Date: 01/19/25 Order Info: [id number] - MIACRE Order Info: [id number] - MIALB Performed By: #### L 3110.0500, L502.0250, L500.4050, L100.0100, L501.9985, L500.4100 #### [facility] [address] [place], [address] Hematocrit (Bld) [Volume fraction] 49.4 % Normal 40-54 [facility] Comment on above: Order Comment: Order Date: 01/19/25 Order Info: [id number] - MIACRE Order Info: [id number] - MIALB Performed By: #### L 3110.0500, L502.0250, L500.4050, L100.0100, L501.9985, L500.4100 #### [facility] [address] [place], [place], [phone] Hemoglobin (Bld) [Mass/Vol] 16.8 g/dL High 13.0-16.5 [facility] Comment on above: Order Comment: Order Date: 01/19/25 Order Info: [id number] - MIACRE Order Info: [id number] - MIALB Performed By: #### L 3110.0500, L502.0250, L500.4050, L100.0100, L501.9985, L500.4100 #### [facility] [address] [place], [address] IG% 0.400 Normal 0.0-0.9 [facility] Comment on above: Order Comment: Order Date: 01/19/25 Order Info: [id number] - MIACRE Order Info: [id number] - MIALB Result Comment: IG% - Immature Granulocytes (promyelocytes, myelocytes and metamyelocytes) > 1% indicates that a LEFT SHIFT is Present. Performed By: #### L 3110.0500, L502.0250, L500.4050, L100.0100, L501.9985, L500.4100 #### [facility] [address] [place], [address] Lymphocytes/100 WBC (Bld) 28.1 % Normal 19-41 [facility] Comment on above: Order Comment: Order Date: 01/19/25 Order Info: [id number] - MIACRE Order Info: [id number] - MIALB Performed By: #### L 3110.0500, L502.0250, L500.4050, L100.0100, L501.9985, L500.4100 #### [facility] [address] [place], [address] MCH (RBC) [Entitic mass] 31.5 pg Normal 27.0-32.0 [facility] Comment on above: Order Comment: Order Date: 01/19/25 Order Info: [id number] - MIACRE Order Info: [id number] - MIALB Performed By: #### L 3110.0500, L502.0250, L500.4050, L100.0100, L501.9985, L500.4100 #### [facility] [address] [place], [address] MCHC (RBC) [Mass/Vol] 34.0 g/dL Normal 32-36 [facility] Comment on above: Order Comment: Order Date: 01/19/25 Order Info: [id number] - MIACRE Order Info: [id number] - MIALB Performed By: #### L 3110.0500, L502.0250, L500.4050, L100.0100, L501.9985, L500.4100 #### [facility] [address] [place], [address] MCV (RBC) [Entitic vol] 92.5 fL Normal 80-94 [facility] Comment on above: Order Comment: Order Date: 01/19/25 Order Info: [id number] - MIACRE Order Info: [id number] - MIALB Performed By: #### L 3110.0500, L502.0250, L500.4050, L100.0100, L501.9985, L500.4100 #### [facility] [address] [place], [address] Monocytes/100 WBC (Bld) 8.9 % Normal 0-10 [facility] Comment on above: Order Comment: Order Date: 01/19/25 Order Info: [id number] - MIACRE Order Info: [id number] - MIALB Performed By: #### L 3110.0500, L502.0250, L500.4050, L100.0100, L501.9985, L500.4100 #### [facility] [address] [place], [address] Neutrophils/100 WBC (Bld) 59.6 % Normal 47-70 [facility] Comment on above: Order Comment: Order Date: 01/19/25 Order Info: [id number] - MIACRE Order Info: [id number] - MIALB Performed By: #### L 3110.0500, L502.0250, L500.4050, L100.0100, L501.9985, L500.4100 #### [facility] [address] [place], [address] Nucleated RBC (Bld) [#/Vol] 0 10*3/uL Normal 0-5 [facility] Comment on above: Order Comment: Order Date: 01/19/25 Order Info: [id number]- - MIACRE Order Info: [id number] - MIALB Performed By: #### L 3110.0500, L502.0250, L500.4050, L100.0100, L501.9985, L500.4100 #### [facility] [address] [place], [address] Platelet mean volume (Bld) [Entitic vol] 9.9 fL Normal 6.2-12.0 [facility] Comment on above: Order Comment: Order Date: 01/19/25 Order Info: [id number]- - MIACRE Order Info: [id number] - MIALB Performed By: #### L 3110.0500, L502.0250, L500.4050, L100.0100, L501.9985, L500.4100 #### [facility] [address] [place], [address] Platelets (Bld) [#/Vol] 271 10*3/uL Normal 150-450 [facility] Comment on above: Order Comment: Order Date: 01/19/25 Order Info: [id number] - MIACRE Order Info: [id number] - MIALB Performed By: #### L 3110.0500, L502.0250, L500.4050, L100.0100, L501.9985, L500.4100 #### [facility] [address] [place], [place], [address] RBC (Bld) [#/Vol] 5.34 10*6/uL Normal 4.6-6.2 [facility] Comment on above: Order Comment: Order Date: 01/19/25 Order Info: [id number] - MIACRE Order Info: [id number] - MIALB Performed By: #### L 3110.0500, L502.0250, L500.4050, L100.0100, L501.9985, L500.4100 #### [facility] [address] [place], [place], [address] RDW SD 42.8 fl Normal 35.1-43.9 [facility] Comment on above: Order Comment: Order Date: 01/19/25 Order Info: [id number] - MIACRE Order Info: [id number] - MIALB Performed By: #### L 3110.0500, L502.0250, L500.4050, L100.0100, L501.9985, L500.4100 #### [facility] [address] [place], [place], [address] WBC (Bld) [#/Vol] 5.6 10*3/uL Normal 4.4-11.0 [facility] Comment on above: Order Comment: Order Date: 01/19/25 Order Info: [id number] - MIACRE Order Info: [id number] - MIALB Performed By: #### L 3110.0500, L502.0250, L500.4050, L100.0100, L501.9985, L500.4100 #### [facility] [address] [place], [address] Calculated very low density lipoprotein (VLDL) cholesterol measurementOrdered By: Alex Funes on 05-16-2025 Calculated very low density lipoprotein (VLDL) cholesterol measurement 15 mg/dL 5-40 [facility] Carbon dioxide, total [Moles /volume] in Central venous bloodOrdered By: Alex Funes on 05-16-2025 CO2 [Moles/Vol] 24.1 mmol/L 21.0-32.0 [facility] Chloride assayOrdered By: Kate Funes on 05-16-2025 Chloride [Moles/Vol] 105 mmol/L 98-108 [facility] Comprehensive Metabolic Prof ilon 05-16-2025 Albumin [Mass/Vol] 4.2 g/dL Normal 3.4-4.8 [facility] Comment on above: Order Comment: Order Date: 01/19/25 Order Info: [id number] - MIACRE Order Info: [id number] - MIALB Performed By: #### L 3110.0500, L502.0250, L500.4050, L100.0100, L501.9985, L500.4100 #### [facility] [address] [place], [address] Albumin/Globulin [Mass ratio] 1.5 {ratio} Normal 0.9-2.4 [facility] Comment on above: Order Comment: Order Date: 01/19/25 Order Info: [id number] - MIACRE Order Info: [id number] - MIALB Performed By: #### L 3110.0500, L502.0250, L500.4050, L100.0100, L501.9985, L500.4100 #### [facility] [address] [place], [address] ALK PHOS 87 U/L Normal 40-129 [facility] Comment on above: Order Comment: Order Date: 01/19/25 Order Info: [id number] - MIACRE Order Info: [id number] - MIALB Performed By: #### L 3110.0500, L502.0250, L500.4050, L100.0100, L501.9985, L500.4100 #### [facility] [address] [place], [address] ALT [Catalytic activity/Vol] 16 U/L Normal <=46 [facility] Comment on above: Order Comment: Order Date: 01/19/25 Order Info: [id number] - MIACRE Order Info: [id number] - MIALB Performed By: #### L 3110.0500, L502.0250, L500.4050, L100.0100, L501.9985, L500.4100 #### [facility] [address] [place], [address] AST [Catalytic activity/Vol] 16 U/L Normal <=37 [facility] Comment on above: Order Comment: Order Date: 01/19/25 Order Info: [id number] - MIACRE Order Info: [id number] - MIALB Performed By: #### L 3110.0500, L502.0250, L500.4050, L100.0100, L501.9985, L500.4100 #### [facility] [address] [place], [address] Bilirubin [Mass/Vol] 0.95 mg/dL Normal 0.00-1.30 [facility] Comment on above: Order Comment: Order Date: 01/19/25 Order Info: [id number] - MIACRE Order Info: [id number] - MIALB Performed By: #### L 3110.0500, L502.0250, L500.4050, L100.0100, L501.9985, L500.4100 #### [facility] [address] [place], [address] BUN/CRE 16.4 RATIO Normal 10-20 [facility] Comment on above: Order Comment: Order Date: 01/19/25 Order Info: [id number] - MIACRE Order Info: [id number] - MIALB Performed By: #### L 3110.0500, L502.0250, L500.4050, L100.0100, L501.9985, L500.4100 #### [facility] [address] [place], [address] Calcium [Mass/Vol] 9.6 mg/dL Normal 7.6-11.0 [facility] Comment on above: Order Comment: Order Date: 01/19/25 Order Info: [id number] - MIACRE Order Info: [id number] - MIALB Performed By: #### L 3110.0500, L502.0250, L500.4050, L100.0100, L501.9985, L500.4100 #### [facility] [address] [place], [address] Chloride [Moles/Vol] 105 mmol/L Normal 98-108 [facility] Comment on above: Order Comment: Order Date: 01/19/25 Order Info: [id number] - MIACRE Order Info: [id number] - MIALB Performed By: #### L 3110.0500, L502.0250, L500.4050, L100.0100, L501.9985, L500.4100 #### [facility] [address] [place], [place], [address] ([phone] CO2 [Moles/Vol] 24.1 mmol/L Normal 21.0-32.0 [facility] Comment on above: Order Comment: Order Date: 01/19/25 Order Info: [id number] - MIACRE Order Info: [id number] - MIALB Performed By: #### L 3110.0500, L502.0250, L500.4050, L100.0100, L501.9985, L500.4100 #### [facility] [address] [place], [address] Creatinine [Mass/Vol] 0.85 mg/dL Normal 0.70-1.20 [facility] Comment on above: Order Comment: Order Date: 01/19/25 Order Info: [id number] - MIACRE Order Info: [id number] - MIALB Performed By: #### L 3110.0500, L502.0250, L500.4050, L100.0100, L501.9985, L500.4100 #### [facility] [address] [place], [place], [address] GAP 11 Normal 5-15 [facility] Comment on above: Order Comment: Order Date: 01/19/25 Order Info: [id number] - MIACRE Order Info: [id number] - MIALB Performed By: #### L 3110.0500, L502.0250, L500.4050, L100.0100, L501.9985, L500.4100 #### [facility] [address] [place], [place], [address] GFR/1.73 sq M.predicted among non-blacks MDRD (S/P/Bld) [Vol rate/Area] 92 mL/min/{1.73_m2} Normal >60 [facility] Comment on above: Order Comment: Order Date: 01/19/25 Order Info: [id number]- - MIACRE Order Info: [id number] - MIALB Result Comment: mL/m in/1.73m2 CKD-EPI Creatinine Equation (2020) Performed By: #### L 3110.0500, L502.0250, L500.4050, L100.0100, L501.9985, L500.4100 #### [facility] [address] [place], [place], [address] Globulin (S) [Mass/Vol] 2.8 g/dL Normal 2.2-4.2 [facility] Comment on above: Order Comment: Order Date: 01/19/25 Order Info: [id number] - MIACRE Order Info: [id number] - MIALB Performed By: #### L 3110.0500, L502.0250, L500.4050, L100.0100, L501.9985, L500.4100 #### [facility] [address] [place], [place], [address] Glucose [Mass/Vol] 185 mg/dL High 70-99 [facility] Comment on above: Order Comment: Order Date: 01/19/25 Order Info: [id number] - MIACRE Order Info: [id number] - MIALB Performed By: #### L 3110.0500, L502.0250, L500.4050, L100.0100, L501.9985, L500.4100 #### [facility] [address] [place], [address] Potassium [Moles/Vol] 4.1 mmol/L Normal 3.3-5.1 [facility] Comment on above: Order Comment: Order Date: 01/19/25 Order Info: [id number] - MIACRE Order Info: [id number] - MIALB Performed By: #### L 3110.0500, L502.0250, L500.4050, L100.0100, L501.9985, L500.4100 #### [facility] [address] [place], [address] Sodium [Moles/Vol] 140 mmol/L Normal 133-145 [facility] Comment on above: Order Comment: Order Date: 01/19/25 Order Info: [id number] - MIACRE Order Info: [id number] - MIALB Performed By: #### L 3110.0500, L502.0250, L500.4050, L100.0100, L501.9985, L500.4100 #### [facility] [address] [place], [address] T PROT 7.0 g/dL Normal 5.9-8.4 [facility] Comment on above: Order Comment: Order Date: 01/19/25 Order Info: [id number] - MIACRE Order Info: [id number] - MIALB Performed By: #### L 3110.0500, L502.0250, L500.4050, L100.0100, L501.9985, L500.4100 #### [facility] [address] [place], [address] Urea nitrogen [Mass/Vol] 14 mg/dL Normal 4-19 [facility] Comment on above: Order Comment: Order Date: 01/19/25 Order Info: [id number] - MIACRE Order Info: [id number] - MIALB Performed By: #### L 3110.0500, L502.0250, L500.4050, L100.0100, L501.9985, L500.4100 #### [facility] [address] [place], [address] Eosinophil percentageOrdered By: Alex Funes on 05-16-2025 Eosinophils/100 WBC (Bld) 2.8 % 0-5 [facility] Erythrocyte distribution wid th ratioOrdered By: Alex Funes on 05-16-2025 Erythrocyte distribution width (RBC) [Ratio] 12.5 % 11.6-14.6 [facility] Erythrocyte distribution wid th standard deviationOrdered By: Alex Funes on 05-16-2025 Erythrocyte distribution width (RBC) [Ratio] 42.8 fl 35.1-43.9 [facility] Glomerular filtration rate ( GFR) estimation/1.73 sq m using serum, plasma, or whole bOrdered By: Alex Funes on 05-16-2025 GFR/1.73 sq M.predicted among non-blacks MDRD (S/P/Bld) [Vol rate/Area] 92 mL/min/{1.73_m2} >60 [facility] Comment on above: mL/min/1.73m2 CKD-EP I Creatinine Equation (2020) Hematocrit Auto (Bld) [Volum e fraction]Ordered By: Alex Funes on 05-16-2025 Hematocrit (Bld) [Volume fraction] 49.4 % 40-54 [facility] Hemoglobin A1con 05-16-2025 HbA1c (Bld) [Mass fraction] 6.5 % High <=5.6 [facility] Comment on above: Order Comment: Order Date: 01/19/25 Order Info: 0779-1 - MIACRE Order Info: [id number] - MIALB Result Comment: Norm al < 5.7 % Prediabetic 5.7 - 6.4 % Diabetic >or= 6.5 % Please note range changes. Performed By: #### L 3110.0500, L502.0250, L500.4050, L100.0100, L501.9985, L500.4100 #### [facility] [address] [place], [address] Hemoglobin A1c percentageOrd ered By: Alex Funes on 05-16-2025 HbA1c (Bld) [Mass fraction] 6.5 % High <5.7 [facility] Comment on above: Normal < 5.7 % Predi abetic 5.7 - 6.4 % Diabetic >or= 6.5 % Please note range changes. Hemoglobin measurementOrdere d By: Alex Funes on 05-16-2025 Hemoglobin (Bld) [Mass/Vol] 16.8 g/dL High 13.0-16.5 [facility] Immature granulocytes/100 WB C Auto (Bld)Ordered By: Alex Funes on 05-16-2025 Immature granulocytes/100 WBC (Bld) 0.400 % 0.0-0.9 [facility] Comment on above: IG% - Immature Granu locytes (promyelocytes, myelocytes and metamyelocytes) > 1% indicates that a LEFT SHIFT is Present. Ketones Test strip Ql (U)Ord ered By: Alex Funes on 05-16-2025 Ketones Ql (U) Negative Negative [facility] LDL calc ser/plasOrdered By: Alex Funes on 05-16-2025 Cholesterol in LDL [Mass/Vol] 54 mg/dL [facility] Comment on above: Yoffmfmxvp=261-048 m g/dL & Higher Dvmr=208 mg/dL or greater Laboratory - Chemistry and C hemistry - challengeOrdered By: Alex Funes on 05-16-2025 AST [Catalytic activity/Vol] 16 U/L <38 [facility] Lipid Profileon 05-16-2025 CHOL:HDL 2.62 Normal [facility] Comment on above: Order Comment: Order Date: 01/19/25 Order Info: [id number] - MIACRE Order Info: [id number] - MIALB Performed By: #### L 3110.0500, L502.0250, L500.4050, L100.0100, L501.9985, L500.4100 #### [facility] [address] [place], [address] Cholesterol [Mass/Vol] 112 mg/dL Normal <=200 [facility] Comment on above: Order Comment: Order Date: 01/19/25 Order Info: [id number] - MIACRE Order Info: [id number] - MIALB Result Comment: Chol esterol level, Desirable <200 mg/dL Borderline high cholesterol 200-239 mg/dL High cholesterol >=240 mg/dL Recommendations of the NCEP Adult Treatment Panel for the following risk-cutoff thresholds for the [place] population. Performed By: #### L 3110.0500, L502.0250, L500.4050, L100.0100, L501.9985, L500.4100 #### [facility] [address] [place], [address] Cholesterol in HDL [Mass/Vol] 43 mg/dL Normal [facility] Comment on above: Order Comment: Order Date: 01/19/25 Order Info: [id number] - MIACRE Order Info: [id number] - MIALB Result Comment: Griselda onal Cholesterol Education Program (NCEP) guidelines: <40 mg/dL: Low HDL-cholesterol (major risk factor for CHD) >= 60 mg/dL: High HDL-cholesterol (negative risk factor for CHD) HDL-cholesterol is affected by a number of factors, e.g. smoking, exercise, hormones, sex and age. Performed By: #### L 3110.0500, L502.0250, L500.4050, L100.0100, L501.9985, L500.4100 #### [facility] [address] [place], [address] Cholesterol in LDL [Mass/Vol] 54 mg/dL Normal [facility] Comment on above: Order Comment: Order Date: 01/19/25 Order Info: [id number] - MIACRE Order Info: [id number] - MIALB Result Comment: Bord njdjii=874-739 mg/dL Higher Rkuu=755 mg/dL or greater Performed By: #### L 3110.0500, L502.0250, L500.4050, L100.0100, L501.9985, L500.4100 #### [facility] [address] [place], [address] Cholesterol in VLDL [Mass/Vol] 15 mg/dL Normal 5-40 [facility] Comment on above: Order Comment: Order Date: 01/19/25 Order Info: [id number] - MIACRE Order Info: [id number] - MIALB Performed By: #### L 3110.0500, L502.0250, L500.4050, L100.0100, L501.9985, L500.4100 #### [facility] [address] [place], [address] Triglyceride [Mass/Vol] 77 mg/dL Normal [facility] Comment on above: Order Comment: Order Date: 01/19/25 Order Info: [id number] - MIACRE Order Info: [id number] - MIALB Result Comment: The drugs N-Acetylcysteine and Metamizole may falsely depress this assay. Normal range: <150 mg/dL Borderline High: 150-199 mg/dL High: 200-499 mg/dL Very High: >500 mg/dL Performed By: #### L 3110.0500, L502.0250, L500.4050, L100.0100, L501.9985, L500.4100 #### [facility] [address] [place], [place], [id number] MCV (mean corpuscular volume ) determinationOrdered By: Alex Funes on 05-16-2025 MCV (RBC) [Entitic vol] 92.5 fL 80-94 [facility] Mean corpuscular hemoglobin (MCH) determinationOrdered By: Alex Funes on 05-16-2025 MCH (RBC) [Entitic mass] 31.5 pg 27.0-32.0 [facility] Mean corpuscular hemoglobin concentration (MCHC) determinationOrdered By: Alex Funes on 05-16-2025 MCHC (RBC) [Mass/Vol] 34.0 g/dL 32-36 [facility] Mean platelet volume determi nationOrdered By: Alex Funes on 05-16-2025 Platelet mean volume (Bld) [Entitic vol] 9.9 fL 6.2-12.0 [facility] Microalb:Creat Ratio,Random URon 05-16-2025 Creatinine [Mass/Vol] 64.30 mg/dL Normal 39.00-259.00 [facility] Comment on above: Order Comment: Order Date: 01/19/25 Order Info: [id number] - MIACRE Order Info: [id number] - MIALB Performed By: #### L 3110.0500, L502.0250, L500.4050, L100.0100, L501.9985, L500.4100 #### [facility] [address] [place], [place], [id number] MALB:CREAT UNABLE TO CALCULATE Normal <30 mg/g CRE [facility] Comment on above: Order Comment: Order Date: 01/19/25 Order Info: [id number] - MIACRE Order Info: [id number] - MIALB Performed By: #### L 3110.0500, L502.0250, L500.4050, L100.0100, L501.9985, L500.4100 #### [facility] [address] [place], [place], [id number] MICROALBUMIN,UR < 12.0 Normal <20 mg/L [facility] Comment on above: Order Comment: Order Date: 01/19/25 Order Info: [id number] - MIACRE Order Info: [id number] - MIALB Performed By: #### L 3110.0500, L502.0250, L500.4050, L100.0100, L501.9985, L500.4100 #### [facility] [address] [place], [place], [id number] Microalbumin/creat ratio urO rdered By: Alex Funes on 05-16-2025 Urine microalbumin/creatinine ratio measurement UNABLE TO CALCULATE mg/g CRE <30 [facility] Microscopic analysis of urin e for red blood cells (RBC)Ordered By: Alex Funes on 05-16-2025 Microscopic analysis of urine for red blood cells (RBC) 0 SEEN /hpf 0-5 [facility] Monocyte percentageOrdered B y: Alex Funes on 05-16-2025 Monocytes/100 WBC (Bld) 8.9 % 0-10 [facility] Mucus LM Ql (Urine sed)Order ed By: Alex Funes on 05-16-2025 Mucus Ql (Urine sed) 0 SEEN /hpf [facility] Neutrophil percentageOrdered By: Alex Funes on 05-16-2025 Neutrophils/100 WBC (Bld) 59.6 % 47-70 [facility] Nitrite Test strip Ql (U)Ord ered By: Alex Funes on 05-16-2025 Nitrite Ql (U) Negative Negative [facility] Nucleated red blood cell per centageOrdered By: Alex Funes on 05-16-2025 Nucleated RBC/100 WBC (Bld) [Ratio] 0 % 0-5 [facility] Platelet countOrdered By: Kate Funes on 05-16-2025 Platelets (Bld) [#/Vol] 271 10*3/uL 150-450 [facility] Potassium measurement (mass/ volume)Ordered By: Alex Funes on 05-16-2025 Potassium (Unsp spec) [Mass/Vol] 4.1 mmol/L 3.3-5.1 [facility] Protein Test strip Ql (U)Ord ered By: Alex Funes on 05-16-2025 Protein Ql (U) 15 mg/dl High Negative [facility] RBC Auto (Bld) [#/Vol]Ordere d By: Alex Funes on 05-16-2025 RBC (Bld) [#/Vol] 5.34 10*6/uL 4.6-6.2 [facility] Random urine creatinine vickey urement (mass/volume)Ordered By: Alex Funes on 05-16-2025 Creatinine Unsp time (U) [Mass/Vol] 64.30 mg/dL 39.00-259.00 [facility] Screening total cholesterol/ high density lipoprotein (HDL) cholesterol ratioOrdered By: Alex Funes on 05-16-2025 Cholesterol.total/Terri sterol in HDL [Mass ratio] 2.62 {ratio} [facility] Serum creatinine measurement (mass/volume)Ordered By: Alex Funes on 05-16-2025 Creatinine [Mass/Vol] 0.85 mg/dL 0.70-1.20 [facility] Serum globulin measurementOr dered By: Alex Funes on 05-16-2025 Globulin (S) [Mass/Vol] 2.8 g/dL 2.2-4.2 [facility] Serum glucose measurement (m ass/volume)Ordered By: Alex Funes on 05-16-2025 Glucose [Mass/Vol] 185 mg/dL High 70-99 [facility] Serum or plasma alanine blair otransferase (ALT) measurementOrdered By: Alex Funes on 05-16-2025 ALT [Catalytic activity/Vol] 16 U/L <47 [facility] Serum or plasma albumin vickey urement (mass/volume)Ordered By: Alex Funes on 05-16-2025 Albumin [Mass/Vol] 4.2 g/dL 3.4-4.8 [facility] Serum or plasma albumin/glob ulin mass ratioOrdered By: Alex Funes on 05-16-2025 Albumin/Globulin [Mass ratio] 1.5 {ratio} 0.9-2.4 [facility] Serum or plasma alkaline robina sphatase measurementOrdered By: Alex Funes on 05-16-2025 ALP [Catalytic activity/Vol] 87 U/L 40-129 [facility] Serum or plasma calcium vickey urement (mass/volume)Ordered By: Alex Funes on 05-16-2025 Calcium [Mass/Vol] 9.6 mg/dL 7.6-11.0 [facility] Serum or plasma cholesterol in HDL measurement (mass/volume)Ordered By: Alex Funes on 05-16-2025 Cholesterol in HDL [Mass/Vol] 43 mg/dL >40 [facility] Comment on above: National Cholesterol Education Program (NCEP) guidelines:<40 mg/dL: Low HDL-cholesterol (major risk factor for CHD)>= 60 mg/dL: High HDL-cholesterol (negative risk factor for CHD)HDL-cholesterol is affected by a number of factors, e.g. smoking, exercise, hormones, sex and age. Serum or plasma cholesterol measurement (mass/volume)Ordered By: Alex Funes on 05-16-2025 Cholesterol [Mass/Vol] 112 mg/dL <201 [facility] Comment on above: Cholesterol level, D esirable <200 mg/dLBorderline high cholesterol 200-239 mg/dLHigh cholesterol >=240 mg/dLRecommendations of the NCEP Adult Treatment Panel for the following risk-cutoff thresholds for the [place] population. Serum or plasma free prostat e specific antigen (PSA)/total PSA mass ratioOrdered By: Alex Funes on 05-16-2025 Free PSA/Total PSA [Mass fraction] 26.5 % . [facility] Comment on above: The table below list [...] any other population of men.Performed at: - [address] [id number] Director: Cam Peralta PhD, Phone: [phone] Serum or plasma urea nitroge n measurement (mass/volume)Ordered By: Alex Funes on 05-16-2025 Urea nitrogen [Mass/Vol] 14 mg/dL 4-19 [facility] Sodium levelOrdered By: Alex Funes on 05-16-2025 Sodium [Moles/Vol] 140 mmol/L 133-145 [facility] Squamous epithelial cells de tection in urine sediment by light microscopyOrdered By: Alex Funes on 05-16-2025 Epithelial cells.squamous LM Ql (Urine sed) 0 SEEN /hpf 0-5 [facility] Total proteinOrdered By: Joshua Funes on 05-16-2025 Protein [Mass/Vol] 7.0 g/dL 5.9-8.4 [facility] Triglycerides measurementOrd ered By: Alex Funes on 05-16-2025 Triglyceride [Mass/Vol] 77 mg/dL <199 [facility] Comment on above: The drugs N-Acetylcy steine and Metamizole may falsely depress this assay. Normal range: <150 mg/dLBorderline High: 150-199 mg/dLHigh: 200-499 mg/dLVery High: >500 mg/dL Urinalysis, Completeon 05-16 BACTERIA 0 SEEN Normal None Seen [facility] Comment on above: Order Comment: Order Date: 01/19/25 Order Info: [id number] - MIACRE Order Info: [id number] - MIALB Performed By: #### L 3110.0500, L502.0250, L500.4050, L100.0100, L501.9985, L500.4100 #### [facility] [address] [place], [address] EPI,SQUAMOUS 0 SEEN Normal 0-5 [facility] Comment on above: Order Comment: Order Date: 01/19/25 Order Info: [id number] - MIACRE Order Info: [id number] - MIALB Performed By: #### L 3110.0500, L502.0250, L500.4050, L100.0100, L501.9985, L500.4100 #### [facility] [address] [place], [address] Mucus Ql (Urine sed) 0 SEEN Normal [facility] Comment on above: Order Comment: Order Date: 01/19/25 Order Info: [id number] - MIACRE Order Info: [id number] - MIALB Performed By: #### L 3110.0500, L502.0250, L500.4050, L100.0100, L501.9985, L500.4100 #### [facility] [address] [place], [place], [address] RBC 0 SEEN Normal 0-5 [facility] Comment on above: Order Comment: Order Date: 01/19/25 Order Info: [id number] - MIACRE Order Info: [id number] - MIALB Performed By: #### L 3110.0500, L502.0250, L500.4050, L100.0100, L501.9985, L500.4100 #### [facility] [address] [facility] [place], [place], [address] WBC 0 SEEN Normal 0-5 [facility] Comment on above: Order Comment: Order Date: 01/19/25 Order Info: [id number] - MIACRE Order Info: [id number] - MIALB Performed By: #### L 3110.0500, L502.0250, L500.4050, L100.0100, L501.9985, L500.4100 #### [facility] [address] [facility] [place], [place], [address] Urine albumin measurement wi detection limit of 20 mg/L or less (mass/volume)Ordered By: Alex Funes on 05-16-2025 Albumin DL <= 20 mg/L (U) [Mass/Vol] < 12.0 mg/L <20 mg/L [facility] Urine clarityOrdered By: Joshua Funes on 05-16-2025 Clarity (U) Clear Clear [facility] Urine color determinationOrd ered By: Alex Funes on 05-16-2025 Color (U) Yellow Yellow [facility] Urine glucose detectionOrder ed By: Alex Funes on 05-16-2025 Glucose Ql (U) 1000 mg/dl High Normal [facility] Urine leukocyte esterase det ection by dipstickOrdered By: Alex Funes on 05-16-2025 Leukocyte esterase Test strip Ql (U) Negative Negative [facility] Urine pHOrdered By: Alex agustin on 05-16-2025 pH (U) 6.0 [pH] 5.0 - 8.0 [facility] Urine sediment bacteria coun t by microscopy (number/high power field)Ordered By: Alex Funes on 05-16-2025 Bacteria LM.HPF (Urine sed) [#/Area] 0 /[HPF] None Seen [facility] Urine specific gravity measu rementOrdered By: Alex Funes on 05-16-2025 Specific gravity (U) [Rel density] 1.010 1.002-1.030 [facility] Urine urobilinogen measureme ntOrdered By: Alex Funes on 05-16-2025 Urobilinogen Ql (U) Normal mg/dl Normal [facility] White blood cell (WBC) count Ordered By: Alex Funes on 05-16-2025 WBC (Bld) [#/Vol] 5.6 10*3/uL 4.4-11.0 [facility] White blood cell countOrdere d By: Alex Funes on 05-16-2025 White blood cell count 0 SEEN /hpf 0-5 [facility] PSA Total+%Freeon 01-23-2025 PSA, FREE 1.57 ng/mL Normal N/A [facility] Comment on above: Order Comment: Order Date: 01/19/25 Order Info: [id number] - PSAT%F Result Comment: Gloria malik ECLIA methodology. Performed By: #### L 3110.0500, L502.0250, L500.4050, L100.0100, L501.9985, L500.4100 #### [facility] [address] [place], [place], [id number] PSA, FREE % 30.9 Normal . [facility] Comment on above: Order Comment: Order Date: [...] any other population of men. Performed at: [facility] [id number] Inspector Precision: Cam Peralta PhD, Phone: [phone] Performed By: #### L 3110.0500, L502.0250, L500.4050, L100.0100, L501.9985, L500.4100 #### [facility] [address] [place], [address] PSA, TOTAL ULTR 5.080 ng/mL Abnormal 0.000-4.000 [facility] Comment on above: Order Comment: Order Date: 01/19/25 Order Info: [id number] - PSAT%F Result Comment: Gloria malik ECLIA methodology. According to the [place] [employer], Serum PSA should decrease and [...] 3110.0500, L502.0250, L500.4050, L100.0100, L501.9985, L500.4100 #### [facility] [address] [place], [address] Absolute neutrophil countOrd ered By: Alex Funes on 2025 Neutrophils (Bld) [#/Vol] 3.6 10*3/uL 2.0-7.7 [facility] Albumin DL <= 20 mg/L (U) [M ass/Vol]Ordered By: Alex Funes on 2025 Urine Random Microalbumin < 12.0 mg/L NO RANGE EST. [facility] Anion gap in Serum or Plasma Ordered By: Alex Funes on 2025 Anion gap [Moles/Vol] 12 mmol/L 5-15 [facility] BUN/creatinine ratioOrdered By: Alex Limariah on 2025 Urea nitrogen/Creatinine [Mass ratio] 14.5 mg/mg 10-20 [facility] Basophil percentageOrdered B y: Alex Limariah on 2025 Basophils/100 WBC (Bld) 0.5 % 0-1 [facility] Bilirubin, totalOrdered By: Alex Quevedovamsi on 2025 Bilirubin [Mass/Vol] 0.92 mg/dL 0.00-1.30 [facility] CBC W/Diff, Automatedon 12-25 Absolute Lymph 1.97 X10 3/uL Normal 0.83-4.51 [facility] Comment on above: Order Comment: Order Date: 01/19/25 Order Info: 0184-1 - CBCD Performed By: #### L 3110.0500, L502.0250, L500.4050, L100.0100, L501.9985, L500.4100 #### [facility] [address] [place], [address] Absolute Neut 3.6 X10 3/uL Normal 2.0-7.7 [facility] Comment on above: Order Comment: Order Date: 01/19/25 Order Info: 0184-1 - CBCD Performed By: #### L 3110.0500, L502.0250, L500.4050, L100.0100, L501.9985, L500.4100 #### [facility] [address] [place], [address] Basophils/100 WBC (Bld) 0.5 % Normal 0-1 [facility] Comment on above: Order Comment: Order Date: 01/19/25 Order Info: 0184-1 - CBCD Performed By: #### L 3110.0500, L502.0250, L500.4050, L100.0100, L501.9985, L500.4100 #### [facility] [address] [place], [address] Eosinophils/100 WBC (Bld) 2.2 % Normal 0-5 [facility] Comment on above: Order Comment: Order Date: 01/19/25 Order Info: 0184-1 - CBCD Performed By: #### L 3110.0500, L502.0250, L500.4050, L100.0100, L501.9985, L500.4100 #### [facility] [address] [place], [address] Erythrocyte distribution width (RBC) [Ratio] 13.6 % Normal 11.6-14.6 [facility] Comment on above: Order Comment: Order Date: 01/19/25 Order Info: 0184-1 - CBCD Performed By: #### L 3110.0500, L502.0250, L500.4050, L100.0100, L501.9985, L500.4100 #### [facility] [address] [place], [place], [phone] ([phone] Hematocrit (Bld) [Volume fraction] 49.4 % Normal 40-54 [facility] Comment on above: Order Comment: Order Date: 01/19/25 Order Info: 0184-1 - CBCD Performed By: #### L 3110.0500, L502.0250, L500.4050, L100.0100, L501.9985, L500.4100 #### [facility] [address] [place], [address] Hemoglobin (Bld) [Mass/Vol] 16.7 g/dL High 13.0-16.5 [facility] Comment on above: Order Comment: Order Date: 01/19/25 Order Info: 0184-1 - CBCD Performed By: #### L 3110.0500, L502.0250, L500.4050, L100.0100, L501.9985, L500.4100 #### [facility] [address] [place], [address] IG% 0.300 Normal 0.0-0.9 [facility] Comment on above: Order Comment: Order Date: 01/19/25 Order Info: 0184-1 - CBCD Result Comment: IG% - Immature Granulocytes (promyelocytes, myelocytes and metamyelocytes) > 1% indicates that a LEFT SHIFT is Present. Performed By: #### L 3110.0500, L502.0250, L500.4050, L100.0100, L501.9985, L500.4100 #### [facility] [address] [place], [address] Lymphocytes/100 WBC (Bld) 31.4 % Normal 19-41 [facility] Comment on above: Order Comment: Order Date: 01/19/25 Order Info: 0184-1 - CBCD Performed By: #### L 3110.0500, L502.0250, L500.4050, L100.0100, L501.9985, L500.4100 #### [facility] [address] [place], [place], [phone] (462) MCH (RBC) [Entitic mass] 31.4 pg Normal 27.0-32.0 [facility] Comment on above: Order Comment: Order Date: 01/19/25 Order Info: 0184-1 - CBCD Performed By: #### L 3110.0500, L502.0250, L500.4050, L100.0100, L501.9985, L500.4100 #### [facility] [address] [place], [address] MCHC (RBC) [Mass/Vol] 33.8 g/dL Normal 32-36 [facility] Comment on above: Order Comment: Order Date: 01/19/25 Order Info: 0184-1 - CBCD Performed By: #### L 3110.0500, L502.0250, L500.4050, L100.0100, L501.9985, L500.4100 #### [facility] [address] [place], [address] MCV (RBC) [Entitic vol] 92.9 fL Normal 80-94 [facility] Comment on above: Order Comment: Order Date: 01/19/25 Order Info: 0184-1 - CBCD Performed By: #### L 3110.0500, L502.0250, L500.4050, L100.0100, L501.9985, L500.4100 #### [facility] [address] [place], [address] Monocytes/100 WBC (Bld) 7.5 % Normal 0-10 [facility] Comment on above: Order Comment: Order Date: 01/19/25 Order Info: 0184-1 - CBCD Performed By: #### L 3110.0500, L502.0250, L500.4050, L100.0100, L501.9985, L500.4100 #### [facility] [address] [place], [place], [phone] (359) Neutrophils/100 WBC (Bld) 58.1 % Normal 47-70 [facility] Comment on above: Order Comment: Order Date: 01/19/25 Order Info: 0184-1 - CBCD Performed By: #### L 3110.0500, L502.0250, L500.4050, L100.0100, L501.9985, L500.4100 #### [facility] [address] [place], [place], [phone] (597) Nucleated RBC (Bld) [#/Vol] 0 10*3/uL Normal 0-5 [facility] Comment on above: Order Comment: Order Date: 01/19/25 Order Info: 0184-1 - CBCD Performed By: #### L 3110.0500, L502.0250, L500.4050, L100.0100, L501.9985, L500.4100 #### [facility] [address] [place], [address] Platelet mean volume (Bld) [Entitic vol] 10.0 fL Normal 6.2-12.0 [facility] Comment on above: Order Comment: Order Date: 01/19/25 Order Info: [id number] - CBCD Performed By: #### L 3110.0500, L502.0250, L500.4050, L100.0100, L501.9985, L500.4100 #### [facility] [address] [place], [address] Platelets (Bld) [#/Vol] 264 10*3/uL Normal 150-450 [facility] Comment on above: Order Comment: Order Date: 01/19/25 Order Info: [id number] - CBCD Performed By: #### L 3110.0500, L502.0250, L500.4050, L100.0100, L501.9985, L500.4100 #### [facility] [address] [place], [address] RBC (Bld) [#/Vol] 5.32 10*6/uL Normal 4.6-6.2 [facility] Comment on above: Order Comment: Order Date: 01/19/25 Order Info: 0184-1 - CBCD Performed By: #### L 3110.0500, L502.0250, L500.4050, L100.0100, L501.9985, L500.4100 #### [facility] [address] [place], [address] RDW SD 46.0 fl High 35.1-43.9 [facility] Comment on above: Order Comment: Order Date: 01/19/25 Order Info: [id number] - CBCD Performed By: #### L 3110.0500, L502.0250, L500.4050, L100.0100, L501.9985, L500.4100 #### [facility] [address] [place], [address] WBC (Bld) [#/Vol] 6.3 10*3/uL Normal 4.4-11.0 [facility] Comment on above: Order Comment: Order Date: 01/19/25 Order Info: [id number] - CBCD Performed By: #### L 3110.0500, L502.0250, L500.4050, L100.0100, L501.9985, L500.4100 #### [facility] [address] [place], [place], [id number] Calculated very low density lipoprotein (VLDL) cholesterol measurementOrdered By: Alex Funes on 2025 VLDL Cholesterol 10 mg/dL 5-40 [facility] Carbon dioxide, total [Moles /volume] in Central venous bloodOrdered By: Alex Funes on 2025 CO2 [Moles/Vol] 25.0 mmol/L 21.0-32.0 [facility] Chloride assayOrdered By: Kate Funes on 2025 Chloride [Moles/Vol] 105 mmol/L 98-108 [facility] Comprehensive Metabolic Prof ilon 2025 Albumin [Mass/Vol] 4.4 g/dL Normal 3.4-4.8 [facility] Comment on above: Order Comment: Order Date: 01/19/25 Order Info: [id number] - CMP Order Info: [id number] - LIPID Performed By: #### L 3110.0500, L502.0250, L500.4050, L100.0100, L501.9985, L500.4100 #### [facility] [address] [place], [place], [id number] Albumin/Globulin [Mass ratio] 1.7 {ratio} Normal 0.9-2.4 [facility] Comment on above: Order Comment: Order Date: 01/19/25 Order Info: [id number] - CMP Order Info: [id number] - LIPID Performed By: #### L 3110.0500, L502.0250, L500.4050, L100.0100, L501.9985, L500.4100 #### [facility] [address] [place], [place], [id number] ALK PHOS 76 U/L Normal 40-129 [facility] Comment on above: Order Comment: Order Date: 01/19/25 Order Info: [id number] - CMP Order Info: [id number] - LIPID Performed By: #### L 3110.0500, L502.0250, L500.4050, L100.0100, L501.9985, L500.4100 #### [facility] [address] [place], [place], [id number] ALT [Catalytic activity/Vol] 14 U/L Normal <=46 [facility] Comment on above: Order Comment: Order Date: 01/19/25 Order Info: [id number] - CMP Order Info: [id number] - LIPID Performed By: #### L 3110.0500, L502.0250, L500.4050, L100.0100, L501.9985, L500.4100 #### [facility] [address] [place], [place], [address] AST [Catalytic activity/Vol] 16 U/L Normal <=37 [facility] Comment on above: Order Comment: Order Date: 01/19/25 Order Info: [id number] - CMP Order Info: [id number] - LIPID Performed By: #### L 3110.0500, L502.0250, L500.4050, L100.0100, L501.9985, L500.4100 #### [facility] [address] [place], [place], [address] Bilirubin [Mass/Vol] 0.92 mg/dL Normal 0.00-1.30 [facility] Comment on above: Order Comment: Order Date: 01/19/25 Order Info: 0786-1 - CMP Order Info: [id number] - LIPID Performed By: #### L 3110.0500, L502.0250, L500.4050, L100.0100, L501.9985, L500.4100 #### [facility] [address] [place], [address] BUN/CRE 14.5 RATIO Normal 10-20 [facility] Comment on above: Order Comment: Order Date: 01/19/25 Order Info: [id number] - CMP Order Info: [id number] - LIPID Performed By: #### L 3110.0500, L502.0250, L500.4050, L100.0100, L501.9985, L500.4100 #### [facility] [address] [place], [address] Calcium [Mass/Vol] 9.9 mg/dL Normal 7.6-11.0 [facility] Comment on above: Order Comment: Order Date: 01/19/25 Order Info: 0786- - CMP Order Info: [id number] - LIPID Performed By: #### L 3110.0500, L502.0250, L500.4050, L100.0100, L501.9985, L500.4100 #### [facility] [address] [place], [address] Chloride [Moles/Vol] 105 mmol/L Normal 98-108 [facility] Comment on above: Order Comment: Order Date: 01/19/25 Order Info: [id number] - CMP Order Info: [id number] - LIPID Performed By: #### L 3110.0500, L502.0250, L500.4050, L100.0100, L501.9985, L500.4100 #### [facility] [address] [place], [address] CO2 [Moles/Vol] 25.0 mmol/L Normal 21.0-32.0 [facility] Comment on above: Order Comment: Order Date: 01/19/25 Order Info: [id number] - CMP Order Info: [id number] - LIPID Performed By: #### L 3110.0500, L502.0250, L500.4050, L100.0100, L501.9985, L500.4100 #### [facility] [address] [place], [address] Creatinine [Mass/Vol] 0.88 mg/dL Normal 0.70-1.20 [facility] Comment on above: Order Comment: Order Date: 01/19/25 Order Info: [id number] - CMP Order Info: [id number] - LIPID Performed By: #### L 3110.0500, L502.0250, L500.4050, L100.0100, L501.9985, L500.4100 #### [facility] [address] [place], [address] GAP 12 Normal 5-15 [facility] Comment on above: Order Comment: Order Date: 01/19/25 Order Info: [id number] - CMP Order Info: [id number] - LIPID Performed By: #### L 3110.0500, L502.0250, L500.4050, L100.0100, L501.9985, L500.4100 #### [facility] [address] [place], [address] GFR/1.73 sq M.predicted among non-blacks MDRD (S/P/Bld) [Vol rate/Area] 91 mL/min/{1.73_m2} Normal >60 [facility] Comment on above: Order Comment: Order Date: 01/19/25 Order Info: [id number] - CMP Order Info: [id number] - LIPID Result Comment: mL/m in/1.73m2 CKD-EPI Creatinine Equation (2020) Performed By: #### L 3110.0500, L502.0250, L500.4050, L100.0100, L501.9985, L500.4100 #### [facility] [address] [place], [address] Globulin (S) [Mass/Vol] 2.7 g/dL Normal 2.2-4.2 [facility] Comment on above: Order Comment: Order Date: 01/19/25 Order Info: [id number] - CMP Order Info: [id number] - LIPID Performed By: #### L 3110.0500, L502.0250, L500.4050, L100.0100, L501.9985, L500.4100 #### [facility] [address] [place], [address] Glucose [Mass/Vol] 152 mg/dL High 70-99 [facility] Comment on above: Order Comment: Order Date: 01/19/25 Order Info: [id number] - CMP Order Info: [id number] - LIPID Performed By: #### L 3110.0500, L502.0250, L500.4050, L100.0100, L501.9985, L500.4100 #### [facility] [address] [place], [address] Potassium [Moles/Vol] 4.7 mmol/L Normal 3.3-5.1 [facility] Comment on above: Order Comment: Order Date: 01/19/25 Order Info: [id number] - CMP Order Info: [id number] - LIPID Performed By: #### L 3110.0500, L502.0250, L500.4050, L100.0100, L501.9985, L500.4100 #### [facility] [address] [place], [address] Sodium [Moles/Vol] 142 mmol/L Normal 133-145 [facility] Comment on above: Order Comment: Order Date: 01/19/25 Order Info: [id number] - CMP Order Info: [id number] - LIPID Performed By: #### L 3110.0500, L502.0250, L500.4050, L100.0100, L501.9985, L500.4100 #### [facility] [address] [place], [address] T PROT 7.1 g/dL Normal 5.9-8.4 [facility] Comment on above: Order Comment: Order Date: 01/19/25 Order Info: [id number] - CMP Order Info: [id number] - LIPID Performed By: #### L 3110.0500, L502.0250, L500.4050, L100.0100, L501.9985, L500.4100 #### [facility] [address] [place], [place], [address] Urea nitrogen [Mass/Vol] 13 mg/dL Normal 4-19 [facility] Comment on above: Order Comment: Order Date: 01/19/25 Order Info: [id number] - CMP Order Info: [id number] - LIPID Performed By: #### L 3110.0500, L502.0250, L500.4050, L100.0100, L501.9985, L500.4100 #### [facility] [address] [place], [place], [address] Creatinine Unsp time (U) [Ma ss/Vol]Ordered By: Alex Funes on 2025 Creatinine (U) [Mass/Vol] 76.70 mg/dL 39.00-259.00 [facility] Eosinophil percentageOrdered By: Alex Funes on 2025 Eosinophils/100 WBC (Bld) 2.2 % 0-5 [facility] Erythrocyte distribution wid th (RBC) [Ratio]Ordered By: Alex Funes on 2025 Erythrocyte distribution width (RBC) [Entitic vol] 46.0 fL High 35.1-43.9 [facility] Erythrocyte distribution wid th ratioOrdered By: Alex Funes on 2025 Erythrocyte distribution width (RBC) [Ratio] 13.6 % 11.6-14.6 [facility] Free PSA/Total PSA [Mass fra ction]Ordered By: Alex Funes on 2025 % Free Prostate Specific Ag Calc 30.9 % . [facility] Comment on above: The table below list [...] for any other population of men.Performed at: [employer] [id number] Director: Cam Peralta PhD, Phone: [phone] Free prostate specific antig en (PSA) measurementOrdered By: Alex Funes on 2025 Free Prostate Specific Antigen 1.57 ng/mL N/A [facility] Comment on above: Mee ECLIA methodol ogy. GFR/1.73 sq M.predicted jazmine g non-blacks MDRD (S/P/Bld) [Vol rate/Area]Ordered By: Alex Funes on 2025 Estimated GFR (MDRD) Non-Af Amer 91 >60 [facility] Comment on above: mL/min/1.73m2 CKD-EP I Creatinine Equation (2020) Hematocrit Auto (Bld) [Volum e fraction]Ordered By: Alex Funes on 2025 Hematocrit (Bld) [Volume fraction] 49.4 % 40-54 [facility] Hemoglobin A1con 2025 HbA1c (Bld) [Mass fraction] 6.2 % Normal <=5.6 [facility] Comment on above: Order Comment: Order Date: 01/19/25 Order Info: [id number] - A1C Performed By: #### L 3110.0500, L502.0250, L500.4050, L100.0100, L501.9985, L500.4100 #### [facility] [address] [place], [address] Hemoglobin A1c percentageOrd ered By: Alex Funes on 2025 HbA1c (Bld) [Mass fraction] 6.2 % >5.7 [facility] Hemoglobin measurementOrdere d By: Alex Funes on 2025 Hemoglobin (Bld) [Mass/Vol] 16.7 g/dL High 13.0-16.5 [facility] Immature granulocytes/100 WB C Auto (Bld)Ordered By: Alex Funes on 2025 Immature granulocytes/100 WBC (Bld) 0.300 % 0.0-0.9 [facility] Comment on above: IG% - Immature Granu locytes (promyelocytes, myelocytes and metamyelocytes) > 1% indicates that a LEFT SHIFT is Present. LDL calc ser/plasOrdered By: Alex Funes on 2025 LDL Cholesterol, Calculated 53 mg/dL [facility] Comment on above: Wzrwexjlve=108-416 m g/dL & Higher Epxm=793 mg/dL or greater Laboratory - Chemistry and C hemistry - challengeOrdered By: Alex Funes on 2025 AST [Catalytic activity/Vol] 16 U/L <38 [facility] Lipid Profileon 2025 CHOL:HDL 2.29 Normal [facility] Comment on above: Order Comment: Order Date: 01/19/25 Order Info: [id number] - CMP Order Info: [id number] - LIPID Performed By: #### L 3110.0500, L502.0250, L500.4050, L100.0100, L501.9985, L500.4100 #### [facility] [address] [place], [place], [id number] Cholesterol [Mass/Vol] 113 mg/dL Normal <=200 [facility] Comment on above: Order Comment: Order Date: 01/19/25 Order Info: [id number] - CMP Order Info: [id number] - LIPID Result Comment: Chol esterol level, Desirable <200 mg/dL Borderline high cholesterol 200-239 mg/dL High cholesterol >=240 mg/dL Recommendations of the NCEP Adult Treatment Panel for the following risk-cutoff thresholds for the [place] population. Performed By: #### L 3110.0500, L502.0250, L500.4050, L100.0100, L501.9985, L500.4100 #### [facility] [address] [place], [address] Cholesterol in HDL [Mass/Vol] 49 mg/dL Normal [facility] Comment on above: Order Comment: Order Date: 01/19/25 Order Info: [id number] - CMP Order Info: [id number] - LIPID Result Comment: Griselda onal Cholesterol Education Program (NCEP) guidelines: <40 mg/dL: Low HDL-cholesterol (major risk factor for CHD) >= 60 mg/dL: High HDL-cholesterol (negative risk factor for CHD) HDL-cholesterol is affected by a number of factors, e.g. smoking, exercise, hormones, sex and age. Performed By: #### L 3110.0500, L502.0250, L500.4050, L100.0100, L501.9985, L500.4100 #### [facility] [address] [place], [address] Cholesterol in LDL [Mass/Vol] 53 mg/dL Normal [facility] Comment on above: Order Comment: Order Date: 01/19/25 Order Info: [id number] - [facility] Order Info: [id number] - LIPID Result Comment: Bord nueklw=506-067 mg/dL Higher Arcp=035 mg/dL or greater Performed By: #### L 3110.0500, L502.0250, L500.4050, L100.0100, L501.9985, L500.4100 #### [facility] [address] [place], [address] Cholesterol in VLDL [Mass/Vol] 10 mg/dL Normal 5-40 [facility] Comment on above: Order Comment: Order Date: 01/19/25 Order Info: [id number] - [facility] Order Info: [id number] - LIPID Performed By: #### L 3110.0500, L502.0250, L500.4050, L100.0100, L501.9985, L500.4100 #### [facility] [address] [place], [address] Triglyceride [Mass/Vol] 52 mg/dL Normal [facility] Comment on above: Order Comment: Order Date: 01/19/25 Order Info: [id number] - CMP Order Info: [id number] - LIPID Result Comment: The drugs N-Acetylcysteine and Metamizole may falsely depress this assay. Normal range: <150 mg/dL Borderline High: 150-199 mg/dL High: 200-499 mg/dL Very High: >500 mg/dL Performed By: #### L 3110.0500, L502.0250, L500.4050, L100.0100, L501.9985, L500.4100 #### [facility] [address] [place], [address] Lymphocytes Auto (Unsp spec) [#/Vol]Ordered By: Alex Funes on 2025 Lymphocytes (Bld) [#/Vol] 1.97 10*3/uL 0.83-4.51 [facility] Lymphocytes/100 WBC Auto (Un sp spec)Ordered By: Alex Funes on 2025 Lymphocytes/100 WBC (Bld) 31.4 % 19-41 [facility] MCV (mean corpuscular volume ) determinationOrdered By: Alex Funes on 2025 MCV (RBC) [Entitic vol] 92.9 fL 80-94 [facility] Mean corpuscular hemoglobin (MCH) determinationOrdered By: Alex Funes on 2025 MCH (RBC) [Entitic mass] 31.4 pg 27.0-32.0 [facility] Mean corpuscular hemoglobin concentration (MCHC) determinationOrdered By: Alex Funes on 2025 MCHC (RBC) [Mass/Vol] 33.8 g/dL 32-36 [facility] Mean platelet volume determi nationOrdered By: Alex Funes on 2025 Platelet mean volume (Bld) [Entitic vol] 10.0 fL 6.2-12.0 [facility] Microalb:Creat Ratio,Random URon 2025 Creatinine [Mass/Vol] 76.70 mg/dL Normal 39.00-259.00 [facility] Comment on above: Order Comment: Order Date: 01/19/25 Order Info: [id number] - MIACRE Order Info: [id number] - MIALB Performed By: #### L 3110.0500, L502.0250, L500.4050, L100.0100, L501.9985, L500.4100 #### [facility] [address] [place], [place], [address] MALB:CREAT UNABLE TO CALCULATE Normal [facility] Comment on above: Order Comment: Order Date: 01/19/25 Order Info: [id number] - MIACRE Order Info: [id number] - MIALB Performed By: #### L 3110.0500, L502.0250, L500.4050, L100.0100, L501.9985, L500.4100 #### [facility] [address] [place], [place], [address] MICROALBUMIN,UR < 12.0 Normal NO RANGE EST. [facility] Comment on above: Order Comment: Order Date: 01/19/25 Order Info: [id number] - MIACRE Order Info: [id number] - MIALB Performed By: #### L 3110.0500, L502.0250, L500.4050, L100.0100, L501.9985, L500.4100 #### [facility] [address] [facility] [place], [place], [address] Microalbumin/creat ratio urO rdered By: Alex Funes on 2025 Urine Microalbumin/Creatinine Ratio UNABLE TO CALCULATE mg/g CRE [facility] Monocyte percentageOrdered B y: Alex Funes on 2025 Monocytes/100 WBC (Bld) 7.5 % 0-10 [facility] Neutrophil percentageOrdered By: Alex Funes on 2025 Neutrophils/100 WBC (Bld) 58.1 % 47-70 [facility] Nucleated red blood cell per centageOrdered By: Alex Funes on 2025 Nucleated RBC/100 WBC (Bld) [Ratio] 0 % 0-5 [facility] PSA, totalOrdered By: Alex garza on 2025 Prostate Specific Ag, Ultra-Sensitv 5.080 ng/mL High 0.000-4.000 [facility] Comment on above: Mee ECLIA methodol ogy.According to the [place] [employer], Serum PSAshould decrease and remain [...] 2025 Platelets (Bld) [#/Vol] 264 10*3/uL 150-450 [facility] Potassium (Unsp spec) [Mass/ Vol]Ordered By: Alex Funes on 2025 Potassium [Moles/Vol] 4.7 mmol/L 3.3-5.1 [facility] RBC Auto (Bld) [#/Vol]Ordere d By: Alex Funes on 2025 RBC (Bld) [#/Vol] 5.32 10*6/uL 4.6-6.2 [facility] Screening total cholesterol/ high density lipoprotein (HDL) cholesterol ratioOrdered By: Alex Funes on 2025 Cholesterol.total/Terri sterol in HDL [Mass ratio] 2.29 {ratio} [facility] Serum creatinine measurement (mass/volume)Ordered By: Alex Funes on 2025 Creatinine [Mass/Vol] 0.88 mg/dL 0.70-1.20 [facility] Serum globulin measurementOr dered By: Alex Funes on 2025 Globulin (S) [Mass/Vol] 2.7 g/dL 2.2-4.2 [facility] Serum glucose measurement (m ass/volume)Ordered By: Alex Funes on 2025 Glucose [Mass/Vol] 152 mg/dL High 70-99 [facility] Serum or plasma alanine blair otransferase (ALT) measurementOrdered By: Alex Funes on 2025 ALT [Catalytic activity/Vol] 14 U/L <47 [facility] Serum or plasma albumin vickey urement (mass/volume)Ordered By: Alex Funes on 2025 Albumin [Mass/Vol] 4.4 g/dL 3.4-4.8 [facility] Serum or plasma albumin/glob ulin mass ratioOrdered By: Alex Funes on 2025 Albumin/Globulin [Mass ratio] 1.7 {ratio} 0.9-2.4 [facility] Serum or plasma alkaline robina sphatase measurementOrdered By: Alex Funes on 2025 ALP [Catalytic activity/Vol] 76 U/L 40-129 [facility] Serum or plasma calcium vickey urement (mass/volume)Ordered By: Alex Funes on 2025 Calcium [Mass/Vol] 9.9 mg/dL 7.6-11.0 [facility] Serum or plasma cholesterol in HDL measurement (mass/volume)Ordered By: Alex Funes on 2025 Cholesterol in HDL [Mass/Vol] 49 mg/dL >40 [facility] Comment on above: National Cholesterol Education Program (NCEP) guidelines:<40 mg/dL: Low HDL-cholesterol (major risk factor for CHD)>= 60 mg/dL: High HDL-cholesterol (negative risk factor for CHD)HDL-cholesterol is affected by a number of factors, e.g. smoking, exercise, hormones, sex and age. Serum or plasma cholesterol measurement (mass/volume)Ordered By: Alex Funes on 2025 Cholesterol [Mass/Vol] 113 mg/dL <201 [facility] Comment on above: Cholesterol level, D esirable <200 mg/dLBorderline high cholesterol 200-239 mg/dLHigh cholesterol >=240 mg/dLRecommendations of the NCEP Adult Treatment Panel for the following risk-cutoff thresholds for the [place] population. Serum or plasma urea nitroge n measurement (mass/volume)Ordered By: Alex Funes on 2025 Urea nitrogen [Mass/Vol] 13 mg/dL 4-19 [facility] Sodium levelOrdered By: Alex Funes on 2025 Sodium [Moles/Vol] 142 mmol/L 133-145 [facility] Total proteinOrdered By: Joshua Funes on 2025 Protein [Mass/Vol] 7.1 g/dL 5.9-8.4 [facility] Triglycerides measurementOrd ered By: Alex Funes on 2025 Triglyceride [Mass/Vol] 52 mg/dL <199 [facility] Comment on above: The drugs N-Acetylcy steine and Metamizole may falsely depress this assay. Normal range: <150 mg/dLBorderline High: 150-199 mg/dLHigh: 200-499 mg/dLVery High: >500 mg/dL White blood cell (WBC) count Ordered By: Alex Funes on 2025 WBC (Bld) [#/Vol] 6.3 10*3/uL 4.4-11.0 [facility] PSA Total+%Freeon 09-21-2024 PSA, FREE 1.65 ng/mL Normal N/A [facility] Comment on above: Order Comment: Order Date: 01/19/25 Order Info: [id number] - [facility] Order Info: [id number] - MIALB Result Comment: Gloria RINCON methodology. Performed By: #### L 3110.0500, L502.0250, L500.4050, L100.0100, L501.9985, L500.4100 #### [facility] [address] [place], [address] PSA, FREE % 30.6 Normal . [facility] Comment on above: Order Comment: Order Date: 01/19/25 Order Info: [id number] - [facility] Order Info: [id number] - MIALB Result Comment: The table below [...] any other population of men. Performed at: [facility] [id number] Inspector Precision: Cam Peralta PhD, Phone: [phone] Performed By: #### L 3110.0500, L502.0250, L500.4050, L100.0100, L501.9985, L500.4100 #### [facility] [address] [place], [address] PSA, TOTAL ULTR 5.390 ng/mL Abnormal 0.000-4.000 [facility] Comment on above: Order Comment: Order Date: 01/19/25 Order Info: [id number] - [facility] Order Info: [id number] - MIALB Result Comment: Gloria RINCON methodology. According to the [place] [employer], Serum PSA should decrease and [...] 3110.0500, L502.0250, L500.4050, L100.0100, L501.9985, L500.4100 #### [facility] [address] [place], [address] CBC W/Diff, Automatedon 11- Absolute Lymph 1.80 X10 3/uL Normal 0.83-4.51 [facility] Comment on above: Order Comment: Order Date: 03/18/24 Order Info: [id number] - CBCD Performed By: #### L 500.4050, L100.0100, L501.9985, L502.0250, L3110.0500, L500.4100 #### [facility] [address] [place], [address] Absolute Neut 3.0 X10 3/uL Normal 2.0-7.7 [facility] Comment on above: Order Comment: Order Date: 03/18/24 Order Info: [id number]- - CBCD Performed By: #### L 500.4050, L100.0100, L501.9985, L502.0250, L3110.0500, L500.4100 #### [facility] [address] [place], [place], [id number] [phone] Basophils/100 WBC (Bld) 0.4 % Normal 0-1 [facility] Comment on above: Order Comment: Order Date: 03/18/24 Order Info: [id number] - CBCD Performed By: #### L 500.4050, L100.0100, L501.9985, L502.0250, L3110.0500, L500.4100 #### [facility] [address] [place], [place], [id number] [phone] Eosinophils/100 WBC (Bld) 2.0 % Normal 0-5 [facility] Comment on above: Order Comment: Order Date: 03/18/24 Order Info: [id number] - CBCD Performed By: #### L 500.4050, L100.0100, L501.9985, L502.0250, L3110.0500, L500.4100 #### [facility] [address] [place], [address] Erythrocyte distribution width (RBC) [Ratio] 12.6 % Normal 11.6-14.6 [facility] Comment on above: Order Comment: Order Date: 03/18/24 Order Info: [id number]- - CBCD Performed By: #### L 500.4050, L100.0100, L501.9985, L502.0250, L3110.0500, L500.4100 #### [facility] [address] [place], [address] Hematocrit (Bld) [Volume fraction] 50.8 % Normal 40-54 [facility] Comment on above: Order Comment: Order Date: 03/18/24 Order Info: [id number] - CBCD Performed By: #### L 500.4050, L100.0100, L501.9985, L502.0250, L3110.0500, L500.4100 #### [facility] [address] [place], [address] Hemoglobin (Bld) [Mass/Vol] 16.4 g/dL Normal 13.0-16.5 [facility] Comment on above: Order Comment: Order Date: 03/18/24 Order Info: [id number] - CBCD Performed By: #### L 500.4050, L100.0100, L501.9985, L502.0250, L3110.0500, L500.4100 #### [facility] [address] [place], [address] IG% 0.400 Normal 0.0-0.9 [facility] Comment on above: Order Comment: Order Date: 03/18/24 Order Info: [id number] - CBCD Result Comment: IG% - Immature Granulocytes (promyelocytes, myelocytes and metamyelocytes) > 1% indicates that a LEFT SHIFT is Present. Performed By: #### L 500.4050, L100.0100, L501.9985, L502.0250, L3110.0500, L500.4100 #### [facility] [address] [place], [address] Lymphocytes/100 WBC (Bld) 33.3 % Normal 19-41 [facility] Comment on above: Order Comment: Order Date: 03/18/24 Order Info: [id number] - CBCD Performed By: #### L 500.4050, L100.0100, L501.9985, L502.0250, L3110.0500, L500.4100 #### [facility] [address] [place], [address] MCH (RBC) [Entitic mass] 30.6 pg Normal 27.0-32.0 [facility] Comment on above: Order Comment: Order Date: 03/18/24 Order Info: [id number] - CBCD Performed By: #### L 500.4050, L100.0100, L501.9985, L502.0250, L3110.0500, L500.4100 #### [facility] [address] [place], [address] MCHC (RBC) [Mass/Vol] 32.3 g/dL Normal 32-36 [facility] Comment on above: Order Comment: Order Date: 03/18/24 Order Info: [id number] - CBCD Performed By: #### L 500.4050, L100.0100, L501.9985, L502.0250, L3110.0500, L500.4100 #### [facility] [address] [place], [address] MCV (RBC) [Entitic vol] 94.8 fL High 80-94 [facility] Comment on above: Order Comment: Order Date: 03/18/24 Order Info: [id number] - CBCD Performed By: #### L 500.4050, L100.0100, L501.9985, L502.0250, L3110.0500, L500.4100 #### [facility] [address] [place], [address] Monocytes/100 WBC (Bld) 8.3 % Normal 0-10 [facility] Comment on above: Order Comment: Order Date: 03/18/24 Order Info: [id number] - CBCD Performed By: #### L 500.4050, L100.0100, L501.9985, L502.0250, L3110.0500, L500.4100 #### [facility] [address] [place], [address] Neutrophils/100 WBC (Bld) 55.6 % Normal 47-70 [facility] Comment on above: Order Comment: Order Date: 03/18/24 Order Info: [id number] - CBCD Performed By: #### L 500.4050, L100.0100, L501.9985, L502.0250, L3110.0500, L500.4100 #### [facility] [address] [place], [address] Nucleated RBC (Bld) [#/Vol] 0 10*3/uL Normal 0-5 [facility] Comment on above: Order Comment: Order Date: 03/18/24 Order Info: [id number] - CBCD Performed By: #### L 500.4050, L100.0100, L501.9985, L502.0250, L3110.0500, L500.4100 #### [facility] [address] [place], [address] Platelet mean volume (Bld) [Entitic vol] 10.4 fL Normal 6.2-12.0 [facility] Comment on above: Order Comment: Order Date: 03/18/24 Order Info: 0184-1 - CBCD Performed By: #### L 500.4050, L100.0100, L501.9985, L502.0250, L3110.0500, L500.4100 #### [facility] [address] [place], [address] Platelets (Bld) [#/Vol] 283 10*3/uL Normal 150-450 [facility] Comment on above: Order Comment: Order Date: 03/18/24 Order Info: [id number] - CBCD Performed By: #### L 500.4050, L100.0100, L501.9985, L502.0250, L3110.0500, L500.4100 #### [facility] [address] [place], [address] RBC (Bld) [#/Vol] 5.36 10*6/uL Normal 4.6-6.2 [facility] Comment on above: Order Comment: Order Date: 03/18/24 Order Info: 0184-1 - CBCD Performed By: #### L 500.4050, L100.0100, L501.9985, L502.0250, L3110.0500, L500.4100 #### [facility] [address] [place], [place], [id number] RDW SD 44.3 fl High 35.1-43.9 [facility] Comment on above: Order Comment: Order Date: 03/18/24 Order Info: 0184-1 - CBCD Performed By: #### L 500.4050, L100.0100, L501.9985, L502.0250, L3110.0500, L500.4100 #### [facility] [address] [place], [address] WBC (Bld) [#/Vol] 5.4 10*3/uL Normal 4.4-11.0 [facility] Comment on above: Order Comment: Order Date: 03/18/24 Order Info: [id number] - CBCD Performed By: #### L 500.4050, L100.0100, L501.9985, L502.0250, L3110.0500, L500.4100 #### [facility] [address] [place], [place], [id number] Comprehensive Metabolic Prof [facility] 09-20-2024 Albumin [Mass/Vol] 3.8 g/dL Normal 3.2-5.0 [facility] Comment on above: Order Comment: Order Date: 01/19/25 Order Info: [id number] - MIACRE Order Info: [id number] - MIALB Performed By: #### L 3110.0500, L502.0250, L500.4050, L100.0100, L501.9985, L500.4100 #### [facility] [address] [place], [address] Albumin/Globulin [Mass ratio] 1.2 {ratio} Normal 0.9-2.4 [facility] Comment on above: Order Comment: Order Date: 01/19/25 Order Info: [id number] - MIACRE Order Info: [id number] - MIALB Performed By: #### L 3110.0500, L502.0250, L500.4050, L100.0100, L501.9985, L500.4100 #### [facility] [address] [place], [address] ALK P 79 U/L Normal 45-117 [facility] Comment on above: Order Comment: Order Date: 01/19/25 Order Info: [id number] - MIACRE Order Info: [id number] - MIALB Performed By: #### L 3110.0500, L502.0250, L500.4050, L100.0100, L501.9985, L500.4100 #### [facility] [address] [place], [place], [id number] ALT [Catalytic activity/Vol] 26 U/L Normal 16-61 [facility] Comment on above: Order Comment: Order Date: 01/19/25 Order Info: [id number] - MIACRE Order Info: [id number] - MIALB Performed By: #### L 3110.0500, L502.0250, L500.4050, L100.0100, L501.9985, L500.4100 #### [facility] [address] [place], [address] AST [Catalytic activity/Vol] 14 U/L Low 15-37 [facility] Comment on above: Order Comment: Order Date: 01/19/25 Order Info: [id number] - MIACRE Order Info: [id number] - MIALB Performed By: #### L 3110.0500, L502.0250, L500.4050, L100.0100, L501.9985, L500.4100 #### [facility] [address] [place], [address] Bilirubin [Mass/Vol] 1.00 mg/dL Normal 0.20-1.00 [facility] Comment on above: Order Comment: Order Date: 01/19/25 Order Info: [id number] - MIACRE Order Info: [id number] - MIALB Result Comment: For patients on eltrombopag therapy, use of Dimension [place] TBIL is not recommended. Performed By: #### L 3110.0500, L502.0250, L500.4050, L100.0100, L501.9985, L500.4100 #### [facility] [address] [place], [address] BUN/CRE 12.9 RATIO Normal 10-20 [facility] Comment on above: Order Comment: Order Date: 01/19/25 Order Info: [id number] - MIACRE Order Info: [id number] - MIALB Performed By: #### L 3110.0500, L502.0250, L500.4050, L100.0100, L501.9985, L500.4100 #### [facility] [address] [place], [address] CA,Total 9.4 mg/dL Normal 8.5-10.1 [facility] Comment on above: Order Comment: Order Date: 01/19/25 Order Info: [id number] - MIACRE Order Info: [id number] - MIALB Performed By: #### L 3110.0500, L502.0250, L500.4050, L100.0100, L501.9985, L500.4100 #### [facility] [address] [place], [address] Chloride [Moles/Vol] 106 mmol/L Normal 98-107 [facility] Comment on above: Order Comment: Order Date: 01/19/25 Order Info: [id number] - MIACRE Order Info: [id number] - MIALB Performed By: #### L 3110.0500, L502.0250, L500.4050, L100.0100, L501.9985, L500.4100 #### [facility] [address] [place], [address] CO2 [Moles/Vol] 29.0 mmol/L Normal 21.0-32.0 [facility] Comment on above: Order Comment: Order Date: 01/19/25 Order Info: [id number]- - MIACRE Order Info: [id number] - MIALB Performed By: #### L 3110.0500, L502.0250, L500.4050, L100.0100, L501.9985, L500.4100 #### [facility] [address] [place], [address] Creatinine [Mass/Vol] 0.86 mg/dL Normal 0.70-1.30 [facility] Comment on above: Order Comment: Order Date: 01/19/25 Order Info: [id number]- - MIACRE Order Info: [id number] - MIALB Result Comment: The validity of the calculated GFR GFRAA in patients over 70 years has not been determined. Clinical correlation is essential. Performed By: #### L 3110.0500, L502.0250, L500.4050, L100.0100, L501.9985, L500.4100 #### [facility] [address] [place], [address] EST GFR - AA 113 mL/min Normal >60 [facility] Comment on above: Order Comment: Order Date: 01/19/25 Order Info: [id number] - MIACRE Order Info: [id number] - MIALB Result Comment: Afri can [place] GFR Calc Performed By: #### L 3110.0500, L502.0250, L500.4050, L100.0100, L501.9985, L500.4100 #### [facility] [address] [place], [address] GAP 4 Low 5-15 [facility] Comment on above: Order Comment: Order Date: 01/19/25 Order Info: [id number] - MIACRE Order Info: [id number] - MIALB Performed By: #### L 3110.0500, L502.0250, L500.4050, L100.0100, L501.9985, L500.4100 #### [facility] [address] [place], [address] GFR/1.73 sq M.predicted among non-blacks MDRD (S/P/Bld) [Vol rate/Area] 94 mL/min/{1.73_m2} Normal >60 [facility] Comment on above: Order Comment: Order Date: 01/19/25 Order Info: [id number] - MIACRE Order Info: [id number] - MIALB Result Comment: Non- GFR Calc Performed By: #### L 3110.0500, L502.0250, L500.4050, L100.0100, L501.9985, L500.4100 #### [facility] [address] [place], [place], [id number] Globulin (S) [Mass/Vol] 3.3 g/dL Normal 2.2-4.2 [facility] Comment on above: Order Comment: Order Date: 01/19/25 Order Info: [id number] - MIACRE Order Info: [id number] - MIALB Performed By: #### L 3110.0500, L502.0250, L500.4050, L100.0100, L501.9985, L500.4100 #### [facility] [address] [place], [place], [address] Glucose [Mass/Vol] 146 mg/dL High 74-106 [facility] Comment on above: Order Comment: Order Date: 01/19/25 Order Info: [id number] - MIACRE Order Info: [id number] - MIALB Result Comment: Fast ing Glucose result greater than or equal to 126 mg/dL suggests DIABETES MELLITUS per A.D.A. criteria. Performed By: #### L 3110.0500, L502.0250, L500.4050, L100.0100, L501.9985, L500.4100 #### [facility] [address] [place], [address] Potassium [Moles/Vol] 4.4 mmol/L Normal 3.5-5.1 [facility] Comment on above: Order Comment: Order Date: 01/19/25 Order Info: [id number] - MIACRE Order Info: [id number] - MIALB Performed By: #### L 3110.0500, L502.0250, L500.4050, L100.0100, L501.9985, L500.4100 #### [facility] [address] [place], [address] Sodium [Moles/Vol] 139 mmol/L Normal 136-145 [facility] Comment on above: Order Comment: Order Date: 01/19/25 Order Info: [id number] - MIACRE Order Info: [id number] - MIALB Performed By: #### L 3110.0500, L502.0250, L500.4050, L100.0100, L501.9985, L500.4100 #### [facility] [address] [place], [address] T PROT 7.1 g/dL Normal 6.4-8.2 [facility] Comment on above: Order Comment: Order Date: 01/19/25 Order Info: [id number] - MIACRE Order Info: [id number] - MIALB Performed By: #### L 3110.0500, L502.0250, L500.4050, L100.0100, L501.9985, L500.4100 #### [facility] [address] [place], [address] Urea nitrogen [Mass/Vol] 11 mg/dL Normal 7-18 [facility] Comment on above: Order Comment: Order Date: 01/19/25 Order Info: [id number] - MIACRE Order Info: [id number] - MIALB Performed By: #### L 3110.0500, L502.0250, L500.4050, L100.0100, L501.9985, L500.4100 #### [facility] [address] [place], [address] Hemoglobin A1con 09-20-2024 HbA1c (Bld) [Mass fraction] 6.2 % High 3.8-5.6 [facility] Comment on above: Order Comment: Order Date: 03/18/24 Order Info: [id number] - A1C Result Comment: Norm al < 5.7 % Prediabetic 5.7 - 6.4 % Diabetic >or= 6.5 % Please note range changes. Performed By: #### L 500.4050, L100.0100, L501.9985, L502.0250, L3110.0500, L500.4100 #### [facility] [address] [place], [place], [address] Lipid Profileon 09-20-2024 Cholesterol [Mass/Vol] 101 mg/dL Normal 200 [facility] Comment on above: Order Comment: Order Date: 01/19/25 Order Info: [id number] - MIACRE Order Info: [id number] - MIALB Result Comment: <200 mg/dL Desirable 200-240 mg/dL Borderline >240 mg/dL High Risk Performed By: #### L 3110.0500, L502.0250, L500.4050, L100.0100, L501.9985, L500.4100 #### [facility] [address] [place], [place], [id number] Cholesterol in HDL [Mass/Vol] 48 mg/dL Normal [facility] Comment on above: Order Comment: Order Date: 01/19/25 Order Info: [id number] - MIACRE Order Info: [id number] - MIALB Result Comment: The drugs N-Acetylcysteine and Metamizole may falsely depress this assay. Reference Range HDL <40 mg/dL Low HDL Cholesterol HDL >or= 60 mg/dL High HDL Cholesterol Performed By: #### L 3110.0500, L502.0250, L500.4050, L100.0100, L501.9985, L500.4100 #### [facility] [address] [place], [address] Cholesterol in LDL [Mass/Vol] 38 mg/dL Normal 0-130 [facility] Comment on above: Order Comment: Order Date: 01/19/25 Order Info: [id number] - MIACRE Order Info: [id number] - MIALB Performed By: #### L 3110.0500, L502.0250, L500.4050, L100.0100, L501.9985, L500.4100 #### [facility] [address] [place], [address] Cholesterol in VLDL [Mass/Vol] 15 mg/dL Normal 5-40 [facility] Comment on above: Order Comment: Order Date: 01/19/25 Order Info: [id number] - MIACRE Order Info: [id number] - MIALB Performed By: #### L 3110.0500, L502.0250, L500.4050, L100.0100, L501.9985, L500.4100 #### [facility] [address] [place], [address] Triglyceride [Mass/Vol] 74 mg/dL Normal [facility] Comment on above: Order Comment: Order Date: 01/19/25 Order Info: [id number] - MIACRE Order Info: [id number] - MIALB Result Comment: The drugs N-Acetylcysteine and Metamizole may falsely depress this assay. Serum Triglycerides Reference Interval Normal <150 mg/dL Borderline high 150 - 199 mg/dL High 200 - 499 mg/dL Very High > or = 500 mg/dL Performed By: #### L 3110.0500, L502.0250, L500.4050, L100.0100, L501.9985, L500.4100 #### [facility] [address] [place], [place], [id number] Microalb:Creat Ratio,Random URon 09-20-2024 Creatinine [Mass/Vol] 72.00 mg/dL Normal NO RAN GE EST. [facility] Comment on above: Order Comment: Order Date: 03/18/24 Order Info: [id number] - MIACRE Performed By: #### L 500.4050, L100.0100, L501.9985, L502.0250, L3110.0500, L500.4100 #### [facility] [address] [place], [place], [phone] MALB:CRE TNP Normal <30 mg/g CRE [facility] Comment on above: Order Comment: Order Date: 03/18/24 Order Info: [id number] - MIACRE Performed By: #### L 500.4050, L100.0100, L501.9985, L502.0250, L3110.0500, L500.4100 #### [facility] [address] [place], [place], [id number] MICROALBUMIN,UR < 5.0 Normal NO RANGE EST. [facility] Comment on above: Order Comment: Order Date: 03/18/24 Order Info: [id number] - MIACRE Performed By: #### L 500.4050, L100.0100, L501.9985, L502.0250, L3110.0500, L500.4100 #### [facility] [address] [place], [place], [id number] Urinalysis, Completeon 09-20 WBC 0-5 SEEN Normal 0-5 [facility] Comment on above: Order Comment: CLEAN CATCH Performed By: #### L 400.0001 #### [facility] [address] [place], [address] BACTERIA 0 SEEN Normal None Seen [facility] Comment on above: Order Comment: CLEAN CATCH Performed By: #### L 400.0001 #### [facility] [address] [place], [address] EPI,SQUAMOUS 0 SEEN Normal 0-5 [facility] Comment on above: Order Comment: CLEAN CATCH Performed By: #### L 400.0001 #### [facility] [address] [place], [address] Mucus Ql (Urine sed) 0 SEEN Normal [facility] Comment on above: Order Comment: CLEAN CATCH Performed By: #### L 400.0001 #### [facility] [address] [place], [address] RBC 0 SEEN Normal 0-5 [facility] Comment on above: Order Comment: CLEAN CATCH Performed By: #### L 400.0001 #### [facility] [address] [place], [address] Absolute lymphocyte countOrd ered By: Alex Funes on 10-27-2023 Lymphocytes Auto (Unsp spec) [#/Vol] 2.24 10*3/uL 0.83-4.51 [facility] Basophil percentageOrdered B y: Alex Funes on 10-27-2023 Basophils/100 WBC (Bld) 0.4 % 0-1 [facility] Bilirubin [Mass/Vol] 0.80 mg/dL 0.20-1.00 [facility] Comment on above: For patients on eltr ombopag therapy, use of Dimension [place] TBIL is not recommended. Chloride [Moles/Vol] 109 mmol/L 98-107 [facility] Cholesterol [Mass/Vol] 100 mg/dL <200 [facility] Comment on above: <200 mg/dL Desirable 200-240 mg/dL Borderline >240 mg/dL High Risk Eosinophils/100 WBC (Bld) 2.2 % 0-5 [facility] Glucose [Mass/Vol] 213 mg/dL 74-106 [facility] Comment on above: Glucose result great er than or equal to 200 mg/dLsuggests DIABETES MELLITUS per A.D.A. criteria. Neutrophils (Bld) [#/Vol] 4.1 10*3/uL 2.0-7.7 [facility] Neutrophils/100 WBC (Bld) 56.7 % 47-70 [facility] Potassium [Moles/Vol] 4.1 mmol/L 3.5-5.1 [facility] Comment on above: Slight Hemolysis, Re sult may be falsely increased. Protein [Mass/Vol] 7.1 g/dL 6.4-8.2 [facility] Sodium [Moles/Vol] 140 mmol/L 136-145 [facility] Triglyceride [Mass/Vol] 72 mg/dL <199 [facility] Comment on above: The drugs N-Acetylcy steine and Metamizole may falsely depress this assay.Serum Triglycerides Reference Interval Normal <150 mg/dL Borderline high 150 - 199 mg/dL High 200 - 499 mg/dL Very High > or = 500 mg/dL WBC (Bld) [#/Vol] 7.2 10*3/uL 4.4-11.0 [facility] Blood erythrocytes count (nu mber/volume)Ordered By: Alex Funes on 10-27-2023 RBC (Bld) [#/Vol] 5.43 10*6/uL 4.6-6.2 [facility] Blood hemoglobin measurement (mass/volume)Ordered By: Alex Funes on 10-27-2023 Hemoglobin (Bld) [Mass/Vol] 16.7 g/dL 13.0-16.5 [facility] Blood lymphocytes/100 leukoc ytesOrdered By: Alex Funes on 10-27-2023 Lymphocytes/100 WBC (Bld) 31.3 % 19-41 [facility] Blood monocytes/100 leukocyt esOrdered By: Alex Funes on 10-27-2023 Monocytes/100 WBC (Bld) 8.8 % 0-10 [facility] Blood platelet mean volumeOr dered By: Alex Funes on 10-27-2023 Platelet mean volume (Bld) [Entitic vol] 10.5 fL 6.2-12.0 [facility] Determination of erythrocyte mean corpuscular volume (MCV)Ordered By: Alex Funes on 10-27-2023 MCV (RBC) [Entitic vol] 95.4 fL 80-94 [facility] Hematocrit Auto (Bld) [Volum e fraction]Ordered By: Alex Funes on 10-27-2023 Hematocrit (Bld) [Volume fraction] 51.8 % 40-54 [facility] - Chemistry and C hemistry - challengeOrdered By: Alex Funes on 10-27-2023 ALP [Catalytic activity/Vol] 93 U/L 45-117 [facility] ALT [Catalytic activity/Vol] 29 U/L 16-61 [facility] CO2 [Moles/Vol] 27.0 mmol/L 21.0-32.0 [facility] Globulin (S) [Mass/Vol] 3.5 g/dL 2.2-4.2 [facility] Urea nitrogen/Creatinine [Mass ratio] 14.8 mg/mg 10-20 [facility] - Hematology and Cell countsOrdered By: Alex Funes on 10-27-2023 Erythrocyte distribution width (RBC) [Entitic vol] 43.3 fL 35.1-43.9 [facility] Erythrocyte distribution width (RBC) [Ratio] 12.5 % 11.6-14.6 [facility] Immature granulocytes/100 WBC (Bld) 0.600 % 0.0-0.9 [facility] Comment on above: IG% - Immature Granu locytes (promyelocytes, myelocytes and metamyelocytes) > 1% indicates that a LEFT SHIFT is Present. MCH (RBC) [Entitic mass] 30.8 pg 27.0-32.0 [facility] Nucleated RBC/100 WBC (Bld) [Ratio] 0 % 0-5 [facility] MCHC Auto (RBC) [Mass/Vol]Or dered By: Alex Funes on 10-27-2023 MCHC (RBC) [Mass/Vol] 32.2 g/dL 32-36 [facility] No Panel InformationOrdered By: Alex Funes on 10-27-2023 Estimated GFR (MDRD) Amer 101 mL/min >60 [facility] Comment on above: GFR Calc Estimated GFR (MDRD) Non-Af Amer 84 mL/min >60 [facility] Comment on above: Non- GFR Calc Platelets bldOrdered By: Joshua Funes on 10-27-2023 Platelets (Bld) [#/Vol] 261 10*3/uL 150-450 [facility] Serum or plasma albumin vickey urement (mass/volume)Ordered By: Alex Funes on 10-27-2023 Albumin [Mass/Vol] 3.6 g/dL 3.2-5.0 [facility] Serum or plasma albumin/glob ulin mass ratioOrdered By: Alex Funes on 10-27-2023 Albumin/Globulin [Mass ratio] 1.0 {ratio} 0.9-2.4 [facility] Serum or plasma calcium vickey urement (mass/volume)Ordered By: Alex Funes on 10-27-2023 Calcium [Mass/Vol] 9.5 mg/dL 8.5-10.1 [facility] Serum or plasma cholesterol in HDL measurement (mass/volume)Ordered By: Alex Funes on 10-27-2023 Cholesterol in HDL [Mass/Vol] 41 mg/dL >40 [facility] Comment on above: The drugs N-Acetylcy steine and Metamizole may falsely depress this assay. Reference Range HDL <40 mg/dL Low HDL Cholesterol HDL >or= 60 mg/dL High HDL Cholesterol Serum or plasma cholesterol in VLDL measurement (mass/volume)Ordered By: Alex Funes on 10-27-2023 Cholesterol in VLDL [Mass/Vol] 14 mg/dL 5-40 [facility] Serum or plasma creatinine m easurement (mass/volume)Ordered By: Alex Funes on 10-27-2023 Creatinine [Mass/Vol] 0.94 mg/dL 0.70-1.30 [facility] Comment on above: The validity of the calculated GFR & GFRAA in patients over 70 years has not been determined. Clinical correlation is essential. Serum or plasma low density lipoprotein (LDL) cholesterol measurement (mass/volume)Ordered By: Alex Funes on 10-27-2023 Cholesterol in LDL [Mass/Vol] 45 mg/dL 0-130 [facility] Serum or plasma urea nitroge n measurement (mass/volume)Ordered By: Alex Funes on 10-27-2023 Urea nitrogen [Mass/Vol] 14 mg/dL 7-18 [facility] Thin prep Papanicolaou smear with manual screeningOrdered By: Alex Funes on 10-27-2023 Thin prep Papanicolaou smear with manual screening 16 U/L 15-37 [facility] Comment on above: Slight Hemolysis, Re sult may be falsely increased. Thin prep Papanicolaou smear with manual screening 4 5-15 [facility] Whole blood hemoglobin A1c/t otal hemoglobin ratio (mass fraction)Ordered By: Alex Funes on 10-27-2023 HbA1c (Bld) [Mass fraction] 6.6 % 3.8-5.6 [facility] Comment on above: Normal < 5.7 % Predi abetic 5.7 - 6.4 % Diabetic >or= 6.5 % Please note range changes. Absolute lymphocyte countOrd ered By: Alex Funes on 06-11-2023 Lymphocytes Auto (Unsp spec) [#/Vol] 2.26 10*3/uL 0.83-4.51 [facility] Basophil percentageOrdered B y: Alex Funes on 06-11-2023 Basophils/100 WBC (Bld) 0.3 % 0-1 [facility] Bilirubin [Mass/Vol] 0.90 mg/dL 0.20-1.00 [facility] Comment on above: For patients on eltr ombopag therapy, use of Dimension [place] TBIL is not recommended. Chloride [Moles/Vol] 107 mmol/L 98-107 [facility] Cholesterol [Mass/Vol] 106 mg/dL <200 [facility] Comment on above: <200 mg/dL Desirable 200-240 mg/dL Borderline >240 mg/dL High Risk Eosinophils/100 WBC (Bld) 2.1 % 0-5 [facility] Glucose [Mass/Vol] 136 mg/dL 74-106 [facility] Comment on above: Fasting Glucose resu lt greater than or equal to 126 mg/dL suggests DIABETES MELLITUS per A.D.A. criteria. Neutrophils (Bld) [#/Vol] 3.9 10*3/uL 2.0-7.7 [facility] Neutrophils/100 WBC (Bld) 56.7 % 47-70 [facility] Potassium [Moles/Vol] 3.8 mmol/L 3.5-5.1 [facility] Protein [Mass/Vol] 7.2 g/dL 6.4-8.2 [facility] Sodium [Moles/Vol] 141 mmol/L 136-145 [facility] Triglyceride [Mass/Vol] 69 mg/dL <199 [facility] Comment on above: The drugs N-Acetylcy steine and Metamizole may falsely depress this assay.Serum Triglycerides Reference Interval Normal <150 mg/dL Borderline high 150 - 199 mg/dL High 200 - 499 mg/dL Very High > or = 500 mg/dL WBC (Bld) [#/Vol] 6.8 10*3/uL 4.4-11.0 [facility] Blood erythrocytes count (nu mber/volume)Ordered By: Alex Funes on 06-11-2023 RBC (Bld) [#/Vol] 5.36 10*6/uL 4.6-6.2 [facility] Blood hemoglobin measurement (mass/volume)Ordered By: Alex Funes on 06-11-2023 Hemoglobin (Bld) [Mass/Vol] 16.6 g/dL 13.0-16.5 [facility] Blood lymphocytes/100 leukoc ytesOrdered By: Alex Funes on 06-11-2023 Lymphocytes/100 WBC (Bld) 33.1 % 19-41 [facility] Blood monocytes/100 leukocyt esOrdered By: Alex Funes on 06-11-2023 Monocytes/100 WBC (Bld) 7.5 % 0-10 [facility] Blood platelet mean volumeOr dered By: Alex Funes on 06-11-2023 Platelet mean volume (Bld) [Entitic vol] 10.3 fL 6.2-12.0 [facility] Determination of erythrocyte mean corpuscular volume (MCV)Ordered By: Alex Funes on 06-11-2023 MCV (RBC) [Entitic vol] 93.1 fL 80-94 [facility] Hematocrit Auto (Bld) [Volum e fraction]Ordered By: Alex Funes on 06-11-2023 Hematocrit (Bld) [Volume fraction] 49.9 % 40-54 [facility] - Chemistry and C hemistry - challengeOrdered By: Alex Funes on 06-11-2023 ALP [Catalytic activity/Vol] 82 U/L 45-117 [facility] ALT [Catalytic activity/Vol] 31 U/L 16-61 [facility] CO2 [Moles/Vol] 29.0 mmol/L 21.0-32.0 [facility] Globulin (S) [Mass/Vol] 3.4 g/dL 2.2-4.2 [facility] Urea nitrogen/Creatinine [Mass ratio] 12.4 mg/mg 10-20 [facility] - Hematology and Cell countsOrdered By: Alex Funes on 06-11-2023 Erythrocyte distribution width (RBC) [Entitic vol] 41.4 fL 35.1-43.9 [facility] Erythrocyte distribution width (RBC) [Ratio] 12.1 % 11.6-14.6 [facility] Immature granulocytes/100 WBC (Bld) 0.300 % 0.0-0.9 [facility] Comment on above: IG% - Immature Granu locytes (promyelocytes, myelocytes and metamyelocytes) > 1% indicates that a LEFT SHIFT is Present. MCH (RBC) [Entitic mass] 31.0 pg 27.0-32.0 [facility] Nucleated RBC/100 WBC (Bld) [Ratio] 0 % 0-5 [facility] MCHC Auto (RBC) [Mass/Vol]Or dered By: Alex Funes on 06-11-2023 MCHC (RBC) [Mass/Vol] 33.3 g/dL 32-36 [facility] No Panel InformationOrdered By: Alex Funes on 06-11-2023 Estimated GFR (MDRD) Amer 109 mL/min >60 [facility] Comment on above: GFR Calc Estimated GFR (MDRD) Non-Af Amer 90 mL/min >60 [facility] Comment on above: Non- GFR Calc Percent Free Prostate Specific Ag 1.45 ng/mL N/A [facility] Comment on above: Mee ECLIA methodol ogy. Prostate Specific Ag, Ultra-Sensitv 4.900 ng/mL 0.000-4.000 [facility] Comment on above: Mee ECLIA methodol ogy.According to the [place] [employer], Serum PSAshould decrease and remain [...] 06-11-2023 Platelets (Bld) [#/Vol] 280 10*3/uL 150-450 [facility] Serum or plasma albumin vickey urement (mass/volume)Ordered By: Alex Funes on 06-11-2023 Albumin [Mass/Vol] 3.8 g/dL 3.2-5.0 [facility] Serum or plasma albumin/glob ulin mass ratioOrdered By: Alex Funes on 06-11-2023 Albumin/Globulin [Mass ratio] 1.1 {ratio} 0.9-2.4 [facility] Serum or plasma calcium vickey urement (mass/volume)Ordered By: Alex Funes on 06-11-2023 Calcium [Mass/Vol] 9.5 mg/dL 8.5-10.1 [facility] Serum or plasma cholesterol in HDL measurement (mass/volume)Ordered By: Alex Funes on 06-11-2023 Cholesterol in HDL [Mass/Vol] 43 mg/dL >40 [facility] Comment on above: The drugs N-Acetylcy steine and Metamizole may falsely depress this assay. Reference Range HDL <40 mg/dL Low HDL Cholesterol HDL >or= 60 mg/dL High HDL Cholesterol Serum or plasma cholesterol in VLDL measurement (mass/volume)Ordered By: Alex Funes on 06-11-2023 Cholesterol in VLDL [Mass/Vol] 14 mg/dL 5-40 [facility] Serum or plasma creatinine m easurement (mass/volume)Ordered By: Alex Funes on 06-11-2023 Creatinine [Mass/Vol] 0.89 mg/dL 0.70-1.30 [facility] Comment on above: The validity of the calculated GFR & GFRAA in patients over 70 years has not been determined. Clinical correlation is essential. Serum or plasma free prostat e specific antigen/total prostate specific antigen ratioOrdered By: Alex Funes on 06-11-2023 Free PSA/Total PSA [Mass fraction] 29.6 % . [facility] Comment on above: The table below list [...] for any other population of men.Performed at: [employer] [id number] Director: Cam Peralta PhD, Phone: [phone] Serum or plasma low density lipoprotein (LDL) cholesterol measurement (mass/volume)Ordered By: Alex Funes on 06-11-2023 Cholesterol in LDL [Mass/Vol] 49 mg/dL 0-130 [facility] Serum or plasma urea nitroge n measurement (mass/volume)Ordered By: Alex Funes on 06-11-2023 Urea nitrogen [Mass/Vol] 11 mg/dL 7-18 [facility] Thin prep Papanicolaou smear with manual screeningOrdered By: Alex Funes on 06-11-2023 Thin prep Papanicolaou smear with manual screening 14 U/L 15-37 [facility] Thin prep Papanicolaou smear with manual screening 5 5-15 [facility] Whole blood hemoglobin A1c/t otal hemoglobin ratio (mass fraction)Ordered By: Alex Funes on 06-11-2023 HbA1c (Bld) [Mass fraction] 6.6 % 3.8-5.6 [facility] Comment on above: Normal < 5.7 % Predi abetic 5.7 - 6.4 % Diabetic >or= 6.5 % Please note range changes. Basophil percentageOrdered B y: Dr. Funes on 04-03-2023 Chloride [Moles/Vol] 107 mmol/L 98-107 [facility] Glucose [Mass/Vol] 116 mg/dL 74-106 [facility] Comment on above: Fasting Glucose resu lt from 100 to 125 mg/dL suggests IMPAIRED HOMEOSTASIS per A.D.A. criteria. Potassium [Moles/Vol] 4.0 mmol/L 3.5-5.1 [facility] Sodium [Moles/Vol] 139 mmol/L 136-145 [facility] Laboratory - Chemistry and C hemistry - challengeOrdered By: Dr. Funes on 04-03-2023 CO2 [Moles/Vol] 25.0 mmol/L 21.0-32.0 [facility] Urea nitrogen/Creatinine [Mass ratio] 11.5 mg/mg 10-20 [facility] No Panel InformationOrdered By: Dr. Funes on 04-03-2023 Estimated GFR (MDRD) Amer 111 mL/min >60 [facility] Comment on above: GFR Calc Estimated GFR (MDRD) Non-Af Amer 92 mL/min >60 [facility] Comment on above: Non- GFR Calc Serum or plasma calcium vickey urement (mass/volume)Ordered By: Dr. Funes on 04-03-2023 Calcium [Mass/Vol] 9.5 mg/dL 8.5-10.1 [facility] Serum or plasma creatinine m easurement (mass/volume)Ordered By: Dr. Funes on 04-03-2023 Creatinine [Mass/Vol] 0.87 mg/dL 0.70-1.30 [facility] Comment on above: The validity of the calculated GFR & GFRAA in patients over 70 years has not been determined. Clinical correlation is essential. Serum or plasma urea nitroge n measurement (mass/volume)Ordered By: Dr. Funes on 04-03-2023 Urea nitrogen [Mass/Vol] 10 mg/dL 7-18 [facility] Thin prep Papanicolaou smear with manual screeningOrdered By: Dr. Funes on 04-03-2023 Thin prep Papanicolaou smear with manual screening 7 5-15 [facility] Absolute lymphocyte countOrd ered By: Dr. Funes on 03-17-2023 Lymphocytes Auto (Unsp spec) [#/Vol] 1.82 10*3/uL 0.83-4.51 [facility] Basophil percentageOrdered B y: Dr. Funes on 03-17-2023 Basophils/100 WBC (Bld) 0.5 % 0-1 [facility] Bilirubin [Mass/Vol] 1.40 mg/dL 0.20-1.00 [facility] Comment on above: For patients on eltr ombopag therapy, use of Dimension [place] TBIL is not recommended. Chloride [Moles/Vol] 107 mmol/L 98-107 [facility] Cholesterol [Mass/Vol] 89 mg/dL <200 [facility] Comment on above: <200 mg/dL Desirable 200-240 mg/dL Borderline >240 mg/dL High Risk Eosinophils/100 WBC (Bld) 3.4 % 0-5 [facility] Glucose [Mass/Vol] 164 mg/dL 74-106 [facility] Comment on above: Fasting Glucose resu lt greater than or equal to 126 mg/dL suggests DIABETES MELLITUS per A.D.A. criteria. Neutrophils (Bld) [#/Vol] 3.3 10*3/uL 2.0-7.7 [facility] Neutrophils/100 WBC (Bld) 56.1 % 47-70 [facility] Potassium [Moles/Vol] 4.0 mmol/L 3.5-5.1 [facility] Protein [Mass/Vol] 7.3 g/dL 6.4-8.2 [facility] Sodium [Moles/Vol] 141 mmol/L 136-145 [facility] Triglyceride [Mass/Vol] 36 mg/dL <199 [facility] Comment on above: The drugs N-Acetylcy steine and Metamizole may falsely depress this assay.Serum Triglycerides Reference Interval Normal <150 mg/dL Borderline high 150 - 199 mg/dL High 200 - 499 mg/dL Very High > or = 500 mg/dL WBC (Bld) [#/Vol] 6.0 10*3/uL 4.4-11.0 [facility] Blood erythrocytes count (nu mber/volume)Ordered By: Dr. Funes on 03-17-2023 RBC (Bld) [#/Vol] 5.17 10*6/uL 4.6-6.2 [facility] Blood hemoglobin measurement (mass/volume)Ordered By: Dr. Funes on 03-17-2023 Hemoglobin (Bld) [Mass/Vol] 16.0 g/dL 13.0-16.5 [facility] Blood lymphocytes/100 leukoc ytesOrdered By: Dr. Funes on 03-17-2023 Lymphocytes/100 WBC (Bld) 30.6 % 19-41 [facility] Blood monocytes/100 leukocyt esOrdered By: Dr. Funes on 03-17-2023 Monocytes/100 WBC (Bld) 9.1 % 0-10 [facility] Blood platelet mean volumeOr dered By: Dr. Funes on 03-17-2023 Platelet mean volume (Bld) [Entitic vol] 10.2 fL 6.2-12.0 [facility] Determination of erythrocyte mean corpuscular volume (MCV)Ordered By: Dr. Funes on 03-17-2023 MCV (RBC) [Entitic vol] 92.1 fL 80-94 [facility] Hematocrit Auto (Bld) [Volum e fraction]Ordered By: Dr. Funes on 03-17-2023 Hematocrit (Bld) [Volume fraction] 47.6 % 40-54 [facility] Laboratory - Chemistry and C hemistry - challengeOrdered By: Dr. Funes on 03-17-2023 ALP [Catalytic activity/Vol] 79 U/L 45-117 [facility] ALT [Catalytic activity/Vol] 34 U/L 16-61 [facility] CO2 [Moles/Vol] 27.0 mmol/L 21.0-32.0 [facility] Globulin (S) [Mass/Vol] 3.7 g/dL 2.2-4.2 [facility] Urea nitrogen/Creatinine [Mass ratio] 15.3 mg/mg 10-20 [facility] Laboratory - Hematology and Cell countsOrdered By: Dr. Funes on 03-17-2023 Erythrocyte distribution width (RBC) [Entitic vol] 42.0 fL 35.1-43.9 [facility] Erythrocyte distribution width (RBC) [Ratio] 12.3 % 11.6-14.6 [facility] Immature granulocytes/100 WBC (Bld) 0.300 % 0.0-0.9 [facility] Comment on above: IG% - Immature Granu locytes (promyelocytes, myelocytes and metamyelocytes) > 1% indicates that a LEFT SHIFT is Present. MCH (RBC) [Entitic mass] 30.9 pg 27.0-32.0 [facility] Nucleated RBC/100 WBC (Bld) [Ratio] 0 % 0-5 [facility] MCHC Auto (RBC) [Mass/Vol]Or dered By: Dr. Fuens on 03-17-2023 MCHC (RBC) [Mass/Vol] 33.6 g/dL 32-36 [facility] No Panel InformationOrdered By: Dr. Funes on 03-17-2023 Estimated GFR (MDRD) Amer 106 mL/min >60 [facility] Comment on above: GFR Calc Estimated GFR (MDRD) Non-Af Amer 87 mL/min >60 [facility] Comment on above: Non- GFR Calc Urine Microalbumin/Creatinine Ratio 10.5 mg/g CRE <30 [facility] Platelets bldOrdered By: Dr. Funes on 03-17-2023 Platelets (Bld) [#/Vol] 280 10*3/uL 150-450 [facility] Serum or plasma albumin vickey urement (mass/volume)Ordered By: Dr. Funes on 03-17-2023 Albumin [Mass/Vol] 3.6 g/dL 3.2-5.0 [facility] Serum or plasma albumin/glob ulin mass ratioOrdered By: Dr. Funes on 03-17-2023 Albumin/Globulin [Mass ratio] 1.0 {ratio} 0.9-2.4 [facility] Serum or plasma calcium vickey urement (mass/volume)Ordered By: Dr. Funes on 03-17-2023 Calcium [Mass/Vol] 9.0 mg/dL 8.5-10.1 [facility] Serum or plasma cholesterol in HDL measurement (mass/volume)Ordered By: Dr. Funes on 03-17-2023 Cholesterol in HDL [Mass/Vol] 45 mg/dL >40 [facility] Comment on above: The drugs N-Acetylcy steine and Metamizole may falsely depress this assay. Reference Range HDL <40 mg/dL Low HDL Cholesterol HDL >or= 60 mg/dL High HDL Cholesterol Serum or plasma cholesterol in VLDL measurement (mass/volume)Ordered By: Dr. Funes on 03-17-2023 Cholesterol in VLDL [Mass/Vol] 7 mg/dL 5-40 [facility] Serum or plasma creatinine m easurement (mass/volume)Ordered By: Dr. Funes on 03-17-2023 Creatinine [Mass/Vol] 0.91 mg/dL 0.70-1.30 [facility] Comment on above: The validity of the calculated GFR & GFRAA in patients over 70 years has not been determined. Clinical correlation is essential. Serum or plasma low density lipoprotein (LDL) cholesterol measurement (mass/volume)Ordered By: Dr. Funes on 03-17-2023 Cholesterol in LDL [Mass/Vol] 37 mg/dL 0-130 [facility] Serum or plasma urea nitroge n measurement (mass/volume)Ordered By: Dr. Funes on 03-17-2023 Urea nitrogen [Mass/Vol] 14 mg/dL 7-18 [facility] Thin prep Papanicolaou smear with manual screeningOrdered By: Dr. Funes on 03-17-2023 Thin prep Papanicolaou smear with manual screening 21 U/L 15-37 [facility] Thin prep Papanicolaou smear with manual screening 7 5-15 [facility] Thin prep Papanicolaou smear with manual screening 23.6 mg/L NO RANGE EST. [facility] Urine creatinine measurement (mass/volume)Ordered By: Dr. Funes on 03-17-2023 Creatinine (U) [Mass/Vol] 225.00 mg/dL NO RANGE EST. [facility] Whole blood hemoglobin A1c/t otal hemoglobin ratio (mass fraction)Ordered By: Dr. Funes on 03-17-2023 HbA1c (Bld) [Mass fraction] 6.7 % 3.8-5.6 [facility] Comment on above: Normal < 5.7 % Predi abetic 5.7 - 6.4 % Diabetic >or= 6.5 % Please note range changes. Absolute lymphocyte countOrd ered By: Dr. Funes on 12-16-2022 Lymphocytes Auto (Unsp spec) [#/Vol] 2.09 10*3/uL 0.83-4.51 [facility] Basophil percentageOrdered B y: Dr. Funes on 12-16-2022 Basophils/100 WBC (Bld) 0.3 % 0-1 [facility] Bilirubin [Mass/Vol] 0.70 mg/dL 0.20-1.00 [facility] Comment on above: For patients on eltr ombopag therapy, use of Dimension [place] TBIL is not recommended. Chloride [Moles/Vol] 106 mmol/L 98-107 [facility] Cholesterol [Mass/Vol] 104 mg/dL <200 [facility] Comment on above: <200 mg/dL Desirable 200-240 mg/dL Borderline >240 mg/dL High Risk Eosinophils/100 WBC (Bld) 2.7 % 0-5 [facility] Glucose [Mass/Vol] 186 mg/dL 74-106 [facility] Comment on above: Fasting Glucose resu lt greater than or equal to 126 mg/dL suggests DIABETES MELLITUS per A.D.A. criteria. Neutrophils (Bld) [#/Vol] 3.5 10*3/uL 2.0-7.7 [facility] Neutrophils/100 WBC (Bld) 54.9 % 47-70 [facility] Potassium [Moles/Vol] 3.9 mmol/L 3.5-5.1 [facility] Protein [Mass/Vol] 7.2 g/dL 6.4-8.2 [facility] Sodium [Moles/Vol] 141 mmol/L 136-145 [facility] Triglyceride [Mass/Vol] 84 mg/dL <199 [facility] Comment on above: The drugs N-Acetylcy steine and Metamizole may falsely depress this assay.Serum Triglycerides Reference Interval Normal <150 mg/dL Borderline high 150 - 199 mg/dL High 200 - 499 mg/dL Very High > or = 500 mg/dL WBC (Bld) [#/Vol] 6.3 10*3/uL 4.4-11.0 [facility] Blood erythrocytes count (nu mber/volume)Ordered By: Dr. Funes on 12-16-2022 RBC (Bld) [#/Vol] 5.22 10*6/uL 4.6-6.2 [facility] Blood hemoglobin measurement (mass/volume)Ordered By: Dr. Funes on 12-16-2022 Hemoglobin (Bld) [Mass/Vol] 16.2 g/dL 13.0-16.5 [facility] Blood lymphocytes/100 leukoc ytesOrdered By: Dr. Funes on 12-16-2022 Lymphocytes/100 WBC (Bld) 33.1 % 19-41 [facility] Blood monocytes/100 leukocyt esOrdered By: Dr. Funes on 12-16-2022 Monocytes/100 WBC (Bld) 8.7 % 0-10 [facility] Blood platelet mean volumeOr dered By: Dr. Funes on 12-16-2022 Platelet mean volume (Bld) [Entitic vol] 9.8 fL 6.2-12.0 [facility] Determination of erythrocyte mean corpuscular volume (MCV)Ordered By: Dr. Funes on 12-16-2022 MCV (RBC) [Entitic vol] 92.3 fL 80-94 [facility] Hematocrit Auto (Bld) [Volum e fraction]Ordered By: Dr. Funes on 12-16-2022 Hematocrit (Bld) [Volume fraction] 48.2 % 40-54 [facility] Laboratory - Chemistry and C hemistry - challengeOrdered By: Dr. Funes on 12-16-2022 ALP [Catalytic activity/Vol] 84 U/L 45-117 [facility] ALT [Catalytic activity/Vol] 31 U/L 16-61 [facility] CO2 [Moles/Vol] 28.0 mmol/L 21.0-32.0 [facility] Globulin (S) [Mass/Vol] 3.5 g/dL 2.2-4.2 [facility] Urea nitrogen/Creatinine [Mass ratio] 12.2 mg/mg 10-20 [facility] Laboratory - Hematology and Cell countsOrdered By: Dr. Funes on 12-16-2022 Erythrocyte distribution width (RBC) [Entitic vol] 42.3 fL 35.1-43.9 [facility] Erythrocyte distribution width (RBC) [Ratio] 12.4 % 11.6-14.6 [facility] Immature granulocytes/100 WBC (Bld) 0.300 % 0.0-0.9 [facility] Comment on above: IG% - Immature Granu locytes (promyelocytes, myelocytes and metamyelocytes) > 1% indicates that a LEFT SHIFT is Present. MCH (RBC) [Entitic mass] 31.0 pg 27.0-32.0 [facility] Nucleated RBC/100 WBC (Bld) [Ratio] 0 % 0-5 [facility] MCHC Auto (RBC) [Mass/Vol]Or dered By: Dr. Funes on 12-16-2022 MCHC (RBC) [Mass/Vol] 33.6 g/dL 32-36 [facility] No Panel InformationOrdered By: Dr. Funes on 12-16-2022 Estimated GFR (MDRD) Amer 107 mL/min >60 [facility] Comment on above: GFR Calc Estimated GFR (MDRD) Non-Af Amer 89 mL/min >60 [facility] Comment on above: Non- GFR Calc Prostate Specific Antigen Screen 5.48 ng/mL 0.00-4.00 [facility] Comment on above: This test was perfor med using the TPSA assay method for the[employer] chemistry system. Values obtained with differentassay methods cannot be used interchangably.When changing PSA assays in the course of monitoring apatient, additional sequential testing should be carriedout to confirm baseline values. Urine Microalbumin/Creatinine Ratio 10.2 mg/g CRE <30 [facility] Platelets bldOrdered By: Dr. Funes on 12-16-2022 Platelets (Bld) [#/Vol] 284 10*3/uL 150-450 [facility] Serum or plasma albumin vickey urement (mass/volume)Ordered By: Dr. Funes on 12-16-2022 Albumin [Mass/Vol] 3.7 g/dL 3.2-5.0 [facility] Serum or plasma albumin/glob ulin mass ratioOrdered By: Dr. Funes on 12-16-2022 Albumin/Globulin [Mass ratio] 1.1 {ratio} 0.9-2.4 [facility] Serum or plasma calcium vickey urement (mass/volume)Ordered By: Dr. Funes on 12-16-2022 Calcium [Mass/Vol] 9.0 mg/dL 8.5-10.1 [facility] Serum or plasma cholesterol in HDL measurement (mass/volume)Ordered By: Dr. Funes on 12-16-2022 Cholesterol in HDL [Mass/Vol] 47 mg/dL >40 [facility] Comment on above: The drugs N-Acetylcy steine and Metamizole may falsely depress this assay. Reference Range HDL <40 mg/dL Low HDL Cholesterol HDL >or= 60 mg/dL High HDL Cholesterol Serum or plasma cholesterol in VLDL measurement (mass/volume)Ordered By: Dr. Funes on 12-16-2022 Cholesterol in VLDL [Mass/Vol] 17 mg/dL 5-40 [facility] Serum or plasma creatinine m easurement (mass/volume)Ordered By: Dr. Funes on 12-16-2022 Creatinine [Mass/Vol] 0.90 mg/dL 0.70-1.30 [facility] Comment on above: The validity of the calculated GFR & GFRAA in patients over 70 years has not been determined. Clinical correlation is essential. Serum or plasma low density lipoprotein (LDL) cholesterol measurement (mass/volume)Ordered By: Dr. Funes on 12-16-2022 Cholesterol in LDL [Mass/Vol] 40 mg/dL 0-130 [facility] Serum or plasma urea nitroge n measurement (mass/volume)Ordered By: Dr. Funes on 12-16-2022 Urea nitrogen [Mass/Vol] 11 mg/dL 7-18 [facility] Thin prep Papanicolaou smear with manual screeningOrdered By: Dr. Funes on 12-16-2022 Thin prep Papanicolaou smear with manual screening 21 U/L 15-37 [facility] Thin prep Papanicolaou smear with manual screening 7 5-15 [facility] Thin prep Papanicolaou smear with manual screening 18.5 mg/L NO RANGE EST. [facility] Urine creatinine measurement (mass/volume)Ordered By: Dr. Funes on 12-16-2022 Creatinine (U) [Mass/Vol] 181.00 mg/dL NO RANGE EST. [facility] Whole blood hemoglobin A1c/t otal hemoglobin ratio (mass fraction)Ordered By: Dr. Funes on 12-16-2022 HbA1c (Bld) [Mass fraction] 7.0 % 3.8-5.6 [facility] Comment on above: Normal < 5.7 % Predi abetic 5.7 - 6.4 % Diabetic >or= 6.5 % Please note range changes. No Panel InformationOrdered By: Dr. Funes on 09-23-2022 Miscellaneous Test See comment [facility] Comment on above: TEST RESULT LIMITSAn tipancreatic Islet Cells Negative Neg:<1:1 ___ TESTING PERFORMED AT [facility]. ORIGINAL REPORT ON FILE IN LAB CONTAINS ADDITIONAL TEST SITE INFORMATION. Absolute lymphocyte countOrd ered By: Dr. Funes on 09-11-2022 Lymphocytes Auto (Unsp spec) [#/Vol] 1.91 10*3/uL 0.83-4.51 [facility] Basophil percentageOrdered B y: Dr. Funes on 09-11-2022 Basophil percentage 0 SEEN /hpf 0-5 [facility] Basophils/100 WBC (Bld) 0.5 % 0-1 [facility] Bilirubin [Mass/Vol] 1.10 mg/dL 0.20-1.00 [facility] Comment on above: For patients on eltr ombopag therapy, use of Dimension [place] TBIL is not recommended. Chloride [Moles/Vol] 102 mmol/L 98-107 [facility] Cholesterol [Mass/Vol] 192 mg/dL <200 [facility] Comment on above: <200 mg/dL Desirable 200-240 mg/dL Borderline >240 mg/dL High Risk Eosinophils/100 WBC (Bld) 3.1 % 0-5 [facility] Glucose [Mass/Vol] 531 mg/dL 74-106 [facility] Comment on above: Critical Result(s) C alled at: 10:44:36 09/11/2022 by: JANET Forbes. Results read back by same.Glucose result greater than or equal to 200 mg/dLsuggests DIABETES MELLITUS per A.D.A. criteria. Neutrophils (Bld) [#/Vol] 3.2 10*3/uL 2.0-7.7 [facility] Neutrophils/100 WBC (Bld) 56.2 % 47-70 [facility] Potassium [Moles/Vol] 4.4 mmol/L 3.5-5.1 [facility] Protein [Mass/Vol] 7.3 g/dL 6.4-8.2 [facility] Sodium [Moles/Vol] 135 mmol/L 136-145 [facility] Triglyceride [Mass/Vol] 138 mg/dL <199 [facility] Comment on above: The drugs N-Acetylcy steine and Metamizole may falsely depress this assay.Serum Triglycerides Reference Interval Normal <150 mg/dL Borderline high 150 - 199 mg/dL High 200 - 499 mg/dL Very High > or = 500 mg/dL WBC (Bld) [#/Vol] 5.8 10*3/uL 4.4-11.0 [facility] Bilirubin Test strip Ql (U)O rdered By: Dr. Funes on 09-11-2022 Bilirubin Ql (U) Negative Negative [facility] Blood erythrocytes count (nu mber/volume)Ordered By: Dr. Funes on 09-11-2022 RBC (Bld) [#/Vol] 5.33 10*6/uL 4.6-6.2 [facility] Blood hemoglobin measurement (mass/volume)Ordered By: Dr. Funes on 09-11-2022 Hemoglobin (Bld) [Mass/Vol] 16.5 g/dL 13.0-16.5 [facility] Blood lymphocytes/100 leukoc ytesOrdered By: Dr. Funes on 09-11-2022 Lymphocytes/100 WBC (Bld) 33.1 % 19-41 [facility] Blood monocytes/100 leukocyt esOrdered By: Dr. Funes on 11-17-2022 Monocytes/100 WBC (Bld) 6.6 % 0-10 [facility] Blood platelet mean volumeOr dered By: Dr. Funes on 09-11-2022 Platelet mean volume (Bld) [Entitic vol] 10.5 fL 6.2-12.0 [facility] Determination of erythrocyte mean corpuscular volume (MCV)Ordered By: Dr. Funes on 09-11-2022 MCV (RBC) [Entitic vol] 94.0 fL 80-94 [facility] Hematocrit Auto (Bld) [Volum e fraction]Ordered By: Dr. Funes on 09-11-2022 Hematocrit (Bld) [Volume fraction] 50.1 % 40-54 [facility] Ketones Test strip Ql (U)Ord ered By: Dr. Funes on 09-11-2022 Ketones Ql (U) Negative Negative [facility] Laboratory - Chemistry and C hemistry - challengeOrdered By: Dr. Funes on 09-11-2022 ALP [Catalytic activity/Vol] 124 U/L 45-117 [facility] ALT [Catalytic activity/Vol] 21 U/L 16-61 [facility] CO2 [Moles/Vol] 27.0 mmol/L 21.0-32.0 [facility] Globulin (S) [Mass/Vol] 3.7 g/dL 2.2-4.2 [facility] Magnesium [Mass/Vol] 2.2 mg/dL 1.6-2.6 [facility] Urea nitrogen/Creatinine [Mass ratio] 10.8 mg/mg 10-20 [facility] Laboratory - Hematology and Cell countsOrdered By: Dr. Funes on 09-11-2022 Erythrocyte distribution width (RBC) [Entitic vol] 41.2 fL 35.1-43.9 [facility] Erythrocyte distribution width (RBC) [Ratio] 11.9 % 11.6-14.6 [facility] Immature granulocytes/100 WBC (Bld) 0.500 % 0.0-0.9 [facility] Comment on above: IG% - Immature Granu locytes (promyelocytes, myelocytes and metamyelocytes) > 1% indicates that a LEFT SHIFT is Present. MCH (RBC) [Entitic mass] 31.0 pg 27.0-32.0 [facility] Nucleated RBC/100 WBC (Bld) [Ratio] 0 % 0-5 [facility] MCHC Auto (RBC) [Mass/Vol]Or dered By: Dr. Funes on 09-11-2022 MCHC (RBC) [Mass/Vol] 32.9 g/dL 32-36 [facility] Mucus LM Ql (Urine sed)Order ed By: Dr. Funes on 09-11-2022 Mucus Ql (Urine sed) 0 SEEN /hpf [facility] Nitrite Test strip Ql (U)Ord ered By: Dr. Funes on 09-11-2022 Nitrite Ql (U) Negative Negative [facility] No Panel InformationOrdered By: Dr. Funes on 09-11-2022 Estimated GFR (MDRD) Amer 93 mL/min >60 [facility] Comment on above: GFR Calc Estimated GFR (MDRD) Non-Af Amer 77 mL/min >60 [facility] Comment on above: Non- GFR Calc Thyroid Stimulating Hormone (TSH) 0.96 uIU/mL 0.358-3.74 [facility] Platelets bldOrdered By: Dr. Funes on 09-11-2022 Platelets (Bld) [#/Vol] 257 10*3/uL 150-450 [facility] Protein Test strip Ql (U)Ord ered By: Dr. Funes on 09-11-2022 Protein Ql (U) Negative Negative [facility] Serum or plasma albumin vickey urement (mass/volume)Ordered By: Dr. Funes on 09-11-2022 Albumin [Mass/Vol] 3.6 g/dL 3.2-5.0 [facility] Serum or plasma albumin/glob ulin mass ratioOrdered By: Dr. Funes on 09-11-2022 Albumin/Globulin [Mass ratio] 1.0 {ratio} 0.9-2.4 [facility] Serum or plasma calcium vickey urement (mass/volume)Ordered By: Dr. Funes on 09-11-2022 Calcium [Mass/Vol] 9.2 mg/dL 8.5-10.1 [facility] Serum or plasma cholesterol in HDL measurement (mass/volume)Ordered By: Dr. Funes on 09-11-2022 Cholesterol in HDL [Mass/Vol] 41 mg/dL >40 [facility] Comment on above: The drugs N-Acetylcy steine and Metamizole may falsely depress this assay. Reference Range HDL <40 mg/dL Low HDL Cholesterol HDL >or= 60 mg/dL High HDL Cholesterol Serum or plasma cholesterol in VLDL measurement (mass/volume)Ordered By: Dr. Funes on 09-11-2022 Cholesterol in VLDL [Mass/Vol] 28 mg/dL 5-40 [facility] Serum or plasma creatinine m easurement (mass/volume)Ordered By: Dr. Funes on 09-11-2022 Creatinine [Mass/Vol] 1.02 mg/dL 0.70-1.30 [facility] Comment on above: The validity of the calculated GFR & GFRAA in patients over 70 years has not been determined. Clinical correlation is essential. Serum or plasma low density lipoprotein (LDL) cholesterol measurement (mass/volume)Ordered By: Dr. Funes on 09-11-2022 Cholesterol in LDL [Mass/Vol] 123 mg/dL 0-130 [facility] Serum or plasma urea nitroge n measurement (mass/volume)Ordered By: Dr. Funes on 09-11-2022 Urea nitrogen [Mass/Vol] 11 mg/dL 7-18 [facility] Squamous epithelial cells de tection in urine sediment by light microscopyOrdered By: Dr. Funes on 09-11-2022 Epithelial cells.squamous LM Ql (Urine sed) 0 SEEN /hpf 0-5 [facility] Thin prep Papanicolaou smear with manual screeningOrdered By: Dr. Funes on 09-11-2022 Thin prep Papanicolaou smear with manual screening 15 U/L 15-37 [facility] Thin prep Papanicolaou smear with manual screening 6 5-15 [facility] Urine blood detectionOrdered By: Dr. Funes on 09-11-2022 RBC Ql (U) Negative Negative [facility] RBC Ql (U) 0 SEEN /hpf 0-5 [facility] Urine clarityOrdered By: Dr. Funes on 09-11-2022 Clarity (U) Clear Clear [facility] Urine color determinationOrd ered By: Dr. Funes on 09-11-2022 Color (U) Yellow Yellow [facility] Urine glucose detectionOrder ed By: Dr. Funes on 09-11-2022 Glucose Ql (U) 1000 mg/dl Normal [facility] Urine leukocyte esterase det ection by dipstickOrdered By: Dr. Funes on 09-11-2022 Leukocyte esterase Test strip Ql (U) Negative Negative [facility] Urine pHOrdered By: Dr. Abraham ash on 09-11-2022 pH (U) 6.0 [pH] 5.0 - 8.0 [facility] Urine sediment bacteria coun t by microscopy (number/high power field)Ordered By: Dr. Funes on 09-11-2022 Bacteria LM.HPF (Urine sed) [#/Area] 0 /[HPF] None Seen [facility] Urine specific gravity measu rementOrdered By: Dr. Funes on 09-11-2022 Specific gravity (U) [Rel density] 1.010 1.002-1.030 [facility] Urobilinogen Auto test strip Ql (U)Ordered By: Dr. Funes on 09-11-2022 Urobilinogen Ql (U) Normal mg/dl Normal [facility] Whole blood hemoglobin A1c/t otal hemoglobin ratio (mass fraction)Ordered By: Dr. Funes on 09-11-2022 HbA1c (Bld) [Mass fraction] 11.3 % 3.8-5.6 [facility] Comment on above: Normal < 5.7 % Predi abetic 5.7 - 6.4 % Diabetic >or= 6.5 % Please note range changes. Encounters Encounter Date Encounter Type Care Provider Facility Start: 06-12-2025 ambulatory Alex Martinez y:[facility] Start: 06-02-2025 End: 06-02-[address] Alex Funes MD Work Phone: -[facility] Start: 06-02-2025 End: 06-02-[address] Alex Funes MD -[facility] Start: 06-02-2025 End: 06-02-2025 ambulatory Alex Funes Facility:[facility] Start: 05-16-2025 End: 05-16-[address] Alex Funes MD Work Phone: -[facility] Start: 05-16-2025 End: 05-16-[address] Alex Funes MD -[facility] Start: 05-16-2025 End: 05-16-2025 ambulatory Alex Funes Facility:[facility] Start: 2025 End: [address] Alex Funes MD Work Phone: [facility] Work Phone: Start: 2025 End: [address] Alex Funes MD -[facility] Start: 2025 End: 2025 ambulatory Alex Funes Facility:[facility] Start: 09-20-2024 End: 09-20-2024 ambulatory Alex Funes Facility:[facility] Start: 10-27-2023 End: 10-27-2023 ambulatory [facility] Work Phone: Start: 10-27-2023 End: 10-27-2023 Patient encounter procedure [facility] Start: 10-06-2023 ambulatory Titotammi Laura [facility] Comment on above: Population Health Na vigation Outreach ([place] care gaps ) Start: 06-30-2023 ambulatory Tito Laura [facility] Comment on above: Population Health Na vigation Outreach ([place] care gaps ) Start: 06-11-2023 End: 06-11-2023 ambulatory [facility] Work Phone: Start: 06-11-2023 End: 06-11-2023 Patient encounter procedure [facility] Start: 05-13-2023 ambulatory Charu Osuna MA [facility] [place] Comment on above: Population Health Na vigation Outreach ([place] Care Gaps ) Start: 04-03-2023 End: 04-03-2023 ambulatory [facility] Work Phone: Start: 04-03-2023 End: 04-03-2023 Patient encounter procedure [facility] Start: 03-17-2023 End: 03-17-2023 ambulatory [facility] Work Phone: Start: 03-17-2023 End: 03-17-2023 Patient encounter procedure [facility] Start: 03-05-2023 ambulatory Maliha Dash [facility]OROT[facility] Comment on above: Population Health Na vigation Outreach (Care Gaps) Start: 12-16-2022 End: 12-16-2022 ambulatory [facility] Work Phone: Start: 12-16-2022 End: 12-16-2022 Patient encounter procedure [facility] Start: 09-23-2022 End: 09-23-2022 ambulatory [facility] Work Phone: Start: 09-23-2022 End: 09-23-2022 Patient encounter procedure [facility] Start: 09-11-2022 End: 09-11-2022 ambulatory [facility] Work Phone: Start: 09-11-2022 End: 09-11-2022 Patient encounter procedure [facility] Procedures Date Procedure Procedure Detail Performing Clinician Start: 06-02-2025 Total iron binding c apacity measurement Dr. Alex Funes MD Work Phone: Start: 05-16-2025 Urnls dip stick/tabl et reagent auto microscopy Dr. Alex Funes MD Work Phone: Start: 05-16-2025 Free prostate specif ic antigen level Dr. Alex Funes MD Work Phone: Comment on above: [facility] [employer] [facility] [employer] Start: 05-16-2025 Prostate specific an tigen measurement Dr. Alex Funes MD Work Phone: Comment on above: [facility] [employer] [facility] [employer].According to the [employer] [employer], Serum PSAshould decrease and remain [...] Start: 08-01-2024 COLOGUARD (FIT-DNA) COLOGUARD (FIT-D NA) [facility] Start: 08-01-2024 COLORECTAL CANCER SCREENING COLORECTAL CANCER SCREENING [facility] Start: 08-01-2024 Screening for malign ant neoplasm of colon [facility] Start: 06-26-2023 Influenza vaccination [facility] Start: 10-26-2022 ADVANCE DIRECTIVE DISCUSSION ADVANCE DIRECTIVE DISCUSSION [facility] Start: 10-26-2022 DEPRESSION ASSESSMENT DEPRESSION ASS ESSMENT [facility] Start: 2013 RSV Vaccine (1 - 1-d ose 60+ series) RSV Vaccine (1 - 1-dose 60+ series) [facility] Start: 03-22-2010 Lipid panel Lipid Screening [facility] Start: 03-22-2010 LIPID SCREEN LIPID SCREEN [facility] Start: 08-04-2005 DIABETES SCREEN DIABETES SCREEN [facility] Start: 08-04-2005 Diabetes Screening Diabetes Screenin g [facility] Start: 2003 SHINGRIX VACCINE (1 of 2) SHINGRIX V ACCINE (1 of 2) [facility] Start: 1998 Colonoscopy COLONOSCOPY [facility] Start: [address] COLONOGRAPHY [facility] Start: 1998 FECAL OCCULT BLOOD FECAL OCCULT BLOO D [facility] Start: 1998 Screening for malign ant neoplasm of colon [facility] Start: 1998 SIGMOIDOSCOPY SIGMOIDOSCOPY [facility] Start: 01-20-1972 Urine microalbumin profile [facility] Start: 1971 HEPATITIS C SCREENING HEPATITIS C [facility] Start: 1971 Hepatitis C screening Hepatitis C [facility] Start: 1959 Pneumococcal Vaccine : 65+ (1 - PCV) Pneumococcal Vaccine: 65+ (1 - PCV) [facility] Start: 1959 PNEUMOCOCCAL: 65+ (1 - PCV) PNEUMOCOCCAL: 65+ (1 - PCV) [facility] Start: 1953 COVID-19 VACCINE (#1) COVID-19 VACCI NE (#1) [facility] Start: 1955 ABDOMINAL AORTIC ANE URYSM SCREENING ABDOMINAL AORTIC ANEURYSM SCREENING [facility] Start: 1955 Abdominal aortic ane urysm screening Abdominal Aortic Aneurysm Screening [facility] Payers Date Payer Category Payer Self-pay 2024 Unknown [id number] Private Health Insurance [id number] Unknown [id number] Unknown [id number] Unknown [id number] [id number] Unknown [id number] [id number] Unknown [id number] [id number] Social History Date Type Detail [facility] Work Phone: Start: 1955 Sex Assigned At Male [facility] Start: 04-15-2008 [facility] Work Phone: History of tobacco use Cigarette Smoker C [facility] Work Phone: Start: 04-15-2008 End: 10-02-2020 Cigarettes smoked current (pack per day) - Reported 0.5 [facility] Start: 06-10-2022 Alcohol intake Current drinke r of alcohol (finding) [facility] Start: 04-15-2008 Tobacco Comment 5 cgts/day [facility] Start: 04-15-2008 Alcohol Comment rarely [facility] Start: 1955 Sex Assigned At Not on file [facility] Start: 10-02-2020 End: 06-10-2022 Tobacco use panel [facility] National Score (1-10 0), lower number is lower risk Not on file [facility] Tobacco smoking stat us NHIS Unknown if ever smoked [facility] Work Phone: Start: 01-26-2025 Sex Male (finding) [facility] Clinical Notes 01-13-2023 to 10-07-2023 Tito Laura PSS - 10/06/2023 12:37 PM Tito Dunn PSS - 06/30/2023 10:07 AM Charu Grijalva MA - 05/13/2023 8:37 AM Lida Bowling MA - 03/05/2023 11:28 AM EDT Note Date & Type Note Facility 10-07-2023 Note HNO ID: [id number] Author: Nia Bonilla Service: ? Author Type: ? Type: Progress Notes Filed: 10/07/2023 10:57 AM Note Text: POPULATION HEALTH NAVIGATION OUTREACH Action/FYI Letter received and sent to be mailed Nia Bonilla October 07, 2023 10:55 AM [facility] 10-06-2023 Note HNO ID: [id number] Author: Tito Laura PSS Service: ? Author [...] NIKKI Sanchez October 06, 2023 12:37 PM [facility] 10-06-2023 Note Patient Outreach (NE TNAV) LEEANNE ANTONIO ([id number]) 1955 M Date Time Provider Department 10/06/23 TITO LAURA NETNAV During your visit today, we recorded the following information about you: Tito Laura, [facility] 10/06/2023 1:25 PM Signed POPULATION HEALTH [...] received and sent to be mailed Nia Jac Galarza October 07, 2023 10:55 AM Allergies As of Date: 10/06/2023 Noted Allergy Reaction PENICILLINS 09/08/2006 SULFA (SULFONAMIDE ANTIBIOTICS) 09/08/2006 Date Reviewed: 09/22/2015 Reviewed by: Tiana Cabrera Lpn Fully Assessed Reason for Visit: Population Health Navigation Outreach [3910] Cmt: [place] care gaps Prescriptions as of 10/07/2023 - lansoprazole(PREVACID 30 MG CAP) Take one(1) tablet daily. Problem List As Of Date 10/06/2023 Noted Resolved ESOPHAGEAL REFLUX [K21.9] 10/09/2006 TOBACCO USE DISORDER [F17.200] 10/09/2006 Letter Text Encounter Status:Closed by TITO LAURA on 10/06/23 [facility] 10-06-2023 History of Presen t illness [...] 2023 12:37 PM documented in this encounter [facility] 06-30-2023 Note Patient Outreach (ROXANNA NUNES) PACOLEEANNE Worthington ([id number]) 1955 M Date Time Provider Department 06/30/23 TITO LAURA During your visit today, we [...] Encounter Status:Closed by TITO LAURA on 06/30/23 [facility] 06-30-2023 Note HNO ID: [id number] Author: Tito Laura PSS Service: ? Author [...] NIKKI Sanchez June 30, 2023 10:07 AM [facility] 06-30-2023 History of Presen t illness [...] 2023 10:07 AM documented in this encounter [facility] 05-13-2023 Note Patient Outreach (NE TNAV) LEEANNE ANTONIO ([id number]) 1955 M Date Time Provider Department 05/13/23 CHARU OSUNA During your visit today, we [...] Visit: Population Health Navigation Outreach [3910] Cmt: [place] Care Gaps Prescriptions as of 05/13/2023 - lansoprazole(PREVACID 30 MG CAP) Take one(1) tablet daily. Problem List As Of Date 05/13/2023 Noted Resolved ESOPHAGEAL REFLUX [K21.9] 10/09/2006 TOBACCO USE DISORDER [F17.200] 10/09/2006 Letter Text Encounter Status:Closed by CHARU OSUNA on 05/13/23 [facility] 05-13-2023 Note HNO ID: [id number] Author: Charu Osuna MA Service: ? Author Type: Flavor Maker Type: Progress Notes Filed: 05/13/2023 11:17 AM [...] DEPRESSION ASSESSMENT Never done Navigation Signature: Charu Bolick, Population Health Navigator May 13, 2023 8:37 AM [facility] 05-13-2023 History of Presen t illness [...] 2023 8:37 AM documented in this encounter [facility] 03-05-2023 Note Patient Outreach (NE TNAV) LEEANNE ANTONIO ([id number]) 1955 M Date Time Provider Department 03/05/23 [...] Encounter Status:Closed by MALIHA BOWLING on 03/05/23 [facility] 03-05-2023 Note HNO ID: [id number] Author: Maliha Bowling MA Service: ? Author Type: Flavor Maker Type: Progress Notes Filed: 03/05/2023 2:16 PM [...] Bowling MA March 05, 2023 11:28 AM [facility] 03-05-2023 History of Presen t illness [...] 2023 11:28 AM documented in this encounter [facility] 01-13-2023 Note Patient Outreach (NE TNAV) LEEANNE ANTONIO ([id number]) 1955 M Date Time Provider Department 01/13/23 [...] Cmt: [place] Care Gaps Prescriptions as of 01/13/2023 - lansoprazole(PREVACID 30 MG CAP) Take one(1) tablet daily. Problem List As Of Date 01/13/2023 Noted Resolved ESOPHAGEAL REFLUX [K21.9] 10/09/2006 TOBACCO USE DISORDER [F17.200] 10/09/2006 Letter Text Encounter Status:Closed by CHARU OSUNA on 01/13/23 [facility] 01-13-2023 Note HNO ID: [id number] Author: Charu Osuna MA Service: ? Author Type: Flavor Maker Type: Progress Notes Filed: 01/13/2023 3:26 PM [...] Health Navigator January 13, 2023 9:29 AM [facility] Evaluation note No assessment inform ation available [facility] Work Phone: Reason for referral (narrative) No reason for referral information available [facility] Work Phone: Summary Purpose Family History No [...] May 16, 2025 End: May 16, 2025 Team Status: Inactive Member Role/Relationship Status Dates Dr. Alex Funes MD Primary Care Provider Active Start: June 02, 2025 End: June 02, 2025 Dr. Alex Funes MD Attending Provider Active Start: June 02, 2025 End: June 02, 2025 Dr. Alex Funes MD Referring Provider Active Start: June 02, 2025 End: June 02, 2025 Source Comments (unrecognize d section and content) In the event this informatio n is protected by the Federal Confidentiality of Alcohol and Drug Abuse Patient Records regulations: The Federal rules restrict any use of the information to criminally investigate or prosecute any alcohol or drug abuse patient.[facility] the event this information is protected by the Federal Confidentiality of Alcohol and Drug Abuse Patient Records regulations: The Federal rules restrict any use of the information to criminally investigate or prosecute any alcohol or drug abuse patient.[facility] the event this information is protected by the Federal Confidentiality of Alcohol and Drug Abuse Patient Records regulations: The Federal rules restrict any use of the information to criminally investigate or prosecute any alcohol or drug abuse patient.[facility] the event this information is protected by the Federal Confidentiality of Alcohol and Drug Abuse Patient Records regulations: The Federal rules restrict any use of the information to criminally investigate or prosecute any alcohol or drug abuse patient.[facility] Reason for Visit (unrecogniz ed section and content) Reason Onset Date Comments Population Health Navigation Outreach 03/05/2023 Care Gaps Reason Onset Date Comments Population Health Navigation Outreach 05/13/2023 [place] Care Gaps Reason Onset Date Comments Population Health Navigation Outreach 06/30/2023 [place] care gaps Reason Onset Date Comments Population Health Navigation Outreach 10/06/2023 [place] care gaps (unrecognized sect ion and content) No Status Records FoundNo Status Records Found INFORMATION SOURCE (unrecogn ized section and content) DATE CREATED AUTHOR 10/08/2023 [facility] DATE CREATED AUTHOR AUTHOR'S ORGANIZ ATION 06/13/2025 [facility] FOR RECORDS PERTAINING TO PATIENTS WHO ARE [...] BE BASED ON THE PRIMARY CLINICAL RECORDS. [facility] provides no warranty or guarantee of the accuracy or completeness of information in this document.
[2025-08-15 12:16] LABS: Hematocrit 47.9 % (40-54); Hemoglobin 16.3 g/dL (13.0-16.5); Immature Granulocytes Count 0.060 X10^3/uL (0.0-0.0); Mean Corp Hgb Conc 34.0 g/dL (32-36); Mean Corpuscular Volume 92.1 fL (80-94); Mean Platelet Vol. 10.0 fl (6.2-12.0); NRBC Flagged by Analyzer 0 % (0-5); Platelet Count 296 K/mm3 (150-450); RBC Distribution Width CV 12.4 % (11.6-14.6); RBC Distribution Width SD 42.0 fl (35.1-43.9); Red Blood Count 5.20 M/mm3 (4.6-6.2); White Blood Count 6.9 K/mm3 (4.4-11.0)
[2025-08-15 14:09] LABS: AST(SGOT) 16 U/L (<=37); Alanine Aminotransfer ALT/SGPT 18 U/L (<=46); Albumin, Serum 4.1 g/dL (3.4-4.8); Alkaline Phosphatase 73 U/L (40-129); Anion Gap 9 (5-15); BUN 18 mg/dL (4-19); BUN/Creat Ratio 19.4 RATIO (10-20); Calcium,Total 9.8 mg/dL (7.6-11.0); Carbon Dioxide 27.8 mmol/L (21.0-32.0); Chloride 102 mmol/L (98-108); Cholesterol 107 mg/dL (<=200); Ferritin 549 ng/mL (37-417); Globulin 2.7 g/dL (2.2-4.2); Glucose 174 mg/dL (70-99); Low Density Lipoprotein Calc. 46 mg/dL; Potassium 4.3 mmol/L (3.3-5.1); Triglycerides 115 mg/dL; Very Low Density Lipoprotein 23 mg/dL (5-40); cholesterol:hdl ratio screen 2.67
[2025-08-15 14:34] LABS: Iron 141 ug/dL (65-175); Iron Binding Capacity,Total 263 ug/dL (250-450); Iron Binding Capacity,Unsat 122 ug/dL (228-428)
[2025-08-16 08:09] LABS: PSA, Free 1.81 ng/mL; PSA, Free % 26.2 % (.); PSA, Total Ultrasensitive 6.900 ng/mL (0.000-4.000); Transferrin 221 mg/dL (177-329)
== END | disposition home or self-care (01) ==
LOC: MFPLAB 09:52
PROVIDERS: PCP Family Medicine; Visit Provider Family Medicine
DX: E11.69 Type 2 diabetes mellitus with other specified complication (principal); R71.8 Other abnormality of red blood cells; R97.20 Elevated prostate specific antigen [PSA]
CPT/HCPCS: 36415; 80053; 80061; 82728; 83036; 83540; 83550; 84153; 84154; 84466; 85025